=== PATIENT | female | born 1935 | race Caucasian/White ===

== ENCOUNTER 2020-10-02 14:16 | Outpatient (RCR) | payer MEDICARE, OTHER, SELFPAY | END 2020-10-02 23:59 | LOC: IMMUN 14:16 | PROVIDERS: PCP Family Medicine; Visit Provider Family Medicine | DX: Z23 Encounter for immunization (principal) | CPT/HCPCS: 0011A; 0012A; 91301 ==

== ENCOUNTER 2021-09-22 11:57 | Outpatient (CLI) | payer MEDICARE, OTHER, SELFPAY ==
--- NOTE | 2021-09-22 12:08 | RAD_ITS ---
STUDY: X-RAY - LEFT KNEE REASON FOR EXAM: Female, 86 years old. Knee pain. TECHNIQUE: 4 view(s) of the knee. COMPARISON: None. FINDINGS: Osteopenia. Small sessile exostosis of the medial tibial metaphysis. Moderate arthrosis of the medial compartment with osteophyte formation. Mild arthrosis of the lateral compartment with small osteophytes. Lateral tilt and subluxation of the patella with mild arthrosis of the patellofemoral compartment. The soft tissue structures are unremarkable. RAD/Knee 4 or More Views IMPRESSION: Osteopenia with small sessile exostosis of the medial tibial metaphysis. Tricompartmental arthrosis as described. No acute abnormality, erosive changes, chondrocalcinosis or periostitis. Electronically Signed: Ricardo Ruiz MD at 12:58 EST , Service support ,
== END 2021-09-22 23:59 | disposition short-term general hospital (02) ==
LOC: MTRAD 12:01
PROVIDERS: PCP Family Medicine; Referring Provider Family Medicine; Visit Provider Family Medicine
DX: M17.12 Unilateral primary osteoarthritis, left knee (principal)
CPT/HCPCS: 73564

== ENCOUNTER 2021-11-09 10:09 | Emergency (ER) | payer MEDICARE, OTHER, SELFPAY ==
[2021-11-09 10:11] VITALS: BP 146/110; PULSE 83; RESP 16; TEMP 36.5; O2SAT 99; BMI 31.9
[2021-11-09 10:22] VITALS: BMI 31.9
--- NOTE | 2021-11-09 10:45 | CT_ITS ---
STUDY: CT HEAD STROKE PROTOCOL W/O CONTRAST INJECTION REASON FOR EXAM: Female, 86 years old. Weakness L>R RADIATION DOSAGE (If Supplied By Facility): CTDIvol = ( 44.99 ) mGy, DLP = ( 796.11 ) mGycm TECHNIQUE: Transaxial CT imaging of the brain was performed without administration of intravenous contrast material. Individualized dose optimization techniques were used for this CT. COMPARISON: No relevant priors. FINDINGS: Normal soft tissue structures. Normal calvarium. There is moderate cerebral atrophy with widening of the extra-axial spaces and ventricular dilatation. There are areas of decreased attenuation within the white matter tracts of the supratentorial brain, consistent with microvascular disease changes. Normal basal ganglia and thalami. Normal brainstem. Normal cerebellum. There is no intracranial hemorrhage. There are no findings of an acute ischemic infarction. Normal visualized paranasal sinuses. CT/STROKE Brain/Head without Cont IMPRESSION: Chronic involutional changes of the brain. N.B. : The above Results were Read Back by Chele Finn MD to Evens Arzola and understanding confirmed on 11/09/2021 12:11:54 (ET). Electronically Signed: Chele Finn MD at 12:13 EST ,
--- NOTE | 2021-11-09 10:45 | EKG12_ITS ---
Test Reason : NEURO S\SX Blood Pressure : / mmHG Vent. Rate : 061 BPM Atrial Rate : 061 BPM P-R Int : 206 ms QRS Dur : 080 ms QT Int : 380 ms P-R-T Axes : 032 006 032 degrees QTc Int : 382 ms Normal sinus rhythm Normal ECG Confirmed by TY MAX, KASIA ([id number]), editor managing newspaper WILLIE HAIRSTON ([id number]) on 11/12/2021 1:20:47 PM Referred By: YULY Confirmed By:KASIA CRAWFORD MD
--- NOTE | 2021-11-09 10:45 | RAD_ITS ---
STUDY: X-RAY CHEST REASON FOR EXAM: Female, 86 years old. Neuro deficit, acute, stroke suspected TECHNIQUE: Single AP portable view of the chest. COMPARISON: None. FINDINGS: The lungs are clear and expanded. There is no demonstrated pleural abnormality. Normal size heart. Normal mediastinum and norberto. Normal visualized pulmonary arteries. Normal visualized aortic arch and descending thoracic aorta. Normal visualized thoracic spine. Normal visualized ribs, clavicles, and shoulders. There is no demonstrated abnormality of the visualized soft tissue structures of the upper abdomen. RAD/Chest 1 View IMPRESSION: Normal x-ray examination of the chest. Electronically Signed: Kamlesh Dhillon MD at 13:00 [facility] ,
--- NOTE | 2021-11-09 10:47 | ED.VIS.STROK ---
HPI History of Present Illness Chief Complaint: Neuro S/Sx Informant: patient Onset/Context/Timing Onset: Weeks (1) Context: - (Awoke with symptoms gradually worse) Timing: Continuous Current Severity: Moderate Maximum Severity: Moderate Associated Symptoms Associated Symptoms: Negative for Headache, Nausea, Vomiting and Chest Pain Narrative Narrative: Patient states she has had symptoms for about 1 week. She called her doctor today Tuesday morning and was referred to the ER for them. She states she has had weakness and pain in the muscles of her proximal bilateral upper and lower extremities but her left hand has felt tingly without robin numbness and more weak than the rest of the areas. She is having trouble getting herself dressed and reaching her arms up due to the symptoms but she is able to walk and get around okay so far, although she does admit limitations with getting up from a seated position because of both muscle pain in her thighs and weakness of her legs. She has chronic peripheral neuropathy in both feet that is radiating up her lower legs that is chronic and unchanged. She denies any facial symptoms or trouble speaking or understanding others. No headaches or vision changes or blurriness. Patient lives by herself. No recent illness, injury, long travel. Prior similar symptoms: No Recent Illness/Hospitalization: No PFSH PFS Medical History Diabetes Essential tremor Home Medications dulaglutide [Trulicity] 0.75 mg SUBCUT QWEEK 11/09/21 [History Last Taken Unknown] insulin glargine [Lantus Solostar U-100 Insulin] 31 unit SUBCUT BID 11/09/21 [History Last Taken Unknown] lisinopril 5 mg PO DAILY 11/09/21 [History Last Taken Unknown] omeprazole 20 mg PO DAILY 11/09/21 [History Last Taken Unknown] Allergy/AdvReac Type Severity Reaction Status Date / Time No Known Allergies Allergy Verified 11/09/21 10:11 Social History Smoking Status: Never smoker ROS ROS ED Constitutional Constitutional ED: Denies chills or fever(s) Eyes Eyes: Denies change in vision or diplopia ENT ENT ED: Denies rhinorrhea or sore throat Cardiovascular Cardiovascular: Denies chest pain or palpitations Respiratory/Chest Respiratory/Chest: Denies cough or dyspnea Gastrointestinal Gastrointestinal: Denies abdominal pain, diarrhea, nausea or vomiting Genitourinary Genitourinary ED: Denies dysuria or hematuria Musculoskeletal Musculoskeletal: Denies back pain or neck pain Integumentary Denies abscess or rash Neurologic Neurologic: Reports paresthesias LUE and weakness; Denies headache(s) Psychiatric Psychiatric: Denies anxiety or suicidal thoughts EXAM Physical Exam Const Vital Signs: 11/09/21 10:11 11/09/21 10:45 11/09/21 12:10 Temperature 97.7 F L Temperature Source Temporal Pulse Rate 83 62 Respiratory Rate 16 18 Blood Pressure 146/110 H 134/85 H Blood Pressure Mean 122 101 Pulse Ox 99 94 Oxygen Delivery Method Room Air Room Air Room Air 11/09/21 14:37 11/09/21 16:26 Temperature Temperature Source Pulse Rate 93 52 L Respiratory Rate Blood Pressure 125/82 H 165/71 H Blood Pressure Mean 96 102 Pulse Ox 99 97 Oxygen Delivery Method Room Air Room Air Positive well nourished and well developed General Appearance ED: well developed and NAD HEENT Reports moist mucous membranes normocephalic and atraumatic Eyes PERRL and EOMs intact bilaterally Neck full ROM and supple Lymph Lymphatic: no lymphadenopathy noted and no lymphedema noted Resp normal respiratory effort and clear to auscultation bilaterally Cardio regular rate and regular rhythm Cardio Narrative: Systolic decrescendo 2/6 murmur. Occasional irregularity. GI non-tender and non-distended Auscultation: normoactive bowel sounds Palpation: soft Back/Spine no CVA tenderness General Back: other FROM Extremity normal to inspection General Extremety ED: Negative for edema, pulses abnormal or tenderness General Extremity: Negative for edema or pulses abnormal Neuro oriented x3, CN's II-XII intact bilaterally and no sensory deficits noted Sensorium / Orientation: awake and alert Motor Exam: strength 5/5 throughout Skin no rashes or lesions noted and no wounds STROKE Vital Signs/Narrative: Vital Signs Pulse BP Pulse Ox 11/09/21 16:26 52 L 165/71 H 97 11/09/21 14:37 93 125/82 H 99 NIHSS Initial: 1a Level of Consciousness: 0 1b LOC Questions (Score 2 if aphasic/stupor): 0 1c LOC Commands (Only score 1st attempt): 0 2 Best Gaze (If aphasic, use reflexive mvmts.): 0 3 Visual: 0 4 Facial Palsy: 0 5 Motor Arm Right (UN = amputation/fusion): 1 5 Motor Arm Left: 2 6 Motor Leg Right: 1 6 Motor Leg Left: 1 7 Limb ataxia (Only + if out of proportion): 0 8 Sensory (Aphasia/stupor=0 or 1, coma=2): 1 9 Best Language: 0 10 Dysarthria (mute, coma=2, intubated=UN): 0 11 Extinction and Inattention (only scored if +): 0 Total Score: 6 MDM MDM MDM Narrative Medical decision making narrative: Patient has a broad differential for these symptoms. This includes metabolic, infectious, cerebrovascular disease in addition to cervical disc disease, Guillain-Nguyen? for which she has no risk factors or history of, multiple sclerosis and other primary neurologic diseases, primary muscular disease, rheumatologic etiologies, and this list is not exclusive of every possibility. I performed a broad work-up including cardiac enzymes and EKG, metabolic hematologic, infectious. Also CT of the head. All of this revealed no acute abnormality. Furthermore her urine shows no signs of blood on the dip or microscopy, ruling out rhabdomyolysis without the need to add a CPK. Her glucose is 156, which certainly is a diabetic does not explain this. Given the patient's age and the fact that she lives at home alone is now starting to have difficulty due to the symptoms doing ADLs, I offered admission for further evaluation work-up but she declines and prefers to go home. I discussed with RN and the patient's PCPs office, who actually sent her to the emergency department today, in order to expedite outpatient evaluation and further care. Discussed all this with the patient she is welcome to return to the ER if she changes her mind or feels worse in the meantime. Lab Data Attestation: I reviewed the patient's lab results. Labs: Laboratory Results - last 24 hr 11/09/21 11/09/21 11/09/21 10:55 10:55 11:18 WBC 8.2 RBC 4.10 L Hgb 11.9 L Hct 36.7 L MCV 89.5 MCH 29.0 MCHC 32.4 RDW Std Deviation 45.8 H RDW Coeff of Samuel 14.0 Plt Count 230 MPV 11.4 Immature Gran % (Auto) 0.400 Neut % (Auto) 71.0 H Lymph % (Auto) 19.3 [place] % (Auto) 6.6 Eos % (Auto) 2.3 Baso % (Auto) 0.4 Absolute Neuts (auto) 5.8 Absolute Lymphs (auto) 1.57 Nucleated RBC % 0 Sodium 138 Potassium 4.1 Chloride 106 Carbon Dioxide 26.0 Anion Gap 6 BUN 12 Creatinine 1.00 Estim Creat Clear Calc 34.64 Est GFR (MDRD) Af Amer 68 Est GFR (MDRD) Non-Af 56 L BUN/Creatinine Ratio 12.1 Glucose 156 H Calcium 9.5 Troponin I High Sens 6 Urine Color Yellow Urine Clarity Sl. Cloudy Urine pH 6.0 Ur Specific [place] 1.010 Urine Protein Negative Urine Glucose (UA) Normal Urine Ketones Negative Urine Occult Blood Negative Urine Nitrite Negative Urine Bilirubin Negative Urine Urobilinogen Normal Ur Leukocyte Esterase Negative Urine RBC 0 SEEN Urine WBC 0 SEEN Ur Squamous Epith Cells 5-10 SEEN Urine Bacteria 1+ Urine Mucus 0 SEEN Radiography Diagnostic Testing: Clinical Impression(s) from Imaging Studies Brain CT 11/09/21 10:45 IMPRESSION: Chronic involutional changes of the brain. N.B. : The above Results were Read Back by Chele Finn MD to Evens Arzola and understanding confirmed on 11/09/2021 12:11:54 (ET). Electronically Signed: Chele Finn MD at 12:13 EST , ADDENDUM: 11/09/21 1220 IMPRESSION: Chronic involutional changes of the brain. N.B. : The above Results were Read Back by Chele Finn MD to Evens Arzola and understanding confirmed on 11/09/2021 12:11:54 (ET). Electronically Signed: Chele Finn MD at 12:13 EST , Chest X-Ray 11/09/21 10:45 IMPRESSION: Normal x-ray examination of the chest. Electronically Signed: Kamlesh Dhillon MD at 13:00 EST , EKG Initial EKG: Attestation: I personally reviewed and interpreted this EKG as follows: Interpretation: Sinus Rhythm and No Acute Injury Pattern Comments: normal EKG Stroke Documentation Questions Stroke Team Activated: No (timing) Discharge Plan Triage Chief Complaint: Neuro S/Sx Other Complaint: Weakness ED Provider: Evens Arzola Dx/Rx/DC Orders Clinical Impression: Acute muscle weakness Instructions: ED Weakness (Uncertain Cause) Prescriptions: No Action lisinopril 5 mg Tablet 5 mg PO DAILY RF: 0 Lantus Solostar U-100 Insulin 100 unit/mL (3 mL) Insulin Pen 31 unit SUBCUT BID RF: 0 omeprazole 20 mg Tablet,Delayed Release (Dr/Ec) 20 mg PO DAILY RF: 0 Trulicity 0.75 mg/0.5 mL Pen Injector 0.75 mg SUBCUT QWEEK RF: 0 Primary Care Provider: Kike Russo Referrals: Kike Russo MD [Primary Care Provider] - As soon as possible (If you feel worse and you are having trouble performing activities of daily living and you feel that you need to be admitted to the hospital for further testing, please return to the ER) Disposition Disposition: Home, Self Care
[2021-11-09 11:03] LABS: Absolute Lymphocyte Count 1.57 X10^3/uL (0.83-4.51); Absolute Neutrophil Count 5.8 X10^3/uL (2.0-7.7); Basophil# 0.03 X10^3/uL; Basophil% 0.4 % (0-1); Eosinophil# 0.19 X10^3/uL; Eosinophils% 2.3 % (0-5); Hematocrit 36.7 % (37-47); Hemoglobin 11.9 g/dL (12.0-15.0); Lymphocyte # 1.57 X10^3/ul (0.83-4.51); Lymphocyte % 19.3 % (19-41); Mean Corp Hgb Conc 32.4 g/dL (32-36); Mean Corpuscular Volume 89.5 fL (81-99); Mean Platelet Vol. 11.4 fl (6.2-12.0); Monocyte# 0.54 X10^3/uL; Monocyte% 6.6 % (0-10); NRBC Flagged by Analyzer 0 % (0-5); Neutrophil # 5.79 X10^3/uL (2.7-7.7); Platelet Count 230 K/mm3 (150-450); RBC Distribution Width SD 45.8 fl (35.1-43.9); White Blood Count 8.2 K/mm3 (4.4-11.0)
[2021-11-09 11:20] LABS: Anion Gap 6 (5-15); BUN 12 mg/dL (7-18); BUN/Creat Ratio 12.1 RATIO (10-20); Calcium,Total 9.5 mg/dL (8.5-10.1); Chloride 106 mmol/L (98-107); EST Glomerular Filtration Rate 56 mL/min (>60); Est Glom Filt Rate - Afr Amer 68 mL/min (>60); Estimated Creatinine Clearance 34.64 ml/min; Glucose 156 mg/dL (74-106); Potassium 4.1 mmol/L (3.5-5.1); Sodium Level 138 mmol/L (136-145); Troponin-I HS 6 pg/mL (3.0-54.0)
[2021-11-09 11:26] LABS: Mucous, Urine 0 SEEN /hpf (<or=2+); Red Blood Cells-Urine 0 SEEN /hpf (0-5); White Blood Cells 0 SEEN /hpf (0-5)
[2021-11-09 11:35] LABS: Color, Urine Yellow (Yellow); Glucose, Dipstick Normal (Normal); Ketone-Dipstick Negative (Negative); Leukocyte Esterase-Dipstick Negative /ul (Negative); Nitrite-Dipstick Negative (Negative); Occult Blood-Urine Negative /ul (Negative); Protein-Dipstick Negative (Negative); Urine Bilirubin Dipstick Negative (Negative); Urine Clarity Sl. Cloudy (Clear); Urine Urobilinogen Normal (Normal)
[2021-11-09 11:50] LABS: Bacteria 1+ /hpf (None Seen); Squamous Epithelial Cells - UA 5-10 SEEN /hpf (5-10)
[2021-11-09 12:10] VITALS: BP 134/85; PULSE 62; RESP 18; O2SAT 94
[2021-11-09 14:37] VITALS: BP 125/82; PULSE 93; O2SAT 99
[2021-11-09 16:26] VITALS: BP 165/71; PULSE 52; O2SAT 97
== END 2021-11-09 16:50 | disposition home or self-care (01) ==
PROVIDERS: Emergency Provider Emergency Medicine; PCP Family Medicine; Visit Provider Emergency Medicine
DX: M62.81 Muscle weakness (generalized) (principal); E11.9 Type 2 diabetes mellitus without complications; Z79.4 Long term (current) use of insulin; Z79.899 Other long term (current) drug therapy
CPT/HCPCS: 70450; 71045; 80048; 81001; 84484; 85025; 93005; 99283; A4216

== ENCOUNTER → 2022-05-27 | Outpatient (CLI) | payer MEDICARE, OTHER, SELFPAY ==
--- NOTE | 2022-05-27 09:33 | ECHOD_ITS ---
Reason For Study: MURMUR Procedure This was a 2D Doppler, Color Flow transthoracic echocardiogram. Exam performed in department. Left Ventricle Normal LV size. Mild concentric left ventricular hypertrophy. Left ventricular systolic function is normal. The estimated ejection fraction is 55 %. Stage 1 diastolic dysfunction. No regional wall motion abnormalities noted. Right Ventricle Normal RV size. Normal systolic function. Atria Normal left atrium. Normal right atrium. Mitral Valve Normal mitral valve. Tricuspid Valve Normal tricuspid valve. Mild (1+) tricuspid valve insufficiency. Pulmonary artery systolic pressure is 34 mmHg. Aortic Valve Trisinus/trileaflet aortic valve. Mild focal aortic valve calcification. Aortic sclerosis, no stenosis. Pulmonic Valve Normal pulmonic valve. Great Vessels Normal aortic root. The pulmonary artery is normal size. Normal inferior vena cava. Pericardium/Pleural No pericardial effusion. MMode/2D Measurements & Calculations LVIDd: 3.7 cm IVSd: 1.3 cm Ao root diam: 3.2 cm LVIDs: 2.1 cm LVPWd: 1.2 cm RVDd: 2.8 cm FS: 43.1 % LAV(MOD-bp): 54.4 ml LVAd ap4: 22.8 cm2 SV(MOD-sp4): 35.9 ml LAV(MOD-bp) Indexed: 29.4 ml/m2 LVLd ap4: 7.8 cm LAV(MOD-sp2): 80.4 ml EDV(MOD-sp4): 55.4 ml LAV(MOD-sp4): 33.5 ml EDV(sp4-el): 57.1 ml LVAs ap4: 11.7 cm2 LVLs ap4: 6.4 cm ESV(MOD-sp4): 19.5 ml ESV(sp4-el): 18.2 ml EF(MOD-sp4): 64.8 % EF(sp4-el): 68.2 % SV(sp4-el): 38.9 ml LA A4 area: 15.7 cm2 LA dimension(2D): 3.3 cm RA A4 area: 19.4 cm2 Time Measurements MV dec time: 0.26 sec Doppler Measurements & Calculations MV E max shun: 94.8 cm/sec Lat Peak E' Shun: 8.4 cm/sec Med Peak E' Shun: 5.8 cm/sec MV A max shun: 102.8 cm/sec E/E' lat: 11.3 E/E' med: 16.3 MV E/A: 0.92 MV V2 max: 105.6 cm/sec Ao V2 max: 178.8 cm/sec MV max P.5 mmHg MV dec slope: 371.8 cm/sec2 Ao max P.8 mmHg MV V2 mean: 67.9 cm/sec Ao V2 mean: 118.0 cm/sec MV mean P.1 mmHg Ao mean P.5 mmHg MV V2 VTI: 35.9 cm Ao V2 VTI: 37.1 cm LV V1 max: 117.9 cm/sec PA V2 max: 108.0 cm/sec TR max shun: 273.2 cm/sec LV V1 max P.6 mmHg PA V2 mean: 77.1 cm/sec TR max P.9 mmHg LV V1 mean P.1 mmHg LV V1 mean: 82.3 cm/sec LV V1 VTI: 26.3 cm ECHO/Echo Complete Interpretation Summary Normal LV size. Left ventricular systolic function is normal. The estimated ejection fraction is 55 %. Stage 1 diastolic dysfunction. Mild concentric left ventricular hypertrophy. Aortic sclerosis, no stenosis. Ordering Physician: Eryn Guerra Referring Physician: Eryn Guerra Performed By: Kathleen Grijalva RCS
== END | disposition home or self-care (01) ==
LOC: CVS 09:31
PROVIDERS: PCP Family Medicine; Referring Provider Family Medicine; Visit Provider Family Medicine
DX: I35.8 Other nonrheumatic aortic valve disorders (principal); R01.1 Cardiac murmur, unspecified; R60.0 Localized edema
CPT/HCPCS: 93306

== ENCOUNTER → 2022-09-21 | Outpatient (CLI) | payer MEDICARE, OTHER, SELFPAY ==
--- NOTE | 2022-09-21 15:55 | RAD_ITS ---
ACR Level 3 findings have been noted. An addendum which confirms receipt of the report will follow. INDICATION: COUGH EXAMINATION/TECHNIQUE: X-RAY - XR Chest 2 Views COMPARISON: None. FINDINGS: Questionable 1.3 cm nodule in the right lower lung. Tortuous and calcified thoracic aorta. The heart is not enlarged. No pleural effusion or pneumothorax. Degenerative changes of the thoracic spine. RAD/Chest PA and Lateral IMPRESSION: Questionable 1.3 cm nodule in the right lower lung. Consider dedicated chest CT with contrast for further evaluation. Electronically Signed: Joss Cunningham MD at 23:03 EST ,
== END | disposition home or self-care (01) ==
LOC: MTRAD 15:46
PROVIDERS: PCP Family Medicine; Referring Provider Family Medicine; Visit Provider Family Medicine
DX: U07.1 COVID-19 (principal); R05.9 Cough, unspecified
CPT/HCPCS: 71046; 87635; U0003; U0005

== ENCOUNTER → 2022-11-16 | Outpatient (CLI) | payer MEDICARE, OTHER, SELFPAY ==
--- NOTE | 2022-11-16 15:43 | CT_ITS ---
STUDY: CT CHEST WITH CONTRAST REASON FOR EXAM: Female, 87 years old. NODULE ON CXR RADIATION DOSAGE (If Supplied By Facility): CTDIvol = ( 12.52 ) mGy, DLP = ( 449.73 ) mGycm TECHNIQUE: Transaxial imaging was performed following intravenous administration of IV 100mL Isovue-370. Multiplanar coronal and sagittal images were reformatted. Individualized dose optimization techniques were used for this CT. COMPARISON: Comparison is made with prior chest radiograph dated September 21, 2022. FINDINGS: CHEST The radiographic abnormality corresponds to a 1.4 cm partially calcified granuloma in the lateral aspect of the right upper lobe as seen on axial image #76 and coronal image #135. There is no demonstrated pleural abnormality. No coronary artery calcification is seen. Normal mediastinum. Normal hilar regions. Normal unenhanced pulmonary arteries. There is atherosclerotic calcification of the aortic arch with tortuosity and elongation of the aortic arch and descending thoracic aorta. There are multi-level degenerative changes of the thoracic spine. There is no demonstrated abnormality of the visualized upper abdomen. CT/Chest WITH Contrast IMPRESSION: The radiographic abnormality corresponds to a 1.4 cm partially calcified granuloma in the lateral aspect of the right upper lobe. Electronically Signed: Chele Finn MD at 16:11 EST ,
== END | disposition home or self-care (01) ==
LOC: CT 15:41
PROVIDERS: PCP Family Medicine; Referring Provider Family Medicine; Visit Provider Family Medicine
DX: R93.89 Abnormal findings on diagnostic imaging of other specified body structures (principal)
CPT/HCPCS: 71260; Q9967

== ENCOUNTER 2022-11-30 10:30 | Outpatient (RCR) | payer MEDICARE, OTHER, SELFPAY | END 2022-12-10 23:59 | LOC: DC 10:30 | PROVIDERS: PCP Family Medicine; Visit Provider Family Medicine | DX: E11.9 Type 2 diabetes mellitus without complications (principal); G62.9 Polyneuropathy, unspecified | CPT/HCPCS: 97802; G0108 ==

== ENCOUNTER 2023-01-05 13:00 | Outpatient (RCR) | payer MEDICARE, OTHER, SELFPAY | END 2023-01-09 23:59 | LOC: DC 13:00 | PROVIDERS: PCP Family Medicine; Referring Provider Family Medicine; Visit Provider Family Medicine | DX: E11.9 Type 2 diabetes mellitus without complications (principal); G62.9 Polyneuropathy, unspecified | CPT/HCPCS: 97803; G0108 ==

== ENCOUNTER 2023-01-26 09:09 | Outpatient (RCR) | payer MEDICARE, OTHER, SELFPAY | END 2023-02-09 23:59 | LOC: DC 09:09 | PROVIDERS: PCP Family Medicine; Referring Provider Family Medicine; Visit Provider Family Medicine | DX: E11.9 Type 2 diabetes mellitus without complications (principal); G62.9 Polyneuropathy, unspecified | CPT/HCPCS: G0108 ==

== ENCOUNTER → 2023-02-08 | Outpatient (CLI) | payer MEDICARE, OTHER, SELFPAY ==
[2023-02-08 12:22] LABS: Absolute Lymphocyte Count 1.53 X10^3/uL (0.83-4.51); Absolute Neutrophil Count 4.6 X10^3/uL (2.0-7.7); Basophil# 0.03 X10^3/uL; Basophil% 0.4 % (0-1); Eosinophil# 0.24 X10^3/uL; Eosinophils% 3.4 % (0-5); Hematocrit 38.2 % (37-47); Hemoglobin 11.5 g/dL (12.0-15.0); Lymphocyte # 1.53 X10^3/ul (0.83-4.51); Lymphocyte % 21.7 % (19-41); Mean Corp Hgb Conc 30.1 g/dL (32-36); Mean Corpuscular Hgb 28.3 pg (27.0-32.0); Mean Corpuscular Volume 93.9 fL (81-99); Mean Platelet Vol. 12.4 fl (6.2-12.0); Monocyte% 8.5 % (0-10); NRBC Flagged by Analyzer 0 % (0-5); Neutrophil # 4.63 X10^3/uL (2.7-7.7); Neutrophil % 65.7 % (47-70); Platelet Count 195 K/mm3 (150-450); RBC Distribution Width CV 14.1 % (11.6-14.6); RBC Distribution Width SD 47.9 fl (35.1-43.9); Red Blood Count 4.07 M/mm3 (4.2-5.4); White Blood Count 7.1 K/mm3 (4.4-11.0)
[2023-02-08 12:36] LABS: ALB/GLOB Ratio 0.9 RATIO (0.9-2.4); AST(SGOT) 18 U/L (15-37); Alanine Aminotransfer ALT/SGPT 24 U/L (13-56); Albumin, Serum 3.2 g/dL (3.2-5.0); Alkaline Phosphatase 49 U/L (45-117); Anion Gap 8 (5-15); BUN 15 mg/dL (7-18); BUN/Creat Ratio 17.1 RATIO (10-20); Calcium,Total 9.6 mg/dL (8.5-10.1); Chloride 107 mmol/L (98-107); Cholesterol 134 mg/dL (200); Creatinine, Serum 0.88 mg/dL (0.55-1.02); EST Glomerular Filtration Rate 65 mL/min (>60); Est Glom Filt Rate - Afr Amer 79 mL/min (>60); Globulin 3.7 g/dL (2.2-4.2); Glucose 141 mg/dL (74-106); High Density Lipoprotein 52 mg/dL; Potassium 3.9 mmol/L (3.5-5.1); Protein, Total 6.9 g/dL (6.4-8.2); Sodium Level 143 mmol/L (136-145); Triglycerides 134 mg/dL; Very Low Density Lipoprotein 27 mg/dL (5-40)
== END | disposition home or self-care (01) ==
LOC: BFHLAB 09:02
PROVIDERS: PCP Family Medicine; Referring Provider Family Medicine; Visit Provider Family Medicine
DX: E11.9 Type 2 diabetes mellitus without complications (principal); I10 Essential (primary) hypertension; E78.5 Hyperlipidemia, unspecified
CPT/HCPCS: 36415; 80053; 80061; 85025

== ENCOUNTER → 2023-05-06 | Outpatient (CLI) | payer MEDICARE, OTHER, SELFPAY ==
--- NOTE | 2023-05-06 10:25 | RAD_ITS ---
STUDY: X-RAY - LUMBAR SPINE REASON FOR EXAM: Female, 88 years old. Left radiculopathy. TECHNIQUE: 4 view(s) of the lumbar spine were obtained. COMPARISON: None FINDINGS: Osteopenia. Normal lumbar lordosis. No substantial scoliosis. alignment of the vertebrae. Diffuse lower thoracic and lumbosacral facet sclerosis. Intervertebral disc space narrowing at L3-4, L4-5 and L5-S1. Intradiscal calcification at L4-5. Vascular calcification. RAD/L/S Spine Min 4 Views IMPRESSION: Osteopenia with mild lower lumbosacral spondylosis. No acute abnormality or erosive changes. Electronically Signed: Ricardo Ruiz MD at 14:20 EDT ,
[2023-05-06 12:00] LABS: Absolute Lymphocyte Count 1.53 X10^3/uL (0.83-4.51); Absolute Neutrophil Count 4.4 X10^3/uL (2.0-7.7); Basophil# 0.04 X10^3/uL; Basophil% 0.6 % (0-1); Eosinophil# 0.32 X10^3/uL; Eosinophils% 4.7 % (0-5); Hematocrit 36.8 % (37-47); Hemoglobin 11.2 g/dL (12.0-15.0); Lymphocyte # 1.53 X10^3/ul (0.83-4.51); Lymphocyte % 22.3 % (19-41); Mean Corp Hgb Conc 30.4 g/dL (32-36); Mean Corpuscular Hgb 28.5 pg (27.0-32.0); Mean Corpuscular Volume 93.6 fL (81-99); Mean Platelet Vol. 12.4 fl (6.2-12.0); Monocyte# 0.53 X10^3/uL; Monocyte% 7.7 % (0-10); NRBC Flagged by Analyzer 0 % (0-5); Neutrophil # 4.41 X10^3/uL (2.7-7.7); Neutrophil % 64.1 % (47-70); Platelet Count 186 K/mm3 (150-450); RBC Distribution Width CV 14.2 % (11.6-14.6); RBC Distribution Width SD 48.7 fl (35.1-43.9); Red Blood Count 3.93 M/mm3 (4.2-5.4); White Blood Count 6.9 K/mm3 (4.4-11.0)
[2023-05-06 12:28] LABS: Vitamin B12 282 pg/mL (211-911)
[2023-05-06 12:40] LABS: Ferritin 37 ng/mL (8-252); Iron 48 ug/dL (50-170); Iron Binding Capacity,Total 299 ug/dL (250-450); PERCENT IRON SATURATION 16.1 % (15.0-55.0); Thyroid Stim Hormone (TSH) 1.83 uIU/mL (0.358-3.74)
[2023-05-06 13:00] LABS: Microalbumin,Random Urine 8.4 mg/L (NO RANGE EST.); Microalbumin:Creatinine Ratio 20.4 mg/g CRE (<30 mg/g CRE)
== END | disposition home or self-care (01) ==
LOC: MTLAB 10:08
PROVIDERS: PCP Family Medicine; Referring Provider Family Medicine; Visit Provider Family Medicine
DX: I10 Essential (primary) hypertension (principal); E11.9 Type 2 diabetes mellitus without complications; D64.9 Anemia, unspecified
CPT/HCPCS: 36415; 72110; 82043; 82570; 82607; 82728; 82746; 83540; 83550; 84443; 85025

== ENCOUNTER → 2023-05-14 | Outpatient (CLI) | payer MEDICARE, OTHER, SELFPAY ==
--- NOTE | 2023-05-14 09:30 | MRI_ITS ---
STUDY: MRI LUMBAR SPINE WITHOUT CONTRAST REASON FOR EXAM: Female, 88 years old. L RADICULOPATHY IN HIP AND DOWN TO TOES X 3 MONTHS TECHNIQUE: Standardized fat and water weighted pulse sequences were obtained in the sagittal and axial planes. COMPARISON: X-ray the lumbar spine dated May 06, 2023 FINDINGS: Normal lumbar lordosis. There is no substantial scoliosis. Normal conus medullaris that terminates at the T12-L1 level. No marrow edema or fracture or compression deformity is present. Diffuse sigmoid diverticulosis is present. T12-L1: Diffuse disc desiccation with mild disc space narrowing and a diffuse disc spur complex.. Normal bilateral facet joints. Normal central canal and bilateral lateral recesses. Normal bilateral intervertebral neural foramina. L1-2: Normal endplates. Diffuse disc desiccation with mild disc space narrowing and posterior annular bulging. Normal bilateral facet joints. Normal central canal and bilateral lateral recesses. Normal bilateral intervertebral neural foramina. L2-3: Normal endplates. Diffuse disc desiccation with mild disc space narrowing and posterior annular bulging. Normal bilateral facet joints. Normal central canal and bilateral lateral recesses. Normal bilateral intervertebral neural foramina. L3-4: Diffuse disc desiccation with mild to moderate posterior disc space narrowing with a posterior disc spur complex. Mild anterior endplate spurring. Mild facet joint hypertrophy. Mild bilateral foraminal stenosis. Mild central canal stenosis. L4-5: Slight anterolisthesis of L4 and L5 of no more than 2 mm. Diffuse disc desiccation with minimal disc space narrowing and annular bulging. Mild facet joint hypertrophy. Normal central canal and bilateral lateral recesses. Normal bilateral intervertebral neural foramina. L5-S1: Normal endplates. Mild disc desiccation and minimal disc space narrowing with only slight posterior annular bulging. Mild right facet joint hypertrophy and degeneration. Normal central canal and bilateral lateral recesses. Normal bilateral intervertebral neural foramina. Normal visualized sacral ala. There is moderate paraspinal muscular atrophy. MRI/Spine Lumbar (Routine) IMPRESSION: 1. Mild multilevel degenerative changes, as described above. Electronically Signed: Vikas Wynne MD at 9:30 EDT ,
== END | disposition home or self-care (01) ==
LOC: MRI 08:43
PROVIDERS: PCP Family Medicine; Referring Provider Family Medicine; Visit Provider Family Medicine
DX: M54.16 Radiculopathy, lumbar region (principal)
CPT/HCPCS: 72148

== ENCOUNTER 2023-07-01 12:30 | Outpatient (RCR) | payer MEDICARE, OTHER, SELFPAY ==
--- NOTE | 2023-06-01 12:05 | HP.PTEVAL ---
Patient's Visit Information Visit Information Visit Information: LAUREN ATKINS is a 88 year old F referred to Physical Therapy by Dr. rEyn Guerra MD with a diagnosis of LUMBAR RADICULOPATHY. Date of Evaluation: 06/01/23 Physical Therapist: Janneth Dixon PT, Cert MDT Visit Plan Frequency: 2-3x /Week Duration: 4-6 Weeks Plan: GAIT TRAINING, POSTURE CORRECTION/STRENGTHENING, INSTRUCTION IN APPROPRIATE BODY MECHANICS AND ACTIVITY MODIFICATIONS. DLS STARTING WITH A NEUTRAL SPINE PROGRESSING ROM TOLERATED. KODY LE ROM, STRETCHING AND STRENGTHENING. HEP INSTRUCTION. Subjective Subjective: Work/Leisure: RETIRED Present symptoms: L BUTTOCK PAIN AND KODY THIGH, LEG, FOOT AND TOE PAIN. NUMBNESS AND TINGLING BELOW THE KNEES KODY. Present since: L BUTTOCK AREA PAIN STARTED ABOUT 2 MONTHS AGO. PATIENT STATES SHE THINKS HER NEUROPATHY SX'S/FOOT AND LOWER LEG PAIN STARTED ABOUT 6 MONTHS AGO. Pain Scale: WORST 8/10, LEAST 3/10 Currently: 3/10 Is it getting better, worse or staying the same: STAYING THE SAME Commenced as a result of: NO APPARENT REASON Symptoms at onset: L BUTTOCK PAIN Worse: PROLONGED SITTING, WALKING, LAYING DOWN IN THE BED, GETTING IN AND OUT OF THE CAR, BENDING DOWN TO PICK ANYTHING UP Better: ALEVE, ICY HOT ON LEGS, RECLINER Disturbed sleep: YES - HARD TO GET COMFORTABLE TO GO TO SLEEP. Previous history/Previous treatment: PATIENT DENIES ANY HX OF BACK PROBLEMS. PATIENT DENIES ANY HISTORY OF HIP PROBLEMS. NO BACK OR HIP SURGERIES OR INJECTIONS. NO CHIROPRACTIC. Treatment this episode: INCREASE OF GABAPENTIN Coughing/sneezing/straining: NEGATIVE Gait: USING CANE OUTSIDE OF HOME AND IN HOME WALKS ON HER OWN OR WITH WALKER NEEDED. Bowel or Bladder Dysfunction: NO Accidents: NO Unexplained weight loss: NO Imaging: RECENT LUMBAR X-RAYS AND MRI - SEE [facility] EMR. NO RECENT L HIP X-RAYS. PMH/Recent major surgery: IDDM, L TKR AUG [address] DIAZ AND STATES SHE USED A WALKER THEN A CANE AND HAS USED A CANE EVER SINCE BUT WAS NOT USING A CANE BEFORE THE KNEE REPLACEMENT. Objective Objective: Sitting/Standing Posture: POOR. INCREASED TRUNK FLEXION IN STANDING. REDUCED LUMBAR LORDOSIS. UNABLE TO FULLY CORRECT. Other Observations: THIS PATIENT AMBULATES INDEP'LY INTO PT WITH A STRAIGHT CANE WITH DECREASED CADANCE BUT NO LOB AND DENIES ANY RECENT FALLS. KODY LE ER L >R. KODY LE EDEMA L>R AND PATIENT REPORTS THIS IS NOT NEW. SHE REPORTS SHE DOES PRETTY GOOD WITH THE CANE AND AMBULATED GREATER THAN 300 FEET WITH THIS PT. SHE REPORTS HER L HIP ACHES CONSTANTLY AND GETS MORE INTENSE WITH MORE WALKING. IT ALSO GETS WORSE WITH PROLONGED SITTING. SHE IS UNABLE TO TRANSFER FROM SIT TO STAND WITHOUT UE ASSIST AND REQUIRES KODY UE ASSIST FOR TRANSFER SIT TO STAND. Sensory deficit: KODY LE LIGHT TOUCH SENSATION GROSSLY INTACT AND SYMMETRICAL ROM deficit: TIGHT KODY LE HIP FLEXORS, HS'S AND GASTROC-SOLEUS COMPLEX'S L>R. KODY HIP ROTATION TIGHTNESS L > R AND PATIENT C/O L HIP PAIN WITH L HIP IR TESTING. Motor deficit: KODY LE WEAKNESS L>R. RLE: HIP 4/5, KNEE 4/5, ANKLE 4/5. LLE: HIP 4-/5, KNEE 4-/5, ANKLE 4-/5. Dural Signs: NEGATIVE KODY LE'S. Lumbar mvmt loss: flex - MODERATE - INCREASES C/O POSTERIOR L HIP PAIN ext - DANILO R SG - DANILO L SG - DANILO PATIENT DENIES INCREASED PAIN WITH LUMBAR ROM TESTING ALL PLANES EXCEPT FLEXION. Core strength: POOR Palpation: LEFT POSTERIOR HIP TENDERNESS. PATIENT DENIES TENDERNESS WITH PALPATION OF LOWER THORACIC, LUMBAR AND SACRAL REGIONS. Balance/Special Test Scores Oswestry Low Back Score: 17 Goals Goal 1:: DECREASE C/O LOW BACK AND KODY LE SX'S. Goal Time Frame: 4-6 Weeks Goal 2:: IMPROVE LIFTING, ADL, WALKING, SITTING, STANDING, SOCIAL LIFE, TRAVEL AND HOMEMAKING FUNCTION. Goal Time Frame: 4-6 Weeks Goal 3:: INSTRUCT IN PROPHYLAXIS Goal Time Frame: 4-6 Weeks Anticipated Interventions Patient/Client Instruction: Educate patient on: Condition, Plan of Care and Risk Factors For the Purpose of:: To improve self management Therapeutic Exercise to Include: Strength training, Body mechanics, Postural training, Flexibilty training, Gait and locomotor training, Neuromotor development, In an aquatic setting and Dynamic Lumbar Stabilization For the Purpose of:: To decrease pain, To improve muscle performance and motor function, To increase tolerance to activity/condition/position, To improve ability of physical actions for home/community/work/leisure and To improve gait and locomotor functions Text: Thank you for the opportunity to evaluate your patient. For Medicare and Medicare HMO plans, please review the plan of care and approve it. It will need to be FAXED BACK to us at [phone] for Medicare purposes. For Medicare only, by signing this I certify the plan of care. Please let me know if there are questions or concerns regarding this plan of care. Physician Signature: Date:
--- NOTE | 2023-07-01 13:24 | HP.PTDCSUM_ITS ---
Discharge Summary D/C summary: It has been my pleasure to treat LAUREN ATKINS referred by Dr. Eryn Guerra MD, with the diagnosis of LUMBAR RADICULOPATHY for a total of 7 visit(s). Discharge Date: Please see the following information for a summary of their discharge status. Subjective Subjective: PATIENT REPORTS SHE IS SOME BETTER. SHE STATES SHE CAN DO THE EX'S EASIER NOW THAN WHEN SHE STARTED AND SHE IS GETTING AROUND A LITTLE BETTER. SHE REPORTS SHE STILL HAS PAIN IN BOTH OF HER LEGS (L>R) AND SHE ISN'T SURE IF IT IS HER NEUROPATHY OR NOT AND SHE STILL DOESN'T UNDERSTAND HOW IT IS FROM HER BACK BECAUSE SHE DOESN'T HAVE BACK PAIN. SHE STATES SHE FEELS SHE IS TOO DEPENDENT ON THE CANE AND SHE JUST ISN'T STEADY WITHOUT IT. SHE REPORTS COMPLIANCE WITH HEP AND ACTIVITY RECOMMENDATIONS - TRYING TO GET UP AND MOVE MORE. PATIENT REPORTS HAVING A CONSULT WITH DR. DIAZ AND HE DID MORE X-RAYS AND TOLD HER NOTHING IS WRONG WITH HER HIP AND IT IS ALL COMING FROM HER BACK. HE REFERRED HER TO DR. BERMUDEZ AND SHE SAW HIM LAST WEEK. RORY IS PENDING 07/12/[address] BERMUDEZ. SHE REPORTS DR. BERMUDEZ WANTED TO IMPLANT AN ELECTRONIC DEVICE BUT SHE STATES SHE DOESN'T WANT TO GO THAT ROUTE YET. PATIENT REPORTS SHE WANTS TO CONTINUE WITH HER HOME EX'S AND SEE HOW THE SHOT DOES AT THIS POINT AND THEN WILL CONSIDER MORE PT IF NEEDED. Pain L BUTTOCK: Pain Intensity (Out of 10): 5 LLE: Pain Intensity (Out of 10): 6 KODY LE'S: Pain Intensity (Out of 10): 4 Overall Improvement % Improvement: 50 Objective Objective/Function: PATIENT WAS SEEN TODAY FOR RE-ASSESSMENT OF PROGRESS TOWARD THE SET PT GOALS AND THE NEED FOR FURTHER PHYSICAL THERAPY VS READINESS FOR DISCHARGE. PATIENT IS REPORTING SOME IMPROVEMENT IN HER MOBILITY BUT STILL HAVING A LOT OF LEG PAIN (L>R). UPON EXAM TODAY, THERE ARE NO SIGNIFICANT OB JECTIVE CHANGES BUT SHE IS ABLE TO TOLERATE A LIGHT LOWER BODY HEP. Goals Goal 1:: DECREASE C/O LOW BACK AND KODY LE SX'S. Goal Progress: Not Progressing Goal 2:: IMPROVE LIFTING, ADL, WALKING, SITTING, STANDING, SOCIAL LIFE, TRAVEL AND HOMEMAKING FUNCTION. Goal Progress: Not Progressing Goal 3:: INSTRUCT IN PROPHYLAXIS Goal Progress: Not Progressing Plan Plan: D/C TO HEP AT THIS TIME. PATIENT AGREEABLE. D/C Information d/c sentence: If there are questions or concerns regarding this patient's physical therapy, please feel free to call me at [phone]. Thank you for the referral of this patient. Sincerely, Janneth Dixon, PT, Cert MDT Balance/Gait/Functional tests Balance/Special Test Scores Oswestry Low Back Score: 20 Improvement % Improvement: 50
== END 2023-07-01 19:00 | disposition home or self-care (01) ==
LOC: PT 12:30
PROVIDERS: PCP Family Medicine; Referring Provider Family Medicine; Visit Provider Family Medicine
DX: M54.16 Radiculopathy, lumbar region (principal)
CPT/HCPCS: 97110; 97162; 97164; 97530

== ENCOUNTER → 2024-05-09 | Outpatient (CLI) | payer MEDICARE, OTHER, SELFPAY ==
[2024-05-09 12:36] LABS: Absolute Lymphocyte Count 2.18 X10^3/uL (0.83-4.51); Absolute Neutrophil Count 5.9 X10^3/uL (2.0-7.7); Basophil# 0.05 X10^3/uL; Basophil% 0.6 % (0-1); Eosinophil# 0.24 X10^3/uL; Eosinophils% 2.7 % (0-5); Hematocrit 39.5 % (37-47); Hemoglobin 12.1 g/dL (12.0-15.0); Lymphocyte # 2.18 X10^3/ul (0.83-4.51); Lymphocyte % 24.1 % (19-41); Mean Corp Hgb Conc 30.6 g/dL (32-36); Mean Corpuscular Hgb 28.5 pg (27.0-32.0); Mean Corpuscular Volume 93.2 fL (81-99); Mean Platelet Vol. 12.4 fl (6.2-12.0); Monocyte# 0.61 X10^3/uL; Monocyte% 6.7 % (0-10); NRBC Flagged by Analyzer 0 % (0-5); Neutrophil # 5.92 X10^3/uL (2.7-7.7); Neutrophil % 65.3 % (47-70); Platelet Count 226 K/mm3 (150-450); RBC Distribution Width CV 13.6 % (11.6-14.6); RBC Distribution Width SD 46.4 fl (35.1-43.9); Red Blood Count 4.24 M/mm3 (4.2-5.4); White Blood Count 9.1 K/mm3 (4.4-11.0)
[2024-05-09 12:49] LABS: Vitamin B12 248 pg/mL (211-911)
[2024-05-09 13:04] LABS: ALB/GLOB Ratio 0.9 RATIO (0.9-2.4); AST(SGOT) 16 U/L (15-37); Alanine Aminotransfer ALT/SGPT 16 U/L (13-56); Albumin, Serum 3.2 g/dL (3.2-5.0); Alkaline Phosphatase 56 U/L (45-117); Anion Gap 6 (5-15); BUN 13 mg/dL (7-18); BUN/Creat Ratio 16.4 RATIO (10-20); Calcium,Total 9.4 mg/dL (8.5-10.1); Chloride 105 mmol/L (98-107); Cholesterol 153 mg/dL (200); Creatinine, Serum 0.79 mg/dL (0.55-1.02); EST Glomerular Filtration Rate 73 mL/min (>60); Est Glom Filt Rate - Afr Amer 88 mL/min (>60); Globulin 3.5 g/dL (2.2-4.2); Glucose 109 mg/dL (74-106); High Density Lipoprotein 60 mg/dL; Potassium 4.2 mmol/L (3.5-5.1); Protein, Total 6.7 g/dL (6.4-8.2); Sodium Level 139 mmol/L (136-145); Triglycerides 119 mg/dL; Very Low Density Lipoprotein 24 mg/dL (5-40)
[2024-05-09 13:36] LABS: Microalbumin,Random Urine 6.2 mg/L (NO RANGE EST.)
== END | disposition home or self-care (01) ==
LOC: BFHLAB 08:14
PROVIDERS: PCP Family Medicine; Referring Provider Family Medicine; Visit Provider Family Medicine
DX: E11.9 Type 2 diabetes mellitus without complications (principal); I10 Essential (primary) hypertension; D64.9 Anemia, unspecified; E78.5 Hyperlipidemia, unspecified
CPT/HCPCS: 36415; 80053; 80061; 82043; 82570; 82607; 85025

== ENCOUNTER 2024-07-09 17:30 | Outpatient (RCR) | payer SELFPAY | END 2024-07-12 23:59 | LOC: NS 17:30 | PROVIDERS: PCP Family Medicine | DX: Z71.3 Dietary counseling and surveillance (principal) ==

== ENCOUNTER → 2024-11-06 | Outpatient (CLI) | payer BC, OTHER, SELFPAY ==
[2024-11-06 15:25] LABS: Absolute Lymphocyte Count 1.39 X10^3/uL (0.83-4.51); Basophil# 0.03 X10^3/uL; Basophil% 0.3 % (0-1); Eosinophil# 0.29 X10^3/uL; Eosinophils% 3.1 % (0-5); Hematocrit 37.7 % (37-47); Hemoglobin 11.5 g/dL (12.0-15.0); Lymphocyte # 1.39 X10^3/ul (0.83-4.51); Lymphocyte % 14.7 % (19-41); Mean Corp Hgb Conc 30.5 g/dL (32-36); Mean Corpuscular Hgb 28.7 pg (27.0-32.0); Mean Platelet Vol. 12.2 fl (6.2-12.0); Monocyte# 0.71 X10^3/uL; Monocyte% 7.5 % (0-10); NRBC Flagged by Analyzer 0 % (0-5); Neutrophil # 6.97 X10^3/uL (2.7-7.7); Platelet Count 197 K/mm3 (150-450); RBC Distribution Width CV 13.7 % (11.6-14.6); Red Blood Count 4.01 M/mm3 (4.2-5.4); White Blood Count 9.4 K/mm3 (4.4-11.0)
[2024-11-07 02:12] LABS: ALB/GLOB Ratio 1.4 RATIO (0.9-2.4); AST(SGOT) 41 U/L (<=31); Alanine Aminotransfer ALT/SGPT 24 U/L (<=34); Albumin, Serum 3.8 g/dL (3.4-4.8); Alkaline Phosphatase 53 U/L (35-104); BUN 15 mg/dL (4-19); BUN/Creat Ratio 16.5 RATIO (10-20); Creatinine, Serum 0.9 mg/dL (0.6-1.0); EST Glomerular Filtration Rate 63 (>60); Globulin 2.6 g/dL (2.2-4.2); Glucose 226 mg/dL (70-99); Protein, Total 6.4 g/dL (5.9-8.4); Total Bilirubin 0.22 mg/dL (0.00-1.30); Vitamin B12 334 pg/mL (180-914)
[2024-11-07 04:02] LABS: Anion Gap 17 (5-15); Chloride 101 mmol/L (98-107); Potassium 4.3 mmol/L (3.5-5.1); Sodium Level 136 mmol/L (136-145)
== END | disposition home or self-care (01) ==
PROVIDERS: PCP Family Medicine; Visit Provider Family Medicine
DX: E11.9 Type 2 diabetes mellitus without complications (principal); I10 Essential (primary) hypertension; E78.5 Hyperlipidemia, unspecified; D64.9 Anemia, unspecified; R53.83 Other fatigue; E53.8 Deficiency of other specified B group vitamins
CPT/HCPCS: 36415; 80053; 82607; 84443; 85025

== ENCOUNTER → 2025-03-13 | Outpatient (CLI) | payer OTHER, MEDICARE, SELFPAY ==
--- NOTE | 2025-03-13 12:35 | RAD_ITS ---
PROCEDURE: RIBS UNIL 2V NO CXR 03/13/2025 REASON FOR EXAM: PAIN, FALL TECHNIQUE: Four view left rib series COMPARISON: Chest x-ray 09/21/2022 RAD/Ribs Unil 2V No CXR IMPRESSION: [id number] left acromioclavicular joint degenerative changes are seen, wi th distal clavicular inferior osteophyte also noted. Moderate degenerative changes about the left humeral head greater tuberosity fu rther suggest the presence of significant chronic rotator cuff disease. The left glenohumeral joint demonstrates at least mild degenerative changes. Moderate degenerative changes of the visualized spine also noted. No pneumothorax is seen in visualized areas. No rib fracture is identified. If clinical concern persists, short-term follow-up imaging may be obtained to r ule out a currently occult fracture. Reading Location: [place] [id number]
--- NOTE | 2025-03-13 12:35 | RAD_ITS ---
PROCEDURE: L/S SPINE MIN 4 VIEWS 03/13/2025 REASON FOR EXAM: PAIN, FALL TECHNIQUE: L/S SPINE MIN 4 VIEWS COMPARISON: None. FINDINGS: No evidence acute fracture or dislocation. Moderate discogenic degenerative changes of the visualized spine. No visualized pars defects. Normal alignment. RAD/L/S Spine Min 4 Views IMPRESSION: Spondylosis. Reading Location: [place] [id number]
--- NOTE | 2025-03-13 12:35 | RAD_ITS ---
PROCEDURE: RIBS UNIL 2V NO CXR 03/13/2025 REASON FOR EXAM: PAIN, FALL TECHNIQUE: Four view left rib series COMPARISON: Chest x-ray 09/21/2022 RAD/Ribs Unil 2V No CXR IMPRESSION: [id number] left acromioclavicular joint degenerative changes are seen, wi th distal clavicular inferior osteophyte also noted. Moderate degenerative changes about the left humeral head greater tuberosity fu rther suggest the presence of significant chronic rotator cuff disease. The left glenohumeral joint demonstrates at least mild degenerative changes. Moderate degenerative changes of the visualized spine also noted. No pneumothorax is seen in visualized areas. No rib fracture is identified. If clinical concern persists, short-term follow-up imaging may be obtained to r ule out a currently occult fracture. Reading Location: [place] [id number]
--- NOTE | 2025-03-13 12:35 | RAD_ITS ---
PROCEDURE: L/S SPINE MIN 4 VIEWS 03/13/2025 REASON FOR EXAM: PAIN, FALL TECHNIQUE: L/S SPINE MIN 4 VIEWS COMPARISON: None. FINDINGS: No evidence acute fracture or dislocation. Moderate discogenic degenerative changes of the visualized spine. No visualized pars defects. Normal alignment. RAD/L/S Spine Min 4 Views IMPRESSION: Spondylosis. Reading Location: [place] [id number]
== END | disposition home or self-care (01) ==
LOC: MTRAD 12:33
PROVIDERS: PCP Family Medicine; Referring Provider Nurse Practitioner Family; Visit Provider Nurse Practitioner Family
DX: R07.81 Pleurodynia (principal); Z91.81 History of falling
CPT/HCPCS: 71100; 72110

== ENCOUNTER → 2025-05-10 | Outpatient (CLI) | payer MEDICARE, OTHER, SELFPAY ==
--- OUTSIDE RECORDS SUMMARY | 2025-05-10 10:07 | XMS RPT_ITS | CCD ---
Author Organization [facility] CliniSymi Care Team Providers Care Shop Cooper Name Role Phone DASIA COLE Unavailable Unavailable DASIA COLE Unavailable Unavailable ADRIA ACEVEDO Unavailable UnavailADRIA Harding Unavailable UnavailJoss Robledo MD Primary Care Provider [facility], [place] Unavailable Adria Acevedo DO Unavailable Kike Russo MD Primary Care Provider Dr. Eryn Guerra Primary Care Provider [phone] Dr. Jalil Redmond Attending Provider Dr. Eryn Guerra Primary Care Provider [phone] Dr. Jalil Redmond Attending Provider ERYN GUERRA Primary Care Physician [phone] ERYN GUERRA Primary Care Unavailable CRYS DIAZ MD Attending Unavailable ERYN GUERRA Primary Care Unavailable CRYS DIAZ MD Attending Unavailable ERYN GUERRA Primary Care Unavailable CRYS DIAZ MD Attending Unavailable CRYS DIAZ MD Admitting CRYS Saxena MD Referring Unavailable ERYN GUERRA Consulting Unavailable PLACIDO SHAIKH Consulting Unavailable Adria Acevedo DO Unavailable Eryn Guerra MD Primary Care Provider Eryn Guerra MD Primary Care Provider Joss Gant MD Primary Care Provider [facility], [place] Unavailable Adria Acevedo DO Unavailable Eryn Guerra MD Primary Care Provider Charlie MAX, Dr. Cerna Primary Care Provider Charlie MAX, Dr. Cerna Attending Provider Dr. Eryn Guerra MD Primary Care Provider Denny MOBILE QA TESTER-C, Polly Attending Provider Denny MOBILE QA TESTER-C, Polly Referring Provider [phone] Eryn Guerra Attending Unavailable Mied, Douglas Primary Care Unavailable Miedel, Douglas Primary Care Unavailable Referred, Self Attending Unavailable Mied, Douglas Primary Care Unavailable Referred, Self Attending Unavailable [facility], Eryn Referring Unavailable Mied, Eryn Attending Unavailable Mied, Douglas Primary Care Unavailable Denny, Polly Referring Unavailable Denny, Polly Attending Unavailable Mied, Douglas Primary Care Unavailable TESTRAKE, EPIFANIO Attending Unavailable TESTRAKE, EPIFANIO Referring Unavailable [facility] Primary Care Unavailable TESTRAKE, EPIFANIO Attending Unavailable TESTRAKE, EPIFANIO Referring Unavailable MIEDEL, [place] E Primary Care Unavailable TESTRAKE, EPIFANIO Attending Unavailable TESTRAKE, EPIFANIO Referring Unavailable [facility] Primary Care Unavailable TESTRAKE, EPIFANIO Attending Unavailable TESTRAKE, EPIFANIO Referring Unavailable [facility] Primary Care Unavailable Allergies Allergy Classification Reported Allergen(s) Allergy Type Date of Onset Reaction(s) Facility (12 sources) DULoxetine; Translations: [DULOXETINE] Drug Allergy 01-26-2021 Intolerance [facility] Work Phone: (13 sources) metFORMIN; Translations: [METFORMIN] Drug Allergy 08-28-2018 Diarrhea [facility] Work Phone: Medications Current Medications Medication Drug Class(es) Dates Sig (Normalized) Sig (Original) acetaminophen 1000 mg oral tablet (10 sources) Start: 09-01-2022 End: 09-15-2022 take 1 tablet by mouth once daily Tylenol Dose : 1,000 mg = 2 tab(s), Oral, TID, not to exceed 3000 mg/day, 0 Refill(s) Start Date: 09/01/22 Stop Date: 09/15/22 Status: Ordered take 2 capsules by [facility] every eight hours as needed Acetaminophen 500 mg cap Take 2 capsules by mouth every 8 hours as needed for pain. Active Comment on above: Take 2 capsules by mouth every 8 hours a s needed for pain. aspirin 81 mg oral tablet (15 sources) Platelet Aggregation Inhibitor, Nonsteroidal Anti-inflammatory Drug Start: 2 End: 3 take 1 tablet by mouth twice daily at mealtime aspirin Dose : 81 mg = 1 tab(s), Oral, BIDM, Take 81 mg aspirin twice daily with food for 4 weeks postoperatively for DVT prophylaxis., 0 Refill(s) Start Date: 09/01/22 Stop Date: 10/01/22 Status: Ordered Start: 03-02-2017 take 1 tablet by [facility] once daily aspirin, enteric coated (ECOTRIN LOW STRENGTH) 81 mg EC tablet Take 1 tablet by mouth once daily. 30 tablet 6 03/02/2017 Active Comment on above: Take 1 tablet by [facility] once daily. Biotin (14 sources) Start: 08-17-2022 take 1 dose by mouth once daily biotin Dose : 10,000 mcg =, Oral, qDay, 0 Refill(s) Start Date: 08/17/22 Status: Ordered Start: 07-19-2016 [facility] Biotin 2,500 mcg cap Take 2 tablets by mouth once daily 0 07/19/2016 Active Comment on above: Take 2 tablets by [facility] once daily SENOKOT-S (1 source) Start: 022 Senokot S Dose = 2 tab(s), Oral, BID, Take until first bowel movement, then as needed, 0 Refill(s) Start Date: 09/01/22 Status: Ordered gabapentin 300 mg oral capsule (9 sources) Anti-epileptic Agent take 1 capsule by mouth twice daily gabapentin (NEURONTIN) 300 mg capsule Take 1 capsule by mouth two times a day. Active Comment on above: Take 1 capsule [facility] two times a day. Hair, skin and Nails Multiple Vitamins with Minerals oral tablet (1 source) Start: take 1 tablet by mouth once daily Hair, skin and Nails Multiple Vitamins with Minerals oral tablet Dose = 1 tab(s), Oral, qDay Start Date: 08/31/22 Status: Ordered hydroCHLOROthiazide 25 mg / lisinopril 20 mg oral tablet (13 sources) Thiazide Diuretic, Angiotensin Converting Enzyme Inhibitor Start: End: take 1 tablet by mouth once daily in the morning lisinopril-hydroCHL OROthiazide (PRINZIDE, ZESTORETIC) 20-25 mg per tablet Take 1 tablet by mouth every morning. 90 tablet 1 02/26/2021 Active Comment on above: Take 1 tablet by [facility] th every morning. NovoLog (15 sources) Insulin Analog Start: NovoLOG See Instructions, 18 unit(s) Subcutaneous TIDAC, 0 Refill(s) Start Date: 08/17/22 Status: Ordered Start: 08-17-2022 inject 12 [IU] by alicea bcutaneous injection at breakfast, then inject 18 [IU] by subcutaneous injection at dinner NovoLOG Subcutaneous, TIDAC, 12 units with breakfast and lunch, 18 units with dinner, 0 Refill(s) Start Date: 08/17/22 Status: Ordered Start: 06-12-2020 insulin aspart U-100 (NOVOLOG FLEXPEN U-100 INSULIN) 100 unit/mL (3 mL) Indications: Controlled type 2 diabetes mellitus with diabetic neuropathy, with long-term current use of insulin (HCC) Take 12 units of Novolog with breakfast, 12 units with lunch and 18 units with dinner 06/12/2020 Active Comment on above: Take 12 units of Nov olog with breakfast, 12 units with lunch and 18 units with dinner Lantus (20 sources) Insulin Analog Start: 08-17-2022 inject 1 dose by subcutaneous injection twice daily Lantus Dose : 31 unit(s) =, Subcutaneous, BID, 0 Refill(s) Start Date: 08/17/22 Status: Ordered Start: 11-09-2021 Insulin Glargi ne (Lantus Solostar U-100 Insulin) 100 unit/mL (3 mL) Insulin Pen Active 31 U SC TWICE A DAY November 09, 2021 1:00am Start: 11-24-2020 insulin glargi ne (LANTUS SOLOSTAR U-100 INSULIN) 100 unit/mL (3 mL) Indications: 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, without long-term current use of insulin (HCC) Inject 31 Units subcutaneously twice daily. 20 Pen 1 11/24/2020 Active Comment on above: Inject 31 Units subc utaneously twice daily. lisinopril 20 mg oral tablet (15 sources) Angiotensin Converting Enzyme Inhibitor Start: 08-17-2022 lisinopril 20 mg oral tablet Dose : 20 mg = 1 tab(s), Oral, qDay, # 30 tab(s), 0 Refill(s) Start Date: 08/17/22 Status: Ordered Start: 11-09-2021 [facility] Lisinopril 5 mg Tablet Active 5 mg PO DAILY November 09, 2021 1:00am 24 hr metFORMIN hydrochloride 500 mg extended release oral tablet (11 sources) Biguanide Start: 10-15-2020 take 2 tablets by mouth every other day metFORMIN ER (GLUCOPHAGE XR) 500 mg 24 hr tablet Indications: 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, without long-term current use of insulin (HCC) Take 2 tablets by mouth every other day. 90 tablet 1 10/15/2020 Active Comment on above: [facility] every other day. naproxen sodium 220 mg oral tablet (14 sources) Nonsteroidal Anti-inflammatory Drug Start: 08-12-2005 ALEVE 220 MG TAB as necessary 0 08/12/2005 Active Comment on above: as necessary omeprazole 20 mg delayed release oral tablet (20 sources) Proton Pump Inhibitor Start: 11-09-2021 take 1 tablet by mouth once daily Omeprazole 20 mg Tablet,Delayed Release (Dr/Ec) Active 20 mg PO DAILY November 09, 2021 1:00am Start: 11-24-2020 End: 02-26-2021 take 1 capsule by mouth once daily omeprazole (PRILOSEC) 40 mg capsule Indications: Londono's esophagus with esophagitis Take 1 capsule by mouth once daily. 90 capsule 1 02/26/2021 Active Comment on above: Take 1 capsule by mo [facility] once daily. oxyCODONE hydrochloride 5 mg oral tablet (1 source) Opioid Agonist Start: 2 End: 2 take 1-2 tablets by mouth every four hours as needed for pain oxyCODONE 5 mg oral tablet ( IMMEDIATE release ) See Instructions, PRN as needed for pain, 1-2 tab(s) Oral q4h, # 42 tab(s), 0 Refill(s), 09/08/22 16:33:00 EST, Status post total left knee replacement, 84 Start Date: 09/01/22 Stop Date: 09/08/22 Status: Ordered Completed/Discontinued Medications Medication Drug Class(es) Dates Sig (Normalized) Sig (Original) 0.5 ml dulaglutide 3 mg/ml auto-injector (20 sources) GLP-1 Receptor Agonist Start: 08-17-2022 Trulicity Pen 0.75 mg/0.5 mL subcutaneous solution Dose : 0.75 mg = 0.5 mL, Subcutaneous, qWeek, 0 Refill(s), 0.5 mL/Pen Start Date: 08/17/22 Status: Ordered Start: 11-09-2021 Dulaglutide (T rulicity) 0.75 mg/0.5 mL Pen Injector Active 0.75 mg SC EVERY WEEK November 09, 2021 1:00am Start: 11-24-2020 End: 02-26-2021 inject 1.5 mg by subcutaneous injection every week dulaglutide (TRULICITY) 1.5 mg/0.5 mL pen injector Indications: 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, without long-term current use of insulin (HCC) Inject 1.5 mg subcutaneously one time a week. 12 Each 2 02/26/2021 Active Comment on above: Inject 1.5 mg subcut aneously one time a week. 0.25 mg, 0.5 mg dose 1.5 ml semaglutide 1.34 mg/ml pen injector (1 source) End: 12-06-2023 semaglutide (OZEMPIC) 0.25 mg or 0.5 mg(2 mg/1.5 mL) pen Inject 0.25 mg subcutaneously one time a week. 0 12/06/2023 Discontinued Comment on above: Inject 0.25 mg subcu taneously one time a week. Problems Active Problems Problem Classification Problem Date Documented Da te Episodic/Chronic Acute and unspecified renal failure (1 source) Acute renal failure syndrome; Translations: [Acute kidney failure, unspecified] Onset: 09-01-2022 Episodic Crushing injury or internal injury (1 source) Injury of kidney 09-01-2022 Episodic Diabetes mellitus with complications (20 sources) Type 2 diabetes mellitus; Translations: [Type 2 diabetes mellitus with other diabetic neurological complication] Onset: 11-22-2005 Chronic Diabetes mellitus without complication (3 sources) Type 2 diabetes mellitus without complications; Translations: [Type 1 diabetes mellitus without complication] Onset: 03-21-2017 Chronic Disorders of lipid metabolism (12 sources) Hyperlipidemia; Translations: [Other hyperlipidemia] 07-28-2018 Chronic Diverticulosis and diverticulitis (12 sources) Diverticulitis of large intestine without perforation or abscess without bleeding; Translations: [Diverticulitis of colon (without mention of hemorrhage)] Onset: 12-06-2008 12-06-2008 Chronic Esophageal disorders (20 sources) 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; Translations: [Londono's esophagus with esophagitis] Onset: 08-13-2013 Resolved: 10-30-2018 08-13-2013 Chronic Essential hypertension (14 sources) Hypertensive disorder; Translations: [Essential (primary) hypertension] Onset: 02-17-2010 02-17-2010 Chronic Fluid and electrolyte disorders (2 sources) Hypo-osmolality and or hyponatremia; Translations: [Hypo-osmolality and hyponatremia] Onset: 09-01-2022 Episodic Gastroduodenal ulcer (except hemorrhage) (8 sources) Gastric ulcer; Translations: [Gastric ulcer, unspecified as acute or chronic, without hemorrhage or perforation] Onset: 12-17-2005 Resolved: 08-19-2010 08-19-2010 Chronic Mycoses (16 sources) Onychomycosis; Translations: [Tinea unguium] Onset: 04-18-2013 Resolved: 10-17-2017 Episodic Osteoarthritis (2 sources) Osteoarthritis; Translations: [Unspecified osteoarthritis, unspecified site] Onset: 08-31-2022 Chronic Other connective tissue disease (7 sources) Pain of toe of left foot; Translations: [Pain in left toe(s)] Episodic Other connective tissue disease (7 sources) Pain of toe of right foot; Translations: [Pain in right toe(s)] Episodic Other connective tissue disease (12 sources) Osteophyte of bone; Translations: [Enthesopathy, unspecified] 07-28-2018 Episodic Other connective tissue disease (13 sources) Muscle weakness; Translations: [Muscle weakness (generalized)] 11-17-2021 Episodic Other connective tissue disease (1 source) Pain in left toe(s); Translations: [Pain in toe of left foot] Onset: 04-30-2025 Episodic Other connective tissue disease (1 source) Pain in right toe(s); Translations: [Pain in toe of right foot] Onset: 04-30-2025 Episodic Other gastrointestinal disorders (2 sources) Dysphagia; Translations: [Dysphagia, unspecified] 12-06-2023 Episodic Other hereditary and degenerative nervous system conditions (12 sources) Essential tremor; Translations: [Essential tremor] 07-09-2019 Chronic Other lower respiratory disease (1 source) Pleurodynia; Translations: [Pleurodynia] Onset: 03-20-2025 Episodic Other non-traumatic joint disorders (1 source) Pain in right knee; Translations: [Pain in joint, lower leg] 12-02-2020 Episodic Other nutritional; endocrine; and metabolic disorders (1 source) Other obesity due to excess calories; Translations: [Other obesity due to excess calories] Onset: 03-21-2017 Chronic Peripheral and visceral atherosclerosis (7 sources) Peripheral vascular disease, unspecified; Translations: [Peripheral vascular disease, unspecified] Onset: 04-30-2025 Chronic Rheumatoid arthritis and related disease (12 sources) Rheumatoid arthritis; Translations: [Rheumatoid arthritis, unspecified] Onset: 03-11-2011 04-14-2017 Chronic Unclassified (1 source) Family history of malignant neoplasm of digestive organs; Translations: [Family history of malignant neoplasm of digestive organs] Onset: 02-28-2018 Episodic Unclassified (1 source) Hypersomnia, unspecified; Translations: [Hypersomnia, unspecified] Onset: 03-21-2017 Past or Other Problems Problem Classification Problem Date Documented Date Episodic/Chronic Allergic reactions (20 sources) Solar degeneration; Translations: [Other skin changes due to chronic exposure to nonionizing radiation] Onset: 04-22-2010 Resolved: 10-17-2017 04-22-2010 Episodic Diseases of mouth; excluding dental (8 sources) Angular cheilitis; Translations: [Diseases of lips] Onset: 04-18-2013 Resolved: 10-17-2017 10-17-2017 Episodic Esophageal disorders (8 sources) Esophagitis; Translations: [Esophagitis, unspecified] Resolved: 08-19-2010 08-19-2010 Episodic Gastritis and duodenitis (8 sources) Acute gastritis; Translations: [Acute gastritis without bleeding] Resolved: 08-19-2010 08-19-2010 Episodic Other aftercare (1 source) shelter (current) use of insulin; Translations: [shelter (current) use of insulin] Onset: 03-21-2017 Episodic Other and unspecified benign neoplasm (20 sources) Melanocytic nevus of trunk; Translations: [Melanocytic nevi of trunk] Onset: 04-22-2010 Resolved: 10-17-2017 01-13-2011 Episodic Other circulatory disease (12 sources) Telangiectasia disorder; Translations: [Nevus, non-neoplastic] Onset: 04-22-2010 04-22-2010 Episodic Other connective tissue disease (8 sources) Pain in limb; Translations: [Pain in unspecified limb] Onset: 04-11-2006 Resolved: 10-17-2017 10-17-2017 Episodic Other ear and sense organ disorders (12 sources) Chondrodermatitis nodularis helicis; Translations: [Unspecified perichondritis of external ear, unspecified ear] Onset: 04-12-2014 04-12-2014 Episodic Other lower respiratory disease (1 source) Other forms of dyspnea; Translations: [Other forms of dyspnea] Onset: 03-21-2017 Episodic Other nervous system disorders (8 sources) Skin sensation disturbance; Translations: [Unspecified disturbances of skin sensation] Onset: 04-11-2006 Resolved: 10-17-2017 10-17-2017 Episodic Other non-traumatic joint disorders (2 sources) Shoulder pain; Translations: [Pain in left shoulder] Onset: 04-12-2016 04-12-2016 Episodic Other non-traumatic joint disorders (12 sources) Hip pain; Translations: [Pain in right hip] Onset: 11-20-2018 11-20-2018 Episodic Other non-traumatic joint disorders (10 sources) Pain in left shoulder; Translations: [Pain in joint, shoulder region] Onset: 04-12-2016 04-12-2016 Episodic Other skin disorders (12 sources) Sebaceous cyst of skin; Translations: [Sebaceous cyst] Onset: 07-26-2008 07-26-2008 Episodic Other skin disorders (12 sources) Actinic keratosis; Translations: [Actinic keratosis] Onset: 04-22-2010 04-22-2010 Episodic Other skin disorders (12 sources) Inflamed seborrheic keratosis; Translations: [Inflamed seborrheic keratosis] Onset: 04-22-2010 04-22-2010 Episodic Other skin disorders (12 sources) Solar lentigo; Translations: [Other melanin hyperpigmentation] Onset: 04-22-2010 04-22-2010 Episodic Other skin disorders (12 sources) Asteatosis cutis; Translations: [Xerosis cutis] Onset: 06-13-2013 06-13-2013 Episodic Other skin disorders (8 sources) Seborrheic keratosis; Translations: [Other seborrheic keratosis] Onset: 04-22-2010 Resolved: 10-17-2017 10-17-2017 Episodic Spondylosis; intervertebral disc disorders; other back problems (12 sources) Lumbar radiculopathy; Translations: [Radiculopathy, lumbar region] Onset: 12-24-2018 12-24-2018 Episodic Results Test Name Value Interpretation Reference Range Facility [facility] 04-30-2025 CNOV Office Visit (PODIWS ) WILMARMARIA ELENA CHOWDHURY ([id number]) 1935 F NFR Date Time Provider Department 04/30/25 10:00 AM EPIFANIO PEÑA PODIWS During your visit today, we recorded the following information about you: Karly Connor MA 04/30/2025 10:19 AM Signed Patient presents with: Left Foot - Nail care Right Foot - Nail care AMB ROOMING INTAKE FLOWSHEET DATA Pain Pain Level: 6 Pain Location: (Bilateral feet) Description: Numbness, Tingling Duration Amount of Time: (Ongoing) Frequency: Continuous Intervention/Comfort measure: Medication Patient states she has been bothering her more lately. Feels it has moved up into her lower legs. Taking Gabapentin and helps her sleep at night. Blood sugar this morning was 78. Epifanio Peña 04/30/2025 10:19 AM Signed Last saw pcp: not in chart Subjective: Patient presents to clinic c/o painful toenails. They state that the nails are especially painful with shoe gear and pressure. Patient states that nails 1-5 b/l are painful. Patient admits to being diabetic. No other pedal complaints at this time. Patient states no change in medications or medical history since last visit. Objective: Patient presents to clinic ambulating in [facility] Vasc: DP and PT pulses are faintly palpable bilateral. CFT is less than 5 seconds bilateral. Skin temperature is warm to cool proximal to distal bilateral. There is moderate edema or varicosities noted. Neuro: Protective sensation is decreased to the foot and toes when tested with the 5.07 SWM bilateral. Vibratory sensation is absent at the hallux IPJ bilateral. The hallux is downgoing bilateral. Derm: Nails 1-5 b/l are painful, discolored-yellow, thick, crumbly, dystrophic and with subungal debris. Skin is of normal turgor, texture and hair growth is absent bilateral. There are no hyperkeratosis, ulcerations, scars, verruca or other lesions noted. Ortho: Muscle strength is 5/5 for all pedal groups tested. Ankle joint DF is decreased with the knee extended with no pain or crepitus noted. 1st MPJ ROM is decreased bilateral. 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 Nails 1-5 bilateral were debrided in length and thickness. Patient was instructed on the continued importance of diabetic foot care along with proper diet and keeping their blood sugar under control to prevent complications. I stressed the importance of wearing good shoes due to severe arthritis/collaspe of b/l midfoot Stressed the importance of avoiding barefoot walking, wearing good shoes and inspection of feet. Patient is to RTC in 3-4 months. Epifanio Peña DPM Referring Provider: EPIFANIO PEÑA [[id number]] Allergies As of Date: 04/30/2025 Noted Allergy Reaction CYMBALTA (DULOXETINE) 01/26/2021 5 - Intolerance Comments: Made patient sleepy and groggy METFORMIN 08/28/2018 6 - Diarrhea Comments: On ER form Date Reviewed: 04/30/2025 Reviewed by: Karly Connor MA - Fully Assessed Reason for Visit: Nail care [Other] Nail care [Other] Primary Visit Diagnosis:Onychomycosis [B35.1] Other Visit Diagnoses:Pain in toe of left foot [M79.675] Pain in toe of right foot [M79.674] Diabetic polyneuropathy associated with type 2 diabetes mellitus (HCC) [E11.42] PAD (peripheral artery disease) [I73.9] Prescriptions as of 04/30/2025 - Acetaminophen 500 mg cap Take 2 capsules by mouth every 8 hours as needed for pain. - gabapentin (NEURONTIN) 300 mg capsule Take 1 capsule by mouth two times a day. - omeprazole (PRILOSEC) 40 mg capsule Take 1 capsule by mouth once daily. - lisinopril-hydroCHLOROt hiazide (PRINZIDE, ZESTORETIC) 20-25 mg per tablet Take 1 tablet by mouth every morning. - dulaglutide (TRULICITY) 1.5 mg/0.5 mL pen injector Inject 1.5 mg subcutaneously one time a week. - insulin glargine (LANTUS SOLOSTAR U-100 INSULIN) 100 unit/mL (3 mL) Inject 31 Units subcutaneously twice daily. - metFORMIN ER (GLUCOPHAGE XR) 500 mg 24 hr tablet Take 2 tablets by mouth every other day. - insulin aspart U-100 (NOVOLOG FLEXPEN U-100 INSULIN) 100 unit/mL (3 mL) Take 12 units of Novolog with breakfast, 12 units with lunch and 18 units with dinner - Insulin [place], Disposable, (BD ULTRA-FINE ALEXANDER PEN NEEDLE) 32 gauge x Use one needle for each dose. four per day. - aspirin, enteric coated (ECOTRIN LOW STRENGTH) 81 mg EC tablet Take 1 tablet by mouth once daily. - Biotin 2,500 mcg cap Take 2 tablets by mouth once daily - ALEVE 220 MG TAB as necessary Problem List As Of Date 04/30/2025 Noted Resolved DM (diabetes mellitus) type II c (more content not included)... Normal [facility] L/S Spine Min 4 Viewson 07-0 L/S Spine Min 4 Views [facility] [address] [place], [place] [id number] [phone] L/S Spine Min 4 Views MR#: [id number] Acct: [id number] Name: MARIA ELENA ATKINS Rep #: [id number] : 1935 F 89 From: Epifanio Treadwell MD PCP: Dr. Eryn Guerra MD Status: REG CLI Study: L/S Spine Min 4 Views Date of Exam: 03/13/25 Exam# [id number] Ordering Dr: Polly Baldwin PROCEDURE: L/S SPINE MIN 4 VIEWS 03/13/2025 REASON FOR EXAM: PAIN, FALL TECHNIQUE: L/S SPINE MIN 4 VIEWS COMPARISON: None. FINDINGS: No evidence acute fracture or dislocation. Moderate discogenic degenerative changes of the visualized spine. No visualized pars defects. Normal alignment. RAD/L/S Spine Min 4 Views IMPRESSION: Spondylosis. Reading Location: [id number] CC: MOBILE QA TESTER-C Polly Baldwin; Dr. Eryn Guerra MD Embalmer Assistant: Signed Normal [facility] Ribs Unil 2V No CXRon 2024 Ribs Unil 2V No CXR [facility] [address] [place], [place] [address] Ribs Unil 2V No CXR MR#: [id number] Acct: [id number] Name: MARIA ELENA ATKINS Rep #: [id number] : 1935 F 89 From: Meng Fernando PCP: Dr. Eryn Guerra MD Status: REG CLI Study: Ribs Unil 2V No CXR Date of Exam: 03/13/25 Exam# [id number] Ordering Dr: Polly [place] PROCEDURE: RIBS UNIL 2V NO CXR 03/13/2025 REASON FOR EXAM: PAIN, FALL TECHNIQUE: Four view left rib series COMPARISON: Chest x-ray 09/21/2022 RAD/Ribs Unil 2V No CXR IMPRESSION: [id number] left acromioclavicular joint degenerative changes are seen, with distal clavicular inferior osteophyte also noted. Moderate degenerative changes about the left humeral head greater tuberosity further suggest the presence of significant chronic rotator cuff disease. The left glenohumeral joint demonstrates at least mild degenerative changes. Moderate degenerative changes of the visualized spine also noted. No pneumothorax is seen in visualized areas. No rib fracture is identified. If clinical concern persists, short-term follow-up imaging may be obtained to rule out a currently occult fracture. Reading Location: [facility] CC: ANTOINE Baldwin; Dr. Eryn Guerra MD Embalmer Assistant: Signed Normal [facility] CNOVon 01-22-2025 CNOV Office Visit (PODIWS ) MARIA ELENA ATKINS ([id number]) 1935 F NFR Date Time Provider Department 01/22/25 8:30 AM EPIFANIO PEÑA PODIWS During your visit today, we recorded the following information about you: Madhavi Patiño LPN 01/22/2025 8:42 AM Signed AMB ROOMING INTAKE FLOWSHEET DATA Pain Pain Level: 6 Pain Location: Foot-Left Description: Numbness Frequency: Continuous Intervention/Comfort measure: Relaxation, Reposition Patient presents with: Left Foot - Established Patient, Follow Up, Diabetic Foot Check Right Foot - Established Patient, Follow Up, Diabetic Foot Check KELSEY Webster Matthew 01/22/2025 8:30 AM Signed Diabetes Foot Care Instructions When you have diabetes, proper foot care is very important. Poor foot care may lead to amputation of a foot or leg. As a person with diabetes, you are more vulnerable to foot problems, because diabetes can damage your nerves and reduce blood flow to your feet. Here are some diabetes foot care tips to follow: Wash and Dry Your Feet Daily Use mild soaps Use warm water Pat your skin dry; do not rub. Thoroughly dry your feet. After washing, use lotion on your feet to prevent cracking. Do not put lotion between your toes. Examine Your Feet Each Day Check the tops and bottoms of your feet. Have someone else look at your feet if you cannot see them. Check for dry, cracked skin. Look for blisters, cuts, scratches, or other sores. Check for redness, increased warmth, or tenderness when touching any area of your feet. Check for ingrown toenails, corns, and calluses. If you get a blister or sore from your shoes, do not pop it. Apply a bandage and wear a different pair of shoes. Take Care of Your Toenails Cut toenails after bathing, when they are soft. Cut toenails straight across and smooth with a nail file. Avoid cutting into the corners of toes. Do not cut cuticles. If you have neuropathy (or decreased sensation in your feet) a microbiology technician should always cut your toenails. Be Careful When Exercising Walk and exercise in comfortable shoes. Do not exercise when you have open sores on your feet. Protect Your Feet With Shoes and Socks Never go barefoot. Always protect your feet by wearing shoes or hard-soled slippers or footwear. Avoid shoes with high heels and pointed toes. Avoid shoes that expose your toes or heels (such as open-toed shoes or sandals). These types of shoes increase your risk for injury and potential infections. Try on new footwear with the type of socks you usually wear. Do not wear new shoes for more than an hour at a time. Change your socks daily. Look and feel inside your shoes before putting them on to make sure there are no foreign objects or rough areas. Avoid tight socks. Wear natural-fiber socks (cotton, wool, or a cotton-wool blend). Wear special shoes if your health care provider recommends them. Wear shoes/boots that will protect your feet from various weather conditions (cold, moisture, etc.). Make sure your shoes fit properly. If you have neuropathy (nerve damage), you may not notice that your shoes are too tight. Perform the footwear test described below. Footwear Test Use this simple test to see if your shoes fit correctly: Stand on a piece of paper. (Make sure you are standing and not sitting, because your foot changes shape when you stand.) Trace the outline of your foot. Trace the outline of your shoe. Compare the tracings: Is the shoe too narrow? Is your foot crammed into the shoe? The shoe should be at least 1/2 inch longer than your longest toe and as wide as your foot. Proper Shoe Choices The following types of shoes are best for people with diabetes Closed toes and heels Leather uppers without a seam inside At least 1/2 inch extra space at the end of your longest toe Inside of shoe should be soft with no rough areas Outer sole should be made of stiff material Shoes should be at least as wide as your feet Tips for Foot Care in Diabetes Don't wait to treat a minor foot problem if you have diabetes. Follow your health care provider's guidelines and first aid guidelines. Report foot injuries and infections to your health care provider immediately. Check water temperature with your elbow, not your foot. Do not use a heating pad on your feet. Do not cross your legs. Do not self-treat your corns, calluses, or other foot problems. Go to your health care provider or microbiology technician to treat these conditions. Epifanio Peña 01/22/2025 8:42 AM Signed Last saw pcp: not in chart Subjective: Patient presents to clinic c/o painful toenails. They state that the nails are especially painful with shoe gear and pressure. Patient states that nails 1 right are painful. Patient admits to being diabetic and states that their blood sugar was 80 mg/dL this AM. Does notice at t (more content not included)... Normal [facility] Metabolic Prof quentin 11-07-2024 Calcium [Mass/Vol] 9.0 mg/dL Normal 7.6-11.0 [facility] Comment on above: Performed By: #### L 500.4050, L503.0106, L501.9520, L100.0100 #### [facility] [address] [place], [address] Chloride [Moles/Vol] 101 mmol/L Normal 98-107 [facility] Comment on above: Performed By: #### L 500.4050, L503.0106, L501.9520, L100.0100 #### [facility] [address] [place], [address] CO2 [Moles/Vol] 18.0 mmol/L Low 21.0-32.0 [facility] Comment on above: Performed By: #### L 500.4050, L503.0106, L501.9520, L100.0100 #### [facility] [address] [place], [address] GAP 17 High 5-15 [facility] Comment on above: Performed By: #### L 500.4050, L503.0106, L501.9520, L100.0100 #### [facility] [address] [place], [address] Potassium [Moles/Vol] 4.3 mmol/L Normal 3.5-5.1 [facility] Comment on above: Performed By: #### L 500.4050, L503.0106, L501.9520, L100.0100 #### [facility] [address] [place], [address] Sodium [Moles/Vol] 136 mmol/L Normal 136-145 [facility] Comment on above: Performed By: #### L 500.4050, L503.0106, L501.9520, L100.0100 #### [facility] [address] [place], [address] L503.0106on 11-07-2024 Cobalamin (Vitamin B12) [Mass/Vol] 334 pg/mL Normal 180-914 [facility] Comment on above: Performed By: #### L 500.4050, L503.0106, L501.9520, L100.0100 #### [facility] [address] [place], [address] Thyroid Stim Hormone (TSH)on 11-07-2024 TSH 1.550 uIU/mL Normal 0.300-4.200 [facility] Comment on above: Performed By: #### L 500.4050, L503.0106, L501.9520, L100.0100 #### [facility] [address] [place], [address] Absolute neutrophil countOrd ered By: Eryn Guerra on 11-06-2024 Neutrophils (Bld) [#/Vol] 7.0 10*3/uL 2.0-7.7 [facility] BUN/creatinine ratioOrdered By: Eryn Guerra on 11-06-2024 Urea nitrogen/Creatinine [Mass ratio] 16.5 mg/mg 10-20 [facility] Basophil percentageOrdered B y: Eryn Guerra on 11-06-2024 Basophils/100 WBC (Bld) 0.3 % 0-1 [facility] Bilirubin, totalOrdered By: Eryn Guerra on 11-06-2024 Bilirubin [Mass/Vol] 0.22 mg/dL 0.00-1.30 [facility] CBC W/Diff, Automatedon 10-14 Absolute Lymph 1.39 X10 3/uL Normal 0.83-4.51 [facility] Comment on above: Performed By: #### L 500.4050, L503.0106, L501.9520, L100.0100 #### [facility] [address] [place], [address] Absolute Neut 7.0 X10 3/uL Normal 2.0-7.7 [facility] Comment on above: Performed By: #### L 500.4050, L503.0106, L501.9520, L100.0100 #### [facility] [address] [place], [address] Basophils/100 WBC (Bld) 0.3 % Normal 0-1 [facility] Comment on above: Performed By: #### L 500.4050, L503.0106, L501.9520, L100.0100 #### [facility] [address] [place], [address] Eosinophils/100 WBC (Bld) 3.1 % Normal 0-5 [facility] Comment on above: Performed By: #### L 500.4050, L503.0106, L501.9520, L100.0100 #### [facility] [address] [place], [address] Erythrocyte distribution width (RBC) [Ratio] 13.7 % Normal 11.6-14.6 [facility] Comment on above: Performed By: #### L 500.4050, L503.0106, L501.9520, L100.0100 #### [facility] [address] [place], [address] Hematocrit (Bld) [Volume fraction] 37.7 % Normal 37-47 [facility] Comment on above: Performed By: #### L 500.4050, L503.0106, L501.9520, L100.0100 #### [facility] [address] [place], [address] Hemoglobin (Bld) [Mass/Vol] 11.5 g/dL Low 12.0-15.0 [facility] Comment on above: Performed By: #### L 500.4050, L503.0106, L501.9520, L100.0100 #### [facility] [address] [place], [address] IG% 0.400 Normal 0.0-0.9 [facility] Comment on above: Result Comment: IG% - Immature Granulocytes (promyelocytes, myelocytes and metamyelocytes) > 1% indicates that a LEFT SHIFT is Present. Performed By: #### L 500.4050, L503.0106, L501.9520, L100.0100 #### [facility] [address] [place], [address] Lymphocytes/100 WBC (Bld) 14.7 % Low 19-41 [facility] Comment on above: Performed By: #### L 500.4050, L503.0106, L501.9520, L100.0100 #### [facility] [address] [place], [address] MCH (RBC) [Entitic mass] 28.7 pg Normal 27.0-32.0 [facility] Comment on above: Performed By: #### L 500.4050, L503.0106, L501.9520, L100.0100 #### [facility] [address] [place], [address] MCHC (RBC) [Mass/Vol] 30.5 g/dL Low 32-36 [facility] Comment on above: Performed By: #### L 500.4050, L503.0106, L501.9520, L100.0100 #### [facility] [address] [place], [address] MCV (RBC) [Entitic vol] 94.0 fL Normal 81-99 [facility] Comment on above: Performed By: #### L 500.4050, L503.0106, L501.9520, L100.0100 #### [facility] [address] [place], [address] Monocytes/100 WBC (Bld) 7.5 % Normal 0-10 [facility] Comment on above: Performed By: #### L 500.4050, L503.0106, L501.9520, L100.0100 #### [facility] [address] [place], [address] Neutrophils/100 WBC (Bld) 74.0 % High 47-70 [facility] Comment on above: Performed By: #### L 500.4050, L503.0106, L501.9520, L100.0100 #### [facility] [address] [place], [address] Nucleated RBC (Bld) [#/Vol] 0 10*3/uL Normal 0-5 [facility] Comment on above: Performed By: #### L 500.4050, L503.0106, L501.9520, L100.0100 #### [facility] [address] [place], [address] Platelet mean volume (Bld) [Entitic vol] 12.2 fL High 6.2-12.0 [facility] Comment on above: Performed By: #### L 500.4050, L503.0106, L501.9520, L100.0100 #### [facility] [address] [place], [address] Platelets (Bld) [#/Vol] 197 10*3/uL Normal 150-450 [facility] Comment on above: Performed By: #### L 500.4050, L503.0106, L501.9520, L100.0100 #### [facility] [address] [place], [address] RBC (Bld) [#/Vol] 4.01 10*6/uL Low 4.2-5.4 [facility] Comment on above: Performed By: #### L 500.4050, L503.0106, L501.9520, L100.0100 #### [facility] [address] [place], [address] RDW SD 47.0 fl High 35.1-43.9 [facility] Comment on above: Performed By: #### L 500.4050, L503.0106, L501.9520, L100.0100 #### [facility] [address] [place], [address] WBC (Bld) [#/Vol] 9.4 10*3/uL Normal 4.4-11.0 [facility] Comment on above: Performed By: #### L 500.4050, L503.0106, L501.9520, L100.0100 #### [facility] [address] [place], [address] Creatinine [Moles/Vol]Ordere d By: Eryn Guerra on 11-06-2024 Creatinine [Mass/Vol] 0.9 mg/dL 0.6-1.0 [facility] Eosinophil percentageOrdered By: Eryn Guerra on 11-06-2024 Eosinophils/100 WBC (Bld) 3.1 % 0-5 [facility] Erythrocyte distribution wid th ratioOrdered By: Eryn Guerra on 11-06-2024 Erythrocyte distribution width (RBC) [Ratio] 13.7 % 11.6-14.6 [facility] Erythrocyte distribution wid th standard deviationOrdered By: Eryn Guerra on 11-06-2024 Erythrocyte distribution width (RBC) [Entitic vol] 47.0 fL High 35.1-43.9 [facility] GFR/1.73 sq M.predicted alesia g non-blacks MDRD (S/P/Bld) [Vol rate/Area]Ordered By: Eryn Guerra on 11-06-2024 Estimated GFR (MDRD) Non-Af Amer 63 >60 [facility] Comment on above: mL/min/1.73m2 CKD-EP I Creatinine Equation (2020) Hematocrit Auto (Bld) [Volum e fraction]Ordered By: Eryn Guerra on 11-06-2024 Hematocrit (Bld) [Volume fraction] 37.7 % 37-47 [facility] Hemoglobin measurementOrdere d By: Eryn Guerra on 11-06-2024 Hemoglobin (Bld) [Mass/Vol] 11.5 g/dL Low 12.0-15.0 [facility] Immature granulocytes/100 WB C Auto (Bld)Ordered By: Eryn Guerra on 11-06-2024 Immature granulocytes/100 WBC (Bld) 0.400 % 0.0-0.9 [facility] Comment on above: IG% - Immature Granu locytes (promyelocytes, myelocytes and metamyelocytes) > 1% indicates that a LEFT SHIFT is Present. Laboratory - Chemistry and C hemistry - challengeOrdered By: Eryn Guerra on 11-06-2024 AST [Catalytic activity/Vol] 41 U/L High <32 [facility] Cobalamin (Vitamin B12) [Mass/Vol] 334 pg/mL 180-914 [facility] Lymphocytes Auto (Unsp spec) [#/Vol]Ordered By: Eryn Guerra on 11-06-2024 Lymphocytes (Bld) [#/Vol] 1.39 10*3/uL 0.83-4.51 [facility] Lymphocytes/100 WBC Auto (Un sp spec)Ordered By: Eryn Guerra on 11-06-2024 Lymphocytes/100 WBC (Bld) 14.7 % Low 19-41 [facility] MCV (mean corpuscular volume ) determinationOrdered By: Eryn Guerra on 11-06-2024 MCV (RBC) [Entitic vol] 94.0 fL 81-99 [facility] Mean corpuscular hemoglobin (MCH) determinationOrdered By: Eryn Guerra on 11-06-2024 MCH (RBC) [Entitic mass] 28.7 pg 27.0-32.0 [facility] Mean corpuscular hemoglobin concentration (MCHC) determinationOrdered By: Eryn Guerra on 11-06-2024 MCHC (RBC) [Mass/Vol] 30.5 g/dL Low 32-36 [facility] Mean platelet volume determi nationOrdered By: Eryn Guerra on 11-06-2024 Platelet mean volume (Bld) [Entitic vol] 12.2 fL High 6.2-12.0 [facility] Monocyte percentageOrdered B y: Eryn Guerra on 11-06-2024 Monocytes/100 WBC (Bld) 7.5 % 0-10 [facility] Neutrophil percentageOrdered By: Eryn Guerra on 11-06-2024 Neutrophils/100 WBC (Bld) 74.0 % High 47-70 [facility] Nucleated red blood cell per centageOrdered By: Eryn Guerra on 11-06-2024 Nucleated RBC/100 WBC (Bld) [Ratio] 0 % 0-5 [facility] Platelet countOrdered By: Christiano Guerra on 11-06-2024 Platelets (Bld) [#/Vol] 197 10*3/uL 150-450 [facility] Potassium measurementOrdered By: Eryn Guerra on 11-06-2024 Potassium [Moles/Vol] 4.3 mmol/L 3.5-5.1 [facility] RBC Auto (Bld) [#/Vol]Ordere d By: Eryn Guerra on 11-06-2024 RBC (Bld) [#/Vol] 4.01 10*6/uL Low 4.2-5.4 [facility] Serum anion gap measurementO rdered By: Eryn Guerra on 11-06-2024 Anion gap [Moles/Vol] 17 mmol/L High 5-15 [facility] Serum globulin measurementOr dered By: Eryn Gurera on 11-06-2024 Globulin (S) [Mass/Vol] 2.6 g/dL 2.2-4.2 [facility] Serum glucose measurement (m ass/volume)Ordered By: Eryn Guerra on 11-06-2024 Glucose [Mass/Vol] 226 mg/dL High 70-99 [facility] Serum or plasma alanine harvey otransferase (ALT) measurementOrdered By: Eryn Guerra on 11-06-2024 ALT [Catalytic activity/Vol] 24 U/L <35 [facility] Serum or plasma albumin hari urement (mass/volume)Ordered By: Eryn Guerra on 11-06-2024 Albumin [Mass/Vol] 3.8 g/dL 3.4-4.8 [facility] Serum or plasma albumin/glob ulin mass ratioOrdered By: Eryn Guerra on 11-06-2024 Albumin/Globulin [Mass ratio] 1.4 {ratio} 0.9-2.4 [facility] Serum or plasma alkaline magda sphatase measurementOrdered By: Eryn Guerra on 11-06-2024 ALP [Catalytic activity/Vol] 53 U/L 35-104 [facility] Serum or plasma calcium hari urement (mass/volume)Ordered By: Eryn Guerra on 11-06-2024 Calcium [Mass/Vol] 9.0 mg/dL 7.6-11.0 [facility] Serum or plasma carbon dioxi de measurement (moles/volume)Ordered By: Eryn Guerra on 11-06-2024 CO2 [Moles/Vol] 18.0 mmol/L Low 21.0-32.0 [facility] Serum or plasma chloride kailyn surement (moles/volume)Ordered By: Eryn Guerra on 11-06-2024 Chloride [Moles/Vol] 101 mmol/L 98-107 [facility] Serum or plasma urea nitroge n measurement (mass/volume)Ordered By: Eryn Guerra on 11-06-2024 Urea nitrogen [Mass/Vol] 15 mg/dL 4-19 [facility] Sodium levelOrdered By: Zack Guerra on 11-06-2024 Sodium [Moles/Vol] 136 mmol/L 136-145 [facility] TSH DL <= 0.005 mIU/L QnOrde red By: Eryn Guerra on 11-06-2024 Thyroid Stimulating Hormone (TSH) 1.550 uIU/mL 0.300-4.200 [facility] Total proteinOrdered By: Eduardo Guerra on 11-06-2024 Protein [Mass/Vol] 6.4 g/dL 5.9-8.4 [facility] White blood cell (WBC) count Ordered By: Eryn Guerra on 11-06-2024 WBC (Bld) [#/Vol] 9.4 10*3/uL 4.4-11.0 [facility] CNOVon 10-22-2024 CNOV Office Visit (PODIWS ) MARIA ELENA ATKINS ([id number]) 1935 F NFR Date Time Provider Department 10/22/24 9:00 AM EPIFANIO PEÑA During your visit today, we recorded the following information about you: Vidya Le, CHARLEE 10/22/2024 9:04 AM Signed Patient presents with: Left Foot - Established Patient, Follow Up, Diabetic Foot Check Right Foot - Established Patient, Follow Up, Diabetic Foot Check Patient presents for follow up diabetic foot/nail care. Also due for diabetic foot exam. JUNG 07/20/24 Epifanio Peña 10/22/2024 9:04 AM Signed Last saw pcp: not in chart Subjective: Patient presents to clinic c/o painful toenails. They state that the nails are especially painful with shoe gear and pressure. Patient states that nails right hallux are painful. Patient admits to being diabetic. No other pedal complaints at this time. Patient states no change in medications or medical history since last visit. Objective: Patient presents to clinic ambulating in [facility] Vasc: DP and PT pulses are nonpalpable bilateral. CFT is less than 5 seconds bilateral. Skin temperature is warm to cool proximal to distal bilateral. There is mild edema or varicosities noted. Neuro: Protective sensation is decreased to the foot and toes when tested with the 5.07 SWM bilateral. Vibratory sensation is absent at the hallux IPJ bilateral. The hallux is downgoing bilateral. Derm: Nails 1-5 b/l are painful, discolored-yellow, thick, crumbly, dystrophic and with subungal debris. Skin is of normal turgor, texture and hair growth is absent bilateral. There are callus to left plantar navicular cun joint. no ulcerations, scars, verruca or other lesions noted. Ortho: Muscle strength is 5/5 for all pedal groups tested. Ankle joint DF is decreased with the knee extended with no pain or crepitus noted. 1st MPJ ROM is decreased bilateral. 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 Nails 1-5 bilateral were debrided in length and thickness. Patient was instructed on the continued importance of diabetic foot care along with proper diet and keeping their blood sugar under control to prevent complications. Stressed the importance of avoiding barefoot walking, wearing good shoes and inspection of feet daily Callus reduced with dremmel to left foot Gel pad provided for left midfoot to help rubbing in shoes. Can remove at night . Offered this to patient but unable to apply. Patient is to RTC in 3-4 months. YAMILE Portillo Matthew 10/22/2024 8:53 AM Signed Diabetes Foot Care Instructions When you have diabetes, proper foot care is very important. Poor foot care may lead to amputation of a foot or leg. As a person with diabetes, you are more vulnerable to foot problems, because diabetes can damage your nerves and reduce blood flow to your feet. Here are some diabetes foot care tips to follow: Wash and Dry Your Feet Daily Use mild soaps Use warm water Pat your skin dry; do not rub. Thoroughly dry your feet. After washing, use lotion on your feet to prevent cracking. Do not put lotion between your toes. Examine Your Feet Each Day Check the tops and bottoms of your feet. Have someone else look at your feet if you cannot see them. Check for dry, cracked skin. Look for blisters, cuts, scratches, or other sores. Check for redness, increased warmth, or tenderness when touching any area of your feet. Check for ingrown toenails, corns, and calluses. If you get a blister or sore from your shoes, do not pop it. Apply a bandage and wear a different pair of shoes. Take Care of Your Toenails Cut toenails after bathing, when they are soft. Cut toenails straight across and smooth with a nail file. Avoid cutting into the corners of toes. Do not cut cuticles. If you have neuropathy (or decreased sensation in your feet) a microbiology technician should always cut your toenails. Be Careful When Exercising Walk and exercise in comfortable shoes. Do not exercise when you have open sores on your feet. Protect Your Feet With Shoes and Socks Never go barefoot. Always protect your feet by wearing shoes or hard-soled slippers or footwear. Avoid shoes with high heels and pointed toes. Avoid shoes that expose your toes or heels (such as open-toed shoes or sandals). These types of shoes increase your risk for injury and potential infections. Try on new footwear with the type of socks you usually wear. Do not wear new shoes for more than an hour at a time. Change your socks daily. Look and feel insi (more content not included)... Normal [facility] CNOVon 07-20-2024 CNOV Office Visit (PODIWS ) MARIA ELENA ATKINS ([id number]) 1935 F NFR Date Time Provider Department 07/20/24 1:00 PM EPIFANIO PEÑA PODIWS During your visit today, we recorded the following information about you: Madhavi Patiño LPN 07/21/2024 5:28 AM Signed AMB ROOMING INTAKE FLOWSHEET DATA Patient presents with: Left Foot - Established Patient, Follow Up, Diabetic Foot Care Right Foot - Established Patient, Follow Up, Diabetic Foot Care KELSEY Webster Matthew 07/20/2024 1:04 PM Signed Diabetes Foot Care Instructions When you have diabetes, proper foot care is very important. Poor foot care may lead to amputation of a foot or leg. As a person with diabetes, you are more vulnerable to foot problems, because diabetes can damage your nerves and reduce blood flow to your feet. Here are some diabetes foot care tips to follow: Wash and Dry Your Feet Daily Use mild soaps Use warm water Pat your skin dry; do not rub. Thoroughly dry your feet. After washing, use lotion on your feet to prevent cracking. Do not put lotion between your toes. Examine Your Feet Each Day Check the tops and bottoms of your feet. Have someone else look at your feet if you cannot see them. Check for dry, cracked skin. Look for blisters, cuts, scratches, or other sores. Check for redness, increased warmth, or tenderness when touching any area of your feet. Check for ingrown toenails, corns, and calluses. If you get a blister or sore from your shoes, do not pop it. Apply a bandage and wear a different pair of shoes. Take Care of Your Toenails Cut toenails after bathing, when they are soft. Cut toenails straight across and smooth with a nail file. Avoid cutting into the corners of toes. Do not cut cuticles. If you have neuropathy (or decreased sensation in your feet) a microbiology technician should always cut your toenails. Be Careful When Exercising Walk and exercise in comfortable shoes. Do not exercise when you have open sores on your feet. Protect Your Feet With Shoes and Socks Never go barefoot. Always protect your feet by wearing shoes or hard-soled slippers or footwear. Avoid shoes with high heels and pointed toes. Avoid shoes that expose your toes or heels (such as open-toed shoes or sandals). These types of shoes increase your risk for injury and potential infections. Try on new footwear with the type of socks you usually wear. Do not wear new shoes for more than an hour at a time. Change your socks daily. Look and feel inside your shoes before putting them on to make sure there are no foreign objects or rough areas. Avoid tight socks. Wear natural-fiber socks (cotton, wool, or a cotton-wool blend). Wear special shoes if your health care provider recommends them. Wear shoes/boots that will protect your feet from various weather conditions (cold, moisture, etc.). Make sure your shoes fit properly. If you have neuropathy (nerve damage), you may not notice that your shoes are too tight. Perform the footwear test described below. Footwear Test Use this simple test to see if your shoes fit correctly: Stand on a piece of paper. (Make sure you are standing and not sitting, because your foot changes shape when you stand.) Trace the outline of your foot. Trace the outline of your shoe. Compare the tracings: Is the shoe too narrow? Is your foot crammed into the shoe? The shoe should be at least 1/2 inch longer than your longest toe and as wide as your foot. Proper Shoe Choices The following types of shoes are best for people with diabetes Closed toes and heels Leather uppers without a seam inside At least 1/2 inch extra space at the end of your longest toe Inside of shoe should be soft with no rough areas Outer sole should be made of stiff material Shoes should be at least as wide as your feet Tips for Foot Care in Diabetes Don't wait to treat a minor foot problem if you have diabetes. Follow your health care provider's guidelines and first aid guidelines. Report foot injuries and infections to your health care provider immediately. Check water temperature with your elbow, not your foot. Do not use a heating pad on your feet. Do not cross your legs. Do not self-treat your corns, calluses, or other foot problems. Go to your health care provider or microbiology technician to treat these conditions. Epifanio Peña 07/21/2024 5:28 AM Signed Last seen by pcp: not in [facility] chart Subjective: Patient presents to clinic c/o painful toenails. They state that the nails are especially painful with shoe gear and pressure. Patient states that nails 1-5 b/l are painful. Patient admits to being diabetic. No other pedal complaints at this time. Patient states no change in medications or medical history since last visit. Objective: Patient presents to clinic ambulating in sneakers Vasc: DP and PT pulses are nonpalp (more content not included)... Normal [facility] CBC W/Diff, Automatedon 08-2 Absolute Lymph 2.18 X10 3/uL Normal 0.83-4.51 [facility] Comment on above: Performed By: #### L 500.4050, L100.0100, L503.0105, L502.0250, L500.4100 #### [facility] [address] [place], [address] Absolute Neut 5.9 X10 3/uL Normal 2.0-7.7 [facility] Comment on above: Performed By: #### L 500.4050, L100.0100, L503.0105, L502.0250, L500.4100 #### [facility] [address] [place], [address] Basophils/100 WBC (Bld) 0.6 % Normal 0-1 [facility] Comment on above: Performed By: #### L 500.4050, L100.0100, L503.0105, L502.0250, L500.4100 #### [facility] [address] [place], [address] Eosinophils/100 WBC (Bld) 2.7 % Normal 0-5 [facility] Comment on above: Performed By: #### L 500.4050, L100.0100, L503.0105, L502.0250, L500.4100 #### [facility] [address] [place], [address] Erythrocyte distribution width (RBC) [Ratio] 13.6 % Normal 11.6-14.6 [facility] Comment on above: Performed By: #### L 500.4050, L100.0100, L503.0105, L502.0250, L500.4100 #### [facility] [address] [place], [address] Hematocrit (Bld) [Volume fraction] 39.5 % Normal 37-47 [facility] Comment on above: Performed By: #### L 500.4050, L100.0100, L503.0105, L502.0250, L500.4100 #### [facility] [address] [place], [address] Hemoglobin (Bld) [Mass/Vol] 12.1 g/dL Normal 12.0-15.0 [facility] Comment on above: Performed By: #### L 500.4050, L100.0100, L503.0105, L502.0250, L500.4100 #### [facility] [address] [place], [address] IG% 0.600 Normal 0.0-0.9 [facility] Comment on above: Result Comment: IG% - Immature Granulocytes (promyelocytes, myelocytes and metamyelocytes) > 1% indicates that a LEFT SHIFT is Present. Performed By: #### L 500.4050, L100.0100, L503.0105, L502.0250, L500.4100 #### [facility] [address] [place], [address] Lymphocytes/100 WBC (Bld) 24.1 % Normal 19-41 [facility] Comment on above: Performed By: #### L 500.4050, L100.0100, L503.0105, L502.0250, L500.4100 #### [facility] [address] [place], [address] MCH (RBC) [Entitic mass] 28.5 pg Normal 27.0-32.0 [facility] Comment on above: Performed By: #### L 500.4050, L100.0100, L503.0105, L502.0250, L500.4100 #### [facility] [address] [place], [address] MCHC (RBC) [Mass/Vol] 30.6 g/dL Low 32-36 [facility] Comment on above: Performed By: #### L 500.4050, L100.0100, L503.0105, L502.0250, L500.4100 #### [facility] [address] [place], [address] MCV (RBC) [Entitic vol] 93.2 fL Normal 81-99 [facility] Comment on above: Performed By: #### L 500.4050, L100.0100, L503.0105, L502.0250, L500.4100 #### [facility] [address] [place], [address] Monocytes/100 WBC (Bld) 6.7 % Normal 0-10 [facility] Comment on above: Performed By: #### L 500.4050, L100.0100, L503.0105, L502.0250, L500.4100 #### [facility] [address] [place], [address] Neutrophils/100 WBC (Bld) 65.3 % Normal 47-70 [facility] Comment on above: Performed By: #### L 500.4050, L100.0100, L503.0105, L502.0250, L500.4100 #### [facility] [address] [place], [address] Nucleated RBC (Bld) [#/Vol] 0 10*3/uL Normal 0-5 [facility] Comment on above: Performed By: #### L 500.4050, L100.0100, L503.0105, L502.0250, L500.4100 #### [facility] [address] [place], [address] Platelet mean volume (Bld) [Entitic vol] 12.4 fL High 6.2-12.0 [facility] Comment on above: Performed By: #### L 500.4050, L100.0100, L503.0105, L502.0250, L500.4100 #### [facility] [address] [place], [address] Platelets (Bld) [#/Vol] 226 10*3/uL Normal 150-450 [facility] Comment on above: Performed By: #### L 500.4050, L100.0100, L503.0105, L502.0250, L500.4100 #### [facility] [address] [place], [address] RBC (Bld) [#/Vol] 4.24 10*6/uL Normal 4.2-5.4 [facility] Comment on above: Performed By: #### L 500.4050, L100.0100, L503.0105, L502.0250, L500.4100 #### [facility] [address] [place], [address] RDW SD 46.4 fl High 35.1-43.9 [facility] Comment on above: Performed By: #### L 500.4050, L100.0100, L503.0105, L502.0250, L500.4100 #### [facility] [address] [place], [address] WBC (Bld) [#/Vol] 9.1 10*3/uL Normal 4.4-11.0 [facility] Comment on above: Performed By: #### L 500.4050, L100.0100, L503.0105, L502.0250, L500.4100 #### [facility] [address] [place], [address] Comprehensive Metabolic [facility] 05-09-2024 Albumin [Mass/Vol] 3.2 g/dL Normal 3.2-5.0 [facility] Comment on above: Performed By: #### L 500.4050, L100.0100, L503.0105, L502.0250, L500.4100 #### [facility] [address] [place], [address] Albumin/Globulin [Mass ratio] 0.9 {ratio} Normal 0.9-2.4 [facility] Comment on above: Performed By: #### L 500.4050, L100.0100, L503.0105, L502.0250, L500.4100 #### [facility] [address] [place], [address] ALK P 56 U/L Normal 45-117 [facility] Comment on above: Performed By: #### L 500.4050, L100.0100, L503.0105, L502.0250, L500.4100 #### [facility] [address] [place], [address] ALT [Catalytic activity/Vol] 16 U/L Normal 13-56 [facility] Comment on above: Performed By: #### L 500.4050, L100.0100, L503.0105, L502.0250, L500.4100 #### [facility] [address] [place], [address] AST [Catalytic activity/Vol] 16 U/L Normal 15-37 [facility] Comment on above: Performed By: #### L 500.4050, L100.0100, L503.0105, L502.0250, L500.4100 #### [facility] [address] [place], [address] Bilirubin [Mass/Vol] 0.50 mg/dL Normal 0.20-1.00 [facility] Comment on above: Result Comment: For patients on eltrombopag therapy, use of Dimension [place] TBIL is not recommended. Performed By: #### L 500.4050, L100.0100, L503.0105, L502.0250, L500.4100 #### [facility] [address] [place], [address] BUN/CRE 16.4 RATIO Normal 10-20 [facility] Comment on above: Performed By: #### L 500.4050, L100.0100, L503.0105, L502.0250, L500.4100 #### [facility] [address] [place], [address] CA,Total 9.4 mg/dL Normal 8.5-10.1 [facility] Comment on above: Performed By: #### L 500.4050, L100.0100, L503.0105, L502.0250, L500.4100 #### [facility] [address] [place], [address] Chloride [Moles/Vol] 105 mmol/L Normal 98-107 [facility] Comment on above: Performed By: #### L 500.4050, L100.0100, L503.0105, L502.0250, L500.4100 #### [facility] [address] [place], [address] CO2 [Moles/Vol] 28.0 mmol/L Normal 21.0-32.0 [facility] Comment on above: Performed By: #### L 500.4050, L100.0100, L503.0105, L502.0250, L500.4100 #### [facility] [address] [place], [address] Creatinine [Mass/Vol] 0.79 mg/dL Normal 0.55-1.02 [facility] Comment on above: Result Comment: The validity of the calculated GFR GFRAA in patients over 70 years has not been determined. Clinical correlation is essential. Performed By: #### L 500.4050, L100.0100, L503.0105, L502.0250, L500.4100 #### [facility] [address] [place], [address] EST GFR - AA 88 mL/min Normal >60 [facility] Comment on above: Result Comment: Afri can Maltese GFR Calc Performed By: #### L 500.4050, L100.0100, L503.0105, L502.0250, L500.4100 #### [facility] [address] [place], [address] GAP 6 Normal 5-15 [facility] Comment on above: Performed By: #### L 500.4050, L100.0100, L503.0105, L502.0250, L500.4100 #### [facility] [address] [place], [address] GFR/1.73 sq M.predicted among non-blacks MDRD (S/P/Bld) [Vol rate/Area] 73 mL/min/{1.73_m2} Normal >60 [facility] Comment on above: Result Comment: Non- GFR Calc Performed By: #### L 500.4050, L100.0100, L503.0105, L502.0250, L500.4100 #### [facility] [address] [place], [address] Globulin (S) [Mass/Vol] 3.5 g/dL Normal 2.2-4.2 [facility] Comment on above: Performed By: #### L 500.4050, L100.0100, L503.0105, L502.0250, L500.4100 #### [facility] [address] [place], [address] Glucose [Mass/Vol] 109 mg/dL High 74-106 [facility] Comment on above: Result Comment: Fast ing Glucose result from 100 to 125 mg/dL suggests IMPAIRED HOMEOSTASIS per A.D.A. criteria. Performed By: #### L 500.4050, L100.0100, L503.0105, L502.0250, L500.4100 #### [facility] [address] [place], [address] Potassium [Moles/Vol] 4.2 mmol/L Normal 3.5-5.1 [facility] Comment on above: Performed By: #### L 500.4050, L100.0100, L503.0105, L502.0250, L500.4100 #### [facility] [address] [place], [address] Sodium [Moles/Vol] 139 mmol/L Normal 136-145 [facility] Comment on above: Performed By: #### L 500.4050, L100.0100, L503.0105, L502.0250, L500.4100 #### [facility] [address] [place], [address] T PROT 6.7 g/dL Normal 6.4-8.2 [facility] Comment on above: Performed By: #### L 500.4050, L100.0100, L503.0105, L502.0250, L500.4100 #### [facility] [address] [place], [address] Urea nitrogen [Mass/Vol] 13 mg/dL Normal 7-18 [facility] Comment on above: Performed By: #### L 500.4050, L100.0100, L503.0105, L502.0250, L500.4100 #### [facility] [address] [place], [address] Lipid Profileon 05-09-2024 Cholesterol [Mass/Vol] 153 mg/dL Normal 200 [facility] Comment on above: Result Comment: <200 mg/dL Desirable 200-240 mg/dL Borderline >240 mg/dL High Risk Performed By: #### L 500.4050, L100.0100, L503.0105, L502.0250, L500.4100 #### [facility] [address] [place], [address] Cholesterol in HDL [Mass/Vol] 60 mg/dL Normal [facility] Comment on above: Result Comment: The drugs N-Acetylcysteine and Metamizole may falsely depress this assay. Reference Range HDL <40 mg/dL Low HDL Cholesterol HDL >or= 60 mg/dL High HDL Cholesterol Performed By: #### L 500.4050, L100.0100, L503.0105, L502.0250, L500.4100 #### [facility] [address] [place], [address] Cholesterol in LDL [Mass/Vol] 69 mg/dL Normal 0-130 [facility] Comment on above: Performed By: #### L 500.4050, L100.0100, L503.0105, L502.0250, L500.4100 #### [facility] [address] [place], [address] Cholesterol in VLDL [Mass/Vol] 24 mg/dL Normal 5-40 [facility] Comment on above: Performed By: #### L 500.4050, L100.0100, L503.0105, L502.0250, L500.4100 #### [facility] [address] [place], [address] Triglyceride [Mass/Vol] 119 mg/dL Normal [facility] Comment on above: Result Comment: The drugs N-Acetylcysteine and Metamizole may falsely depress this assay. Serum Triglycerides Reference Interval Normal <150 mg/dL Borderline high 150 - 199 mg/dL High 200 - 499 mg/dL Very High > or = 500 mg/dL Performed By: #### L 500.4050, L100.0100, L503.0105, L502.0250, L500.4100 #### [facility] [address] [place], [address] Microalb:Creat Ratio,Random URon 05-09-2024 Creatinine [Mass/Vol] 51.70 mg/dL Normal NO RAN GE EST. [facility] Comment on above: Performed By: #### L 500.4050, L100.0100, L503.0105, L502.0250, L500.4100 #### [facility] [address] [place], [address] MALB:CRE 12.0 mg/g CRE Normal <30 mg/g CRE [facility] Comment on above: Performed By: #### L 500.4050, L100.0100, L503.0105, L502.0250, L500.4100 #### [facility] [address] [place], [address] MICROALBUMIN,UR 6.2 mg/L Normal NO RANGE EST. [facility] Comment on above: Performed By: #### L 500.4050, L100.0100, L503.0105, L502.0250, L500.4100 #### [facility] [address] [place], [place], [address] Vitamin B12on 05-09-2024 Cobalamin (Vitamin B12) [Mass/Vol] 248 pg/mL Normal 211-911 [facility] Comment on above: Performed By: #### L 500.4050, L100.0100, L503.0105, L502.0250, L500.4100 #### [facility] [address] [place], [address] EGD Study observation Narrat iveon 12-21-2023 [facility] Absolute lymphocyte countOrd ered By: Eryn Guerra on 05-06-2023 Lymphocytes Auto (Unsp spec) [#/Vol] 1.53 10*3/uL 0.83-4.51 [facility] Basophil percentageOrdered B y: Eryn Guerra on 05-06-2023 Basophils/100 WBC (Bld) 0.6 % 0-1 [facility] Eosinophils/100 WBC (Bld) 4.7 % 0-5 [facility] Neutrophils (Bld) [#/Vol] 4.4 10*3/uL 2.0-7.7 [facility] Neutrophils/100 WBC (Bld) 64.1 % 47-70 [facility] WBC (Bld) [#/Vol] 6.9 10*3/uL 4.4-11.0 [facility] Blood erythrocytes count (nu mber/volume)Ordered By: Eryn Guerra on 05-06-2023 RBC (Bld) [#/Vol] 3.93 10*6/uL 4.2-5.4 [facility] Blood hemoglobin measurement (mass/volume)Ordered By: Eryn Guerra on 05-06-2023 Hemoglobin (Bld) [Mass/Vol] 11.2 g/dL 12.0-15.0 [facility] Blood lymphocytes/100 leukoc ytesOrdered By: Eryn Guerra on 05-06-2023 Lymphocytes/100 WBC (Bld) 22.3 % 19-41 [facility] Blood monocytes/100 leukocyt esOrdered By: Eryn Guerra on 05-06-2023 Monocytes/100 WBC (Bld) 7.7 % 0-10 [facility] Blood platelet mean volumeOr dered By: Eryn Guerra on 05-06-2023 Platelet mean volume (Bld) [Entitic vol] 12.4 fL 6.2-12.0 [facility] Determination of erythrocyte mean corpuscular volume (MCV)Ordered By: Eryn Guerra on 05-06-2023 MCV (RBC) [Entitic vol] 93.6 fL 81-99 [facility] Hematocrit Auto (Bld) [Volum e fraction]Ordered By: Eryn Guerra on 05-06-2023 Hematocrit (Bld) [Volume fraction] 36.8 % 37-47 [facility] Iron measurement (mass/mass) Ordered By: Eryn Guerra on 05-06-2023 Iron (Unsp spec) [Mass/Mass] 48 ug/dL 50-170 [facility] - Chemistry and C hemistry - challengeOrdered By: Eryn Guerra on 05-06-2023 Cobalamin (Vitamin B12) [Mass/Vol] 282 pg/mL 211-911 [facility] - Hematology and Cell countsOrdered By: Eryn Guerra on 05-06-2023 Erythrocyte distribution width (RBC) [Entitic vol] 48.7 fL 35.1-43.9 [facility] Erythrocyte distribution width (RBC) [Ratio] 14.2 % 11.6-14.6 [facility] Immature granulocytes/100 WBC (Bld) 0.600 % 0.0-0.9 [facility] Comment on above: IG% - Immature Granu locytes (promyelocytes, myelocytes and metamyelocytes) > 1% indicates that a LEFT SHIFT is Present. MCH (RBC) [Entitic mass] 28.5 pg 27.0-32.0 [facility] Nucleated RBC/100 WBC (Bld) [Ratio] 0 % 0-5 [facility] MCHC Auto (RBC) [Mass/Vol]Or dered By: Eryn Guerra on 05-06-2023 MCHC (RBC) [Mass/Vol] 30.4 g/dL 32-36 [facility] No Panel InformationOrdered By: Eryn Guerra on 05-06-2023 Thyroid Stimulating Hormone (TSH) 1.83 uIU/mL 0.358-3.74 [facility] Total Iron Binding Capacity 299 ug/dL 250-450 [facility] Urine Microalbumin/Creatinine Ratio 20.4 mg/g CRE <30 [facility] Platelets bldOrdered By: Eduardo Guerra on 05-06-2023 Platelets (Bld) [#/Vol] 186 10*3/uL 150-450 [facility] Serum or plasma ferritin kailyn surement (mass/volume)Ordered By: Eryn Guerra on 05-06-2023 Ferritin [Mass/Vol] 37 ng/mL 8-252 [facility] Serum or plasma folate measu rement (mass/volume)Ordered By: Eryn Guerra on 05-06-2023 Folate [Mass/Vol] 14.00 ng/mL 3.1-55.4 [facility] Serum or plasma iron saturat ion measurement (mass fraction)Ordered By: Eryn Guerra on 05-06-2023 Iron saturation [Mass fraction] 16.1 % 15.0-55.0 [facility] Thin prep Papanicolaou smear with manual screeningOrdered By: Eryn Guerra on 05-06-2023 Thin prep Papanicolaou smear with manual screening 8.4 mg/L NO RANGE EST. [facility] Urine creatinine measurement (mass/volume)Ordered By: Eryn Guerra on 05-06-2023 Creatinine (U) [Mass/Vol] 41.10 mg/dL NO RANGE EST. [facility] Absolute lymphocyte countOrd ered By: Dr. Guerra on 02-08-2023 Lymphocytes Auto (Unsp spec) [#/Vol] 1.53 10*3/uL 0.83-4.51 [facility] Basophil percentageOrdered B y: Dr. Guerra on 02-08-2023 Basophils/100 WBC (Bld) 0.4 % 0-1 [facility] Bilirubin [Mass/Vol] 0.50 mg/dL 0.20-1.00 [facility] Comment on above: For patients on eltr ombopag therapy, use of Dimension [place] TBIL is not recommended. Chloride [Moles/Vol] 107 mmol/L 98-107 [facility] Cholesterol [Mass/Vol] 134 mg/dL <200 [facility] Comment on above: <200 mg/dL Desirable 200-240 mg/dL Borderline >240 mg/dL High Risk Eosinophils/100 WBC (Bld) 3.4 % 0-5 [facility] Glucose [Mass/Vol] 141 mg/dL 74-106 [facility] Comment on above: Fasting Glucose resu lt greater than or equal to 126 mg/dL suggests DIABETES MELLITUS per A.D.A. criteria. Neutrophils (Bld) [#/Vol] 4.6 10*3/uL 2.0-7.7 [facility] Neutrophils/100 WBC (Bld) 65.7 % 47-70 [facility] Potassium [Moles/Vol] 3.9 mmol/L 3.5-5.1 [facility] Protein [Mass/Vol] 6.9 g/dL 6.4-8.2 [facility] Sodium [Moles/Vol] 143 mmol/L 136-145 [facility] Triglyceride [Mass/Vol] 134 mg/dL <199 [facility] Comment on above: The drugs N-Acetylcy steine and Metamizole may falsely depress this assay.Serum Triglycerides Reference Interval Normal <150 mg/dL Borderline high 150 - 199 mg/dL High 200 - 499 mg/dL Very High > or = 500 mg/dL WBC (Bld) [#/Vol] 7.1 10*3/uL 4.4-11.0 [facility] Blood erythrocytes count (nu mber/volume)Ordered By: Dr. Guerra on 02-08-2023 RBC (Bld) [#/Vol] 4.07 10*6/uL 4.2-5.4 [facility] Blood hemoglobin measurement (mass/volume)Ordered By: Dr. Guerra on 02-08-2023 Hemoglobin (Bld) [Mass/Vol] 11.5 g/dL 12.0-15.0 [facility] Blood lymphocytes/100 leukoc ytesOrdered By: Dr. Guerra on 02-08-2023 Lymphocytes/100 WBC (Bld) 21.7 % 19-41 [facility] Blood monocytes/100 leukocyt esOrdered By: Dr. Guerra on 02-08-2023 Monocytes/100 WBC (Bld) 8.5 % 0-10 [facility] Blood platelet mean volumeOr dered By: Dr. Guerra on 02-08-2023 Platelet mean volume (Bld) [Entitic vol] 12.4 fL 6.2-12.0 [facility] Determination of erythrocyte mean corpuscular volume (MCV)Ordered By: Dr. Guerra on 02-08-2023 MCV (RBC) [Entitic vol] 93.9 fL 81-99 [facility] Hematocrit Auto (Bld) [Volum e fraction]Ordered By: Dr. Guerra on 02-08-2023 Hematocrit (Bld) [Volume fraction] 38.2 % 37-47 [facility] - Chemistry and C hemistry - challengeOrdered By: Dr. Guerra on 02-08-2023 ALP [Catalytic activity/Vol] 49 U/L 45-117 [facility] ALT [Catalytic activity/Vol] 24 U/L 13-56 [facility] CO2 [Moles/Vol] 28.0 mmol/L 21.0-32.0 [facility] Globulin (S) [Mass/Vol] 3.7 g/dL 2.2-4.2 [facility] Urea nitrogen/Creatinine [Mass ratio] 17.1 mg/mg 10-20 [facility] - Hematology and Cell countsOrdered By: Dr. Guerra on 02-08-2023 Erythrocyte distribution width (RBC) [Entitic vol] 47.9 fL 35.1-43.9 [facility] Erythrocyte distribution width (RBC) [Ratio] 14.1 % 11.6-14.6 [facility] Immature granulocytes/100 WBC (Bld) 0.300 % 0.0-0.9 [facility] Comment on above: IG% - Immature Granu locytes (promyelocytes, myelocytes and metamyelocytes) > 1% indicates that a LEFT SHIFT is Present. MCH (RBC) [Entitic mass] 28.3 pg 27.0-32.0 [facility] Nucleated RBC/100 WBC (Bld) [Ratio] 0 % 0-5 [facility] MCHC Auto (RBC) [Mass/Vol]Or dered By: Dr. Guerra on 02-08-2023 MCHC (RBC) [Mass/Vol] 30.1 g/dL 32-36 [facility] No Panel InformationOrdered By: Dr. Guerra on 02-08-2023 Estimated GFR (MDRD) Amer 79 mL/min >60 [facility] Comment on above: GFR Calc Estimated GFR (MDRD) Non-Af Amer 65 mL/min >60 [facility] Comment on above: Non- GFR Calc Platelets bldOrdered By: Dr. Guerra on 02-08-2023 Platelets (Bld) [#/Vol] 195 10*3/uL 150-450 [facility] Serum or plasma albumin hari urement (mass/volume)Ordered By: Dr. Guerra on 02-08-2023 Albumin [Mass/Vol] 3.2 g/dL 3.2-5.0 [facility] Serum or plasma albumin/glob ulin mass ratioOrdered By: Dr. Guerra on 02-08-2023 Albumin/Globulin [Mass ratio] 0.9 {ratio} 0.9-2.4 [facility] Serum or plasma calcium hari urement (mass/volume)Ordered By: Dr. Guerra on 02-08-2023 Calcium [Mass/Vol] 9.6 mg/dL 8.5-10.1 [facility] Serum or plasma cholesterol in HDL measurement (mass/volume)Ordered By: Dr. Guerra on 02-08-2023 Cholesterol in HDL [Mass/Vol] 52 mg/dL >40 [facility] Comment on above: The drugs N-Acetylcy steine and Metamizole may falsely depress this assay. Reference Range HDL <40 mg/dL Low HDL Cholesterol HDL >or= 60 mg/dL High HDL Cholesterol Serum or plasma cholesterol in VLDL measurement (mass/volume)Ordered By: Dr. Guerra on 02-08-2023 Cholesterol in VLDL [Mass/Vol] 27 mg/dL 5-40 [facility] Serum or plasma creatinine m easurement (mass/volume)Ordered By: Dr. Guerra on 02-08-2023 Creatinine [Mass/Vol] 0.88 mg/dL 0.55-1.02 [facility] Comment on above: The validity of the calculated GFR & GFRAA in patients over 70 years has not been determined. Clinical correlation is essential. Serum or plasma low density lipoprotein (LDL) cholesterol measurement (mass/volume)Ordered By: Dr. Guerra on 02-08-2023 Cholesterol in LDL [Mass/Vol] 55 mg/dL 0-130 [facility] Serum or plasma urea nitroge n measurement (mass/volume)Ordered By: Dr. Guerra on 02-08-2023 Urea nitrogen [Mass/Vol] 15 mg/dL 7-18 [facility] Thin prep Papanicolaou smear with manual screeningOrdered By: Dr. Guerra on 02-08-2023 Thin prep Papanicolaou smear with manual screening 18 U/L 15-37 [facility] Thin prep Papanicolaou smear with manual screening 8 5-15 [facility] Basophil percentageOrdered B y: Dr. Guerra on 11-16-2022 Creatinine [Mass/Vol] 1.0 mg/dL 0.55-1.02 [facility] Laboratory - Chemistry and C hemistry - challengeOrdered By: Dr. Guerra on 11-16-2022 GFR/1.73 sq M.predicted among non-blacks MDRD (S/P/Bld) [Vol rate/Area] 53.0000 mL/min/{1.73_m2} >60 [facility] Laboratory - Microbiology an d Antimicrobial susceptibilityOrdered By: Dr. Guerra on 09-21-2022 SARS-CoV-2 (COVID-19) RNA SVEN+probe Ql (Unsp spec) Detected Not Detect [facility] Comment on above: Normal Reference Ran ge: Not DetectedMethod:(RT-PCR) real-time reverse transcriptase PCRLuminex HAWA Instrument*The Food and Drug Administration (FDA) has issued an Emergency Use Authorization (EAU) for the HAWA SARS-CoV-2 Assay for the rapid detection of the virus that causes COVID-19. This test has been validated, but the FDAs independent review of this validation is pending.*Negative results do not preclude infection and should not be used as the sole basis for treatment or patient management. Optimum specimen types and timing for peak viral levels during infections caused by SARS-CoV-2 have not been determined. Collection of multiple specimens from the same patient may be necessary to detect the virus. The possibility of a false negative result should be considered if the patient has clinical presentation or has had recent exposure. Basophil percentageOrdered B y: Karri Serrano on 09-07-2022 Bilirubin [Mass/Vol] 0.50 mg/dL 0.20-1.00 [facility] Comment on above: For patients on eltr ombopag therapy, use of Dimension [place] TBIL is not recommended. Chloride [Moles/Vol] 99 mmol/L 98-107 [facility] Glucose [Mass/Vol] 82 mg/dL 74-106 [facility] Potassium [Moles/Vol] 4.0 mmol/L 3.5-5.1 [facility] Protein [Mass/Vol] 6.2 g/dL 6.4-8.2 [facility] Sodium [Moles/Vol] 135 mmol/L 136-145 [facility] WBC (Bld) [#/Vol] 9.5 10*3/uL 4.4-11.0 [facility] Blood erythrocytes count (nu mber/volume)Ordered By: Karri Serrano on 09-07-2022 RBC (Bld) [#/Vol] 3.47 10*6/uL 4.2-5.4 [facility] Blood hemoglobin measurement (mass/volume)Ordered By: Karri Serrano on 09-07-2022 Hemoglobin (Bld) [Mass/Vol] 10.1 g/dL 12.0-15.0 [facility] Blood platelet mean volumeOr dered By: Karri Serrano on 09-07-2022 Platelet mean volume (Bld) [Entitic vol] 11.7 fL 6.2-12.0 [facility] Determination of erythrocyte mean corpuscular volume (MCV)Ordered By: Karri Serrano on 09-07-2022 MCV (RBC) [Entitic vol] 91.1 fL 81-99 [facility] Hematocrit Auto (Bld) [Volum e fraction]Ordered By: Karri Serrano on 09-07-2022 Hematocrit (Bld) [Volume fraction] 31.6 % 37-47 [facility] Laboratory - Chemistry and C hemistry - challengeOrdered By: Karri Serrano on 09-07-2022 ALP [Catalytic activity/Vol] 63 U/L 45-117 [facility] ALT [Catalytic activity/Vol] 25 U/L 13-56 [facility] CO2 [Moles/Vol] 28.0 mmol/L 21.0-32.0 [facility] Globulin (S) [Mass/Vol] 4.0 g/dL 2.2-4.2 [facility] Urea nitrogen/Creatinine [Mass ratio] 27.5 mg/mg 10-20 [facility] Laboratory - Hematology and Cell countsOrdered By: Karri Serrano on 09-07-2022 Erythrocyte distribution width (RBC) [Entitic vol] 46.3 fL 35.1-43.9 [facility] Erythrocyte distribution width (RBC) [Ratio] 14.0 % 11.6-14.6 [facility] MCH (RBC) [Entitic mass] 29.1 pg 27.0-32.0 [facility] MCHC Auto (RBC) [Mass/Vol]Or dered By: Karri Serrano on 09-07-2022 MCHC (RBC) [Mass/Vol] 32.0 g/dL 32-36 [facility] No Panel InformationOrdered By: Karri Serrano on 09-07-2022 Estimated GFR (MDRD) Amer 87 mL/min >60 [facility] Comment on above: GFR Calc Estimated GFR (MDRD) Non-Af Amer 72 mL/min >60 [facility] Comment on above: Non- GFR Calc Platelets bldOrdered By: Becky Serrano on 09-07-2022 Platelets (Bld) [#/Vol] 335 10*3/uL 150-450 [facility] Serum or plasma albumin hari urement (mass/volume)Ordered By: Karri Serrano on 09-07-2022 Albumin [Mass/Vol] 2.2 g/dL 3.2-5.0 [facility] Serum or plasma albumin/glob ulin mass ratioOrdered By: Karri Serrano on 09-07-2022 Albumin/Globulin [Mass ratio] 0.6 {ratio} 0.9-2.4 [facility] Serum or plasma calcium hari urement (mass/volume)Ordered By: Karri Serrano on 09-07-2022 Calcium [Mass/Vol] 9.1 mg/dL 8.5-10.1 [facility] Serum or plasma creatinine m easurement (mass/volume)Ordered By: Karri Serrano on 09-07-2022 Creatinine [Mass/Vol] 0.80 mg/dL 0.55-1.02 [facility] Comment on above: The validity of the calculated GFR & GFRAA in patients over 70 years has not been determined. Clinical correlation is essential. Serum or plasma urea nitroge n measurement (mass/volume)Ordered By: Karri Serrano on 09-07-2022 Urea nitrogen [Mass/Vol] 22 mg/dL 7-18 [facility] Thin prep Papanicolaou smear with manual screeningOrdered By: Karri Serrano on 09-07-2022 Thin prep Papanicolaou smear with manual screening 32 U/L 15-37 [facility] Thin prep Papanicolaou smear with manual screening 8 5-15 [facility] Absolute lymphocyte countOrd ered By: Karri Serrano on 09-02-2022 Lymphocytes Auto (Unsp spec) [#/Vol] 1.84 10*3/uL 0.83-4.51 [facility] Basophil percentageOrdered B y: Karri Serrano on 09-02-2022 Basophils/100 WBC (Bld) 0.3 % 0-1 [facility] Chloride [Moles/Vol] 103 mmol/L 98-107 [facility] Eosinophils/100 WBC (Bld) 1.4 % 0-5 [facility] Glucose [Mass/Vol] 193 mg/dL 74-106 [facility] Comment on above: Fasting Glucose resu lt greater than or equal to 126 mg/dL suggests DIABETES MELLITUS per A.D.A. criteria. Neutrophils (Bld) [#/Vol] 8.9 10*3/uL 2.0-7.7 [facility] Neutrophils/100 WBC (Bld) 74.9 % 47-70 [facility] Potassium [Moles/Vol] 4.1 mmol/L 3.5-5.1 [facility] Sodium [Moles/Vol] 135 mmol/L 136-145 [facility] WBC (Bld) [#/Vol] 11.9 10*3/uL 4.4-11.0 [facility] Blood erythrocytes count (nu mber/volume)Ordered By: Karri Serrano on 09-02-2022 RBC (Bld) [#/Vol] 3.35 10*6/uL 4.2-5.4 [facility] Blood hemoglobin measurement (mass/volume)Ordered By: Karri Serrano on 09-02-2022 Hemoglobin (Bld) [Mass/Vol] 9.7 g/dL 12.0-15.0 [facility] Blood lymphocytes/100 leukoc ytesOrdered By: Karri Serrano on 09-02-2022 Lymphocytes/100 WBC (Bld) 15.5 % 19-41 [facility] Blood monocytes/100 leukocyt esOrdered By: Karri Serrano on 09-02-2022 Monocytes/100 WBC (Bld) 7.3 % 0-10 [facility] Blood platelet mean volumeOr dered By: Karri Serrano on 09-02-2022 Platelet mean volume (Bld) [Entitic vol] 12.5 fL 6.2-12.0 [facility] Determination of erythrocyte mean corpuscular volume (MCV)Ordered By: Karri Serrano on 09-02-2022 MCV (RBC) [Entitic vol] 90.7 fL 81-99 [facility] Hematocrit Auto (Bld) [Volum e fraction]Ordered By: Karri Serrano on 09-02-2022 Hematocrit (Bld) [Volume fraction] 30.4 % 37-47 [facility] Laboratory - Chemistry and C hemistry - challengeOrdered By: Karri Serrano on 09-02-2022 CO2 [Moles/Vol] 29.0 mmol/L 21.0-32.0 [facility] Urea nitrogen/Creatinine [Mass ratio] 29.0 mg/mg 10-20 [facility] Laboratory - Hematology and Cell countsOrdered By: Karri Serrano on 09-02-2022 Erythrocyte distribution width (RBC) [Entitic vol] 46.0 fL 35.1-43.9 [facility] Erythrocyte distribution width (RBC) [Ratio] 13.9 % 11.6-14.6 [facility] Immature granulocytes/100 WBC (Bld) 0.600 % 0.0-0.9 [facility] Comment on above: IG% - Immature Granu locytes (promyelocytes, myelocytes and metamyelocytes) > 1% indicates that a LEFT SHIFT is Present. MCH (RBC) [Entitic mass] 29.0 pg 27.0-32.0 [facility] Nucleated RBC/100 WBC (Bld) [Ratio] 0 % 0-5 [facility] MCHC Auto (RBC) [Mass/Vol]Or dered By: Karri Serrano on 09-02-2022 MCHC (RBC) [Mass/Vol] 31.9 g/dL 32-36 [facility] No Panel InformationOrdered By: Karri Serrano on 09-02-2022 Estimated GFR (MDRD) Amer 74 mL/min >60 [facility] Comment on above: GFR Calc Estimated GFR (MDRD) Non-Af Amer 61 mL/min >60 [facility] Comment on above: Non- GFR Calc Platelets bldOrdered By: Becky Serrano on 09-02-2022 Platelets (Bld) [#/Vol] 193 10*3/uL 150-450 [facility] Serum or plasma calcium hari urement (mass/volume)Ordered By: Karri Serrano on 09-02-2022 Calcium [Mass/Vol] 8.8 mg/dL 8.5-10.1 [facility] Serum or plasma creatinine m easurement (mass/volume)Ordered By: Karri Serrano on 09-02-2022 Creatinine [Mass/Vol] 0.93 mg/dL 0.55-1.02 [facility] Comment on above: The validity of the calculated GFR & GFRAA in patients over 70 years has not been determined. Clinical correlation is essential. Serum or plasma urea nitroge n measurement (mass/volume)Ordered By: Karri Serrano on 09-02-2022 Urea nitrogen [Mass/Vol] 27 mg/dL 7-18 [facility] Thin prep Papanicolaou smear with manual screeningOrdered By: Karri Serrano on 09-02-2022 Thin prep Papanicolaou smear with manual screening 3 5-15 [facility] .Auto Diffon 09-01-2022 Basophil, Absolute 0.0 10 3/mcL Normal 0.0-0.2 [facility] ([place]) Comment on above: Performed By: #### A 1C, GFR, ANSG, ALB, BMP, ABOG #### [address] [address] Basophils/100 WBC (Bld) 0.1 % Normal 0.0-2.5 [facility] ([place]) Comment on above: Performed By: #### A 1C, GFR, ANSG, ALB, BMP, ABOG #### [address] [address] Eosinophil, Absolute 0.0 10 3/mcL Normal 0.0-0.4 [facility] ([place]) Comment on above: Performed By: #### A 1C, GFR, ANSG, ALB, BMP, ABOG #### [address] [address] Eosinophils/100 WBC (Bld) 0.0 % Normal 0.0-7.0 [facility] ([place]) Comment on above: Performed By: #### A 1C, GFR, ANSG, ALB, BMP, ABOG #### [address] [address] Lymphocyte, Absolute 1.1 10 3/mcL Normal 0.8-3.9 [facility] ([place]) Comment on above: Performed By: #### A 1C, GFR, ANSG, ALB, BMP, ABOG #### [address] [address] Lymphocytes/100 WBC (Bld) 8.7 % Low 10.0-50.0 [facility] ([place]) Comment on above: Performed By: #### A 1C, GFR, ANSG, ALB, BMP, ABOG #### [address] [address] Monocyte, Absolute 0.6 10 3/mcL Normal 0.2-1.0 [facility] ([place]) Comment on above: Performed By: #### A 1C, GFR, ANSG, ALB, BMP, ABOG #### [address] [address] Monocytes/100 WBC (Bld) 4.6 % Normal 1.7-13.0 [facility] ([place]) Comment on above: Performed By: #### A 1C, GFR, ANSG, ALB, BMP, ABOG #### [address] [address] Neutrophils/100 WBC (Bld) 86.6 % High 37.0-80.0 [facility] ([place]) Comment on above: Performed By: #### A 1C, GFR, ANSG, ALB, BMP, ABOG #### [address] [address] .GFRon 09-01-2022 GFR Non- 35 ml/min/1.73sqm Normal [facility] ([place]) Comment on above: Result Comment: GFR Population mean for , Non- Americans Ages 20-29 = 116 mL/min/1.73 sq.m. Ages 30-39 = 107 mL/min/1.73 sq.m. Ages 40-49 = 99 mL/min/1.73 sq.m. Ages 50-59 = 93 mL/min/1.73 sq.m. Ages 60-69 = 85 mL/min/1.73 sq.m. Ages 70+ = 75 mL/min/1.73 sq.m. Chronic Kidney Disease: Less than 60 mL/min/1.73 square meters End Stage Renal Disease: Less than 15 mL/min/1.73 square meters Performed By: #### A 1C, GFR, ANSG, ALB, BMP, ABOG #### [address] [address] GFR 43 ml/min/1.73sqm Normal [facility] ([place]) Comment on above: Result Comment: GFR Population mean for , Non- Americans Ages 20-29 = 116 mL/min/1.73 sq.m. Ages 30-39 = 107 mL/min/1.73 sq.m. Ages 40-49 = 99 mL/min/1.73 sq.m. Ages 50-59 = 93 mL/min/1.73 sq.m. Ages 60-69 = 85 mL/min/1.73 sq.m. Ages 70+ = 75 mL/min/1.73 sq.m. Chronic Kidney Disease: Less than 60 mL/min/1.73 square meters End Stage Renal Disease: Less than 15 mL/min/1.73 square meters Performed By: #### A 1C, GFR, ANSG, ALB, BMP, ABOG #### [address] [address] .NEUABSon 09-01-2022 Neutrophil, Absolute 11.0 10 3/mcL High 2.9-6.2 [facility] ([place]) Comment on above: Performed By: #### A 1C, GFR, ANSG, ALB, BMP, ABOG #### [address] [address] BMPon 09-01-2022 BUN/Creatinine Ratio 15 ratio Normal 7-27 [facility] ([place]) Comment on above: Performed By: #### A 1C, GFR, ANSG, ALB, BMP, ABOG #### [address] [address] Calcium [Mass/Vol] 8.6 mg/dL Normal 8.4-10.2 [facility] ([place]) Comment on above: Performed By: #### A 1C, GFR, ANSG, ALB, BMP, ABOG #### [address] [address] Chloride [Moles/Vol] 100 mmol/L Normal 98-107 [facility] ([place]) Comment on above: Performed By: #### A 1C, GFR, ANSG, ALB, BMP, ABOG #### [address] [address] CO2 [Moles/Vol] 28 mmol/L Normal 23-31 [facility] ([place]) Comment on above: Performed By: #### A 1C, GFR, ANSG, ALB, BMP, ABOG #### [address] [address] Creatinine [Mass/Vol] 1.42 mg/dL High 0.55-1.02 [facility] ([place]) Comment on above: Performed By: #### A 1C, GFR, ANSG, ALB, BMP, ABOG #### [address] [address] Electrolyte Balance 6.0 mEq/L Normal 4.0-15.0 [facility] ([place]) Comment on above: Performed By: #### A 1C, GFR, ANSG, ALB, BMP, ABOG #### [address] [address] Glucose [Mass/Vol] 215 mg/dL High 83-110 [facility] ([place]) Comment on above: Performed By: #### A 1C, GFR, ANSG, ALB, BMP, ABOG #### [address] [address] Potassium [Moles/Vol] 4.7 mmol/L Normal 3.5-5.1 [facility] ([place]) Comment on above: Performed By: #### A 1C, GFR, ANSG, ALB, BMP, ABOG #### [address] [address] Sodium [Moles/Vol] 134 mmol/L Low 136-145 [facility] ([place]) Comment on above: Performed By: #### A 1C, GFR, ANSG, ALB, BMP, ABOG #### [address] [address] Urea nitrogen [Mass/Vol] 21 mg/dL High 7-18 [facility] ([place]) Comment on above: Performed By: #### A 1C, GFR, ANSG, ALB, BMP, ABOG #### [address] [address] CBCon 09-01-2022 Erythrocyte distribution width (RBC) [Ratio] 14.7 % High 11.5-14.5 [facility] ([place]) Comment on above: Performed By: #### A 1C, GFR, ANSG, ALB, BMP, ABOG #### [place] [address] Hematocrit (Bld) [Volume fraction] 30.9 % Low 37.0-47.0 [facility] ([place]) Comment on above: Performed By: #### A 1C, GFR, ANSG, ALB, BMP, ABOG #### [place] [address] Hgb 10.0 G/dL Low 12.0-16.0 [facility] ([place]) Comment on above: Performed By: #### A 1C, GFR, ANSG, ALB, BMP, ABOG #### [place] [address] MCH (RBC) [Entitic mass] 27.9 pg Normal 27.0-31.2 [facility] ([place]) Comment on above: Performed By: #### A 1C, GFR, ANSG, ALB, BMP, ABOG #### [place] [address] MCHC 32.4 G/dL Low 33.0-37.0 [facility] ([place]) Comment on above: Performed By: #### A 1C, GFR, ANSG, ALB, BMP, ABOG #### [address] [address] MCV (RBC) [Entitic vol] 86.3 fL Normal 80.0-94.0 [facility] ([place]) Comment on above: Performed By: #### A 1C, GFR, ANSG, ALB, BMP, ABOG #### [place] [address] Platelet 200 10 3/mcL Normal 130-400 [facility] ([place]) Comment on above: Performed By: #### A 1C, GFR, ANSG, ALB, BMP, ABOG #### [place] [address] [place], [place] [address] Platelet mean volume (Bld) [Entitic vol] 10.1 fL Normal 7.4-10.4 [facility] ([place]) Comment on above: Performed By: #### A 1C, GFR, ANSG, ALB, BMP, ABOG #### [place] [address] [place], [place] [address] RBC 3.58 10 6/mcL Low 4.20-5.40 [facility] ([place]) Comment on above: Performed By: #### A 1C, GFR, ANSG, ALB, BMP, ABOG #### [place] [address] [place], [place] [address] WBC 12.7 10 3/mcL High 4.6-10.8 [facility] ([place]) Comment on above: Performed By: #### A 1C, GFR, ANSG, ALB, BMP, ABOG #### [address] [address] LABORATORYOrdered By: Reid England on 09-01-2022 Blood Glucose Testing Reason Routine (09/01/22 4:38 PM) [facility] Work Phone: Glucose [Mass/Vol] 95 mg/dL Invalid Interpretation Code 82 - 115 mg/dL [facility] Work Phone: Blood Glucose Testing Reason Routine (09/01/22 12:09 PM) [facility] Work Phone: Glucose [Mass/Vol] 135 mg/dL Invalid Interpretation Code 82 - 115 mg/dL [facility] Work Phone: LABORATORYOrdered By: Dior Treadwell on 09-01-2022 Blood Glucose Interventions Administered food/juice (09/01/22 3:30 PM) [facility] Work Phone: Blood Glucose Testing Reason Symptoms of hypoglycemia (09/01/22 3:30 PM) [facility] Work Phone: Glucose [Mass/Vol] 43 mg/dL Invalid Interpretation Code 82 - 115 mg/dL [facility] Work Phone: LABORATORYOrdered By: Dave Carlos on 09-01-2022 Basophil, Absolute 0.0 103/mcL Invalid Interpretation Code 0.0 - 0.2 10^3/mcL AO Workflow SS Basophils/100 WBC (Bld) 0.1 % Invalid Interpretation Code 0.0 - 2.5 % AO Workflow SS Eosinophil, Absolute 0.0 103/mcL Invalid Interpretation Code 0.0 - 0.4 10^3/mcL AO Workflow SS Eosinophils/100 WBC (Bld) 0.0 % Invalid Interpretation Code 0.0 - 7.0 % AO Workflow SS Erythrocyte distribution width (RBC) [Ratio] 14.7 % Invalid Interpretation Code 11.5 - 14.5 % AO Workflow SS Hematocrit (Bld) [Volume fraction] 30.9 % Invalid Interpretation Code 37.0 - 47.0 % AO Workflow SS Hemoglobin (Bld) [Mass/Vol] 10.0 G/dL Invalid Interpretation Code 12.0 - 16.0 G/dL AO Workflow SS Lymphocyte, Absolute 1.1 103/mcL Invalid Interpretation Code 0.8 - 3.9 10^3/mcL AO Workflow SS Lymphocytes/100 WBC (Bld) 8.7 % Invalid Interpretation Code 10.0 - 50.0 % AO Workflow SS MCH (RBC) [Entitic mass] 27.9 pg Invalid Interpretation Code 27.0 - 31.2 pg AO Workflow SS MCHC 32.4 G/dL Invalid Interpretation Code 33.0 - 37.0 G/dL AO Workflow SS MCV (RBC) [Entitic vol] 86.3 fL Invalid Interpretation Code 80.0 - 94.0 fL AO Workflow SS Monocyte, Absolute 0.6 103/mcL Invalid Interpretation Code 0.2 - 1.0 10^3/mcL AO Workflow SS Monocytes/100 WBC (Bld) 4.6 % Invalid Interpretation Code 1.7 - 13.0 % AO Workflow SS Neutrophil, Absolute 11.0 103/mcL Invalid Interpretation Code 2.9 - 6.2 10^3/mcL AO Workflow SS Neutrophils/100 WBC (Bld) 86.6 % Invalid Interpretation Code 37.0 - 80.0 % AO Workflow SS Platelet mean volume (Bld) [Entitic vol] 10.1 fL Invalid Interpretation Code 7.4 - 10.4 fL AO Workflow SS Platelets (Bld) [#/Vol] 200 103/mcL Invalid Interpretation Code 130 - 400 10^3/mcL AO Workflow SS RBC (Bld) [#/Vol] 3.58 106/mcL Invalid Interpretation Code 4.20 - 5.40 10^6/mcL AO Workflow SS WBC (Bld) [#/Vol] 12.7 103/mcL Invalid Interpretation Code 4.6 - 10.8 10^3/mcL AO Workflow SS LABORATORYOrdered By: SYSTEM SYSTEM on 09-01-2022 Calcium [Mass/Vol] 8.6 mg/dL Invalid Interpretation Code 8.4 - 10.2 mg/dL AO ADM SS Chloride [Moles/Vol] 100 mmol/L Invalid Interpretation Code 98 - 107 mmol/L AO ADM SS CO2 [Moles/Vol] 28 mmol/L Invalid Interpretation Code 23 - 31 mmol/L AO ADM SS Creatinine [Mass/Vol] 1.42 mg/dL Invalid Interpretation Code 0.55 - 1.02 mg/dL AO ADM SS Electrolyte Balance 6.0 mEq/L Invalid Interpretation Code 4.0 - 15.0 mEq/L AO ADM SS GFR 43 ml/min/1.73sqm Invalid Interpretation Code AO Chemistry S GFR Non- 35 ml/min/1.73sqm Invalid Interpretation Code AO Chemistry S Glucose [Mass/Vol] 215 mg/dL Invalid Interpretation Code 83 - 110 mg/dL AO ADM SS Potassium [Moles/Vol] 4.7 mmol/L Invalid Interpretation Code 3.5 - 5.1 mmol/L AO ADM SS Sodium [Moles/Vol] 134 mmol/L Invalid Interpretation Code 136 - 145 mmol/L AO ADM SS Urea nitrogen [Mass/Vol] 21 mg/dL Invalid Interpretation Code 7 - 18 mg/dL AO ADM SS Urea nitrogen/Creatinine [Mass ratio] 15 ratio Invalid Interpretation Code 7 - 27 ratio AO ADM SS Gel ABOon 08-31-2022 ABO/Rh Interp Positive Invalid Interpretation Code [facility] ([place]) Comment on above: Performed By: #### A 1C, GFR, ANSG, ALB, BMP, ABOG #### [address] [address] Gel ABSon 08-31-2022 Antibody Screen Gel Negative Normal [facility] ([place]) Comment on above: Performed By: #### A 1C, GFR, ANSG, ALB, BMP, ABOG #### [address] [address] LABORATORYOrdered By: Ruby Mansfield on 08-31-2022 ABO/Rh Interp Positive Invalid Interpretation Code AO BB SS Antibody Screen Gel Negative ABSC (08/31/22 8:17 AM) Invalid Interpretation Code AO BB SS XR KNEE 1 OR 2 VIEWS LEFTon 08-31-2022 XR KNEE 1 OR 2 VIEWS LEFT ORIGINAL EXAMINATION: TWO XRAY VIEWS OF THE LEFT KNEE 08/31/2022 11:14 am COMPARISON: None. HISTORY: ORDERING SYSTEM PROVIDED HISTORY: Reason for Exam: Status Post Arthroplasty FINDINGS: There is a complete knee prosthesis. The components appear well seated and intact. Gas and fluid in the soft tissues is likely postoperative. No acute fracture or dislocation. Surgical change of the femoral shaft. Surgical beulah overlie the skin. IMPRESSION: Surgical changes. Interpreted by: Ap Ma MD Preliminary Report By: Ap Ma MD Electronically signed By Ap Ma MD Dictated Date: 08/31/2022 11:25:44 AM Prelim Date: 08/31/2022 11:26:24 AM Sign Date: 08/31/2022 11:26:24 AM Ordering Provider: CRYS Thakur [facility] ([place]) .Auto Diffon 08-17-2022 Basophil, Absolute 0.0 10 3/mcL Normal 0.0-0.2 [facility] [facility] ([place]) Comment on above: Performed By: #### A 1C, GFR, ANSG, ALB, BMP, ABOG #### [address] [address] Basophils/100 WBC (Bld) 0.4 % Normal 0.0-2.5 [facility] ([place]) Comment on above: Performed By: #### A 1C, GFR, ANSG, ALB, BMP, ABOG #### [address] [address] Eosinophil, Absolute 0.3 10 3/mcL Normal 0.0-0.4 [facility] ([place]) Comment on above: Performed By: #### A 1C, GFR, ANSG, ALB, BMP, ABOG #### [address] [address] Eosinophils/100 WBC (Bld) 3.2 % Normal 0.0-7.0 [facility] ([place]) Comment on above: Performed By: #### A 1C, GFR, ANSG, ALB, BMP, ABOG #### [address] [address] Lymphocyte, Absolute 1.6 10 3/mcL Normal 0.8-3.9 [facility] ([place]) Comment on above: Performed By: #### A 1C, GFR, ANSG, ALB, BMP, ABOG #### [address] [address] Lymphocytes/100 WBC (Bld) 16.5 % Normal 10.0-50.0 [facility] ([place]) Comment on above: Performed By: #### A 1C, GFR, ANSG, ALB, BMP, ABOG #### [address] [address] Monocyte, Absolute 0.6 10 3/mcL Normal 0.2-1.0 [facility] ([place]) Comment on above: Performed By: #### A 1C, GFR, ANSG, ALB, BMP, ABOG #### [address] [address] Monocytes/100 WBC (Bld) 6.6 % Normal 1.7-13.0 [facility] ([place]) Comment on above: Performed By: #### A 1C, GFR, ANSG, ALB, BMP, ABOG #### [address] [address] Neutrophils/100 WBC (Bld) 73.3 % Normal 37.0-80.0 [facility] ([place]) Comment on above: Performed By: #### A 1C, GFR, ANSG, ALB, BMP, ABOG #### [address] [address] .GFRon 08-17-2022 GFR 67 ml/min/1.73sqm Normal [facility] ([place]) Comment on above: Result Comment: GFR Population mean for , Non- Americans Ages 20-29 = 116 mL/min/1.73 sq.m. Ages 30-39 = 107 mL/min/1.73 sq.m. Ages 40-49 = 99 mL/min/1.73 sq.m. Ages 50-59 = 93 mL/min/1.73 sq.m. Ages 60-69 = 85 mL/min/1.73 sq.m. Ages 70+ = 75 mL/min/1.73 sq.m. Chronic Kidney Disease: Less than 60 mL/min/1.73 square meters End Stage Renal Disease: Less than 15 mL/min/1.73 square meters Performed By: #### A 1C, GFR, ANSG, ALB, BMP, ABOG #### [address] [address] GFR Non- 55 ml/min/1.73sqm Normal [facility] ([place]) Comment on above: Result Comment: GFR Population mean for , Non- Americans Ages 20-29 = 116 mL/min/1.73 sq.m. Ages 30-39 = 107 mL/min/1.73 sq.m. Ages 40-49 = 99 mL/min/1.73 sq.m. Ages 50-59 = 93 mL/min/1.73 sq.m. Ages 60-69 = 85 mL/min/1.73 sq.m. Ages 70+ = 75 mL/min/1.73 sq.m. Chronic Kidney Disease: Less than 60 mL/min/1.73 square meters End Stage Renal Disease: Less than 15 mL/min/1.73 square meters Performed By: #### A 1C, GFR, ANSG, ALB, BMP, ABOG #### [address] [address] .NEUABSon 08-17-2022 Neutrophil, Absolute 7.2 10 3/mcL High 2.9-6.2 [facility] ([place]) Comment on above: Performed By: #### A 1C, GFR, ANSG, ALB, BMP, ABOG #### [address] [address] A1Con 08-17-2022 HbA1c (Bld) [Mass fraction] 6.7 % High 4.3-6.4 [facility] ([place]) Comment on above: Performed By: #### A 1C, GFR, ANSG, ALB, BMP, ABOG #### [address] [address] ALBon 08-17-2022 Albumin Level 3.6 G/dL Normal 3.4-4.8 [facility] ([place]) Comment on above: Performed By: #### A 1C, GFR, ANSG, ALB, BMP, ABOG #### [address] [address] BMPon 08-17-2022 BUN/Creatinine Ratio 14 ratio Normal 7-27 [facility] ([place]) Comment on above: Performed By: #### A 1C, GFR, ANSG, ALB, BMP, ABOG #### [address] [address] Calcium [Mass/Vol] 9.7 mg/dL Normal 8.4-10.2 [facility] ([place]) Comment on above: Performed By: #### A 1C, GFR, ANSG, ALB, BMP, ABOG #### [address] [address] Chloride [Moles/Vol] 101 mmol/L Normal 98-107 [facility] ([place]) Comment on above: Performed By: #### A 1C, GFR, ANSG, ALB, BMP, ABOG #### [address] [address] CO2 [Moles/Vol] 26 mmol/L Normal 23-31 [facility] ([place]) Comment on above: Performed By: #### A 1C, GFR, ANSG, ALB, BMP, ABOG #### [address] [address] Creatinine [Mass/Vol] 0.96 mg/dL Normal 0.55-1.02 [facility] ([place]) Comment on above: Performed By: #### A 1C, GFR, ANSG, ALB, BMP, ABOG #### [address] [address] Electrolyte Balance 11.0 mEq/L Normal 4.0-15.0 [facility] ([place]) Comment on above: Performed By: #### A 1C, GFR, ANSG, ALB, BMP, ABOG #### [address] [address] Glucose [Mass/Vol] 149 mg/dL High 83-110 [facility] ([place]) Comment on above: Performed By: #### A 1C, GFR, ANSG, ALB, BMP, ABOG #### [address] [address] Potassium [Moles/Vol] 4.5 mmol/L Normal 3.5-5.1 [facility] ([place]) Comment on above: Performed By: #### A 1C, GFR, ANSG, ALB, BMP, ABOG #### [address] [address] Sodium [Moles/Vol] 138 mmol/L Normal 136-145 [facility] ([place]) Comment on above: Performed By: #### A 1C, GFR, ANSG, ALB, BMP, ABOG #### [address] [address] Urea nitrogen [Mass/Vol] 13 mg/dL Normal 7-18 [facility] ([place]) Comment on above: Performed By: #### A 1C, GFR, ANSG, ALB, BMP, ABOG #### [address] [address] CBCon 08-17-2022 Erythrocyte distribution width (RBC) [Ratio] 14.5 % Normal 11.5-14.5 [facility] ([place]) Comment on above: Order Comment: Pre-A dmission Testing Performed By: #### A 1C, GFR, ANSG, ALB, BMP, ABOG #### [address] [address] Hematocrit (Bld) [Volume fraction] 35.8 % Low 37.0-47.0 [facility] ([place]) Comment on above: Order Comment: Pre-A dmission Testing Performed By: #### A 1C, GFR, ANSG, ALB, BMP, ABOG #### [address] [address] Hgb 12.0 G/dL Normal 12.0-16.0 [facility] ([place]) Comment on above: Order Comment: Pre-A dmission Testing Performed By: #### A 1C, GFR, ANSG, ALB, BMP, ABOG #### [address] [address] MCH (RBC) [Entitic mass] 28.9 pg Normal 27.0-31.2 [facility] ([place]) Comment on above: Order Comment: Pre-A dmission Testing Performed By: #### A 1C, GFR, ANSG, ALB, BMP, ABOG #### [address] [address] MCHC 33.5 G/dL Normal 33.0-37.0 [facility] ([place]) Comment on above: Order Comment: Pre-A dmission Testing Performed By: #### A 1C, GFR, ANSG, ALB, BMP, ABOG #### [address] [address] MCV (RBC) [Entitic vol] 86.2 fL Normal 80.0-94.0 [facility] ([place]) Comment on above: Order Comment: Pre-A dmission Testing Performed By: #### A 1C, GFR, ANSG, ALB, BMP, ABOG #### [address] [address] Platelet 239 10 3/mcL Normal 130-400 [facility] ([place]) Comment on above: Order Comment: Pre-A dmission Testing Performed By: #### A 1C, GFR, ANSG, ALB, BMP, ABOG #### [address] [address] Platelet mean volume (Bld) [Entitic vol] 10.5 fL High 7.4-10.4 [facility] ([place]) Comment on above: Order Comment: Pre-A dmission Testing Performed By: #### A 1C, GFR, ANSG, ALB, BMP, ABOG #### [address] [address] RBC 4.16 10 6/mcL Low 4.20-5.40 [facility] ([place]) Comment on above: Order Comment: Pre-A dmission Testing Performed By: #### A 1C, GFR, ANSG, ALB, BMP, ABOG #### [address] [address] WBC 9.8 10 3/mcL Normal 4.6-10.8 [facility] ([place]) Comment on above: Order Comment: Pre-A dmission Testing Performed By: #### A 1C, GFR, ANSG, ALB, BMP, ABOG #### [address] [address] [address] KNEE W/O CONTRAST LEFTon 08-17-2022 CT KNEE W/O CONTRAST LEFT ORIGINAL EXAMINATION: CT OF THE LEFT KNEE WITHOUT CONTRAST 08/17/2022 2:15 pm TECHNIQUE: CT of the left knee was performed without the administration of intravenous contrast. Multiplanar reformatted images are provided for review. Automated exposure control, iterative reconstruction, and/or weight based adjustment of the mA/kV was utilized to reduce the radiation dose to as low as reasonably achievable. COMPARISON: None available. HISTORY ORDERING SYSTEM PROVIDED HISTORY: Reason for Exam: VARUS DEFORMITY, NOT ELSEWHERE CLASSIFIED, LEFT KNEE. FINDINGS: No acute fracture or dislocation is evident. Patchy decreased osseous mineralization is present. No visible aggressive osseous lesions. Essentially complete loss of medial femorotibial compartment joint space is present with marginal osteophyte formation and subchondral cysts. Mild chondrocalcinosis noted. There is moderate joint space narrowing of the lateral femorotibial compartment with marginal osteophyte formation. Moderate patellofemoral compartment joint space narrowing is noted with marginal osteophyte formation. Trace volume knee effusion. Small volume Rashid's cyst. Included tendons appear grossly intact. Ligaments are poorly evaluated on this examination. Advanced gluteus minimus muscle atrophy. Atrophy of the gluteus medius muscle is noted to a lesser degree. Provided images of the left hip and left hemipelvis exhibit no acute osseous abnormalities or aggressive osseous lesions. Moderate pubic symphysis joint space narrowing. No acute process noted of the included intrapelvic structures. Provided images of the left ankle exhibit no acute osseous abnormalities or aggressive osseous lesions. 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 IMPRESSION: 1. No acute osseous abnormalities or aggressive osseous lesions. 2. Tricompartmental degenerative change, most advanced of the medial femorotibial compartment with mild chondrocalcinosis. Trace volume effusion. Small volume Rashid's cyst. Interpreted by: Tres Wilkinson DO Preliminary Report By: Tres Wilkinson DO Electronically signed By Tres Wilkinson DO Dictated Date: 08/17/2022 2:25:09 PM Prelim Date: 08/17/2022 2:29:16 PM Sign Date: 08/17/2022 2:29:16 PM Ordering Provider: CRYS DIAZ Normal [facility]) Gel ABOon 08-17-2022 ABO/Rh Interp Positive Invalid Interpretation Code [facility]) Comment on above: Performed By: #### A 1C, GFR, ANSG, ALB, BMP, ABOG #### [address] [address] Gel ABSon 08-17-2022 Antibody Screen Gel Negative [facility]) Comment on above: Performed By: #### A 1C, GFR, ANSG, ALB, BMP, ABOG #### [address] [address] LABORATORYOrdered By: Stacey Disla on 08-17-2022 ABO/Rh Interp Positive Invalid Interpretation Code AO BB SS Albumin BCP dye [Mass/Vol] 3.6 G/dL Invalid Interpretation Code 3.4 - 4.8 G/dL AO ADM SS Antibody Screen Gel Negative [facility] (08/17/22 12:27 PM) Invalid Interpretation Code AO BB SS Calcium [Mass/Vol] 9.7 mg/dL Invalid Interpretation Code 8.4 - 10.2 mg/dL AO ADM SS Chloride [Moles/Vol] 101 mmol/L Invalid Interpretation Code 98 - 107 mmol/L AO ADM SS CO2 [Moles/Vol] 26 mmol/L Invalid Interpretation Code 23 - 31 mmol/L AO ADM SS Creatinine [Mass/Vol] 0.96 mg/dL Invalid Interpretation Code 0.55 - 1.02 mg/dL AO ADM SS Electrolyte Balance 11.0 mEq/L Invalid Interpretation Code 4.0 - 15.0 mEq/L AO ADM SS Glucose [Mass/Vol] 149 mg/dL Invalid Interpretation Code 83 - 110 mg/dL AO ADM SS HbA1c (Bld) [Mass fraction] 6.7 % Invalid Interpretation Code 4.3 - 6.4 % AO ADM SS Potassium [Moles/Vol] 4.5 mmol/L Invalid Interpretation Code 3.5 - 5.1 mmol/L AO ADM SS Sodium [Moles/Vol] 138 mmol/L Invalid Interpretation Code 136 - 145 mmol/L AO ADM SS Urea nitrogen [Mass/Vol] 13 mg/dL Invalid Interpretation Code 7 - 18 mg/dL AO ADM SS Urea nitrogen/Creatinine [Mass ratio] 14 ratio Invalid Interpretation Code 7 - 27 ratio AO ADM SS LABORATORYOrdered By: Carine Orr on 08-17-2022 Basophil, Absolute 0.0 103/mcL Invalid Interpretation Code 0.0 - 0.2 10^3/mcL AO Workflow SS Basophils/100 WBC (Bld) 0.4 % Invalid Interpretation Code 0.0 - 2.5 % AO Workflow SS Eosinophil, Absolute 0.3 103/mcL Invalid Interpretation Code 0.0 - 0.4 10^3/mcL AO Workflow SS Eosinophils/100 WBC (Bld) 3.2 % Invalid Interpretation Code 0.0 - 7.0 % AO Workflow SS Erythrocyte distribution width (RBC) [Ratio] 14.5 % Invalid Interpretation Code 11.5 - 14.5 % AO Workflow SS Hematocrit (Bld) [Volume fraction] 35.8 % Invalid Interpretation Code 37.0 - 47.0 % AO Workflow SS Hemoglobin (Bld) [Mass/Vol] 12.0 G/dL Invalid Interpretation Code 12.0 - 16.0 G/dL AO Workflow SS Lymphocyte, Absolute 1.6 103/mcL Invalid Interpretation Code 0.8 - 3.9 10^3/mcL AO Workflow SS Lymphocytes/100 WBC (Bld) 16.5 % Invalid Interpretation Code 10.0 - 50.0 % AO Workflow SS MCH (RBC) [Entitic mass] 28.9 pg Invalid Interpretation Code 27.0 - 31.2 pg AO Workflow SS MCHC 33.5 G/dL Invalid Interpretation Code 33.0 - 37.0 G/dL AO Workflow SS MCV (RBC) [Entitic vol] 86.2 fL Invalid Interpretation Code 80.0 - 94.0 fL AO Workflow SS Monocyte, Absolute 0.6 103/mcL Invalid Interpretation Code 0.2 - 1.0 10^3/mcL AO Workflow SS Monocytes/100 WBC (Bld) 6.6 % Invalid Interpretation Code 1.7 - 13.0 % AO Workflow SS Neutrophil, Absolute 7.2 103/mcL Invalid Interpretation Code 2.9 - 6.2 10^3/mcL AO Workflow SS Neutrophils/100 WBC (Bld) 73.3 % Invalid Interpretation Code 37.0 - 80.0 % AO Workflow SS Platelet mean volume (Bld) [Entitic vol] 10.5 fL Invalid Interpretation Code 7.4 - 10.4 fL AO Workflow SS Platelets (Bld) [#/Vol] 239 103/mcL Invalid Interpretation Code 130 - 400 10^3/mcL AO Workflow SS RBC (Bld) [#/Vol] 4.16 106/mcL Invalid Interpretation Code 4.20 - 5.40 10^6/mcL AO Workflow SS WBC (Bld) [#/Vol] 9.8 103/mcL Invalid Interpretation Code 4.6 - 10.8 10^3/mcL AO Workflow SS LABORATORYOrdered By: SYSTEM SYSTEM on 08-17-2022 GFR 67 ml/min/1.73sqm Invalid Interpretation Code AO Chemistry S GFR Non- 55 ml/min/1.73sqm Invalid Interpretation Code AO Chemistry S XR Knee - right 4 Viewson IMPRESSION: Findings are suggestive of mild degenerative changes in the right knee. Embalmer Assistant: KIMBERLY Transcribe Date/Time: Dec 02 2020 10:35A Dictated by : SMITH PALACIO MD This examination was interpreted and the report reviewed and electronically signed by: SMITH PALACIO MD on Dec 02 2020 10:38AM [facility] DIVISION OF RADIOLOGY * * *Final Report* * * DATE OF EXAM: Dec 02 2020 10:26AM WOX [id number] - XR KNEE 4V AP/PA BOTH+LAT/MARYANN RT / PROCEDURE REASON: Acute pain of right knee * * * * Physician Interpretation * * * * EXAM TITLE: XR KNEE 4V AP/PA BOTH+LAT/MARYANN RT EXAM DATE/TIME: 12/02/2020 10:26 AM COMPARISON: None. CLINICAL INDICATION/HISTORY: Acute right knee pain. TECHNIQUE: AP/PA, lateral and sunrise views of the right knee are presented. FINDINGS: No acute fractures or subluxations are noted. The joint spaces are well preserved. Tiny marginal bony spurs seen. There is no evidence of joint effusion. The mineralization of the bones is normal. There is no significant soft tissue swelling. Others: There are degenerative changes in the left knee. DIVISION OF RADIOLOGY Provider, Tiffanie valencia [place] - 12/02/2020 * * *Final Report* * * DATE OF EXAM: Dec 02 2020 10:26AM WOX [id number] - XR KNEE 4V AP/PA BOTH+LAT/MARYANN RT / PROCEDURE REASON: Acute pain of right knee * * * * Physician Interpretation * * * * EXAM TITLE: XR KNEE 4V AP/PA BOTH+LAT/MARYANN RT EXAM DATE/TIME: 12/02/2020 10:26 AM COMPARISON: None. CLINICAL INDICATION/HISTORY: Acute right knee pain. TECHNIQUE: AP/PA, lateral and sunrise views of the right knee are presented. FINDINGS: No acute fractures or subluxations are noted. The joint spaces are well preserved. Tiny marginal bony spurs seen. There is no evidence of joint effusion. The mineralization of the bones is normal. There is no significant soft tissue swelling. Others: There are degenerative changes in the left knee. IMPRESSION IMPRESSION: Findings are suggestive of mild degenerative changes in the right knee. Embalmer Assistant: KIMBERLY Transcribe Date/Time: Dec 02 2020 10:35A Dictated by : SMITH PALACIO MD This examination was interpreted and the report reviewed and electronically signed by: SMITH PALACIO MD on Dec 02 2020 10:38AM EST [facility] Radiology Study observation (narrative) Rick fernando [facility] XR Knee - right 4 ViewsOrder ed By: [facility] Provider on 12-02-2020 [facility] HISTORY PHYSICALon 8 HISTORY PHYSICAL HNO ID: [id number]: Dasia RamireztmanService: General SurgeryAuthor Type: PhysicianType: HANDPFiled: 02/28/2018 9:02 AMNote Text:HISTORY AND PHYSICAL?Maria Elena Jony Wilbert1935?REFERRIN G PHYSICIAN: Joss Gant?CHIEF COMPLAINT: Consult (Consult Colonoscopy-Family history)?HPI: The patient is a 83 year old female referred for endoscopy. Marynotes a family history of colon cancer. She denies any change in bowelhabits, weight changes, blood in stools, black tarry stools or abdominalpain. 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 She denies any dysphagia currently. Lastcolonoscopy was in [address] Cole, and last EGD in 2014 by , those reports have been reviewed.?The patient is being seen by me today at the request of Dr. Gant for myopinion and advice regarding family history of colon cancer and personalhistory of Londono's esophagus and need for surveillance endoscopy. Pastmedical history is significant for diabetes mellitus, hypertension,hyperlipid emia stomach ulcers, rheumatoid arthritis. Patient denies anycardiac or respiratory issues, and denies problems with sedation in thepast. The patient follows with Dr. Gant for her chronic medicalconditions.??PAS T MEDICAL HISTORYPAST MEDICAL HISTORYDiagnosis Date- Actinic keratosis ?? Dr. Castillo- Londono esophagus ?- Bone spur ?- Diabetes mellitus without mention of complication ?- Diabetic neuropathy (HCC) ?- Esophagitis, unspecified ?- GERD (gastroesophageal reflux disease) ?- Hypertension ?- Onychomycosis ?- Other and unspecified hyperlipidemia ?- Rheumatoid arthritis(714.0) ?- Snoring ?- Stomach ulcer ???PAST SURGICAL HISTORYPAST SURGICAL HISTORYProcedure Laterality Date- BX OF BREAST; INCISIONAL ? 1989? Bx of breast, incisional- COLONOSCOP W/ OR W/O [facility] SPEC ? 12/17/2005? Colonoscopy- COLONOSCOPY ? 08/01/2013- EGD W/O [facility] SPECIMEN W/BX ? 04/12/06- EGD W/O OR W/BRUSH/WASH ? 12/17/2005? EGD- EGD W/O OR W/BRUSH/WASH ? 08/01/2013? EGD- EGD W/O OR W/BRUSH/WASH ? 08/28/15? EGD- REMOVAL GALLBLADDER ? 1967? Cholecystectomy- REMV 2ND CATARACT,CORN-SCLER SECTN ? 1993? Cataract removal - bilat- WRIST SURGERY HX Right 2010???CURRENT MEDICATIONS?Current Outpatient Prescriptions:metFORMIN ER (GLUCOPHAGE XR) 500 mg 24 hr tablet Take 3 tablets by mouthdaily with breakfast.dulaglutide (TRULICITY) 1.5 mg/0.5 mL pnij Inject 1.5 mg subcutaneouslyonce each week.insulin glargine (LANTUS SOLOSTAR U-100 INSULIN) 100 unit/mL (3 mL) inpnInject 50 Units subcutaneously daily at bedtime.Omeprazole 40 mg capsule Take 1 capsule by mouth once daily.Simethicone (GAS RELIEF) 125 mg cap Take 1 capsule by mouth as needed.lisinopril-hydro chlorothiazide (PRINZIDE,ZESTORETIC) 20-12.5 mg per tabletTake 1 tablet by mouth once daily.aspirin, enteric coated (ECOTRIN LOW STRENGTH) 81 mg EC tablet Take 1tablet by mouth once daily.Biotin 2,500 mcg cap Take 2 tablets by mouth once dailyALEVE 220 MG TAB as necessaryinsulin aspart U-100 (NOVOLOG FLEXPEN U-100 INSULIN) 100 unit/mL inpnInject 10 Units subcutaneously twice daily with meals. Lunch and SupperInsulin [place], Disposable, (BD ULTRA-FINE ALEXANDER PEN NEEDLE) 32 gauge x5/32 ndle Use one needle for each dose. Three per day.?No current facility-administered medications for this visit.?ALLERGIES: Patient has no known allergies.?PERSONAL HISTORY:SOCIAL HISTORYSocial History Marital status: Spouse name: Years of education: Number of children: 5?Occupational HistoryOccupation Employer [employer]* retired.?Social History Main Topics Smoking status: Never Smoker? Smokeless tobacco: Never Used Alcohol use: Yes Comment: ONCE IN A GREAT WHILE Drug use: No Sexual activity: No?Social History Narrative , from complications of agent orange. Lives [facility] [place] [facility] with oldest son. Has 5 sons, 4 Nearby, one with MS. Involved inTOPS. ' support group.??FAMILY HISTORY:FAMILY HISTORYFAMILY HISTORYProblem Relation Age of Onset- Cancer Mother ?? ? lung- Alcohol/Drug Mother ?- Allergies Mother ?- Cancer Father ?? ? esophageal- Alcohol/Drug Father ?- Colon Cancer Brother ?- Cancer Brother ?- Diabetes Paternal Aunt ?- hip and leg problems [OTHER] Son ?- MS [OTHER] Son ???REVIEW OF SYMPTOMS: The review of systems data was entered by the nurse and reviewed by me?Nursing Notes:Sai Layne LPN 02/15/2018 9:34 AM SignedREVIEW OF SYSTEMS: General: The patient denies fatigue, denies weight loss, NOTESweight gain, denies feeling hot, and denies feelings of cold. Eyes: The patient denies glaucoma, NOTES eye injury/surgery, wearsglasses or contacts. Ear/Nose/Throat: The patient denies allergies, denies hayfever,denies ear infections, and denies bloody noses. Cardiovascular: The patient denies chest pain, denies heart disease,denies high blood pressure,denies cardiac stent, denies prior heartattack, denies irregular heart beat, denies high cholesterol, denies poorcirculation, denies heart failure, other cardiac issues, deniesclaudication, denies cold feet, denies peripheral arterial stent. Respiratory: The patient denies tuberculosis, denies pneumonia,denies frequent cough, denies pulmonary embolism, denies shortness ofbreath, and denies coughing up blood. Gastrointestinal: The patient denies difficulty swallowing, deniesacid reflux, denies ulcers, denies vomiting, denies jaundice/hepatitis,NOTE S gallbladder problems, denies black or tarry stools, denieshemorrhoids, denies bleeding from rectum, NOTES diverticulitis,NOTEScon stipation, denies diarrhea, denies loss of stool control, and denieshernias. Kidney/Bladder: The patient denies kidney stones, denies urineinfections, and denies bloody urine. Skin: The patient NOTES a history of skin cancer, deniesbleeding/changing moles, and denies a history of skin rash. Neurologic: The patient denies a history of epilepsy/convulsions,de nies headaches, denies head/spinal injuries, and denies stroke/TIA. Psychiatric: The patient denies psychiatric medications, deniesdepression, and denies voices, denies substance abuse. Endocrine: The patient denies thyroid disorders, NOTES diabetes, anddenies hormonal problems. Hematologic: The patient denies a history of bruising, deniesbleeding, and denies anemia, denies blood clots. Infections: The patient NOTES a history of measles and mumps, deniesrheumatic fever, and denies sexually transmitted diseases. Musculoskeletal: The patient denies back pain/injury, denies backproblems, denies sciatica, NOTES knee/foot trouble, NOTES arthritis, ordenies gout.??When was patient's last Mammogram screening? 2016? Last Colonoscopy: 2012?Sai SNEED have confirmed and edited as necessary, the PFSH and ROS obtained byothers.PHYSICAL EXAMINATION:?General: The patient is 83 year old female, well nourished, well hydratedin no acute distress. The patient is oriented to time, place, and person.?VITALS: Blood pressure 152/68, pulse 68, weight 83.5 kg (184 lb). Bodymass index is 33.12 kg/m?.?HEENT: Normal cephalic, ataumatic, pupils are equally round, sclera areanicteric, mucous membranes are moist, oropharynx is clear. Neck has nomasses, asymmetry or lymphadenopathy.?Respir atory: Clear to auscultation and percussion. Normal respiratoryexcursion and pattern.?Cardiac: Examination is regular rate and rhythm.?Abdominal exam: Soft, nontender, with no palpable masses. Nohepatosplenomegaly. No palpable hernias.?Extremities: no clubbing, cyanosis or edema. No adenopathy.?Other:?LABO RATORY VALUES: As Noted?RADIOLOGIC STUDIES: As Noted?AssessmentIMPRESS ION: encounter for screening colonoscopy. History of Londono'sesophagus. Diabetes mellitus?PLAN: We will plan for upper and lower endoscopy. We discussed therisks and benefits of the planned endoscopy. I have informed the patientthat complications can occur including failure to complete the endoscopyand perforation. The patient had the opportunity to ask questionsconcerning the planned endoscopy. My staff has also explained theprocedure to the patient in understandable terms and has given the patientprinted material concerning the procedure. The patient freely consents tosurgery.?I plan to use golytely bowel preparation for endoscopy?I have instructed the patient to contact her PCP regarding her diabeticmedications, which may need dosage adjustments while doing the clearliquid diet and bowel preparation for the colonoscopy?Patient verbalized understanding of all above and agreed with the plan?Diagnoses: (K22.70) 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 (primaryencounter diagnosis)(Z12.11) Encounter for screening for malignant neoplasm of colon(Z80.0) Family history of colon cancer?My findings have been communicated to Dr. Gant via shared medicalrecord. This note will be forwarded to Dr. Joss Gant MD.Return to Clinic: The patient is instructed to follow-up with me 1 weekpost operatively.?? Brooke Rojas PA-C [facility] HOSPon 02-28-2018 HOSP Patient:Maria Elena Atkins KMRN: Height:5' 2.52(1.588 m)Weight:184 lb 1.4 oz (83.5 kg)Outpatient Medications as of 02/28/18:insulin aspart U-100 (NOVOLOG FLEXPEN U-100 INSULIN) 100 unit/mL inpnInsulin [place], Disposable, (BD ULTRA-FINE ALEXANDER PEN NEEDLE) 32 gauge x 5/32ndlemetFORMIN ER (GLUCOPHAGE XR) 500 mg 24 hr tabletdulaglutide (TRULICITY) 1.5 mg/0.5 mL pnijinsulin glargine (LANTUS SOLOSTAR U-100 INSULIN) 100 unit/mL (3 mL) inpnOmeprazole 40 mg capsuleSimethicone (GAS RELIEF) 125 mg caplisinopril-hydrochlo rothiazide (PRINZIDE,ZESTORETIC) 20-12.5 mg per tabletaspirin, enteric coated (ECOTRIN LOW STRENGTH) 81 mg EC tabletBiotin 2,500 mcg capALEVE 220 MG TABAdmission/Clinic Administered Medications as of 02/28/18:NaCl 0.9% iv infusionProblem List:DM (diabetes mellitus) type II controlled, 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]Sebaceous cyst [L72.3]Diverticulitis of colon (without mention of hemorrhage)(562.11) [K57.32]Hypertension [I10]Actinic Keratosis (Premalignant AK) [L57.0]Irritated//Infla med Seborrheic Keratosis [L82.0]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]Solar Lentigines [L81.4]Actinic Damage///Sun-Damaged Skin [L57.8]Melanocytic Nevus of Trunk: upper mid chest and back [D22.5]Rheumatoid arthritis (HCC) [M06.9]Xerosis cutis [L85.3]Londono's esophagus with esophagitis [K22.70, K20.9]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]Acute pain of left shoulder [M25.512]Londono esophagus [K22.70]Allergies:No Known AllergiesDate Verified:02/28/18Lab ValuesNo results within the last 30 days for the following basenames: K,HCTProgress Notes (PHARM MED PENDING SALE TO [facility]):DELANO CAMILO, PHARMACIST 02/16/2018 11:31 AM SignedPatient calling to inquire about insulin instructions for day of colonoscopyprep.Instruc gena patient to take half of her normal Lantus dose (25 units instead of50 units), hold Novolog, same dose metformin.She also reports FBGs in the 100s but bed time readings still 200-300.Current Outpatient Prescriptions:insulin aspart U-100 (NOVOLOG FLEXPEN U-100 INSULIN) 100 unit/mL inpn Inject 10Units subcutaneously with supperInsulin [place], Disposable, (BD ULTRA-FINE ALEXANDER PEN NEEDLE) 32 gauge x 5/32ndle Use one needle for each dose. two/day.metFORMIN ER (GLUCOPHAGE XR) 500 mg 24 hr tablet Take 3 tablets by mouth dailywith breakfast.dulaglutide (TRULICITY) 1.5 mg/0.5 mL pnij Inject 1.5 mg subcutaneously onceeach week.insulin glargine (LANTUS SOLOSTAR U-100 INSULIN) 100 unit/mL (3 mL) inpn [id number] Units subcutaneously daily at bedtime.No current facility-administered medications for this visit.Will increase meal time insulin to 10 units with lunch AND supperUpdate pen needle script to three per day.PharmD phone f/u in one weekAnna Shawna Camilo, BCPSProgress Notes (GENS PENDING SALE TO [facility]):Sai Layne LPN 02/15/2018 9:34 AM SignedREVIEW OF SYSTEMS: General: The patient denies fatigue, denies weight loss, NOTES weightgain, denies feeling hot, and denies feelings of cold. Eyes: The patient denies glaucoma, NOTES eye injury/surgery, wears glassesor contacts. Ear/Nose/Throat: The patient denies allergies, denies hayfever, denies earinfections, and denies bloody noses. Cardiovascular: The patient denies chest pain, denies heart disease,denies high blood pressure,denies cardiac stent, denies prior heart attack,denies irregular heart beat, denies high cholesterol, denies poor circulation,denies heart failure, other cardiac issues, denies claudication, denies coldfeet, denies peripheral arterial stent. Respiratory: The patient denies tuberculosis, denies pneumonia, deniesfrequent cough, denies pulmonary embolism, denies shortness of breath, anddenies coughing up blood. Gastrointestinal: The patient denies difficulty swallowing, denies acidreflux, denies ulcers, denies vomiting, denies jaundice/hepatitis, NOTESgallbladder problems, denies black or tarry stools, denies hemorrhoids, deniesbleeding from rectum, NOTES diverticulitis,NOTES constipation, denies diarrhea,denies loss of stool control, and denies hernias. Kidney/Bladder: The patient denies kidney stones, denies urine infections,and denies bloody urine. Skin: The patient NOTES a history of skin cancer, denies bleeding/changingmoles, and denies a history of skin rash. Neurologic: The patient denies a history of epilepsy/convulsions, deniesheadaches, denies head/spinal injuries, and denies stroke/TIA. Psychiatric: The patient denies psychiatric medications, deniesdepression, and denies voices, denies substance abuse. Endocrine: The patient denies thyroid disorders, NOTES diabetes, anddenies hormonal problems. Hematologic: The patient denies a history of bruising, denies bleeding,and denies anemia, denies blood clots. Infections: The patient NOTES a history of measles and mumps, deniesrheumatic fever, and denies sexually transmitted diseases. Musculoskeletal: The patient denies back pain/injury, denies backproblems, denies sciatica, NOTES knee/foot trouble, NOTES arthritis, or deniesgout.When was patient's last Mammogram screening? 2016 Last Colonoscopy: 2012Sai Rojas PA-C 02/16/2018 4:30 PM SignedHISTORY AND PHYSICALMary Jony Atkins1935REFERRING PHYSICIAN: Joss Gant *CHIEF COMPLAINT: Consult (Consult Colonoscopy-Family history)HPI: The patient is a 83 year old female referred for endoscopy. Maria Elena notes afamily history of colon cancer. She denies any change in bowel habits, weightchanges, blood in stools, black tarry stools or abdominal pain. The patientnotes a personal history of Londono's esophagus, takes PPI regularly asinstructed. She denies any dysphagia currently. Last colonoscopy was in y Dr. Cole, and last EGD in [address] Ferrera, those reports have beenreviewed.The patient is being seen by me today at the request of Dr. Gant for myopinion and advice regarding family history of colon cancer and personal historyof Londono's esophagus and need for surveillance endoscopy. Past medicalhistory is significant for diabetes mellitus, hypertension, hyperlipidemiastomach ulcers, rheumatoid arthritis. Patient denies any cardiac or respiratoryissues, and denies problems with sedation in the past. The patient follows withDr. Gant for her chronic medical conditions.PAST MEDICAL HISTORYDiagnosis Date- Actinic keratosis Dr. Castillo- Londono esophagus- Bone spur- Diabetes mellitus without mention of complication- Diabetic neuropathy (HCC)- Esophagitis, unspecified- GERD (gastroesophageal reflux disease)- Hypertension- Onychomycosis- Other and unspecified hyperlipidemia- Rheumatoid arthritis(714.0)- Snoring- Stomach ulcerPAST SURGICAL HISTORYProcedure Laterality Date- BX OF BREAST; INCISIONAL 1989 Bx of breast, incisional- COLONOSCOP W/ OR W/O [facility] SPEC 12/17/2005 Colonoscopy- COLONOSCOPY 08/01/2013- EGD W/O [facility] SPECIMEN W/BX 04/12/06- EGD W/O OR W/BRUSH/WASH 12/17/2005 EGD- EGD W/O OR W/BRUSH/WASH 08/01/2013 EGD- EGD W/O OR W/BRUSH/WASH 08/28/15 EGD- REMOVAL GALLBLADDER 1968 Cholecystectomy- REMV 2ND CATARACT,CORN-SCLER SECTN 1993 Cataract removal - bilat- WRIST SURGERY HX Right 2011Current Outpatient Prescriptions:metFORMIN ER (GLUCOPHAGE XR) 500 mg 24 hr tablet Take 3 tablets by mouth dailywith breakfast.dulaglutide (TRULICITY) 1.5 mg/0.5 mL pnij Inject 1.5 mg subcutaneously onceeach week.insulin glargine (LANTUS SOLOSTAR U-100 INSULIN) 100 unit/mL (3 mL) inpn [id number] Units subcutaneously daily at bedtime.Omeprazole 40 mg capsule Take 1 capsule by mouth once daily.Simethicone (GAS RELIEF) 125 mg cap Take 1 capsule by mouth as needed.lisinopril-hydro chlorothiazide (PRINZIDE,ZESTORETIC) 20-12.5 mg per tablet Take1 tablet by mouth once daily.aspirin, enteric coated (ECOTRIN LOW STRENGTH) 81 mg EC tablet Take 1 tablet bymouth once daily.Biotin 2,500 mcg cap Take 2 tablets by mouth once dailyALEVE 220 MG TAB as necessaryinsulin aspart U-100 (NOVOLOG FLEXPEN U-100 INSULIN) 100 unit/mL inpn Inject 10Units subcutaneously twice daily with meals. Lunch and SupperInsulin [place], Disposable, (BD ULTRA-FINE ALEXANDER PEN NEEDLE) 32 gauge x 5/32ndle Use one needle for each dose. Three per day.No current facility-administered medications for this visit.ALLERGIES: Patient has no known allergies.PERSONAL HISTORY: Social History Marital status: Spouse name: Years of education: Number of children: 5Occupational HistoryOccupation Employer Comment [employer]* retired.Social History Main Topics Smoking status: Never Smoker Smokeless tobacco: Never Used Alcohol use: Yes Comment: ONCE IN A GREAT WHILE Drug use: No Sexual activity: NoSocial History Narrative ', from complications of agent orange. Lives in her own homewith oldest son. Has 5 sons, 4 Nearby, one with MS. Involved in [email or web address] 'support group.FAMILY HISTORY:FAMILY HISTORYProblem Relation Age of Onset- Cancer Mother lung- Alcohol/Drug Mother- Allergies Mother- Cancer Father esophageal- Alcohol/Drug Father- Colon Cancer Brother- Cancer Brother- Diabetes Paternal Aunt- hip and leg problems [OTHER] Son- MS [OTHER] SonREVIEW OF SYMPTOMS: The review of systems data was entered by the nurse and reviewed by Nick Notes:Sai Layne LPN 02/15/2018 9:34 AM SignedREVIEW OF SYSTEMS: General: The patient denies fatigue, denies weight loss, NOTES weightgain, denies feeling hot, and denies feelings of cold. Eyes: The patient denies glaucoma, NOTES eye injury/surgery, wears glassesor contacts. Ear/Nose/Throat: The patient denies allergies, denies hayfever, denies earinfections, and denies bloody noses. Cardiovascular: The patient denies chest pain, denies heart disease,denies high blood pressure,denies cardiac stent, denies prior heart attack,denies irregular heart beat, denies high cholesterol, denies poor circulation,denies heart failure, other cardiac issues, denies claudication, denies coldfeet, denies peripheral arterial stent. Respiratory: The patient denies tuberculosis, denies pneumonia, deniesfrequent cough, denies pulmonary embolism, denies shortness of breath, anddenies coughing up blood. Gastrointestinal: The patient denies difficulty swallowing, denies acidreflux, denies ulcers, denies vomiting, denies jaundice/hepatitis, NOTESgallbladder problems, denies black or tarry stools, denies hemorrhoids, deniesbleeding from rectum, NOTES diverticulitis,NOTES constipation, denies diarrhea,denies loss of stool control, and denies hernias. Kidney/Bladder: The patient denies kidney stones, denies urine infections,and denies bloody urine. Skin: The patient NOTES a history of skin cancer, denies bleeding/changingmoles, and denies a history of skin rash. Neurologic: The patient denies a history of epilepsy/convulsions, deniesheadaches, denies head/spinal injuries, and denies stroke/TIA. Psychiatric: The patient denies psychiatric medications, deniesdepression, and denies voices, denies substance abuse. Endocrine: The patient denies thyroid disorders, NOTES diabetes, anddenies hormonal problems. Hematologic: The patient denies a history of bruising, denies bleeding,and denies anemia, denies blood clots. Infections: The patient NOTES a history of measles and mumps, deniesrheumatic fever, and denies sexually transmitted diseases. Musculoskeletal: The patient denies back pain/injury, denies backproblems, denies sciatica, NOTES knee/foot trouble, NOTES arthritis, or deniesgout.When was patient's last Mammogram screening? 2016 Last Colonoscopy: 2013Sai SNEED have confirmed and edited as necessary, the PFSH and ROS obtained by others.PHYSICAL EXAMINATION:General: The patient is 83 year old female, well nourished, well hydrated in noacute distress. The patient is oriented to time, place, and person.VITALS: Blood pressure 152/68, pulse 68, weight 83.5 kg (184 lb). Body massindex is 33.12 kg/m?.HEENT: Normal cephalic, ataumatic, pupils are equally round, sclera areanicteric, mucous membranes are moist, oropharynx is clear. Neck has no masses,asymmetry or lymphadenopathy.Respira tory: Clear to auscultation and percussion. Normal respiratoryexcursion and pattern.Cardiac: Examination is regular rate and rhythm.Abdominal exam: Soft, nontender, with no palpable masses. Nohepatosplenomegaly. No palpable hernias.Extremities: no clubbing, cyanosis or edema. No adenopathy.Other:LABORA TORY VALUES: As NotedRADIOLOGIC STUDIES: As NotedAssessmentIMPRESSI ON: encounter for screening colonoscopy. History of Londono'sesophagus. Diabetes mellitusPLAN: We will plan for upper and lower endoscopy. We discussed the risks andbenefits of the planned endoscopy. I have informed the patient thatcomplications can occur including failure to complete the endoscopy andperforation. The patient had the opportunity to ask questions concerning theplanned endoscopy. My staff has also explained the procedure to the patient inunderstandable terms and has given the patient printed material concerning theprocedure. 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 Gant via shared medical record.This note will be forwarded to Dr. Joss Gant MD.Return to Clinic: The patient is instructed to follow-up with me 1 week postoperatively. A juan Rojas PA-C [facility] NURSING PROGon 02-28-2018 NURSING PROG HNO ID: [id number]: Lucille SeoRn) MOHIT Alexanderervice: NursingAuthor Type: Registered NurseType: Nursing Progress NoteFiled: 02/28/2018 11:21 AMNote Text: Nursing Progress NotePatient Name: Maria Elena AtkinsMRN: [id number] Location: ME Endo/ME Endo ___ pt awake, relates abd discomfort 09/21. Passing lg amounts gas, VSSThis note was completed by: Lucille Alexander RN [facility] PT EDon 02-28-2018 PT ED HNO ID: [id number]: Brandee SeoRn) MOHIT Cainervice: NursingAuthor Type: Registered NurseType: Patient EducationFiled: 02/28/2018 12:14 PMNote Text:POST OP LEARNING RESPONSEINSTRUCTION PROVIDED TO: Patient and family memberMETHOD OF INSTRUCTION: Verbal instructionPATIENT / FAMILY RESPONSE: Information received as demonstrated byinterest and questionsFOLLOW-UP PLAN: Patient instructed to call with any further issuesSUPPLEMENTAL MATERIAL: NoneREFERRAL (RECOMMENDATION): NoneElectronically Signed By: Brandee Cain RN [facility] PT ED HNO ID: [id number]: Asael SeoRn) MOHIT Seeervice: NursingAuthor Type: Registered NurseType: Patient EducationFiled: 02/28/2018 9:08 AMNote Text:PRE OP LEARNING ASSESSMENTPROCEDURE/CLEVE KERRIE: SURGERY: colonoscopy/egdREADINES S TO LEARNCOGNITIVE ABILITY: Alert and orientedMOTIVATION TO LEARN: EagerFAMILY SUPPORT: High - Very involved in pt carePATIENT LEARNS BEST BY: Written Instruction - Hand-outsVerbal InstructionFACTORS AFFECTING LEARNING: NonePHYSICAL LIMITATIONS AFFECTING LEARNING: NoneElectronically Signed By: Asael See RN [facility] SURGICAL PATHOLOGYon 018 SURGICAL PATHOLOGY [facility]: [id number] Physician: DASIA COLE MD FINAL DIAGNOSIS1. Gastric antrum, biopsy (A) - Antral mucosa with reactive gastropathy.- No evidence of H. pylori.2. Londono's esophagus, biopsy (B) - Squamous and inflamed cardiac mucosawith focal intestinal metaplasia, consistent with Londono's esophagus.- No evidence of dysplasia.3. Londono's esophagus, biopsy #2 (C) - Londono's esophagus, partiallyundermining reactive-appearing squamous mucosa.- Negative for dysplasia.TP/kr 03/01/2018 Ricardo Avila M.D.(Electronic Signature) SPECIMEN SUBMITTEDA: GASTRIC ANTRAL, BIOPSY B: LONDONO'S ESOPHAGUS, BIOPSY, JAR 1 C: LONDONO'S ESOPHAGUS, BIOPSY, JAR 2 CLINICAL DATAR/O H PYLORI, LONDONO'S ESOPHAGUS LMP: NAGROSS DESCRIPTIONA. Received in formalin is one piece of ferreira, soft tissue measuring 0.3 x0.3 x 0.2 cm. Totally submitted in one cassette.B. Received in formalin are three pieces of ferreira, soft tissue aggregating to1.0 x 0.2 x 0.1 cm. Totally submitted in one cassette.C. Received in formalin are two pieces of ferreira, soft tissue aggregating to0.8 x 0.2 x 0.1 cm. Totally submitted in one cassette.Gross examination performed at [facility], [address] [place] [address] [id number] 02/28/2018 8:44:40 PMPatient ID #: [id number] of Report: 03/01/2018Date of Procedure: 02/28/2018Date of Receipt: 02/28/2018Submitted by: DASIA COLE MDLocation: MEENDDiagnostic interpretation performed at [facility], [address] [place] [address]. [facility] Comment on above: Performed By: #### P ATHS ####[facility] [id number] [place], [place] [id number] NM CARDIAC PERF STRESS/EXERC ISEon 03-21-2017 NM CARDIAC PERF STRESS/EXERCISE * * *Final Report* * *DATE OF EXAM: Mar 21 2017 12:00PM TERRELL 0625 - NM CARDIAC PERF STRESS/EXERCISE / REASON: multiple diagnoses * * * * Physician Interpretation * * * * PATIENT:Name: WILBERT AGUILAR KMRN: [id number]: 82 years 2 monthsGender: FCONCLUSIONS: 1. SPECT Perfusion Study: Normal. 2. There is no scintigraphic evidence for inducible ischemia. 3. No evidence of scarred myocardium. 4. Left ventricle is normal in size. The left ventricle systolic function is normal. 5. Poor functional capacity for age and gender. She achieved only 3.4 METS on the treadmill. 6. This is a low risk scan. 1 LVEF % 79No prior nuclear cardiology exam available for comparison.Nuclear Med Report:1-Day [id number] Exercise Stress Gated SPECT:Myocardial perfusion imaging was performed at rest 30 to 60 minutes following the IV injection of Tc-99m tetrofosmin. One minute prior to peak exercise, the patient was injected IV with Tc-99m tetrofosmin. Gated post stress tomographic imaging was performed 10 to 20 minutes later. See administered doses below.[facility]Date [facility]: 03/21/2017 10:03:18 AMAccession #: [id number] Physician: Marii GauthierRequesting Physician:Indication: Dyspnea and Assessment for suspected CAD.Interpreting physician: Epifanio Angelo [id number] History:History of hypertension and diabetes mellitus. Medications currently taking are ACEI, ASA, insulin and NSAIDS.Height: 160.02 cm BSA: 1.96 m?Weight: 86.64 kg BMI: 33.8 kg/m? Exam Type: Rest Stress Radiopharm: Tc-99m Tetrofosmin Tc-99m Tetrofosmin Dosage(mCi): 13.4 30.8Atten Correction: not performed Stress Agent: TreadmillResting Heart Rate: 65 bpmResting Blood Press: 142/78 mmHgImage QualityThe overall study imaging quality was deemed to be good.FINDINGS:Left VentricleWall Motion:1 - All scored segments are normal.1 1LVEF: 79 %LEFT VENTRICLEThe left ventricle is normal in size. Left ventricular systolic function is normal.Right VentricleThe right ventricle is unseen or not interrogated.Stress Test Findings:There is no scintigraphic evidence for inducible ischemia. There is no evidence of scarring.The stress test was terminated due to the following: Fatigue.Peak HR 120 bpm. Exercise duration 6 min 17 sec. (86 % MPHR) (3.4 METS)Peak BP 180 mmHg/88 mmHgPatient experienced shortness of breath during stress.Stress ECG normal ST segment response and normal sinus rhythm.Stress complications: none. Final Embalmer Assistant: STEPHYTranscribe Date/Time: Mar 21 2017 10:03ADictated by : EPIFANIO ANGELO MDThis examination was interpreted and the report reviewed and electronically signed by: EPIFANIO ANGELO MD on Mar 21 2017 4:23PM [facility] 03-18-2017 [facility] Telephone ([facility]) CAMMIE MARIA ELENA MCMAHAN ([id number]) 1935 F NFRDate Time Provider Department03/18/17 SARAH SIM) CDLBME During your visit today, we recorded the following information about you:Sarah Sim RN, RN 03/18/2017 12:33 PM SignedSpoke with patient regarding reminder for nuclear stress test on Tuesday morningand given instructionsAllergies As of Date: 03/18/2017(No Known Allergies)Date Reviewed: 03/14/2017Reviewed by: Daria (Rd) Lele - Fully AssessedReason for Visit: Reminder Call [[id number]]Prescriptions as of 03/18/2017 Sig: LISINOPRIL 20 MG-HYDROCHLOROT* Take 1 tablet by mouth once d* ASPIRIN 81 MG TABLET,DELAYED * Take 1 tablet by mouth once d* GLIMEPIRIDE 4 MG TABLET Take 2 tablets by mouth once * ALBIGLUTIDE 50 MG/0.5 ML SUBC* Inject 50 mg subcutaneously o* INSULIN GLARGINE 100 UNIT/ML * Inject 48 Units subcutaneousl* OMEPRAZOLE 40 MG CAPSULE,KIRSTY* Take 1 capsule by mouth once * METFORMIN ER 500 MG TABLET,EX* Take 1 tablet by mouth once d* BIOTIN 2,500 MCG CAPSULE Take 2 tablets by mouth once * PEN NEEDLE, DIABETIC 32 GAUGE* Use one needle for each dose.* ALEVE 220 MG TABLET as necessaryProblem List As Of Date 03/18/2017 Noted Resolved DM (diabetes mellitus) type II controlled, neur*INVALID FOR* Stomach ulcer [K25.9] INVALID FOR*08/19/2010 PAIN IN LIMB [M79.609] INVALID FOR* SKIN SENSATION DISTURB [R20.9] INVALID FOR* Unspecified esophagitis [K20.9] 08/19/2010 Acute gastritis without mention of hemorrhage [* 08/19/2010 SEBACEOUS CYST [L72.3] INVALID FOR* DIVERTICULITIS OF COLON W/O BLEED [K57.32] INVALID FOR* Hypertension [I10] INVALID FOR* Actinic Keratosis (Premalignant AK) [L57.0] INVALID FOR* Irritated//Inflamed Seborrheic Keratosis [L82.0]INVALID FOR* 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] INVALID FOR* Solar Lentigines [L81.4] INVALID FOR* Other Seborrheic Keratosis [L82.1] INVALID FOR* Actinic Damage///Sun-Damaged Skin [L57.8] INVALID FOR* Melanocytic Nevus of Trunk: upper mid chest and*INVALID FOR* Rheumatoid arthritis [M06.9] INVALID FOR* Angular cheilitis [K13.0] INVALID FOR* Yeast dermatitis: angles mouth (secondary cutan*INVALID FOR* Melanocytic nevi of trunk [D22.5] INVALID FOR* Xerosis cutis [L85.3] INVALID FOR* Actinic skin damage [L57.8] INVALID FOR* Londono's esophagus with esophagitis [K22.70, K*INVALID FOR* 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.*INVALID FOR* Acute pain of left shoulder [M25.512] INVALID FOR* Status:Closed by SARAH SIM on 03/18/17 [facility] Vital Signs Date Time Vital Sign Value Performing Clinician Facility 12-21-2023 08:12-0400 Respiratory rate 16 /min Rajan Schmitt MD Work Phone: [facility] 12-21-2023 07:45-0400 Diastolic blood pressure 55 mm[Hg] Rajan Schmitt MD Work Phone: [facility] 12-21-2023 07:45-0400 Heart rate 61 /min Rajan Schmitt MD Work Phone: [facility] 12-21-2023 07:45-0400 SaO2% (BldA) [Mass fraction] 94 % Rajan Schmitt MD Work Phone: [facility] 12-21-2023 07:45-0400 Systolic blood pressure 117 mm[Hg] Rajan Schmitt MD Work Phone: [facility] 12-21-2023 07:07-0400 Body temperature 97 [degF] Rajan Schmitt MD Work Phone: [facility] 12-06-2023 14:36-0400 Body height 160 cm Dasia Cole MD Work Phone: [facility] 12-06-2023 14:36-0400 Body temperature 97 [degF] Dasia Cole MD Work Phone: [facility] 12-06-2023 14:36-0400 Body weight 83.37 kg Dasia Cole MD Work Phone: [facility] 12-06-2023 14:36-0400 Diastolic blood pressure 72 mm[Hg] Dasia Cole MD Work Phone: [facility] 12-06-2023 14:36-0400 Heart rate 94 /min Dasia Cole MD Work Phone: [facility] 12-06-2023 14:36-0400 SaO2% (BldA) [Mass fraction] 96 % Dasia Cole MD Work Phone: [facility] 12-06-2023 14:36-0400 Systolic blood pressure 146 mm[Hg] Dasia Cole MD Work Phone: [facility] 01-26-2023 13:38-0400 Body weight 81.1 kg [facility] 01-05-2023 14:20-0400 Body weight 81.37 kg [facility] 12-29-2022 12:35-0400 Body height 160.02 cm [facility] 11-30-2022 13:34-0400 Body height 160.02 cm [facility] 11-30-2022 13:34-0400 Body weight 80.92 kg [facility] 09-01-2022 06:12-0500 Body temperature 97.16 [degF] DR CRYS DIAZ MD [facility] 09-01-2022 06:12-0500 Diastolic Blood Pressure Non-Invasive [address] CRYS DIAZ MD [facility] 09-01-2022 06:12-0500 Heart rate 70 /min DR CRYS DIAZ MD [facility] 09-01-2022 06:12-0500 Reason For Taking VItal Signs DR CRYS DIAZ MD [facility] 09-01-2022 06:12-0500 Respiratory rate 18 /min DR CRYS DIAZ MD [facility] 09-01-2022 06:12-0500 Systolic Blood Pressure Non-Invasive [address] CRYS DIAZ MD [facility] 09-01-2022 03:33-0500 Body temperature 97.7 [degF] DR CRYS DIAZ MD [facility] 09-01-2022 03:33-0500 Diastolic Blood Pressure Non-Invasive [address] CRYS DIAZ MD [facility] 09-01-2022 03:33-0500 Heart rate 69 /min DR CRYS DIAZ MD [facility] 09-01-2022 03:33-0500 Reason For Taking VItal Signs DR CRYS DIAZ MD [facility] 09-01-2022 03:33-0500 Respiratory rate 18 /min DR CRYS DIAZ MD [facility] 09-01-2022 03:33-0500 Systolic Blood Pressure Non-Invasive [address] CRYS DIAZ MD [facility] 09-01-2022 00:00-0500 Diastolic Blood Pressure Non-Invasive [address] CRYS DIAZ MD [facility] 09-01-2022 00:00-0500 Heart rate 79 /min DR CRYS DIAZ MD [facility] 09-01-2022 00:00-0500 Reason For Taking VItal Signs DR CRYS DIAZ MD [facility] 09-01-2022 00:00-0500 Respiratory rate 18 /min DR CRYS DIAZ MD [facility] 09-01-2022 00:00-0500 Systolic Blood Pressure Non-Invasive [address] CRYS DIAZ MD [facility] 08-31-2022 20:04-[address] CRYS DIAZ MD [facility] 08-31-2022 20:04-[address] CRYS Fernando [facility] 08-31-2022 20:04-0500 Heart rate 94 /min DR CRYS DIAZ MD [facility] 08-31-2022 12:49-[address] CRYS DIAZ MD [facility] 08-31-2022 12:49-[address] CRYS Fernando [facility] 08-31-2022 12:30-0500 Body height [address] CRYS DIAZ MD [facility] 08-31-2022 12:30-0500 Body weight [address] CRYS DIAZ MD [facility] 08-31-2022 12:30-0500 Body weight 33.27 kg/m2 DR CRYS DIAZ MD [facility] 08-31-2022 12:15-[address] CRYS DIAZ MD [facility] 08-31-2022 12:15-[address] CRYS Fernando [facility] 08-31-2022 11:00-0500 Body temperature 96.44 [degF] DR CRYS DIAZ MD [facility] 08-31-2022 10:55-0500 Respiratory Rate - Anes 0 br/min DR CRYS DIAZ MD [facility] 08-31-2022 10:50-0500 Respiratory Rate - Anes 17 br/min DR CRYS DIAZ MD [facility] 08-31-2022 10:45-0500 Respiratory Rate - Anes 19 br/min DR CRYS DIAZ MD [facility] 08-31-2022 09:02-0500 Heart rate 73 /min DR CRYS DIAZ MD [facility] 08-31-2022 08:12-05[address] Pressure Cuff Size DR CRYS DIAZ MD [facility] 08-31-2022 08:12-0500 Body height [address] CRYS DIAZ MD [facility] 08-31-2022 08:12-0500 Body temperature 97.52 [degF] DR CRYS DIAZ MD [facility] 08-31-2022 08:12-0500 Body weight [address] CRYS DIAZ MD [facility] 08-31-2022 08:12-0500 Heart rate 76 /min DR CRYS DIAZ MD [facility] 08-17-2022 11:50-05[address] Blood Pressure Cuff Size DR CRYS DIAZ MD [facility] 08-17-2022 11:50-[address] CRYS DIAZ MD [facility] 08-17-2022 11:50-[address] CRYS Fernando [facility] 08-17-2022 11:50-0500 Body height 157.[address] CRYS DIAZ MD [facility] 08-17-2022 11:50-0500 Body weight 83.[address] CRYS DIAZ MD [facility] 08-17-2022 11:50-0500 Body weight 33.62 kg/m2 DR CRYS DIAZ MD [facility] 08-17-2022 11:50-0500 Diastolic Blood Pressure Non-Invasive [address] CRYS DIAZ MD [facility] 08-17-2022 11:50-0500 Heart rate 73 /min DR CRYS DIAZ MD [facility] 08-17-2022 11:50-0500 Systolic Blood Pressure Non-Invasive [address] CRYS DIAZ MD [facility] Encounters Encounter Date Encounter Type Care Provider Facility Start: 04-30-2025 End: 04-30-2025 Patient encounter procedure Epifanio Casey Work Phone: Podiatry Comment on above: Onychomycosis (Prima ry Dx); Pain in toe of left foot; Pain in toe of right foot; Diabetic polyneuropathy associated with type 2 diabetes mellitus (HCC); PAD (peripheral artery disease) Start: 04-30-2025 End: 04-30-2025 ambulatory EPIFANIO PEÑA Facility:[facility] Start: 03-13-2025 End: 03-13-[address] Eryn Guerra MD Work Phone: -Radiology [place] Start: 03-13-2025 End: 03-13-2025 Patient encounter procedure Polly Baldwin MOBILE QA TESTER-C -Radiology [place] Work Phone: Start: 03-13-2025 End: 03-13-2025 ambulatory Polly Baldwin Facility:[facility] Start: 01-22-2025 End: 01-22-2025 Patient encounter procedure Epifanio Peña Work Phone: Podiatry Comment on above: Onychomycosis (Prima ry Dx); Pain in toe of left foot; Pain in toe of right foot; Diabetic polyneuropathy associated with type 2 diabetes mellitus (HCC); PAD (peripheral artery disease) Start: 01-22-2025 End: 01-22-2025 ambulatory EPIFANIO PEÑA Facility:[facility] Start: 11-06-2024 End: 11-06-[address] Eryn Guerra MD Work Phone: [facility] Work Phone: Start: 11-06-2024 End: 11-06-[address] Eryn Guerra MD -Laboratory, [facility] Start: 11-06-2024 End: 11-06-2024 ambulatory Eryn Guerra Facility:[facility] Start: 10-22-2024 End: 10-22-2024 ambulatory EPIFANIO PEÑA Facility:[facility] Start: 10-22-2024 End: 10-22-2024 Patient encounter procedure Epifanio Peña Work Phone: Podiatry Comment on above: Onychomycosis (Prima ry Dx); Pain in toe of left foot; Pain in toe of right foot; Diabetic polyneuropathy associated with type 2 diabetes mellitus (HCC); PAD (peripheral artery disease) (HCC); Arthritis of left midfoot Start: 07-23-2024 ambulatory Eryn Guerra Facility: [facility] Start: 07-20-2024 End: 07-20-2024 ambulatory EPIFANIO PEÑA Facility:[facility] Start: 07-20-2024 End: 07-20-2024 Patient encounter procedure Epifanio Peña Work Phone: Podiatry Comment on above: Onychomycosis (Prima ry Dx); Pain in toe of left foot; Pain in toe of right foot; Diabetic polyneuropathy associated with type 2 diabetes mellitus (HCC); PAD (peripheral artery disease) ([facility]) Start: 07-09-2024 End: 07-12-2024 [facility] Facility:[facility] Start: 05-09-2024 End: 05-09-2024 [facility] Facility:[facility] Start: 04-06-2024 End: 04-06-2024 Patient encounter procedure Epifanio Casey Work Phone: Podiatry Comment on above: Onychomycosis (Prima ry Dx); Pain in toe of left foot; Pain in toe of right foot; Diabetic polyneuropathy associated with type 2 diabetes mellitus (HCC); PAD (peripheral artery disease) ([facility]) Start: 01-06-2024 End: 01-06-2024 Patient encounter procedure Epifanio Peña Work Phone: Podiatry Comment on above: Onychomycosis (Prima ry Dx); Pain in toe of left foot; Pain in toe of right foot; Diabetic polyneuropathy associated with type 2 diabetes mellitus (HCC) Start: 12-21-2023 End: 12-21-2023 Subsequent hospital visit by physician Rajan Schmitt MD Work Phone: Ambulatory Surgery Comment on above: 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 Work Phone: Start: 07-01-2023 End: 07-01-[address] [facility]-Physical Therapy Work Phone: Start: 05-14-2023 End: 05-14-[address] [facility] Work Phone: Start: 05-14-2023 End: 05-14-[address] [facility] - [facility] Work Phone: Start: 05-06-2023 End: 05-06-[address] [facility]-Laboratory, [place] Work Phone: Start: 02-08-2023 End: 02-08-[address] [facility] Work Phone: Start: 02-08-2023 End: 02-08-[address] [facility] Start: 01-26-2023 End: 02-09-[address] [facility] Work Phone: Start: 01-26-2023 End: 02-09-[address] [facility] Start: 01-05-2023 End: 01-09-[address] [facility] Work Phone: Start: 01-05-2023 End: 01-09-[address] [facility] Start: 11-30-2022 End: 12-10-[address] [facility] Work Phone: Start: 11-30-2022 End: 12-10-[address] [facility] Start: 11-16-2022 End: 11-16-[address] [facility]-Cat Scan, [facility] Start: 09-21-2022 End: 09-21-[address] [facility] Work Phone: Start: 09-21-2022 End: 09-21-[address] [facility]-Radiology, [place] Start: 09-07-2022 Registered [facility] Start: 09-02-2022 Registered [facility] Start: 08-31-2022 End: 09-01-2022 ambulatory [facility] Facility:[facility] Start: 08-31-2022 End: 09-01-[address] CRYS DIAZ MD [facility] Start: 08-17-2022 End: 08-18-2022 ambulatory [facility] Facility:[facility] Start: 08-17-2022 End: 08-18-2022 ambulatory [facility] Facility:[facility] Start: 08-17-2022 End: 08-17-[address] CRYS DIAZ MD [facility] Start: 08-17-2022 End: 08-17-[address] CRYS DIAZ MD [facility] Start: 05-27-2022 Non-patient / Non-visit Dr. Christiano Guerra Work Phone: [facility] Start: 05-27-2022 End: 05-27-[address] Eryn Guerra Work Phone: [facility] Work Phone: Start: 05-27-2022 End: 05-27-[address] Eryn Guerra Work Phone: 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 Procedures Date Procedure Procedure Detail Performing Clinician Start: 03-13-2025 X-ray of lumbosacral spine Dr. Eryn grant MD Work Phone: Start: 03-13-2025 X-ray of unilateral ribs, two views without x-ray of chest Dr. Eryn Guerra MD Work Phone: Start: 12-21-2023 Esophagogastroduodenoscopy transoral diagnostic Dasia Cole MD Work Phone: Start: 05-14-2023 MRI of lumbar spine Start: 05-06-2023 X-ray of lumbosacral spine Start: 11-16-2022 CT of thorax with contrast Start: 09-21-2022 Plain chest X-ray Start: 12-02-2020 Radiologic exam knee complete 4/more views Lucille Mccain APRN.CORPORATE ACCOUNTANT Work Phone: Cholecystectomy DR CRYS REYNA MD Colonoscopy DR CRYS Horner MD Esophagogastroduodenoscopy D R CRYS DIAZ MD Lumpectomy of breast DR AYLIN DIAZ MD Wrist region structu re (body structure) DR CRYS DIAZ MD Comment on above: right Plan of Treatment Date Care Activity Detail Author Start: 07-15-2027 Urine microalbumin profile [facility] Start: 10-22-2025 Diabetic foot examination Diabetic Foot Exam [facility] Start: 08-02-2025 End: 08-02-2025 Patient encounter procedure 08/02/2025 2:00 PM EST Office Visit Podiatry [address] [place] [address] Epifanio Peña [address] [place] [address] 3 month follow up nail care Podiatry Comment on above: 3 month follow up na [facility] care Start: 05-13-2025 Influenza vaccination Influenza Vacc ine (#1) [facility] Start: 04-30-2025 End: 04-30-2025 Patient encounter procedure 04/30/2025 10:00 AM EDT Office Visit Podiatry [address] [place] [address] Epifanio Peña [address] [place] [address] 3 month follow up nail care Podiatry Comment on above: 3 month follow up [facility] care Start: 01-22-2025 End: 01-22-2025 Patient encounter procedure 01/22/2025 8:30 AM EDT Office Visit Podiatry [address] [place] [address] Epifanio Peña [address] [address] 3 month follow up nail care Podiatry Comment on above: 3 month follow up [facility] care Start: 12-26-2024 Covid-19 Vaccine ( season) Covid-19 Vaccine ( season) [facility] Start: 10-22-2024 End: 10-22-2024 Patient encounter procedure 10/22/2024 9:00 AM EST Office Visit Podiatry [address] [place] [address] Epifanio Peña [address] [place] [address] 3 month follow up nail care Podiatry Comment on above: 3 month follow up na [facility] care Start: 10-07-2024 Diabetic foot examination Diabetic Foot Exam [facility] Start: 09-12-2024 Advance Directive Discussion Advance Directive Discussion [facility] Start: 09-12-2024 Medicare Advantage Annual Wellness Visit Medicare Advantage Annual Wellness Visit [facility] Start: 07-20-2024 End: 07-20-2024 Patient encounter procedure 07/20/2024 1:00 PM EST Office Visit Podiatry [address] [place] [address] Epifanio Peña [address] [place] [address] 3 month follow up nail care Podiatry Comment on above: 3 month follow up na [facility] Start: 05-13-2024 Covid-19 Vaccine ( season) Covid-19 Vaccine () [facility] Start: 05-13-2024 Influenza vaccination Influenza Vacc ine (#1) [facility] Start: 04-06-2024 End: 04-06-2024 Patient encounter procedure 04/06/2024 3:00 PM EDT Office Visit Podiatry [address] [place] [address] Epifanio Peña [address] [place] [address] 3 mo follow up nail care Podiatry Comment on above: 3 mo follow up nail care Start: 12-15-2023 Covid-19 Vaccine ( season) Covid-19 Vaccine () [facility] Start: 09-12-2023 Advance Directive Discussion Advance Directive Discussion [facility] Start: 09-12-2023 Behavioral Health Screening Behavioral Health Screening [facility] Start: 09-12-2023 Depression Assessment Depression Ass essment [facility] Start: 05-14-[address] [facility] Start: 05-14-2023 MRI of lumbar spine Spine Lumbar (Ro utine) [facility] Start: 01-14-2022 3 comp foot exam completed DIABETIC FOOT EXAM [facility] Start: 11-09-2021 COVID-19 VACCINE (4 - Booster for Moderna series) COVID-19 VACCINE (4 - Booster for Moderna series) [facility] Start: 09-12-2021 ADVANCE DIRECTIVE DISCUSSION ADVANCE DIRECTIVE DISCUSSION [facility] Start: 07-18-2021 Hepatitis B screening URINE ALBUMIN:CREATININE RATIO [facility] Start: 07-18-2021 Hepatitis B surface antibody level LDL CHOLESTEROL [facility] Start: 07-15-2021 Hemoglobin A1c measurement HbA1C [facility] Start: 07-15-2021 Hemoglobin A1c/Hemoglobin.total in Blood HBA1C [facility] Start: 05-06-2021 Glaucoma screening Dilated Retinal E xam [facility] Start: 05-06-2021 Hepatitis C antibody , confirmatory test DILATED RETINAL EXAM [facility] Start: 06-17-2011 SHINGRIX VACCINE (2 of 3) SHINGRIX VACCINE (2 of 3) [facility] Start: 1953 Anxiety Screening Anxiety Screening [facility] Start: 1953 Depression Screening Depression Scre ening [facility] End: 12-05-2024 EGD DIAGNOSTIC EGD DIAGNOSTIC Endoscopy Routine 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 Dysphagia, unspecified type 1 Occurrences starting 12/06/2023 until 12/05/2024 [facility] Work Phone: Comment on above: 1 Occurrences starti ng 12/06/2023 until 12/05/2024 SURGICAL PATHOLOGY [facility] Work Phone: Comment on above: Release Upon Orderin g for 1 Occurrences starting 12/21/2023, 1 completed [facility] Immunizations Immunization Date Immunization Notes Care Provider Jeffrey farris 06-27-2024 influenza virus vacc ine, unspecified formulation Epifanio Peña Work Phone: [facility] 06-04-2023 influenza virus vacc ine, unspecified formulation Epifanio Peña Work Phone: [facility] 06-02-2022 influenza virus vacc ine, unspecified formulation DR CRYS DIAZ MD [facility] 03-09-2022 pneumococcal 20-mili nt conjugate vaccine DR CRYS DIAZ MD [facility] 12-23-2021 SARS-CoV-2 (COVID-19 ) mRNA-[address] CRYS DIAZ MD [facility] 08-20-[address] CRYS DIAZ MD [facility] 07-09-2021 SARS-CoV-2 (COVID-19 ) mRNA-[address] CRYS DIAZ MD [facility] 06-17-2021 influenza virus vacc ine, unspecified formulation DR CRYS DIAZ MD [facility] 06-17-[address] CRYS DIAZ MD [facility] 10-31-2020 COVID-19 vaccine, fu ll dose (MODERNA) Epifanio Peña Work Phone: [facility] 10-03-2020 COVID-19 vaccine, fu ll dose (MODERNA) [employer]io [employer] Work Phone: [facility] Comment on above: Result Comment: 2021: [id number] 05-28-2020 influenza virus vacc ine, unspecified formulation DR CRYS DIAZ MD [facility] 06-12-2019 influenza virus vacc ine, unspecified formulation DR CRYS DIAZ MD [facility] 05-25-2018 influenza virus vacc ine, unspecified formulation DR CRYS DIAZ MD [facility] 05-25-2018 influenza, high dose seasonal, preservative-free Epifanio [employer] Work Phone: [facility] 07-15-2017 influenza virus vacc ine, unspecified formulation DR CRYS DIAZ MD [facility] 07-15-2017 influenza, high dose seasonal, preservative-free Epifanio [employer] Work Phone: [facility] 07-15-2017 tetanus toxoid, redu efrain diphtheria toxoid, and acellular pertussis vaccine, adsorbed Epifanio [employer] Work Phone: [facility] 07-02-2016 influenza virus vacc ine, unspecified formulation DR CRYS DIAZ MD [facility] 07-02-2016 influenza, high dose seasonal, preservative-free Epifanio [employer] Work Phone: [facility] 06-30-2015 pneumococcal conjuga te vaccine, 13 valent Epifanio [employer] Work Phone: [facility] 06-24-2015 influenza virus vacc ine, unspecified formulation DR CRYS DIAZ MD [facility] 06-24-2015 influenza, high dose seasonal, preservative-free Epifanio [employer] Work Phone: [facility] 07-25-2014 influenza virus vacc ine, unspecified formulation DR CRYS DIAZ MD [facility] 07-25-2014 influenza, high dose seasonal, preservative-free Epifanio [employer] Work Phone: [facility] 07-07-2013 influenza virus vacc ine, unspecified formulation [employer] Work Phone: [facility] Work Phone: 07-13-2011 influenza virus vacc ine, unspecified formulation Ep[employer]anio [employer] Work Phone: [facility] 04-22-2011 zoster vaccine, live Epifanio [employer] Work Phone: [facility] Work Phone: 08-19-2010 influenza virus vacc ine, unspecified formulation Ep[employer]anio [employer] Work Phone: [facility] 06-09-2009 influenza virus vacc ine, unspecified formulation Epifanio Peña Work Phone: [facility] Work Phone: 07-17-2007 influenza virus vacc ine, unspecified formulation Epifanio Peña Work Phone: [facility] Work Phone: 10-06-2006 tetanus toxoid, redu efrain diphtheria toxoid, and acellular pertussis vaccine, adsorbed Epifanio Peña Work Phone: [facility] Work Phone: 07-13-2002 pneumococcal polysaccharide vaccine, 23 valent Epifanioakiko Peña Work Phone: [facility] Payers Date Payer Category Payer Self-pay [id number] 2023 Medicare (Managed Care) REHANA LING PPO Member Subscriber Plan / Payer (Effective 2023-Present) Name: Maria Elnea Atkins Relation to Subscriber: Self Name: Maria Elena Atkins Payer ID: [id number] (NAIC) Group ID: [id number] Type: PPO Address: [address] [place] [id number] 2022 Medicare [id number] 2021 Unknown REHANA KERR [facility] REHANA TENORIO ACCESS [id number] 2021-Present [phone] [address] [place] [address] PPO [id number] 2001 Medicare [id number] 1999 Government (not [facility] care or Medicaid) [facility] [id number] 1999 Unknown [facility] [id number] 1999-Present [phone] [address] [place] [address] Indemnity [id number] 1999 Unknown [id number] 1999 Unknown [id number] 1937 Unknown [id number] 1937 Unknown [id number] 1937 Unknown [id number] Medicare [id number] Unknown [id number] Unknown [id number] Unknown [id number] Unknown [id number] Unknown [id number] Social History Date Type Detail Facility Start: 08-17-2022 End: 12-06-2023 Tobacco smoking status NHIS Never smoked tobacco [facility] Start: 12-18-2021 End: 01-22-2025 Alcohol intake Current drinker of alcohol (finding) [facility] Start: 1935 Sex Assigned At Not on file [facility] Start: 11-02-2020 End: 12-18-2021 Exposure to SARS-CoV-2 (event) Not sure [facility] Start: 11-09-2021 End: 11-09-2021 Tobacco smoking status MEIS Unknown if ever smoked [facility] Start: 1935 Sex Assigned At Female W [facility] Sex Assigned At Sex [facility] Start: 12-06-2023 Tobacco use and exposure Smokeless tobacco non-user [facility] Start: 10-07-2023 End: 12-06-2023 History of Social function [facility] Start: 10-07-2023 End: 12-06-2023 Tobacco use panel [facility] Start: 08-13-2012 Adult Depression Screening Assessment 0 [facility] Start: 11-19-2024 Sex Female (finding) [facility] Medical Equipment Procedure Code Equipment Code Equipment Origin al Text Equipment Identifier Dates Use one needle f or each dose. four per day. [id number] Start: 05-07-2020 Comment on above: Use one needle for e ach dose. four per day. Functional Status Date Assessment Result Facility 09-01-2022 Functional Status Room check performed [facility] 09-01-2022 Functional Status [facility] 09-01-2022 Functional Status Mod I 1 [facility] 09-01-2022 Functional Status 2 [facility] 09-01-2022 Functional Status 50 [facility] 08-31-2022 Functional Status [facility] 08-31-2022 Functional Status [facility] 08-31-2022 Functional Status Single level home [facility] 08-31-2022 [facility] 08-31[facility]22 Functional Status Maintained, More than 8 hours [facility] 08-17-2022 Functional Status Sensory Deficits None [facility] 10-29-2014 Are you deaf, or do you have serious difficulty hearing No 10/29/2014 10:31 AM Jade Elizalde RN No [facility] 10-29-2014 Are you blind, or do you have serious difficulty seeing, even when wearing glasses No 10/29/2014 10:31 AM Jade Elizalde RN No [facility] 10-29-2014 Do you have serious difficulty walking or climbing stairs No 10/29/2014 10:31 AM Jade Elizalde RN No [facility] 10-29-2014 Do you have difficul ty dressing or bathing No 10/29/2014 10:31 AM Jade Elizalde RN No [facility] 10-29-2014 Because of a physica l, mental, or emotional condition, do you have difficulty doing errands alone such as visiting a physician's office or shopping No 10/29/2014 10:31 AM Jade Elizalde RN No [facility] Mental Status Date Assessment Result Facility 09-01-2022 Mental Status Oriented x 4 [facility] 09-01-2022 Mental Status Orientation Oriented x 4 [facility] 09-01-2022 Mental Status [facility] 08-31-2022 Mental Status [facility] 10-29-2014 Because of a physica l, mental, or emotional condition, do you have serious difficulty concentrating, remembering, or making decisions No 10/29/2014 10:31 AM Jade Elizalde RN No [facility] Clinical Notes 06-13-2013 to 04-30-2025 Casey Epifanio - 04/30/2025 10:07 AM SushilKarly BHUMIKA - 04/30/2025 9:36 AM AMELIAEpifanio Dangelo - 01/22/2025 8:30 AM ELLYNMadhavi becerra KELSEY - 01/22/2025 8:19 AM EDTPatient Instructions Note Date & Type Note Facility 04-30-2025 Note HNO ID: [id number] Author: EPIFANIO PEÑA, ? Service: ? Author Type: Physician Type: Progress Notes Filed: 04/30/2025 10:19 Note Text: Last saw pcp: not in chart Subjective: Patient presents to clinic c/o painful toenails. They state that the nails are especially painful with shoe gear and pressure. Patient states that nails 1-5 b/l are painful. Patient admits to being diabetic. No other pedal complaints at this time. Patient states no change in medications or medical history since last visit. Objective: Patient presents to clinic ambulating in [facility] Vasc: DP and PT pulses are faintly palpable bilateral. CFT is less than 5 seconds bilateral. Skin temperature is warm to cool proximal to distal bilateral. There is moderate edema or varicosities noted. Neuro: Protective sensation is decreased to the foot and toes when tested with the 5.07 SWM bilateral. Vibratory sensation is absent at the hallux IPJ bilateral. The hallux is downgoing bilateral. Derm: Nails 1-5 b/l are painful, discolored-yellow, thick, crumbly, dystrophic and with subungal debris. Skin is of normal turgor, texture and hair growth is absent bilateral. There are no hyperkeratosis, ulcerations, scars, verruca or other lesions noted. Ortho: Muscle strength is 5/5 for all pedal groups tested. Ankle joint DF is decreased with the knee extended with no pain or crepitus noted. 1st MPJ ROM is decreased bilateral. 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 Nails 1-5 bilateral were debrided in length and thickness. Patient was instructed on the continued importance of diabetic foot care along with proper diet and keeping their blood sugar under control to prevent complications. I stressed the importance of wearing good shoes due to severe arthritis/collaspe of b/l midfoot Stressed the importance of avoiding barefoot walking, wearing good shoes and inspection of feet. Patient is to RTC in 3-4 months. Epifanio Peña DPM [facility] 04-30-2025 History of Presen t illness Narrative Last saw pcp: not in chart Subjective: Patient presents to clinic c/o painful toenails. They state that the nails are especially painful with shoe gear and pressure. Patient states that nails 1-5 b/l are painful. Patient admits to being diabetic. No other pedal complaints at this time. Patient states no change in medications or medical history since last visit. Objective: Patient presents to clinic ambulating in [facility] Vasc: DP and PT pulses are faintly palpable bilateral. CFT is less than 5 seconds bilateral. Skin temperature is warm to cool proximal to distal bilateral. There is moderate edema or varicosities noted. Neuro: Protective sensation is decreased to the foot and toes when tested with the 5.07 SWM bilateral. Vibratory sensation is absent at the hallux IPJ bilateral. The hallux is downgoing bilateral. Derm: Nails 1-5 b/l are painful, discolored-yellow, thick, crumbly, dystrophic and with subungal debris. Skin is of normal turgor, texture and hair growth is absent bilateral. There are no hyperkeratosis, ulcerations, scars, verruca or other lesions noted. Ortho: Muscle strength is 5/5 for all pedal groups tested. Ankle joint DF is decreased with the knee extended with no pain or crepitus noted. 1st MPJ ROM is decreased bilateral. 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 Nails 1-5 bilateral were debrided in length and thickness. Patient was instructed on the continued importance of diabetic foot care along with proper diet and keeping their blood sugar under control to prevent complications. I stressed the importance of wearing good shoes due to severe arthritis/collaspe of b/l midfoot Stressed the importance of avoiding barefoot walking, wearing good shoes and inspection of feet. Patient is to RTC in 3-4 months. Epifanio Peña DPM Patient presents with: Left Foot - Nail care Right Foot - Nail care AMB ROOMING INTAKE FLOWSHEET DATA Pain Pain Level: 6 Pain Location: (Bilateral feet) Description: Numbness, Tingling Duration Amount of Time: (Ongoing) Frequency: Continuous Intervention/Comfort measure: Medication Patient states she has been bothering her more lately. Feels it has moved up into her lower legs. Taking Gabapentin and helps her sleep at night. Blood sugar this morning was 78. documented in this encounter [facility] 04-30-2025 Note HNO ID: [id number] Author: KARLY CONNOR MA Service: ? Author Type: Patient Relations Liaison Type: Progress Notes Filed: 04/30/2025 10:19 Note Text: Patient presents with: Left Foot - Nail care Right Foot - Nail care AMB ROOMING INTAKE FLOWSHEET DATA Pain Pain Level: 6 Pain Location: (Bilateral feet) Description: Numbness, Tingling Duration Amount of Time: (Ongoing) Frequency: Continuous Intervention/Comfort measure: Medication Patient states she has been bothering her more lately. Feels it has moved up into her lower legs. Taking Gabapentin and helps her sleep at night. Blood sugar this morning was 78. [facility] 03-14-2025 Radiology Diagnostic study note [facility] Imaging Services [address], [place] [address] Ribs Unil 2V No CXR MR#: [id number] Acct: [id number] Name: MARIA ELENA ATKINS Rep #: [id number] : 1935 F 89 From: Nixon Ramos MD PCP: Dr. Eryn Guerra MD Status: REG CLI Study:Ribs Unil 2V No CXR Date of Exam: 03/13/25 Exam# [id number] Ordering Dr: Ra phil Baldwin NP-Sandy PROCEDURE: RIBS UNIL 2V NO CXR 03/13/2025 REASON FOR EXAM: PAIN, FALL TECHNIQUE: Four view left rib series COMPARISON: Chest x-ray 09/21/2022 RAD/Ribs Unil 2V No CXR IMPRESSION: [id number] left acromioclavicular joint degenerative changes are seen, with distal clavicular inferior osteophyte also noted. Moderate degenerative changes about the left humeral head greater tuberosity further suggest the presence of significant chronic rotator cuff disease. The left glenohumeral joint demonstrates at least mild degenerative changes. Moderate degenerative changes of the visualized spine also noted. No pneumothorax is seen in visualized areas. No rib fracture is identified. If clinical concern persists, short-term follow-up imaging may be obtained to rule out a currently occult fracture. Reading Location: [place] [address] CC: ANTOINE Baldwin; Dr. Eryn Guerra MD ~ Embalmer Assistant: Signed [facility] 03-13-2025 Radiology Diagnostic study note [facility] Imaging Services [address] [place] [id number] L/S Spine Min 4 Views MR#: [id number] Acct: [id number] Name: MARIA ELENA ATKINS Rep #: [id number] : 1935 F 89 From: Sergo Treadwell MD PCP: Dr. Eryn Guerra MD Status: REG CLI Study:L/S Spine Min 4 Views Date of Exam: 03/13/25 Exam# [id number] Ordering Dr: Ra pihl Baldwin PROCEDURE: L/S SPINE MIN 4 VIEWS 03/13/2025 REASON FOR EXAM: PAIN, FALL TECHNIQUE: L/S SPINE MIN 4 VIEWS COMPARISON: None. FINDINGS: No evidence acute fracture or dislocation. Moderate discogenic degenerative changes of the visualized spine. No visualized pars defects. Normal alignment. RAD/L/S Spine Min 4 Views IMPRESSION: Spondylosis. Reading Location: [id number] CC: ANTOINE Baldwin; Dr. Eryn Guerra MD ~ Embalmer Assistant: Signed [facility] 01-22-2025 Note HNO ID: [id number] Author: EPIFANIO PEÑA, ? Service: ? Author Type: Physician Type: Progress Notes Filed: 01/22/2025 08:42 Note Text: Last saw pcp: not in chart Subjective: Patient presents to clinic c/o painful toenails. They state that the nails are especially painful with shoe gear and pressure. Patient states that nails 1 right are painful. Patient admits to being diabetic and states that their blood sugar was 80 mg/dL this AM. Does notice at times she will wake up and her sugars are in the 40s. No other pedal complaints at this time. Patient states no change in medications or medical history since last visit. Objective: Patient presents to clinic ambulating in [facility] Vasc: DP and PT pulses are nonpalpable bilateral. CFT is less than 5 seconds bilateral. Skin temperature is warm to cool proximal to distal bilateral. There is moderate edema or varicosities noted. Neuro: Protective sensation is absent to the foot and toes when tested with the 5.07 SWM bilateral. Vibratory sensation is absent at the hallux IPJ bilateral. The hallux is downgoing bilateral. Derm: Nails 1-5 b/l are painful, discolored-yellow, thick, crumbly, dystrophic and with subungal debris. Skin is of normal turgor, texture and hair growth is absent bilateral. There are no hyperkeratosis, ulcerations, scars, verruca or other lesions noted. Ortho: Muscle strength is 5/5 for all pedal groups tested. Ankle joint DF is decreased with the knee extended with no pain or crepitus noted. 1st MPJ ROM is decreased bilateral. 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 Nails 1-5 bilateral were debrided in length and thickness. Patient was instructed on the continued importance of diabetic foot care along with proper diet and keeping their blood sugar under control to prevent complications. I stressed the importance of avoiding barefoot walking, wearing good shoes and inspection of feet. Would continue to monitor sugars. May warrant discussion with her pcp. Patient is to RTC in 3-4 months. Epifanio Peña DPM [facility] 01-22-2025 History of Presen t illness Narrative Last saw pcp: not in chart Subjective: Patient presents to clinic c/o painful toenails. They state that the nails are especially painful with shoe gear and pressure. Patient states that nails 1 right are painful. Patient admits to being diabetic and states that their blood sugar was 80 mg/dL this AM. Does notice at times she will wake up and her sugars are in the 40s. No other pedal complaints at this time. Patient states no change in medications or medical history since last visit. Objective: Patient presents to clinic ambulating in [facility] Vasc: DP and PT pulses are nonpalpable bilateral. CFT is less than 5 seconds bilateral. Skin temperature is warm to cool proximal to distal bilateral. There is moderate edema or varicosities noted. Neuro: Protective sensation is absent to the foot and toes when tested with the 5.07 SWM bilateral. Vibratory sensation is absent at the hallux IPJ bilateral. The hallux is downgoing bilateral. Derm: Nails 1-5 b/l are painful, discolored-yellow, thick, crumbly, dystrophic and with subungal debris. Skin is of normal turgor, texture and hair growth is absent bilateral. There are no hyperkeratosis, ulcerations, scars, verruca or other lesions noted. Ortho: Muscle strength is 5/5 for all pedal groups tested. Ankle joint DF is decreased with the knee extended with no pain or crepitus noted. 1st MPJ ROM is decreased bilateral. 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 Nails 1-5 bilateral were debrided in length and thickness. Patient was instructed on the continued importance of diabetic foot care along with proper diet and keeping their blood sugar under control to prevent complications. I stressed the importance of avoiding barefoot walking, wearing good shoes and inspection of feet. Would continue to monitor sugars. May warrant discussion with her pcp. Patient is to RTC in 3-4 months. Epifanio Peña DPM AMB ROOMING INTAKE FLOWSHEET DATA Pain Pain Level: 6 Pain Location: Foot-Left Description: Numbness Frequency: Continuous Intervention/Comfort measure: Relaxation, Reposition Patient presents with: Left Foot - Established Patient, Follow Up, Diabetic Foot Check Right Foot - Established Patient, Follow Up, Diabetic Foot Check Madhavi Patiño LPN documented in this encounter [facility] 01-22-2025 Instructions Epifanio Peña - 01/22/2025 8:30 AM EDT Diabetes Foot Care Instructions When you have diabetes, proper foot care is very important. Poor foot care may lead to amputation of a foot or leg. As a person with diabetes, you are more vulnerable to foot problems, because diabetes can damage your nerves and reduce blood flow to your feet. Here are some diabetes foot care tips to follow: Wash and Dry Your Feet Daily Use mild soaps Use warm water Pat your skin dry; do not rub. Thoroughly dry your feet. After washing, use lotion on your feet to prevent cracking. Do not put lotion between your toes. Examine Your Feet Each Day Check the tops and bottoms of your feet. Have someone else look at your feet if you cannot see them. Check for dry, cracked skin. Look for blisters, cuts, scratches, or other sores. Check for redness, increased warmth, or tenderness when touching any area of your feet. Check for ingrown toenails, corns, and calluses. If you get a blister or sore from your shoes, do not pop it. Apply a bandage and wear a different pair of shoes. Take Care of Your Toenails Cut toenails after bathing, when they are soft. Cut toenails straight across and smooth with a nail file. Avoid cutting into the corners of toes. Do not cut cuticles. If you have neuropathy (or decreased sensation in your feet) a microbiology technician should always cut your toenails. Be Careful When Exercising Walk and exercise in comfortable shoes. Do not exercise when you have open sores on your feet. Protect Your Feet With Shoes and Socks Never go barefoot. Always protect your feet by wearing shoes or hard-soled slippers or footwear. Avoid shoes with high heels and pointed toes. Avoid shoes that expose your toes or heels (such as open-toed shoes or sandals). These types of shoes increase your risk for injury and potential infections. Try on new footwear with the type of socks you usually wear. Do not wear new shoes for more than an hour at a time. Change your socks daily. Look and feel inside your shoes before putting them on to make sure there are no foreign objects or rough areas. Avoid tight socks. Wear natural-fiber socks (cotton, wool, or a cotton-wool blend). Wear special shoes if your health care provider recommends them. Wear shoes/boots that will protect your feet from various weather conditions (cold, moisture, etc.). Make sure your shoes fit properly. If you have neuropathy (nerve damage), you may not notice that your shoes are too tight. Perform the footwear test described below. Footwear Test Use this simple test to see if your shoes fit correctly: Stand on a piece of paper. (Make sure you are standing and not sitting, because your foot changes shape when you stand.) Trace the outline of your foot. Trace the outline of your shoe. Compare the tracings: Is the shoe too narrow? Is your foot crammed into the shoe? The shoe should be at least 1/2 inch longer than your longest toe and as wide as your foot. Proper Shoe Choices The following types of shoes are best for people with diabetes Closed toes and heels Leather uppers without a seam inside At least 1/2 inch extra space at the end of your longest toe Inside of shoe should be soft with no rough areas Outer sole should be made of stiff material Shoes should be at least as wide as your feet Tips for Foot Care in Diabetes Don't wait to treat a minor foot problem if you have diabetes. Follow your health care provider's guidelines and first aid guidelines. Report foot injuries and infections to your health care provider immediately. Check water temperature with your elbow, not your foot. Do not use a heating pad on your feet. Do not cross your legs. Do not self-treat your corns, calluses, or other foot problems. Go to your health care provider or microbiology technician to treat these conditions. documented in this encounter [facility] 01-22-2025 Note HNO ID: [id number] Author: MADHAVI PATIÑO LPN Service: ? Author Type: LICENSED NURSE Type: Progress Notes Filed: 01/22/2025 08:42 Note Text: AMB ROOMING INTAKE FLOWSHEET DATA Pain Pain Level: 6 Pain Location: Foot-Left Description: Numbness Frequency: Continuous Intervention/Comfort measure: Relaxation, Reposition Patient presents with: Left Foot - Established Patient, Follow Up, Diabetic Foot Check Right Foot - Established Patient, Follow Up, Diabetic Foot Check Madhavi Patiño LPN [facility] 10-22-2024 Note HNO ID: [id number] Author: EPIFANIO PEÑA, ? Service: ? Author Type: Physician Type: Progress Notes Filed: 10/22/2024 09:04 Note Text: Last saw pcp: not in chart Subjective: Patient presents to clinic c/o painful toenails. They state that the nails are especially painful with shoe gear and pressure. Patient states that nails right hallux are painful. Patient admits to being diabetic. No other pedal complaints at this time. Patient states no change in medications or medical history since last visit. Objective: Patient presents to clinic ambulating in [facility] Vasc: DP and PT pulses are nonpalpable bilateral. CFT is less than 5 seconds bilateral. Skin temperature is warm to cool proximal to distal bilateral. There is mild edema or varicosities noted. Neuro: Protective sensation is decreased to the foot and toes when tested with the 5.07 SWM bilateral. Vibratory sensation is absent at the hallux IPJ bilateral. The hallux is downgoing bilateral. Derm: Nails 1-5 b/l are painful, discolored-yellow, thick, crumbly, dystrophic and with subungal debris. Skin is of normal turgor, texture and hair growth is absent bilateral. There are callus to left plantar navicular cun joint. no ulcerations, scars, verruca or other lesions noted. Ortho: Muscle strength is 5/5 for all pedal groups tested. Ankle joint DF is decreased with the knee extended with no pain or crepitus noted. 1st MPJ ROM is decreased bilateral. 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 Nails 1-5 bilateral were debrided in length and thickness. Patient was instructed on the continued importance of diabetic foot care along with proper diet and keeping their blood sugar under control to prevent complications. Stressed the importance of avoiding barefoot walking, wearing good shoes and inspection of feet daily Callus reduced with dremmel to left foot Gel pad provided for left midfoot to help rubbing in shoes. Can remove at night . Offered this to patient but unable to apply. Patient is to RTC in 3-4 months. Epifanio Peña DPM [facility] 10-22-2024 History of Presen t illness Narrative Last saw pcp: not in chart Subjective: Patient presents to clinic c/o painful toenails. They state that the nails are especially painful with shoe gear and pressure. Patient states that nails right hallux are painful. Patient admits to being diabetic. No other pedal complaints at this time. Patient states no change in medications or medical history since last visit. Objective: Patient presents to clinic ambulating in [facility] Vasc: DP and PT pulses are nonpalpable bilateral. CFT is less than 5 seconds bilateral. Skin temperature is warm to cool proximal to distal bilateral. There is mild edema or varicosities noted. Neuro: Protective sensation is decreased to the foot and toes when tested with the 5.07 SWM bilateral. Vibratory sensation is absent at the hallux IPJ bilateral. The hallux is downgoing bilateral. Derm: Nails 1-5 b/l are painful, discolored-yellow, thick, crumbly, dystrophic and with subungal debris. Skin is of normal turgor, texture and hair growth is absent bilateral. There are callus to left plantar navicular cun joint. no ulcerations, scars, verruca or other lesions noted. Ortho: Muscle strength is 5/5 for all pedal groups tested. Ankle joint DF is decreased with the knee extended with no pain or crepitus noted. 1st MPJ ROM is decreased bilateral. 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 Nails 1-5 bilateral were debrided in length and thickness. Patient was instructed on the continued importance of diabetic foot care along with proper diet and keeping their blood sugar under control to prevent complications. Stressed the importance of avoiding barefoot walking, wearing good shoes and inspection of feet daily Callus reduced with dremmel to left foot Gel pad provided for left midfoot to help rubbing in shoes. Can remove at night . Offered this to patient but unable to apply. Patient is to RTC in 3-4 months. Epifanio Peña DPM Patient presents with: Left Foot - Established Patient, Follow Up, Diabetic Foot Check Right Foot - Established Patient, Follow Up, Diabetic Foot Check Patient presents for follow up diabetic foot/nail care. Also due for diabetic foot exam. JUNG 07/20/24 documented in this encounter [facility] 10-22-2024 Instructions Epifanio Peña - 10/22/2024 8:53 AM EST Diabetes Foot Care Instructions When you have diabetes, proper foot care is very important. Poor foot care may lead to amputation of a foot or leg. As a person with diabetes, you are more vulnerable to foot problems, because diabetes can damage your nerves and reduce blood flow to your feet. Here are some diabetes foot care tips to follow: Wash and Dry Your Feet Daily Use mild soaps Use warm water Pat your skin dry; do not rub. Thoroughly dry your feet. After washing, use lotion on your feet to prevent cracking. Do not put lotion between your toes. Examine Your Feet Each Day Check the tops and bottoms of your feet. Have someone else look at your feet if you cannot see them. Check for dry, cracked skin. Look for blisters, cuts, scratches, or other sores. Check for redness, increased warmth, or tenderness when touching any area of your feet. Check for ingrown toenails, corns, and calluses. If you get a blister or sore from your shoes, do not pop it. Apply a bandage and wear a different pair of shoes. Take Care of Your Toenails Cut toenails after bathing, when they are soft. Cut toenails straight across and smooth with a nail file. Avoid cutting into the corners of toes. Do not cut cuticles. If you have neuropathy (or decreased sensation in your feet) a microbiology technician should always cut your toenails. Be Careful When Exercising Walk and exercise in comfortable shoes. Do not exercise when you have open sores on your feet. Protect Your Feet With Shoes and Socks Never go barefoot. Always protect your feet by wearing shoes or hard-soled slippers or footwear. Avoid shoes with high heels and pointed toes. Avoid shoes that expose your toes or heels (such as open-toed shoes or sandals). These types of shoes increase your risk for injury and potential infections. Try on new footwear with the type of socks you usually wear. Do not wear new shoes for more than an hour at a time. Change your socks daily. Look and feel inside your shoes before putting them on to make sure there are no foreign objects or rough areas. Avoid tight socks. Wear natural-fiber socks (cotton, wool, or a cotton-wool blend). Wear special shoes if your health care provider recommends them. Wear shoes/boots that will protect your feet from various weather conditions (cold, moisture, etc.). Make sure your shoes fit properly. If you have neuropathy (nerve damage), you may not notice that your shoes are too tight. Perform the footwear test described below. Footwear Test Use this simple test to see if your shoes fit correctly: Stand on a piece of paper. (Make sure you are standing and not sitting, because your foot changes shape when you stand.) Trace the outline of your foot. Trace the outline of your shoe. Compare the tracings: Is the shoe too narrow? Is your foot crammed into the shoe? The shoe should be at least 1/2 inch longer than your longest toe and as wide as your foot. Proper Shoe Choices The following types of shoes are best for people with diabetes Closed toes and heels Leather uppers without a seam inside At least 1/2 inch extra space at the end of your longest toe Inside of shoe should be soft with no rough areas Outer sole should be made of stiff material Shoes should be at least as wide as your feet Tips for Foot Care in Diabetes Don't wait to treat a minor foot problem if you have diabetes. Follow your health care provider's guidelines and first aid guidelines. Report foot injuries and infections to your health care provider immediately. Check water temperature with your elbow, not your foot. Do not use a heating pad on your feet. Do not cross your legs. Do not self-treat your corns, calluses, or other foot problems. Go to your health care provider or microbiology technician to treat these conditions. documented in this encounter [facility] 10-22-2024 Note HNO ID: [id number] Author: VIDYA LE, RN Service: ? Author Type: Registered Nurse Type: Progress Notes Filed: 10/22/2024 09:04 Note Text: Patient presents with: Left Foot - Established Patient, Follow Up, Diabetic Foot Check Right Foot - Established Patient, Follow Up, Diabetic Foot Check Patient presents for follow up diabetic foot/nail care. Also due for diabetic foot exam. JUNG 07/20/24 [facility] 07-20-2024 Note HNO ID: [id number] Author: EPIFANIO PEÑA, ? Service: ? Author Type: Physician Type: Progress Notes Filed: 07/21/2024 05:28 Note Text: Last seen by pcp: not in [facility] chart Subjective: Patient presents to clinic c/o painful toenails. They state that the nails are especially painful with shoe gear and pressure. Patient states that nails 1-5 b/l are painful. Patient admits to being diabetic. No other pedal complaints at this time. Patient states no change in medications or medical history since last visit. Objective: Patient presents to clinic ambulating in sneakers Vasc: DP and PT pulses are nonpalpable bilateral. CFT is less than 5 seconds bilateral. Skin temperature is warm to cool proximal to distal bilateral. There is moderate edema or varicosities noted. Neuro: Protective sensation is decreased to the foot and toes when tested with the 5.07 SWM bilateral. Vibratory sensation is absent at the hallux IPJ bilateral. The hallux is downgoing bilateral. Derm: Nails 1-5 b/l are painful, discolored-yellow, thick, crumbly, dystrophic and with subungal debris. Skin is of normal turgor, texture and hair growth is absent bilateral. There are no hyperkeratosis, ulcerations, scars, verruca or other lesions noted. Ortho: Muscle strength is 5/5 for all pedal groups tested. Ankle joint DF is decreased with the knee extended with no pain or crepitus noted. 1st MPJ ROM is decreased bilateral. Assessment: (B35.1) Onychomycosis (primary encounter diagnosis) (M79.675) Pain in toe of left foot (M79.674) Pain in toe of right foot (E11.42) Diabetic polyneuropathy associated with type 2 diabetes mellitus ([facility]) (I73.9) PAD (peripheral artery disease) ([facility]) Plan: Patient was seen and evaluated. Nails 1-5 bilateral were debrided in length and thickness. Patient was instructed on the continued importance of diabetic foot care along with proper diet and keeping their blood sugar under control to prevent complications. Stressed the importance of avoiding barefoot walking and wearing good supportive shoes. Patient is to RTC in 3-4 months. Epifanio Peña DPM [facility] 07-20-2024 History of Presen t illness Narrative Last seen by pcp: not in [facility] chart Subjective: Patient presents to clinic c/o painful toenails. They state that the nails are especially painful with shoe gear and pressure. Patient states that nails 1-5 b/l are painful. Patient admits to being diabetic. No other pedal complaints at this time. Patient states no change in medications or medical history since last visit. Objective: Patient presents to clinic ambulating in [facility] Vasc: DP and PT pulses are nonpalpable bilateral. CFT is less than 5 seconds bilateral. Skin temperature is warm to cool proximal to distal bilateral. There is moderate edema or varicosities noted. Neuro: Protective sensation is decreased to the foot and toes when tested with the 5.07 SWM bilateral. Vibratory sensation is absent at the hallux IPJ bilateral. The hallux is downgoing bilateral. Derm: Nails 1-5 b/l are painful, discolored-yellow, thick, crumbly, dystrophic and with subungal debris. Skin is of normal turgor, texture and hair growth is absent bilateral. There are no hyperkeratosis, ulcerations, scars, verruca or other lesions noted. Ortho: Muscle strength is 5/5 for all pedal groups tested. Ankle joint DF is decreased with the knee extended with no pain or crepitus noted. 1st MPJ ROM is decreased bilateral. Assessment: (B35.1) Onychomycosis (primary encounter diagnosis) (M79.675) Pain in toe of left foot (M79.674) Pain in toe of right foot (E11.42) Diabetic polyneuropathy associated with type 2 diabetes mellitus ([facility]) (I73.9) PAD (peripheral artery disease) ([facility]) Plan: Patient was seen and evaluated. Nails 1-5 bilateral were debrided in length and thickness. Patient was instructed on the continued importance of diabetic foot care along with proper diet and keeping their blood sugar under control to prevent complications. Stressed the importance of avoiding barefoot walking and wearing good supportive shoes. Patient is to RTC in 3-4 months. Epifanio Peña DPM AMB ROOMING INTAKE FLOWSHEET DATA Patient presents with: Left Foot - Established Patient, Follow Up, Diabetic Foot Care Right Foot - Established Patient, Follow Up, Diabetic Foot Care Madhavi Patiño LPN documented in this encounter [facility] 07-20-2024 Instructions Epifanio Peña - 07/20/2024 1:04 PM EST Diabetes Foot Care Instructions When you have diabetes, proper foot care is very important. Poor foot care may lead to amputation of a foot or leg. As a person with diabetes, you are more vulnerable to foot problems, because diabetes can damage your nerves and reduce blood flow to your feet. Here are some diabetes foot care tips to follow: Wash and Dry Your Feet Daily Use mild soaps Use warm water Pat your skin dry; do not rub. Thoroughly dry your feet. After washing, use lotion on your feet to prevent cracking. Do not put lotion between your toes. Examine Your Feet Each Day Check the tops and bottoms of your feet. Have someone else look at your feet if you cannot see them. Check for dry, cracked skin. Look for blisters, cuts, scratches, or other sores. Check for redness, increased warmth, or tenderness when touching any area of your feet. Check for ingrown toenails, corns, and calluses. If you get a blister or sore from your shoes, do not pop it. Apply a bandage and wear a different pair of shoes. Take Care of Your Toenails Cut toenails after bathing, when they are soft. Cut toenails straight across and smooth with a nail file. Avoid cutting into the corners of toes. Do not cut cuticles. If you have neuropathy (or decreased sensation in your feet) a microbiology technician should always cut your toenails. Be Careful When Exercising Walk and exercise in comfortable shoes. Do not exercise when you have open sores on your feet. Protect Your Feet With Shoes and Socks Never go barefoot. Always protect your feet by wearing shoes or hard-soled slippers or footwear. Avoid shoes with high heels and pointed toes. Avoid shoes that expose your toes or heels (such as open-toed shoes or sandals). These types of shoes increase your risk for injury and potential infections. Try on new footwear with the type of socks you usually wear. Do not wear new shoes for more than an hour at a time. Change your socks daily. Look and feel inside your shoes before putting them on to make sure there are no foreign objects or rough areas. Avoid tight socks. Wear natural-fiber socks (cotton, wool, or a cotton-wool blend). Wear special shoes if your health care provider recommends them. Wear shoes/boots that will protect your feet from various weather conditions (cold, moisture, etc.). Make sure your shoes fit properly. If you have neuropathy (nerve damage), you may not notice that your shoes are too tight. Perform the footwear test described below. Footwear Test Use this simple test to see if your shoes fit correctly: Stand on a piece of paper. (Make sure you are standing and not sitting, because your foot changes shape when you stand.) Trace the outline of your foot. Trace the outline of your shoe. Compare the tracings: Is the shoe too narrow? Is your foot crammed into the shoe? The shoe should be at least 1/2 inch longer than your longest toe and as wide as your foot. Proper Shoe Choices The following types of shoes are best for people with diabetes Closed toes and heels Leather uppers without a seam inside At least 1/2 inch extra space at the end of your longest toe Inside of shoe should be soft with no rough areas Outer sole should be made of stiff material Shoes should be at least as wide as your feet Tips for Foot Care in Diabetes Don't wait to treat a minor foot problem if you have diabetes. Follow your health care provider's guidelines and first aid guidelines. Report foot injuries and infections to your health care provider immediately. Check water temperature with your elbow, not your foot. Do not use a heating pad on your feet. Do not cross your legs. Do not self-treat your corns, calluses, or other foot problems. Go to your health care provider or microbiology technician to treat these conditions. documented in this encounter [facility] 07-20-2024 Note HNO ID: [id number] Author: MADHAVI PATIÑO LPN Service: ? Author Type: LICENSED NURSE Type: Progress Notes Filed: 07/21/2024 05:28 Note Text: AMB ROOMING INTAKE FLOWSHEET DATA Patient presents with: Left Foot - Established Patient, Follow Up, Diabetic Foot Care Right Foot - Established Patient, Follow Up, Diabetic Foot Care Madhavi Patiño LPN [facility] 04-06-2024 Instructions Epifanio Peña - 04/06/2024 2:43 PM EDT Diabetes Foot Care Instructions When you have diabetes, proper foot care is very important. Poor foot care may lead to amputation of a foot or leg. As a person with diabetes, you are more vulnerable to foot problems, because diabetes can damage your nerves and reduce blood flow to your feet. Here are some diabetes foot care tips to follow: Wash and Dry Your Feet Daily Use mild soaps Use warm water Pat your skin dry; do not rub. Thoroughly dry your feet. After washing, use lotion on your feet to prevent cracking. Do not put lotion between your toes. Examine Your Feet Each Day Check the tops and bottoms of your feet. Have someone else look at your feet if you cannot see them. Check for dry, cracked skin. Look for blisters, cuts, scratches, or other sores. Check for redness, increased warmth, or tenderness when touching any area of your feet. Check for ingrown toenails, corns, and calluses. If you get a blister or sore from your shoes, do not pop it. Apply a bandage and wear a different pair of shoes. Take Care of Your Toenails Cut toenails after bathing, when they are soft. Cut toenails straight across and smooth with a nail file. Avoid cutting into the corners of toes. Do not cut cuticles. If you have neuropathy (or decreased sensation in your feet) a microbiology technician should always cut your toenails. Be Careful When Exercising Walk and exercise in comfortable shoes. Do not exercise when you have open sores on your feet. Protect Your Feet With Shoes and Socks Never go barefoot. Always protect your feet by wearing shoes or hard-soled slippers or footwear. Avoid shoes with high heels and pointed toes. Avoid shoes that expose your toes or heels (such as open-toed shoes or sandals). These types of shoes increase your risk for injury and potential infections. Try on new footwear with the type of socks you usually wear. Do not wear new shoes for more than an hour at a time. Change your socks daily. Look and feel inside your shoes before putting them on to make sure there are no foreign objects or rough areas. Avoid tight socks. Wear natural-fiber socks (cotton, wool, or a cotton-wool blend). Wear special shoes if your health care provider recommends them. Wear shoes/boots that will protect your feet from various weather conditions (cold, moisture, etc.). Make sure your shoes fit properly. If you have neuropathy (nerve damage), you may not notice that your shoes are too tight. Perform the footwear test described below. Footwear Test Use this simple test to see if your shoes fit correctly: Stand on a piece of paper. (Make sure you are standing and not sitting, because your foot changes shape when you stand.) Trace the outline of your foot. Trace the outline of your shoe. Compare the tracings: Is the shoe too narrow? Is your foot crammed into the shoe? The shoe should be at least 1/2 inch longer than your longest toe and as wide as your foot. Proper Shoe Choices The following types of shoes are best for people with diabetes Closed toes and heels Leather uppers without a seam inside At least 1/2 inch extra space at the end of your longest toe Inside of shoe should be soft with no rough areas Outer sole should be made of stiff material Shoes should be at least as wide as your feet Tips for Foot Care in Diabetes Don't wait to treat a minor foot problem if you have diabetes. Follow your health care provider's guidelines and first aid guidelines. Report foot injuries and infections to your health care provider immediately. Check water temperature with your elbow, not your foot. Do not use a heating pad on your feet. Do not cross your legs. Do not self-treat your corns, calluses, or other foot problems. Go to your health care provider or microbiology technician to treat these conditions. documented in this encounter [facility] 04-06-2024 History of Presen t illness Narrative Last time saw pcp: not in chart Subjective: Patient presents to clinic c/o painful toenails. They state that the nails are especially painful with shoe gear and pressure. Patient states that nails 1-5 b/l are painful. Patient admits to being diabetic. No other pedal complaints at this time. Patient states no change in medications or medical history since last visit. Objective: Patient presents to clinic ambulating in [facility] Vasc: DP and PT pulses are nonpalpable bilateral. CFT is less than 5 seconds bilateral. Skin temperature is warm to cool proximal to distal bilateral. There is mild edema or varicosities noted. Neuro: Protective sensation is absent to the foot and toes when tested with the 5.07 SWM bilateral. Vibratory sensation is absent at the hallux IPJ bilateral. The hallux is downgoing bilateral. Derm: Nails 1-5 b/l are painful, discolored-yellow, thick, crumbly, dystrophic and with subungal debris. Right hallux medial nail border is ingrowing with pain. Skin is of normal turgor, texture and hair growth is absent bilateral. There are no hyperkeratosis, ulcerations, scars, verruca or other lesions noted. Ortho: Muscle strength is 5/5 for all pedal groups tested. Ankle joint DF is decreased with the knee extended with no pain or crepitus noted. 1st MPJ ROM is decreased bilateral. Assessment: (B35.1) Onychomycosis (primary encounter diagnosis) Ingrowing toenail (M79.675) Pain in toe of left foot (M79.674) Pain in toe of right foot (E11.42) Diabetic polyneuropathy associated with type 2 diabetes mellitus ([facility]) (I73.9) PAD (peripheral artery disease) ([facility]) Plan: Patient was seen and evaluated. Nails 1-5 bilateral were debrided in length and thickness. Right hallux is ingrowing along medial border. This was debrided to eliminate pressure. No signs of infection. Small bleed to right hallux. Band aide with topical antibioic was applied. Reviewed signs of infection. If she has any issues, she is to contact me immediately. Patient was instructed on the continued importance of diabetic foot care along with proper diet and keeping their blood sugar under control to prevent complications. Discussed the need to avoid barefoot walking, wear good shoes and inspect feet. Patient is to RTC in 3-4 months. Epifanio Peña DPM Patient presents with: Left Foot - Established Patient, Follow Up, Pain, Diabetic Foot Care Right Foot - Established Patient, Follow Up, Pain, Diabetic Foot Care Patient presents for follow up diabetic nail care. [facility] 01/06/24 documented in this encounter [facility] 01-06-2024 History of Presen t illness Narrative Last time saw pcp: 06/17/23 Subjective: Patient presents to clinic c/o painful toenails. They state that the nails are especially painful with shoe gear and pressure. Patient states that nails 1-5 b/l are painful. Patient admits to being diabetic. No other pedal complaints at this time. Patient states no change in medications or medical history since last visit. Objective: Patient presents to clinic ambulating in dress shoes Vasc: DP and PT pulses are faintly palpable bilateral. CFT is less than 5 seconds bilateral. Skin temperature is warm to cool proximal to distal bilateral. There is mild edema or varicosities noted. Neuro: Protective sensation is absent to the foot and toes when tested with the 5.07 SWM bilateral. Vibratory sensation is absent at the hallux IPJ bilateral. The hallux is downgoing bilateral. Derm: Nails 1-5 b/l are painful, discolored-yellow, thick, crumbly, dystrophic and with subungal debris. Skin is of normal turgor, texture and hair growth is decreased bilateral. There are no hyperkeratosis, ulcerations, scars, verruca or other lesions noted. Ortho: Muscle strength is 5/5 for all pedal groups tested. Ankle joint DF is decreased with the knee extended with no pain or crepitus noted. 1st MPJ ROM is decreased bilateral. There is collapse of left medial arch Assessment: (B35.1) Onychomycosis (primary encounter diagnosis) (M79.675) Pain in toe of left foot (M79.674) Pain in toe of right foot (E11.42) Diabetic polyneuropathy associated with type 2 diabetes mellitus ([facility]) Plan: Patient was seen and evaluated. Nails 1-5 bilateral were debrided in length and thickness. Discussed collapse of medial arch, left foot. Recommend she continue with gel inserts and supportive shoes. Has diabetic shoes but prefers her sneakers Patient was instructed on the continued importance of diabetic foot care along with proper diet and keeping their blood sugar under control to prevent complications. Discussed her neuropathy. Stressed the importance of monitoring her foot. Patient is to RTC in 3-4 months. Epifanio Peña DPM AMB ROOMING INTAKE FLOWSHEET DATA Patient presents with: Left Foot - Established Patient, Diabetic Foot Care, Follow Up Right Foot - Established Patient, Follow Up, Diabetic Foot Care Madhavi Patiño LPN documented in this encounter [facility] 01-06-2024 Instructions Epifanio Peña - 01/06/2024 8:39 AM EDT Diabetes Foot Care Instructions When you have diabetes, proper foot care is very important. Poor foot care may lead to amputation of a foot or leg. As a person with diabetes, you are more vulnerable to foot problems, because diabetes can damage your nerves and reduce blood flow to your feet. Here are some diabetes foot care tips to follow: Wash and Dry Your Feet Daily Use mild soaps Use warm water Pat your skin dry; do not rub. Thoroughly dry your feet. After washing, use lotion on your feet to prevent cracking. Do not put lotion between your toes. Examine Your Feet Each Day Check the tops and bottoms of your feet. Have someone else look at your feet if you cannot see them. Check for dry, cracked skin. Look for blisters, cuts, scratches, or other sores. Check for redness, increased warmth, or tenderness when touching any area of your feet. Check for ingrown toenails, corns, and calluses. If you get a blister or sore from your shoes, do not pop it. Apply a bandage and wear a different pair of shoes. Take Care of Your Toenails Cut toenails after bathing, when they are soft. Cut toenails straight across and smooth with a nail file. Avoid cutting into the corners of toes. Do not cut cuticles. If you have neuropathy (or decreased sensation in your feet) a microbiology technician should always cut your toenails. Be Careful When Exercising Walk and exercise in comfortable shoes. Do not exercise when you have open sores on your feet. Protect Your Feet With Shoes and Socks Never go barefoot. Always protect your feet by wearing shoes or hard-soled slippers or footwear. Avoid shoes with high heels and pointed toes. Avoid shoes that expose your toes or heels (such as open-toed shoes or sandals). These types of shoes increase your risk for injury and potential infections. Try on new footwear with the type of socks you usually wear. Do not wear new shoes for more than an hour at a time. Change your socks daily. Look and feel inside your shoes before putting them on to make sure there are no foreign objects or rough areas. Avoid tight socks. Wear natural-fiber socks (cotton, wool, or a cotton-wool blend). Wear special shoes if your health care provider recommends them. Wear shoes/boots that will protect your feet from various weather conditions (cold, moisture, etc.). Make sure your shoes fit properly. If you have neuropathy (nerve damage), you may not notice that your shoes are too tight. Perform the footwear test described below. Footwear Test Use this simple test to see if your shoes fit correctly: Stand on a piece of paper. (Make sure you are standing and not sitting, because your foot changes shape when you stand.) Trace the outline of your foot. Trace the outline of your shoe. Compare the tracings: Is the shoe too narrow? Is your foot crammed into the shoe? The shoe should be at least 1/2 inch longer than your longest toe and as wide as your foot. Proper Shoe Choices The following types of shoes are best for people with diabetes Closed toes and heels Leather uppers without a seam inside At least 1/2 inch extra space at the end of your longest toe Inside of shoe should be soft with no rough areas Outer sole should be made of stiff material Shoes should be at least as wide as your feet Tips for Foot Care in Diabetes Don't wait to treat a minor foot problem if you have diabetes. Follow your health care provider's guidelines and first aid guidelines. Report foot injuries and infections to your health care provider immediately. Check water temperature with your elbow, not your foot. Do not use a heating pad on your feet. Do not cross your legs. Do not self-treat your corns, calluses, or other foot problems. Go to your health care provider or microbiology technician to treat these conditions. documented in this encounter [facility] 12-21-2023 Miscellaneous Notes The patient received a copy of EGD discharge instructions that contain information for how to contact the physician who performed the procedure and when to seek medical care. documented in this encounter [facility] 12-21-2023 Nurse Note Pt. arrived to phase 2 awake, resting on left side. Denies pain, nausea. SR up x 2 call light in reach. Zuly Mohamud RN documented in this encounter [facility] 12-21-2023 History and physical note Images from the original note were not included. HISTORY AND PHYSICAL Maria Elena Atkins 1935 REFERRING PHYSICIAN: Kike Russo MD CHIEF COMPLAINT: Consult (egd) HPI: The patient is a 88 year old female referred for upper endoscopy. Maria Elena notes recent episodes of dysphagia to solid food. Maria Elena has undergone prior upper endoscopy on March 13, 2020. The patient was found to have a small hiatal hernia, long-segment Londono's, gastritis and duodenitis. Pathology demonstrated: FINAL DIAGNOSIS 1. Antrum, biopsy (A) - Reactive gastropathy. -No morphologic evidence of H. pylori. 2. Distal esophagus, biopsy (B) Cardiofundic-type mucosa; negative for intestinal metaplasia and dysplasia. 3. Distal esophagus, 3 cm above, biopsy (C) Londono's esophagus, negative for dysplasia. 4. Mid esophagus, biopsy (D) - Squamous mucosa with no diagnostic alteration. NAYELI/FB/aliya 03/17/2020 Sonal Hart M.D. (Electronic Signature) ___ The patient is being seen by me today at the request of Dr. Eryn Guerra MD for my opinion and advice regarding dysphagia with a history of Londono's esophagitis. PAST MEDICAL HISTORY PAST MEDICAL HISTORY Diagnosis Date Actinic keratosis Dr. Castillo Aortic valve sclerosis 04/2018 mild B12 deficiency Londono esophagus Bone spur COVID 2022 Diabetes mellitus without mention of complication Diabetic neuropathy (HCC) Dr. Abraham Esophagitis, unspecified Essential tremor GERD (gastroesophageal reflux disease) Hyperlipidemia Hypertension Left ankle joint deformity Lung nodule Obesity (BMI 30-39.9) Onychomycosis Osteoarthritis of left knee PAD (peripheral artery disease) (HCC) PMR (polymyalgia rheumatica) (HCC) Rheumatoid arthritis(714.0) Snoring Stomach ulcer PAST SURGICAL HISTORY PAST SURGICAL HISTORY Procedure Laterality Date BIOPSY BREAST OPEN INCISIONAL 1990 Bx of breast, incisional CHOLECYSTECTOMY 1963 Cholecystectomy COLONOSCOPY 08/01/2013 COLONOSCOPY FLX DX W/COLLJ SPEC WHEN PFRMD 12/17/2005 Colonoscopy COLONOSCOPY FLX DX W/COLLJ SPEC WHEN PFRMD 02/28/2018 Colonoscopy EGD N/A 03/13/2020 Dr. Cole - EGD TRANSORAL BIOPSY SINGLE/MULTIPLE 04/12/2006 ESOPHAGOGASTRODUODENOSCOPY TRANSORAL DIAGNOSTIC 12/17/2005 EGD ESOPHAGOGASTRODUODENOSCOPY TRANSORAL DIAGNOSTIC 08/01/2013 EGD ESOPHAGOGASTRODUODENOSCOPY TRANSORAL DIAGNOSTIC 08/28/2015 EGD ESOPHAGOGASTRODUODENOSCOPY TRANSORAL DIAGNOSTIC 02/28/2018 Londono's, repeat in 2-3 yrs RMVL [facility]BRAN[facility]C CORNEO-SCLL SCTJ 1993 Cataract removal - bilat TKR COMPOSITE Left 08/2022 WRIST SURGERY HX Right 2010 CURRENT MEDICATIONS Current Outpatient Medications Medication Sig Acetaminophen 500 mg cap Take 2 capsules by mouth every 8 hours as needed for pain. gabapentin (NEURONTIN) 300 mg capsule Take 1 capsule by mouth two times a day. omeprazole (PRILOSEC) 40 mg capsule Take 1 capsule by mouth once daily. lisinopril-hydroCHLOROthiazide (PRINZIDE, ZESTORETIC) 20-25 mg per tablet Take 1 tablet by mouth every morning. insulin glargine (LANTUS SOLOSTAR U-100 INSULIN) 100 unit/mL (3 mL) Inject 31 Units subcutaneously twice daily. insulin aspart U-100 (NOVOLOG FLEXPEN U-100 INSULIN) 100 unit/mL (3 mL) Take 12 units of Novolog with breakfast, 12 units with lunch and 18 units with dinner (Patient taking differently: Inject 12 Units subcutaneously three times a day before meals. Take 12 units of Novolog with breakfast, 12 units with lunch and 12 units with dinner) Insulin [place], Disposable, (BD ULTRA-FINE ALEXANDER PEN NEEDLE) 32 gauge x 5/32 Use one needle for each dose. four per day. Biotin 2,500 mcg cap Take 2 tablets by mouth once daily ALEVE 220 MG TAB as necessary dulaglutide (TRULICITY) 1.5 mg/0.5 mL pen injector Inject 1.5 mg subcutaneously one time a week. (Patient not taking: Reported on 10/07/2023) metFORMIN ER (GLUCOPHAGE XR) 500 mg 24 hr tablet Take 2 tablets by mouth every other day. (Patient not taking: Reported on 09/03/2021 ) aspirin, enteric coated (ECOTRIN LOW STRENGTH) 81 mg EC tablet Take 1 tablet by mouth once daily. (Patient not taking: Reported on 09/03/2021) No current facility-administered medications for this visit. ALLERGIES: Cymbalta [Duloxetine] and Metformin PERSONAL HISTORY: SOCIAL HISTORY Social History Tobacco Use Smoking status: Never Smokeless tobacco: Never Vaping Use Vaping Use: Never used Substance Use Topics Alcohol use: Yes Comment: ONCE IN A GREAT WHILE Drug use: No FAMILY HISTORY: FAMILY HISTORY FAMILY HISTORY Problem Relation Age of Onset Cancer Mother lung Alcohol/Drug Mother Allergies Mother Cancer Father esophageal Alcohol/Drug Father Colon Cancer Brother Cancer Brother Diabetes Paternal Aunt other (hip and leg problems) Son other (MS) Son REVIEW OF SYMPTOMS: The review of systems data was entered by the nurse and reviewed by hi Nursing Notes: Rebeca Higgins LPN 12/06/2023 2:39 PM Signed REVIEW OF SYSTEMS: General: The patient denies fatigue, denies weight loss, NOTES weight gain, denies feeling hot, and denies feelings of cold. Eyes: The patient denies glaucoma, NOTES eye injury/surgery, wears glasses or contacts. Ear/Nose/Throat: The patient denies allergies, denies hayfever, denies ear infections, and denies bloody noses. Cardiovascular: The patient denies chest pain, denies heart disease, denies high blood pressure,denies cardiac stent, denies prior heart attack, denies irregular heart beat, denies high cholesterol, denies poor circulation, denies heart failure, other cardiac issues, denies claudication, denies cold feet, denies peripheral arterial stent. Respiratory: The patient denies tuberculosis, denies pneumonia, denies frequent cough, denies pulmonary embolism, denies shortness of breath, and denies coughing up blood. Gastrointestinal: The patient NOTES difficulty swallowing, denies acid reflux, denies ulcers, denies vomiting, denies jaundice/hepatitis, denies gallbladder problems, denies black or tarry stools, denies hemorrhoids, denies bleeding from rectum, denies diverticulitis, denies constipation, denies diarrhea, denies loss of stool control, and denies hernias. Kidney/Bladder: The patient denies kidney stones, denies urine infections, and denies bloody urine. Skin: The patient denies a history of skin cancer, denies bleeding/changing moles, and denies a history of skin rash. Neurologic: The patient denies a history of epilepsy/convulsions, denies headaches, denies head/spinal injuries, and denies stroke/TIA. Psychiatric: The patient denies psychiatric medications, denies depression, and denies voices, denies substance abuse. Endocrine: The patient denies thyroid disorders, notes diabetes, and denies hormonal problems. Hematologic: The patient denies a history of bruising, denies bleeding, and denies anemia, denies blood clots. Infections: The patient denies a history of measles and mumps, denies rheumatic fever, and denies sexually transmitted diseases. Musculoskeletal: The patient denies back pain/injury, denies back problems, denies sciatica, notes knee/foot trouble, denies arthritis, or denies gout. When was patient's last Mammogram screening? 2016 Last Colonoscopy: 2019 Rebeca Higgins LPN PHYSICAL EXAMINATION: General: The patient is 88 year old female, well nourished, well hydrated in no acute distress. The patient is oriented to time, place, and person. VITALS: Blood pressure 146/72, pulse 94, temperature 36.1 C (97 F), height 160 cm (5' 3), weight 83.4 kg (183 lb 12.8 oz), SpO2 96%. Body mass index is 32.56 kg/m . HEENT: Normal cephalic, ataumatic, pupils are equally round, sclera are anicteric, mucous membranes are moist, oropharynx is clear. Neck has no masses, asymmetry or lymphadenopathy. Thyroid is unremarkable. Respiratory: Clear to auscultation and percussion. Normal respiratory excursion and pattern. Cardiac: Examination is regular rate and rhythm. Abdominal exam: Soft, nontender, with no palpable masses. No hepatosplenomegaly. No palpable hernias. Rectal exam: exam deferred Extremities: no clubbing, cyanosis or edema. No adenopathy. Other: LABORATORY VALUES: As Noted RADIOLOGIC STUDIES: As Noted Assessment IMPRESSION: Dysphagia, history of Londono's esophagitis PLAN: I plan to perform upper endoscopy. We discussed the risks and benefits of the planned endoscopy. I have informed the patient that complications can occur including failure to complete the endoscopy and perforation. The patient had the opportunity to ask questions concerning the planned endoscopy. My staff has also explained the procedure to the patient in understandable terms and has given the patient printed material concerning the procedure. The patient freely consents to surgery. 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 Russo indicating the above finding for this patient. Return to Clinic: The patient is instructed to follow-up with me after the testing has been completed. Dasia Cole MD UPDATED HISTORY AND PHYSICAL EXAMINATION SERVICE DATE: 12/21/2023 SERVICE TIME: 7:18 AM PHYSICAL EXAM MUST BE COMPLETED ON ADMISSION The History and Physical (completed in the past 30 days) has been reviewed and the patient has been examined. The contents accurately reflect the patient's condition with the following additions or revisions since the H&P was completed. Examination indicates no changes. This H&P can be found in the attached. SIGNATURE: Rajan Schmitt III, MD PATIENT NAME: Maria Elena Atkins DATE: December 21, 2023 TIME: 7:18 AM documented in this encounter [facility] 12-07-2023 Telephone encounter Note 12/21/2023 EGD [facility] Patient aware procedure is with Dr. Alegria. Patient wanted to get in sooner with anyone. [facility] has first opening to fill Gladys Smith Human Resources Administrator [facility] 12-07-2023 Miscellaneous Notes 12/21/2023 EGD [facility] Patient aware procedure is with Dr. Alegria. Patient wanted to get in sooner with anyone. [facility] has first opening to fill Gladys Smith Human Resources Administrator documented in this encounter [facility] 12-06-2023 History of Presen t illness Narrative HISTORY AND PHYSICAL Maria Elena Atkins 1935 REFERRING PHYSICIAN: Kike Russo MD CHIEF COMPLAINT: Consult (egd) HPI: The patient is a 88 year old female referred for upper endoscopy. Maria Elena notes recent episodes of dysphagia to solid food. Maria Elena has undergone prior upper endoscopy on March 13, 2020. The patient was found to have a small hiatal hernia, long-segment Londono's, gastritis and duodenitis. Pathology demonstrated: FINAL DIAGNOSIS 1. Antrum, biopsy (A) - Reactive gastropathy. -No morphologic evidence of H. pylori. 2. Distal esophagus, biopsy (B) Cardiofundic-type mucosa; negative for intestinal metaplasia and dysplasia. 3. Distal esophagus, 3 cm above, biopsy (C) Londono's esophagus, negative for dysplasia. 4. Mid esophagus, biopsy (D) - Squamous mucosa with no diagnostic alteration. DSA/FB/aliya 03/17/2020 Sonal Hart M.D. (Electronic Signature) ___ The patient is being seen by me today at the request of Dr. Eryn Guerra MD for my opinion and advice regarding dysphagia with a history of Londono's esophagitis. PAST MEDICAL HISTORY Diagnosis Date Actinic keratosis Dr. Castillo Aortic valve sclerosis 04/2018 mild B12 deficiency Londono esophagus Bone spur COVID 2022 Diabetes mellitus without mention of complication Diabetic neuropathy ([facility]) Dr. Abraham Esophagitis, unspecified Essential tremor GERD (gastroesophageal reflux disease) Hyperlipidemia Hypertension Left ankle joint deformity Lung nodule Obesity (BMI 30-39.9) Onychomycosis Osteoarthritis of left knee PAD (peripheral artery disease) ([facility]) PMR (polymyalgia rheumatica) (HCC) Rheumatoid arthritis(714.0) Snoring Stomach ulcer PAST SURGICAL HISTORY Procedure Laterality Date BIOPSY BREAST OPEN INCISIONAL 1990 Bx of breast, incisional CHOLECYSTECTOMY 1963 Cholecystectomy COLONOSCOPY 08/01/2013 COLONOSCOPY FLX DX W/COLLJ SPEC WHEN PFRMD 12/17/2005 Colonoscopy COLONOSCOPY FLX DX W/COLLJ SPEC WHEN PFRMD 02/28/2018 Colonoscopy EGD N/A 03/13/2020 Dr. Cole - EGD TRANSORAL BIOPSY SINGLE/MULTIPLE 04/12/2006 ESOPHAGOGASTRODUODENOSCOPY TRANSORAL DIAGNOSTIC 12/17/2005 EGD ESOPHAGOGASTRODUODENOSCOPY TRANSORAL DIAGNOSTIC 08/01/2013 EGD ESOPHAGOGASTRODUODENOSCOPY TRANSORAL DIAGNOSTIC 08/28/2015 EGD ESOPHAGOGASTRODUODENOSCOPY TRANSORAL DIAGNOSTIC 02/28/2018 Londono's, repeat in 2-3 yrs RMVL SEC MEMBRANOUS CTRC CORNEO-SCLL SCTJ 1993 Cataract removal - bilat TKR COMPOSITE Left 08/2022 WRIST SURGERY HX Right 2010 Current Outpatient Medications Medication Sig Acetaminophen 500 mg cap Take 2 capsules by mouth every 8 hours as needed for pain. gabapentin (NEURONTIN) 300 mg capsule Take 1 capsule by mouth two times a day. omeprazole (PRILOSEC) 40 mg capsule Take 1 capsule by mouth once daily. lisinopril-hydroCHLOROthiazide (PRINZIDE, ZESTORETIC) 20-25 mg per tablet Take 1 tablet by mouth every morning. insulin glargine (LANTUS SOLOSTAR U-100 INSULIN) 100 unit/mL (3 mL) Inject 31 Units subcutaneously twice daily. insulin aspart U-100 (NOVOLOG FLEXPEN U-100 INSULIN) 100 unit/mL (3 mL) Take 12 units of Novolog with breakfast, 12 units with lunch and 18 units with dinner (Patient taking differently: Inject 12 Units subcutaneously three times a day before meals. Take 12 units of Novolog with breakfast, 12 units with lunch and 12 units with dinner) Insulin [place], Disposable, (BD ULTRA-FINE ALEXANDER PEN NEEDLE) 32 gauge x 5/32 Use one needle for each dose. four per day. Biotin 2,500 mcg cap Take 2 tablets by mouth once daily ALEVE 220 MG TAB as necessary dulaglutide (TRULICITY) 1.5 mg/0.5 mL pen injector Inject 1.5 mg subcutaneously one time a week. (Patient not taking: Reported on 10/07/2023) metFORMIN ER (GLUCOPHAGE XR) 500 mg 24 hr tablet Take 2 tablets by mouth every other day. (Patient not taking: Reported on 09/03/2021 ) aspirin, enteric coated (ECOTRIN LOW STRENGTH) 81 mg EC tablet Take 1 tablet by mouth once daily. (Patient not taking: Reported on 09/03/2021) No current facility-administered medications for this visit. ALLERGIES: Cymbalta [Duloxetine] and Metformin PERSONAL HISTORY: Social History Tobacco Use Smoking status: Never Smokeless tobacco: Never Vaping Use Vaping Use: Never used Substance Use Topics Alcohol use: Yes Comment: ONCE IN A GREAT WHILE Drug use: No FAMILY HISTORY: FAMILY HISTORY Problem Relation Age of Onset Cancer Mother lung Alcohol/Drug Mother Allergies Mother Cancer Father esophageal Alcohol/Drug Father Colon Cancer Brother Cancer Brother Diabetes Paternal Aunt other (hip and leg problems) Son other (MS) Son REVIEW OF SYMPTOMS: The review of systems data was entered by the nurse and reviewed by me Nursing Notes: Rebeca Higgins LPN 12/06/2023 2:39 PM Signed REVIEW OF SYSTEMS: General: The patient denies fatigue, denies weight loss, NOTES weight gain, denies feeling hot, and denies feelings of cold. Eyes: The patient denies glaucoma, NOTES eye injury/surgery, wears glasses or contacts. Ear/Nose/Throat: The patient denies allergies, denies hayfever, denies ear infections, and denies bloody noses. Cardiovascular: The patient denies chest pain, denies heart disease, denies high blood pressure,denies cardiac stent, denies prior heart attack, denies irregular heart beat, denies high cholesterol, denies poor circulation, denies heart failure, other cardiac issues, denies claudication, denies cold feet, denies peripheral arterial stent. Respiratory: The patient denies tuberculosis, denies pneumonia, denies frequent cough, denies pulmonary embolism, denies shortness of breath, and denies coughing up blood. Gastrointestinal: The patient NOTES difficulty swallowing, denies acid reflux, denies ulcers, denies vomiting, denies jaundice/hepatitis, denies gallbladder problems, denies black or tarry stools, denies hemorrhoids, denies bleeding from rectum, denies diverticulitis, denies constipation, denies diarrhea, denies loss of stool control, and denies hernias. Kidney/Bladder: The patient denies kidney stones, denies urine infections, and denies bloody urine. Skin: The patient denies a history of skin cancer, denies bleeding/changing moles, and denies a history of skin rash. Neurologic: The patient denies a history of epilepsy/convulsions, denies headaches, denies head/spinal injuries, and denies stroke/TIA. Psychiatric: The patient denies psychiatric medications, denies depression, and denies voices, denies substance abuse. Endocrine: The patient denies thyroid disorders, notes diabetes, and denies hormonal problems. Hematologic: The patient denies a history of bruising, denies bleeding, and denies anemia, denies blood clots. Infections: The patient denies a history of measles and mumps, denies rheumatic fever, and denies sexually transmitted diseases. Musculoskeletal: The patient denies back pain/injury, denies back problems, denies sciatica, notes knee/foot trouble, denies arthritis, or denies gout. When was patient's last Mammogram screening? 2016 Last Colonoscopy: 2019 Rebeca Higgins LPN PHYSICAL EXAMINATION: General: The patient is 88 year old female, well nourished, well hydrated in no acute distress. The patient is oriented to time, place, and person. VITALS: Blood pressure 146/72, pulse 94, temperature 36.1 C (97 F), height 160 cm (5' 3), weight 83.4 kg (183 lb 12.8 oz), SpO2 96%. Body mass index is 32.56 kg/m . HEENT: Normal cephalic, ataumatic, pupils are equally round, sclera are anicteric, mucous membranes are moist, oropharynx is clear. Neck has no masses, asymmetry or lymphadenopathy. Thyroid is unremarkable. Respiratory: Clear to auscultation and percussion. Normal respiratory excursion and pattern. Cardiac: Examination is regular rate and rhythm. Abdominal exam: Soft, nontender, with no palpable masses. No hepatosplenomegaly. No palpable hernias. Rectal exam: exam deferred Extremities: no clubbing, cyanosis or edema. No adenopathy. Other: LABORATORY VALUES: As Noted RADIOLOGIC STUDIES: As Noted Assessment IMPRESSION: Dysphagia, history of Londono's esophagitis PLAN: I plan to perform upper endoscopy. We discussed the risks and benefits of the planned endoscopy. I have informed the patient that complications can occur including failure to complete the endoscopy and perforation. The patient had the opportunity to ask questions concerning the planned endoscopy. My staff has also explained the procedure to the patient in understandable terms and has given the patient printed material concerning the procedure. The patient freely consents to surgery. 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 Russo indicating the above finding for this patient. Return to Clinic: The patient is instructed to follow-up with me after the testing has been completed. Dasia Cole MD documented in this encounter [facility] 12-06-2023 Nurse Note REVIEW OF SYSTEMS: General: The patient denies fatigue, denies weight loss, NOTES weight gain, denies feeling hot, and denies feelings of cold. Eyes: The patient denies glaucoma, NOTES eye injury/surgery, wears glasses or contacts. Ear/Nose/Throat: The patient denies allergies, denies hayfever, denies ear infections, and denies bloody noses. Cardiovascular: The patient denies chest pain, denies heart disease, denies high blood pressure,denies cardiac stent, denies prior heart attack, denies irregular heart beat, denies high cholesterol, denies poor circulation, denies heart failure, other cardiac issues, denies claudication, denies cold feet, denies peripheral arterial stent. Respiratory: The patient denies tuberculosis, denies pneumonia, denies frequent cough, denies pulmonary embolism, denies shortness of breath, and denies coughing up blood. Gastrointestinal: The patient NOTES difficulty swallowing, denies acid reflux, denies ulcers, denies vomiting, denies jaundice/hepatitis, denies gallbladder problems, denies black or tarry stools, denies hemorrhoids, denies bleeding from rectum, denies diverticulitis, denies constipation, denies diarrhea, denies loss of stool control, and denies hernias. Kidney/Bladder: The patient denies kidney stones, denies urine infections, and denies bloody urine. Skin: The patient denies a history of skin cancer, denies bleeding/changing moles, and denies a history of skin rash. Neurologic: The patient denies a history of epilepsy/convulsions, denies headaches, denies head/spinal injuries, and denies stroke/TIA. Psychiatric: The patient denies psychiatric medications, denies depression, and denies voices, denies substance abuse. Endocrine: The patient denies thyroid disorders, notes diabetes, and denies hormonal problems. Hematologic: The patient denies a history of bruising, denies bleeding, and denies anemia, denies blood clots. Infections: The patient denies a history of measles and mumps, denies rheumatic fever, and denies sexually transmitted diseases. Musculoskeletal: The patient denies back pain/injury, denies back problems, denies sciatica, notes knee/foot trouble, denies arthritis, or denies gout. When was patient's last Mammogram screening? 2016 Last Colonoscopy: 2019 Rebeca Higgins LPN documented in this encounter [facility] 07-01-2023 Discharge summary Note Date/Time July 01, 2023 1:25pm [facility] [address] [place] [address] [address] [place] [address] / REHABILITATION SERVICES DISCHARGE SUMMARY MR#: [id number] Acct: [id number] Name: MARIA ELENA ATKINS Rep #: [id number] : [id number] 88 From: Janneth Dixon PT, Cert. MDT Referring Dr.: Dr. Eryn Guerra MD Status: REG RCR Insurance: [employer] Discharge Summary D/C summary: It has been my pleasure to treat MARIA ELENA ATKINS referred by Dr. Eryn Guerra MD, with the diagnosis of LUMBAR RADICULOPATHY for a total of 7 visit(s). Discharge Date: Please see the following information for a summary of their discharge status. Subjective Subjective: PATIENT REPORTS SHE IS SOME BETTER. SHE STATES SHE CAN DO THE EX'S EASIER NOW THAN WHEN SHE STARTED AND SHE IS GETTING AROUND A LITTLE BETTER. SHE REPORTS SHE STILL HAS PAIN IN BOTH OF HER LEGS (L>R) AND SHE ISN'T SURE IF IT ISHER NEUROPATHY OR NOT AND SHE STILL DOESN'T UNDERSTAND HOW IT IS FROM HER BACK BECAUSE SHE DOESN'T HAVE BACK PAIN. SHE STATES SHE FEELS SHE IS TOO DEPENDENT ON THE CANE AND SHE JUST ISN'T STEADYWITHOUT IT. SHE REPORTS COMPLIANCE WITH HEP AND ACTIVITY RECOMMENDATIONS - TRYING TO GET UP AND MOVE MORE. PATIENT REPORTS HAVING A CONSULT WITH DR. DIAZ AND HE DID MORE X-RAYS AND TOLDHER NOTHING IS WRONG WITH HER HIP AND IT IS ALL COMING FROM HER BACK. HE REFERRED HER TO DR. BERMUDEZ AND SHE SAW HIM LAST WEEK. RORY IS PENDING 07/12/[address]. BERMUDEZ WANTED TO IMPLANT AN ELECTRONIC DEVICE BUT SHESTATES SHE DOESN'T WANT TO GO THAT ROUTE YET. PATIENT REPORTS SHE WANTS TO CONTINUE WITH HER HOME EX'S AND SEE HOW THE SHOT DOES AT THIS POINT AND THEN WILL CONSIDER MORE PT IF NEEDED. Pain L BUTTOCK: Pain Intensity (Out of 10): 5 LLE: Pain Intensity (Out of 10): 6 KODY LE'S: Pain Intensity (Out of 10): 4 Overall Improvement % Improvement: 50 Objective Objective/Function: PATIENT WAS SEEN TODAY FOR RE-ASSESSMENT OF PROGRESS TOWARD THE SET PT GOALS AND THE NEED FOR FURTHER PHYSICAL THERAPY VS READINESS FOR DISCHARGE. PATIENT IS REPORTING SOME IMPROVEMENT IN HER MOBILITY BUT STILL HAVING A LOT OF LEG PAIN (L>R). UPON EXAM TODAY, THERE ARE NO SIGNIFICANT OBJECTIVE CHANGES BUT SHE IS ABLE TO TOLERATE A LIGHT LOWER BODY HEP. Goals Goal 1:: DECREASE C/O LOW BACK AND KODY LE SX'S. Goal Progress: Not Progressing Goal 2:: IMPROVE LIFTING, ADL, WALKING, SITTING, STANDING, SOCIAL LIFE, TRAVEL AND HOMEMAKING FUNCTION. Goal Progress: Not Progressing Goal 3:: INSTRUCT IN PROPHYLAXIS Goal Progress: Not Progressing Plan Plan: D/C TO HEP AT THIS TIME. PATIENT AGREEABLE. D/C Information d/c sentence: If there are questions or concerns regarding this patient's physical therapy, please feel free to call me at [phone]. Thank you for the referral of thispatient. Sincerely, Janneth Dixon, PT, Cert MDT Balance/Gait/Functional tests Balance/Special Test Scores Oswestry Low Back Score: 20 Improvement % Improvement: 50 <Electronically signed by Janneth Dixon PT Cert. T> 07/01/23 1324 CC: Dr. Eryn Guerra MD ~ [place] Signed [facility] Work Phone: [phone] 555-250412-21-2022 Nurse Discharge summary Discharged to [facility]. Escorted to the exit via w/c per LEATHA Liu.Left at 1805. [facility]12-21-2022 Hospital Discharge instructions Patient Education 09/01/2022 16:30:31 5 - [facility] Post-op Instruction 04/2017 (59638) [facility] Post-operative Instructions PLEASE FOLLOW [facility] POST-OP INSTRUCTIONS GIVEN WATCH FOR SIGNS OF INFECTION: call the office ([phone]) if experencing any of the following: (Usually appears 36-48 hours after surgery) Increased temperature (101 degrees Fahrenheit or higher) Redness or swelling Increased uncontrolled pain Foul odor or drainage Calf discomfort Significant swelling Or if having any chest pain, shortness of breath, or difficulty breathing or swallowing call the office or go the nearest Emergency Room. If you have any questions, please call your doctor at the number listed on your follow up instructions. Form: 338A ([id number]) R: 01/16 Follow Up Care 06/23/2022 08:02:08 With:CHAO LOPEZ PA-C, Orthopedic Address: [facility] [address] [place] [address]- When:09/16/2022 13:15:00 Comments:Follow-up as scheduled [facility] 12-21-2022 Note Discharge Instructions Thank you for allowing [facility] to assist you with your healthcare needs. The following is importantdischarge information regarding your hospital visit. Your Care Team ERYN GUERRA STEVEN MD KAPPER, LISA APRN-JOY Your Diagnosis ROMINA (acute kidney injury) Hyponatremia Insulin dependent diabetes mellitus type IA GERD (gastroesophageal reflux disease) Hypertension Osteoarthritis Anemia Status post total left knee replacement What to do next Follow Up Appointments Follow Up with CHAO LOPEZ PA-C, Orthopedic When 09/16/2022 01:15 PM EST Why: Follow-up as scheduled Where: [facility] [address] [facility] [address]- The Following Activity and Diet Have Been Ordered for You Transfer of Care Activity - Ordered -- As instructed by therapy, 09/01/22 16:30:00 EST Transfer of Care Diet - Ordered -- Type of Diet: Regular Diet, 09/01/22 16:30:00 EST The Following Equipment Has Been Ordered for You Discharge Home Equipment Transfer of Care Wound Care - Ordered -- Knee, left, Remove dressing on September 06, 2022. Okay to shower with this dressing. Once removed okay to shower and only use gentle soap and water over incisions. Do not place any ointments, lotions, salves or alcohol for 6 wks, 09/01/22 16:30:00 EST... The Following Treatments Have Been Ordered for You Discharge Labs Transfer of Care Labwork - Ordered -- cbc cbc and BMP, anemia and ROMINA, follow-up within: 1-2 days, Results Notify to: ERYN GUERRA, Follow hemoglobin and BUN/creatinine, 09/01/22 16:30:00 EST Discharge Radiology No qualifying data available. Other Therapies Transfer of Care OT - Ordered -- Reason for therapy: s/p Left Total Knee Arthroplasty, Weightbearing as tolerated with walker, 09/01/22 16:30:00 EST Transfer of Care PT - Ordered -- Reason for therapy: s/p left Total Knee Arthroplasty, Weightbearing as tolerated with walker, 09/01/22 16:30:00 EST Post Acute Orders Transfer of Care Admission Level of Care - Ordered -- Level of Care SNF, 09/01/22 16:31:27 EST Transfer of Care Code Status - Ordered -- Full Code, Constant Order Transfer of Care Labwork - Ordered -- cbc cbc and BMP, anemia and ROMINA, follow-up within: 1-2 days, Results Notify to: ERYN GUERRA, Follow hemoglobin and BUN/creatinine, 09/01/22 16:30:00 EST Transfer of Care Orders Electronically Signed By - Ordered -- 09/01/22 16:30:00 EST, CRYS DIAZ MD Transfer of Care Prognosis - Ordered -- Good, Patient Aware: Yes Transfer of Care Rehab Potential - Ordered -- Rehab potential good, 09/01/22 16:31:27 EST Allergies No Known Medication Allergies Medications Please ask your primary doctor or pharmacist before taking any other medication not listed, including over the counter drugs, herbal medications, vitamins and or supplements as they may interact withyour home medications. What How Much When Why Instructions Last Dose New acetaminophen (Tylenol) 1,000 Milligram by mouth Three (3) times a day Duration: 14 Days not to exceed 3000 mg/ day 09/01 6PM New docusate-senna (Senokot S) 2 tab(s) by mouth Two (2) times a day Take until first bowel movement, then as needed 09/01 9AM New oxyCODONE (oxyCODONE 5 mg oral tablet ( IMMEDIATE release )) See instructions Status post total left knee replacement 1-2 tab(s) Oral q4h Printed Prescription 09/01 6PM Changed aspirin 81 Milligram by mouth Twice daily with meals Duration: 30 Days Take 81 mg aspirin twice daily with food for 4 weeks postoperatively for DVT prophylaxis. 09/01 6PM Unchanged dulaglutide (Trulicity Pen 1.5 mg/ 0.5 mL subcutaneous solution) 0.5 Milliliter Subcutaneous Every Tuesday rotate injection sites None Unchanged hydrochlorothiazide-lisinopril (hydrochlorothiazide-lisinopril 25 mg- 20 mg oral tablet) 1 tab(s) by mouth Every day 09/01 9AM Unchanged insulin aspart (Novolog) (NovoLOG) See instructions 18 unit(s) Subcutaneous TIDAC 09/01 12PM Unchanged insulin glargine (Lantus) 31 unit(s) Subcutaneous Two (2) times a day 09/01 9AM Unchanged multivitamin with minerals (Hair, skin and Nails Multiple Vitamins with Minerals oral tablet) 1 tab(s) by mouth Once a day 09/01 12PM Unchanged omeprazole (omeprazole 40 mg oral delayed release capsule) 1 cap by mouth Once a day 09/01 6AM What How Much When Comments Stop Taking naproxen (Aleve 220 mg oral tablet) 2 tab(s) by mouth Every 8 hours as needed for as needed for pain Please take this list to your next doctor s visit. Bring all medications you take, including over the counter medications, herbals and other supplements with you to your doctor s visit. Patients and families are reminded to discard old lists and to update any records with all medication providers or retail pharmacies. Education Materials [facility] Post-operative Instructions PLEASE FOLLOW [facility] POST-OP INSTRUCTIONS GIVEN WATCH FOR SIGNS OF INFECTION: call the office ([phone]) if experencing any of the following: (Usually appears 36-48 hours after surgery) Increased temperature (101 degrees Fahrenheit or higher) Redness or swelling Increased uncontrolled pain Foul odor or drainage Calf discomfort Significant swelling Or if having any chest pain, shortness of breath, or difficulty breathing or swallowing call the office or go the nearest Emergency Room. If you have any questions, please call your doctor at the number listed on your follow up instructions. Form: 338A [id number]) R: 01/16 Additional Information VACCINATE! IT SAVES LIVES! Members of the community who have not yet received the COVID-19 vaccine and would like to receive it can visit one of [facility] vaccine clinics. There are many vaccine clinic locations within the [facility]. For locations and available times, please visit [email or web address] It is important to note that some COVID mobile vaccine clinics are held outdoors and may be canceled in rainy or stormy conditions. To learn more about pediatric vaccinations (ages 5-11), we invite you to visit the [facility] webpage. https://www.[email or web address].org/pages/8658-Ogaaz-Cszsxdvobyn-Eepoehsynp-Wxqjg-Ogs stions.htmlTo learn more about the COVID-19 vaccine, we invite you to visit the [facility] website for a list of frequently asked questions. [email or web address]/[email or web address]-Opuchshsbp _[email or web address]-Questions.pdf [facility] Patient Portal Access Instructions: Stay connected with your healthcare team and access your personal medical information anytime with the [facility] Patient Portal.If you would like a full copy of your medical records, please contact the [facility] Medical Records Department, Tuesday through Tuesday between 8a.m. and 4:30p.m. Please follow the directions below to access the portal: 1.Access the email account you provided upon registration to the hospital.2.Look for an invitation email from [facility].3.Open the email and access the invitation link: Accept Invitation to [facility]4.Fill in the required gutiérrez to create your account. Sign into [email or web address] RECOVERY with your username and password that you created in the above steps to stay up to date. You can then view a summary of results, a summary of your visits, and the ability to download your summaries to your computer or send the information securely to a physician. Remember that your healthcare information is confidential, so carefully consider who you will allow to register on the [facility] Patient Portal for access to your information. You can also access the [facility] Patient Portal on the [employer]. Simply click on Health Records under SaveUp and then click on the Get.com logo. HOW TO SAFELY DISPOSE OF PRESCRIPTION MEDICATIONS Please use one of the following methods to safely dispose of your unused medications. 1.Use a drug disposal kit: the drug disposal pouch allows you to safely discard your old and unuseddrugs. Ask your nurse to give you one when you are discharged.2.Visit a local take-back location: Many local pharmacies and police departments have programs that collect old and unwanted prescriptiondrugs. Call your local pharmacy or go to http://[employer].[facility]/0H1Dl2g to find one close to you.3.Make use of household items: Use cat litter or old coffee grounds to dispose medications if other options arenot available. Mix your drugs with these household products, seal them in an airtight container andthrow it into the garbage. Call [facility]: [phone] to be sure your drugs can be disposed of in this way. Some medicines may require a different approach.4.Never flush your medications down the toilet. IF YOU HAVE BEEN PRESCRIBED AN OPIOID FOR PAIN If you have been prescribed an opioid (such as hydrocodone, oxycodone or morphine), it is critical to understand the possible side effects and risks of opioid pain medications. Even when taken as directed, opioids can have several side effects including: Tolerance, meaning you might need to take more of a medication for the same pain relief. Nausea, vomiting and/or constipation. Sleepiness, dizziness, dry mouth, confusion, depression or itching. Physical dependence, meaning you have withdrawal symptoms when a medication is stopped, can develop within a few days. KNOW YOUR RESPONSIBILITIES It is important to know exactly how much and how often to take the opioid pain medications you are prescribed. Never take opioids in higher amounts or more often than prescribed. Do not combine opioids with alcohol or other drugs that cause drowsiness, such as benzodiazepines, also known as benzos, including diazepam and alprazolam, muscle relaxants or sleep aids. Never sell or share prescription opioids. This is illegal. Store opioids in a secure place and out of reach of others (including children, family, friends and visitors). The last page of this document has been signed and retained as a CHART COPY. Signatures Patient Education Materials [address] [place] [address] Post-op Instruction 04/2017 ([id number]) Medication Leaflets My discharge plan and instructions have been reviewed and explained to me and I,MARIA ELENA ATKINS understand my current condition and have read and understand these discharge instructions. I have receiveda written copy of the plan/instructions. If I have questions, I am aware that I should contact my do ctor. 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 The following is importantdischarge information regarding your hospital visit. Your Care Team ERYN GUERRA STEVEN MD KAPPER, LISA APRN-CORPORATE ACCOUNTANT Your Diagnosis ROMINA (acute kidney injury) Hyponatremia Insulin dependent diabetes mellitus type IA GERD (gastroesophageal reflux disease) Hypertension Osteoarthritis Anemia Status post total left knee replacement What to do next Follow Up Appointments Follow Up with CHAO LOPEZ PA-C, Orthopedic When 09/16/2022 01:15 PM EST Why: Follow-up as scheduled Where: [facility] [address] [place] [address] [place] [address]- The Following Activity and Diet Have Been Ordered for You Transfer of Care Activity - Ordered -- As instructed by therapy, 09/01/22 16:30:00 EST Transfer of Care Diet - Ordered -- Type of Diet: Regular Diet, 09/01/22 16:30:00 EST The Following Equipment Has Been Ordered for You Discharge Home Equipment Transfer of Care Wound Care - Ordered -- Knee, left, Remove dressing on September 06, 2022. Okay to shower with this dressing. Once removed okay to shower and only use gentle soap and water over incisions. Do not place any ointments, lotions, salves or alcohol for 6 wks, 09/01/22 16:30:00 EST... The Following Treatments Have Been Ordered for You Discharge Labs Transfer of Care Labwork - Ordered -- cbc cbc and BMP, anemia and ROMINA, follow-up within: 1-2 days, Results Notify to: ERYN GUERRA, Follow hemoglobin and BUN/creatinine, 09/01/22 16:30:00 EST Discharge Radiology No qualifying data available. Other Therapies Transfer of Care OT - Ordered -- Reason for therapy: s/p Left Total Knee Arthroplasty, Weightbearing as tolerated with walker, 09/01/22 16:30:00 EST Transfer of Care PT - Ordered -- Reason for therapy: s/p left Total Knee Arthroplasty, Weightbearing as tolerated with walker, 09/01/22 16:30:00 EST Post Acute Orders Transfer of Care Admission Level of Care - Ordered -- Level of Care SNF, 09/01/22 16:31:27 EST Transfer of Care Code Status - Ordered -- Full Code, Constant Order Transfer of Care Labwork - Ordered -- cbc cbc and BMP, anemia and ROMINA, follow-up within: 1-2 days, Results Notify to: ERYN GUERRA, Follow hemoglobin and BUN/creatinine, 09/01/22 16:30:00 EST Transfer of Care Orders Electronically Signed By - Ordered -- 09/01/22 16:30:00 USHA, CRYS DIAZ MD Transfer of Care Prognosis - Ordered -- Good, Patient Aware: Yes Transfer of Care Rehab Potential - Ordered -- Rehab potential good, 09/01/22 16:31:27 EST Someone Will Contact You Regarding These Home Health Referrals No home referrals have been ordered for you. No one will call you. Allergies No Known Medication Allergies Medications Please ask your primary doctor or pharmacist before taking any other medication not listed, including over the counter drugs, herbal medications, vitamins and or supplements as they may interact withyour home medications. What How Much When Why Instructions Last Dose New acetaminophen (Tylenol) 1,000 Milligram by mouth Three (3) times a day Duration: 14 Days not to exceed 3000 mg/ day New docusate-senna (Senokot S) 2 tab(s) by mouth Two (2) times a day Take until first bowel movement, then as needed New oxyCODONE (oxyCODONE 5 mg oral tablet ( IMMEDIATE release )) See instructions Status post total left knee replacement 1-2 tab(s) Oral q4h Printed Prescription Changed aspirin 81 Milligram by mouth Twice daily with meals Duration: 30 Days Take 81 mg aspirin twice daily with food for 4 weeks postoperatively for DVT prophylaxis. Unchanged dulaglutide (Trulicity Pen 1.5 mg/ 0.5 mL subcutaneous solution) 0.5 Milliliter Subcutaneous Every Tuesday rotate injection sites Unchanged hydrochlorothiazide-lisinopril (hydrochlorothiazide-lisinopril 25 mg- 20 mg oral tablet) 1 tab(s) by mouth Every day Unchanged insulin aspart (Novolog) (NovoLOG) See instructions 18 unit(s) Subcutaneous TIDAC Unchanged insulin glargine (Lantus) 31 unit(s) Subcutaneous Two (2) times a day Unchanged multivitamin with minerals (Hair, skin and Nails Multiple Vitamins with Minerals oral tablet) 1 tab(s) by mouth Once a day Unchanged omeprazole (omeprazole 40 mg oral delayed release capsule) 1 cap by mouth Once a day What How Much When Comments Stop Taking naproxen (Aleve 220 mg oral tablet) 2 tab(s) by mouth Every 8 hours as needed for as needed for pain Please take this list to your next doctor s visit. Bring all medications you take, including over the counter medications, herbals and other supplements with you to your doctor s visit. Patients and families are reminded to discard old lists and to update any records with all medication providers or retail pharmacies. Education Materials [facility] Post-operative Instructions PLEASE FOLLOW [facility] POST-OP INSTRUCTIONS GIVEN WATCH FOR SIGNS OF INFECTION: call the office ([phone]) if experencing any of the following: (Usually appears 36-48 hours after surgery) Increased temperature (101 degrees Fahrenheit or higher) Redness or swelling Increased uncontrolled pain Foul odor or drainage Calf discomfort Significant swelling Or if having any chest pain, shortness of breath, or difficulty breathing or swallowing call the office or go the nearest Emergency Room. If you have any questions, please call your doctor at the number listed on your follow up instructions. Form: 338A ([id number]) R: 01/16 Additional Information VACCINATE! IT SAVES LIVES! Members of the community who have not yet received the COVID-19 vaccine and would like to receive it can visit one of [facility] vaccine clinics. There are many vaccine clinic locations within the [facility]. For locations and available times, please visit [email or web address] It is important to note that some COVID mobile vaccine clinics are held outdoors and may be canceled in rainy or stormy conditions. To learn more about pediatric vaccinations (ages 5-11), we invite you to visit the [facility] webpage. https://www.[email or web address]/pages/9612-Dxcxu-Zbrhpumuldd-Fpwrmxvnrm-Tkspn-Dbn stions.htmlTo learn more about the COVID-19 vaccine, we invite you to visit the Get.com website for a list of frequently asked questions. [email or web address]/[email or web address]-[email or web address] _[email or web address]-Questions.pdf [facility] Patient Portal Access Instructions: Stay connected with your healthcare team and access your personal medical information anytime with the [facility] Patient Portal.If you would like a full copy of your medical records, please contact the [facility] Medical Records Department, Tuesday through Tuesday between 8a.m. and 4:30p.m. Please follow the directions below to access the portal: 1.Access the email account you provided upon registration to the [facility].2.Look for an invitation email from [facility].3.Open the email and access the invitation link: Accept Invitation to [facility]4.Fill in the required gutiérrez to create your account. Sign into [email or web address] with your username and password that you created in the above steps to stay up to date. You can then view a summary of results, a summary of your visits, and the ability to download your summaries to your computer or send the information securely to a physician. Remember that your healthcare information is confidential, so carefully consider who you will allow to register on the [facility] Patient Portal for access to your information. You can also access the [facility] Patient Portal on the Surf Air. Simply click on Health Records under SaveUp and then click on the [facility] logo. HOW TO SAFELY DISPOSE OF PRESCRIPTION MEDICATIONS Please use one of the following methods to safely dispose of your unused medications. 1.Use a drug disposal kit: the drug disposal pouch allows you to safely discard your old and unuseddrugs. Ask your nurse to give you one when you are discharged.2.Visit a local take-back location: Many local pharmacies and police departments have programs that collect old and unwanted prescriptiondrugs. Call your local pharmacy or go to http://[employer].[facility]/3X3Aw3k to find one close to you.3.Make use of household items: Use cat litter or old coffee grounds to dispose medications if other options arenot available. Mix your drugs with these household products, seal them in an airtight container andthrow it into the garbage. Call [facility]: [phone] to be sure your drugs can be disposed of in this way. Some medicines may require a different approach.4.Never flush your medications down the toilet. IF YOU HAVE BEEN PRESCRIBED AN OPIOID FOR PAIN If you have been prescribed an opioid (such as hydrocodone, oxycodone or morphine), it is critical to understand the possible side effects and risks of opioid pain medications. Even when taken as directed, opioids can have several side effects including: Tolerance, meaning you might need to take more of a medication for the same pain relief. Nausea, vomiting and/or constipation. Sleepiness, dizziness, dry mouth, confusion, depression or itching. Physical dependence, meaning you have withdrawal symptoms when a medication is stopped, can develop within a few days. KNOW YOUR RESPONSIBILITIES It is important to know exactly how much and how often to take the opioid pain medications you are prescribed. Never take opioids in higher amounts or more often than prescribed. Do not combine opioids with alcohol or other drugs that cause drowsiness, such as benzodiazepines, also known as benzos, including diazepam and alprazolam, muscle relaxants or sleep aids. Never sell or share prescription opioids. This is illegal. Store opioids in a secure place and out of reach of others (including children, family, friends and visitors). The last page of this document has been signed and retained as a CHART COPY. Signatures Patient Education Materials [address] [place] [address] Post-op Instruction 04/2017 ([id number]) Medication Leaflets My discharge plan and instructions have been reviewed and explained to me and I,MARIA ELENA ATKINS understand my current condition and have read and understand these discharge instructions. I have receiveda written copy of the plan/instructions. If I have questions, I am aware that I should contact my do ctor. 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 Patient denies any chest pain, shortness of breath, dizziness, lightheadedness, nausea or vomiting, or calf pain. No adverse overnight events. Pain has been controlled on medications. Patient does complain of pain in the left knee at a 6/10. Medications are helpful. Patient does live home alone and is requiring assistance upon discharge. We are going to have physical therapy assess patient today and case management involved with appropriate discharge planning. Objective Vitals and Measurements T: 36.5 C (Oral) TMIN: 35.8 C (Temporal Artery) TMAX: 36.7 C (Oral) HR: 69(Monitored) RR: 18 BP: 137/59 SpO2: 93% HT: 157 cm WT: 82 kg BMI: 33.27 Intake and Output 7AM Yesterday to 7AM Today Intake and Output (Last 24 hours) Intake Administration Information 1756.02 Supplement Intake 0.00 Output Intra-Op EBL 50.00 Urine Count 1.00 Diaper Count 1.00 Total Summary Total Intake 1756.02 Total Output 50.00 Fluid Balance 1706.02 Physical Exam Vital signs stable, afebrile SCDs and GENA hose are in place bilaterally Patient is able to plantarflex and dorsiflex actively Sensation is intact to saphenous, sural, superficial and deep peroneal, and tibial distribution Dressing is clean dry and intact Negative signs and symptoms of DVT, negative Homans bilaterally Weight Dosing Weight: 82 kg (08/31/22) Dosing Weight: 82 kg (08/31/22) Medications Medications (26) Active Scheduled: (15) acetaminophen 500 mg Tablet 1,000 mg 2 tab(s), Oral, q8h aspirin 81 mg Chewable 81 mg 1 tab(s), Oral, BIDM bisacodyl 5 mg EC tablet 10 mg 2 tab(s), Oral, Once docusate sodium 100 mg Capsule 100 mg 1 cap(s), Oral, BID docusate-senna (Senokot S) 50 mg-8.6 mg Tablet 2 tab(s), Oral, BID famotidine 20 mg tablet 20 mg 1 tab(s), Oral, qDay hydrochlorothiazide 25 mg tablet 25 mg 1 tab(s), Oral, qDay insulin glargine 100 units/ml solution 31 unit(s) 0.31 mL, Subcutaneous, BID insulin lispro 100 units/mL Soln (3 mL) 18 unit(s) 0.18 mL, Subcutaneous, TIDAC insulin lispro 100 units/mL Soln (3 mL) Give 0-5 units/dose, Subcutaneous, TIDAC lisinopril 20 mg tablet 20 mg 1 tab(s), Oral, qDay magnesium hydroxide 8% Suspension 30 mL UD 30 mL, Oral, Daily multivitamin (Myadec) with minerals Therapeutic Multiple Vitamins with Minerals Tablet 1 tab(s), Oral, qDayM ondansetron 2 mg/ 1 mL 2 mL INJ 4 mg 2 mL, IV Push, q8h pantoprazole 20 mg EC tablet 40 mg 2 tab(s), Oral, qDayAC Continuous: (1) Lactated Ringers 1,000 mL 1,000 mL, Intravenous, 100 mL/hr PRN: (10) acetaminophen 325 mg Tablet 650 mg 2 tab(s), Oral, q4h diphenhydramine 25 mg tablet 25 mg 1 tab(s), Oral, q6h diphenhyDRAMINE 50 mg/mL (1 mL) INJ 25 mg 0.5 mL, IV Push, q6h ketorolac 30 mg/mL (1 mL) vial 15 mg 0.5 mL, IV Push, q6h morphine 2 mg/mL 1 mL syringe 2 mg 1 mL, IV Push, q1h ondansetron 2 mg/ 1 mL 2 mL INJ 4 mg 2 mL, IV Push, q8h oxycodone 5 mg tablet (immediate release) 5 mg 1 tab(s), Oral, q4h oxycodone 5 mg tablet (immediate release) 10 mg 2 tab(s), Oral, q4h prochlorperazine 10 mg/2 mL vial 5 mg 1 mL, IV Push, q6h sodium biphosphate-sodium phosphate 19 gm-7 gm Enema 133 mL, Rectal, qDay Lab Results 09/01 05:35 Glucose Level: 215 H Sodium Level: 134 L Potassium Level: 4.7 BUN: 21 H Creatinine Lvl (s): 1.42 H EKG No qualifying data available. Assessment/Plan 1. Insulin dependent diabetes mellitus type IA 2. GERD (gastroesophageal reflux disease) 3. Hypertension 4. Osteoarthritis 1. Status post left total knee arthroplasty postop day #1 2. Continue pain medications: Tylenol and oxycodone 3. DVT prophylaxis: Take 81 mg aspirin twice daily with food for 4 weeks postoperatively for DVT prophylaxis. Patient denies previous history of DVT or pulmonary embolism 4. Physical therapy: Weightbearing as tolerated. Appreciate input from physical therapy on discharge planning 5. H & H: BMP currently in chart but still waiting on CBC, asymptomatic. Patient does have elevated BUN and creatinine at 21 and 1.42. Preoperatively she was at BUN of 13 and creatinine of 0.96. 6. Encouraged incentive spirometry 7. Continue postoperative medical management per medicine 8. Disposition: Due to patient living home alone patient will require additional assistance upon discharge. We will have physical therapy assess patient today. Case management is currently on board for appropriate discharge planning. Patient will continue with physical therapy while in the hospital. Continue with above medications for pain and DVT prophylaxis. We will repeat lab work tomorrow. I have reviewed the [place] Automated Rx Reporting System (OARRS) report for this patient for refill pattern and other prescriber involvement as part of the appropriate surveillance for the provision ofacute and chronic controlled medications. The report was requested and reviewed on the date of thisentry, and was considered in the prescribing process This dictation was created using voice recognition software. Phonetic and/or grammatical errors mayexist. Digitally Signed by CHAO LOPEZ PA-C on 09/01/2022 07:09 AM [facility]12-21-2022 Note Date of Service September 01, 2022 Subjective The patient was sitting in bed upon examination. Patient denies any chest pain, shortness of breath, dizziness, lightheadedness, nausea or vomiting, or calf pain. No adverse overnight events. Pain has been controlled on medications. Patient does complain of pain in the left knee at a 6/10. Medications are helpful. Patient does live home alone and is requiring assistance upon discharge. We are going to have physical therapy assess patient today and case management involved with appropriate discharge planning. Objective Vitals and Measurements T: 36.5 C (Oral) TMIN: 35.8 C (Temporal Artery) TMAX: 36.7 C (Oral) HR: 69(Monitored) RR: 18 BP: 137/59 SpO2: 93% HT: 157 cm WT: 82 kg BMI: 33.27 Intake and Output 7AM Yesterday to 7AM Today Intake and Output (Last 24 hours) Intake Administration Information 1756.02 Supplement Intake 0.00 Output Intra-Op EBL 50.00 Urine Count 1.00 Diaper Count 1.00 Total Summary Total Intake 1756.02 Total Output 50.00 Fluid Balance 1706.02 Physical Exam Vital signs stable, afebrile SCDs and GENA hose are in place bilaterally Patient is able to plantarflex and dorsiflex actively Sensation is intact to saphenous, sural, superficial and deep peroneal, and tibial distribution Dressing is clean dry and intact Negative signs and symptoms of DVT, negative Homans bilaterally Weight Dosing Weight: 82 kg (08/31/22) Dosing Weight: 82 kg (08/31/22) Medications Medications (26) Active Scheduled: (15) acetaminophen 500 mg Tablet 1,000 mg 2 tab(s), Oral, q8h aspirin 81 mg Chewable 81 mg 1 tab(s), Oral, BIDM bisacodyl 5 mg EC tablet 10 mg 2 tab(s), Oral, Once docusate sodium 100 mg Capsule 100 mg 1 cap(s), Oral, BID docusate-senna (Senokot S) 50 mg-8.6 mg Tablet 2 tab(s), Oral, BID famotidine 20 mg tablet 20 mg 1 tab(s), Oral, qDay hydrochlorothiazide 25 mg tablet 25 mg 1 tab(s), Oral, qDay insulin glargine 100 units/ml solution 31 unit(s) 0.31 mL, Subcutaneous, BID insulin lispro 100 units/mL Soln (3 mL) 18 unit(s) 0.18 mL, Subcutaneous, TIDAC insulin lispro 100 units/mL Soln (3 mL) Give 0-5 units/dose, Subcutaneous, TIDAC lisinopril 20 mg tablet 20 mg 1 tab(s), Oral, qDay magnesium hydroxide 8% Suspension 30 mL UD 30 mL, Oral, Daily multivitamin (Myadec) with minerals Therapeutic Multiple Vitamins with Minerals Tablet 1 tab(s), Oral, qDayM ondansetron 2 mg/ 1 mL 2 mL INJ 4 mg 2 mL, IV Push, q8h pantoprazole 20 mg EC tablet 40 mg 2 tab(s), Oral, qDayAC Continuous: (1) Lactated Ringers 1,000 mL 1,000 mL, Intravenous, 100 mL/hr PRN: (10) acetaminophen 325 mg Tablet 650 mg 2 tab(s), Oral, q4h diphenhydramine 25 mg tablet 25 mg 1 tab(s), Oral, q6h diphenhyDRAMINE 50 mg/mL (1 mL) INJ 25 mg 0.5 mL, IV Push, q6h ketorolac 30 mg/mL (1 mL) vial 15 mg 0.5 mL, IV Push, q6h morphine 2 mg/mL 1 mL syringe 2 mg 1 mL, IV Push, q1h ondansetron 2 mg/ 1 mL 2 mL INJ 4 mg 2 mL, IV Push, q8h oxycodone 5 mg tablet (immediate release) 5 mg 1 tab(s), Oral, q4h oxycodone 5 mg tablet (immediate release) 10 mg 2 tab(s), Oral, q4h prochlorperazine 10 mg/2 mL vial 5 mg 1 mL, IV Push, q6h sodium biphosphate-sodium phosphate 19 gm-7 gm Enema 133 mL, Rectal, qDay Lab Results 09/01 05:35 Glucose Level: 215 H Sodium Level: 134 L Potassium Level: 4.7 BUN: 21 H Creatinine Lvl (s): 1.42 H EKG No qualifying data available. Assessment/Plan 1. Insulin dependent diabetes mellitus type IA 2. GERD (gastroesophageal reflux disease) 3. Hypertension 4. Osteoarthritis 1. Status post left total knee arthroplasty postop day #1 2. Continue pain medications: Tylenol and oxycodone 3. DVT prophylaxis: Take 81 mg aspirin twice daily with food for 4 weeks postoperatively for DVT prophylaxis. Patient denies previous history of DVT or pulmonary embolism 4. Physical therapy: Weightbearing as tolerated. Appreciate input from physical therapy on discharge planning 5. H & H: BMP currently in chart but still waiting on CBC, asymptomatic. Patient does have elevated BUN and creatinine at 21 and 1.42. Preoperatively she was at BUN of 13 and creatinine of 0.96. 6. Encouraged incentive spirometry 7. Continue postoperative medical management per medicine 8. Disposition: Due to patient living home alone patient will require additional assistance upon discharge. We will have physical therapy assess patient today. Case management is currently on board for appropriate discharge planning. Patient will continue with physical therapy while in the hospital. Continue with above medications for pain and DVT prophylaxis. We will repeat lab work tomorrow. I have reviewed the [place] Automated Rx Reporting System (OARRS) report for this patient for refill pattern and other prescriber involvement as part of the appropriate surveillance for the provision ofacute and chronic controlled medications. The report was requested and reviewed on the date of thisentry, and was considered in the prescribing process This dictation was created using voice recognition software. Phonetic and/or grammatical errors mayexist. Digitally Signed by CHAO LOPEZ PA-C on 09/01/2022 07:09 AM [facility] Rowenaheidi [id number] Note Date of Service 09/01/2022 Chief Complaint Left knee replacement Subjective Patient seen and evaluated while resting in bed this morning. She states that she is doing well buttwarren reiterates that she cannot go home from here as she lives alone. Patient advised that rn social work is waiting for therapy to evaluate her again today but starting referrals to nursing homes for therapy. She denies any new problems or concerns this morning. She has been able to get up with therapy yesterday and today and reports that her pain is controlled on oral pain medication. She denies any fever, chills, cough, shortness of breath, chest pain, abdominal pain, nausea or dysuria. Allquestions answered. Objective Vitals and Measurements T: 36.2 C (Oral) TMIN: 36.2 C (Oral) TMAX: 36.7 C (Oral) HR: 70(Monitored) RR: 18 BP: 122/50 SpO2: 96% HT: 157 cm WT: 82 kg BMI: 33.27 Intake and Output 7AM Yesterday to 7AM Today Intake and Output (Last 24 hours) Intake Supplement Intake 0.00 Output Urine Count 1.00 Diaper Count 1.00 Total Summary Total Intake 0.00 Total Output 0.00 Fluid Balance 0.00 Physical Exam General: No acute distress. Patient is alert and appropriate. Skin: No rash. Skin is warm, dry. HEENT: Head is normocephalic, atraumatic. Pupils are equal, round and reactive. Neck: Supple. No lymphadenopathy, thyromegaly. Lungs: Bilaterally clear but diminished without crepitation or wheeze. Unlabored. Heart: Heart is regular rhythm, S1, S2. No murmurs, gallops or rubs. Abdomen: Abdomen is soft, nontender, obese. Bowels sounds present in all quadrants. Extremities: No clubbing, cyanosis, or edema. Peripheral pulses palpable. No calf tenderness. Left knee dressing is dry and intact. Neurological: Patient is awake and alert to person, place and time. Following simple commands, moving all extremities. Weight Dosing Weight: 82 kg (08/31/22) Dosing Weight: 82 kg (08/31/22) Medications Medications (24) Active Scheduled: (13) acetaminophen 500 mg Tablet 1,000 mg 2 tab(s), Oral, q8h aspirin 81 mg Chewable 81 mg 1 tab(s), Oral, BIDM docusate sodium 100 mg Capsule 100 mg 1 cap(s), Oral, BID docusate-senna (Senokot S) 50 mg-8.6 mg Tablet 2 tab(s), Oral, BID famotidine 20 mg tablet 20 mg 1 tab(s), Oral, qDay hydrochlorothiazide 25 mg tablet 25 mg 1 tab(s), Oral, qDay insulin glargine 100 units/ml solution 31 unit(s) 0.31 mL, Subcutaneous, BID insulin lispro 100 units/mL Soln (3 mL) 18 unit(s) 0.18 mL, Subcutaneous, TIDAC insulin lispro 100 units/mL Soln (3 mL) Give 0-5 units/dose, Subcutaneous, TIDAC lisinopril 20 mg tablet 20 mg 1 tab(s), Oral, qDay magnesium hydroxide 8% Suspension 30 mL UD 30 mL, Oral, Daily multivitamin (Myadec) with minerals Therapeutic Multiple Vitamins with Minerals Tablet 1 tab(s), Oral, qDayM pantoprazole 20 mg EC tablet 40 mg 2 tab(s), Oral, qDayAC Continuous: (1) Lactated Ringers 1,000 mL 1,000 mL, Intravenous, 100 mL/hr PRN: (10) acetaminophen 325 mg Tablet 650 mg 2 tab(s), Oral, q4h diphenhydramine 25 mg tablet 25 mg 1 tab(s), Oral, q6h diphenhyDRAMINE 50 mg/mL (1 mL) INJ 25 mg 0.5 mL, IV Push, q6h ketorolac 30 mg/mL (1 mL) vial 15 mg 0.5 mL, IV Push, q6h morphine 2 mg/mL 1 mL syringe 2 mg 1 mL, IV Push, q1h ondansetron 2 mg/ 1 mL 2 mL INJ 4 mg 2 mL, IV Push, q8h oxycodone 5 mg tablet (immediate release) 5 mg 1 tab(s), Oral, q4h oxycodone 5 mg tablet (immediate release) 10 mg 2 tab(s), Oral, q4h prochlorperazine 10 mg/2 mL vial 5 mg 1 mL, IV Push, q6h sodium biphosphate-sodium phosphate 19 gm-7 gm Enema 133 mL, Rectal, qDay Lab Results 09/01 05:35 WBC: 12.7 H Hgb: 10.0 L Hct: 30.9 L Platelet: 200 Neutrophil %: 86.6 H Glucose Level: 215 H Sodium Level: 134 L Potassium Level: 4.7 BUN: 21 H Creatinine Lvl (s): 1.42 H Imaging Results and Diagnostics XR Knee 1 or 2 Views Left Result Date: August 31, 2022 Verified By: AP MA MD CLINICAL STATEMENT: IMPRESSION: Surgical changes. EKG No qualifying data available. Assessment/Plan 1. ROMINA (acute kidney injury) Acute, new onset *Isa-operatively BUN was 13 and creatinine 0.96 - this am BUN 21 and creatinine 1.42. *Patient already given Lisinopril and HCTZ this am - consider holding tomorrow if renal function not back to baseline. *Encourage PO intake. *Repeat BMP in the am. 2. Hyponatremia Acute, new onset, mild *Sodium 134 this am - may be due to ROMINA. *HCTZ already given this morning - consider holding if hyponatremia worsens. *Repeat BMP in the am. 3. 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 *Cover with sliding scale insulin. *Blood sugar goal 180 or less and avoid hypotension - at goal this morning. *Continue diabetic diet as tolerated. *Continue current home medications. 4. GERD (gastroesophageal reflux disease) Chronic, controlled *Continue Protonix daily. 5. Hypertension Chronic *Continue Lisinopril at home dose. *SBP goal of 140 or less - meeting goal. *Monitor vital signs per protocol. 6. Osteoarthritis *S/P left total knee replacement. *POD # 1. *Management per primary team. DVT prophylaxis with SCDs, aspirin 81 mg PO BID. Code status: Full Code. Labs, diagnostic test and progress notes reviewed as noted in HPI. Plan of care discussed with patient. All questions answered. Patient verbalizes understanding and is agreeable with plan of care. This case was discussed with collaborating physician, Dr. Ryan Purvis. Time Spent 35 minutes Digitally Signed by PLACIDO SHAIKH on 09/01/2022 12:10 PM [facility]12-21-2022 Note Date of Service September 01, 2022 Subjective The patient was sitting in bed upon examination. Patient denies any chest pain, shortness of breath, dizziness, lightheadedness, nausea or vomiting, or calf pain. No adverse overnight events. Pain has been controlled on medications. Patient does complain of pain in the left knee at a 6/10. Medications are helpful. Patient does live home alone and is requiring assistance upon discharge. We are going to have physical therapy assess patient today and case management involved with appropriate discharge planning. Objective Vitals and Measurements T: 36.5 C (Oral) TMIN: 35.8 C (Temporal Artery) TMAX: 36.7 C (Oral) HR: 69(Monitored) RR: 18 BP: 137/59 SpO2: 93% HT: 157 cm WT: 82 kg BMI: 33.27 Intake and Output 7AM Yesterday to 7AM Today Intake and Output (Last 24 hours) Intake Administration Information 1756.02 Supplement Intake 0.00 Output Intra-Op EBL 50.00 Urine Count 1.00 Diaper Count 1.00 Total Summary Total Intake 1756.02 Total Output 50.00 Fluid Balance 1706.02 Physical Exam Vital signs stable, afebrile SCDs and GENA hose are in place bilaterally Patient is able to plantarflex and dorsiflex actively Sensation is intact to saphenous, sural, superficial and deep peroneal, and tibial distribution Dressing is clean dry and intact Negative signs and symptoms of DVT, negative Homans bilaterally Weight Dosing Weight: 82 kg (08/31/22) Dosing Weight: 82 kg (08/31/22) Medications Medications (26) Active Scheduled: (15) acetaminophen 500 mg Tablet 1,000 mg 2 tab(s), Oral, q8h aspirin 81 mg Chewable 81 mg 1 tab(s), Oral, BIDM bisacodyl 5 mg EC tablet 10 mg 2 tab(s), Oral, Once docusate sodium 100 mg Capsule 100 mg 1 cap(s), Oral, BID docusate-senna (Senokot S) 50 mg-8.6 mg Tablet 2 tab(s), Oral, BID famotidine 20 mg tablet 20 mg 1 tab(s), Oral, qDay hydrochlorothiazide 25 mg tablet 25 mg 1 tab(s), Oral, qDay insulin glargine 100 units/ml solution 31 unit(s) 0.31 mL, Subcutaneous, BID insulin lispro 100 units/mL Soln (3 mL) 18 unit(s) 0.18 mL, Subcutaneous, TIDAC insulin lispro 100 units/mL Soln (3 mL) Give 0-5 units/dose, Subcutaneous, TIDAC lisinopril 20 mg tablet 20 mg 1 tab(s), Oral, qDay magnesium hydroxide 8% Suspension 30 mL UD 30 mL, Oral, Daily multivitamin (Myadec) with minerals Therapeutic Multiple Vitamins with Minerals Tablet 1 tab(s), Oral, qDayM ondansetron 2 mg/ 1 mL 2 mL INJ 4 mg 2 mL, IV Push, q8h pantoprazole 20 mg EC tablet 40 mg 2 tab(s), Oral, qDayAC Continuous: (1) Lactated Ringers 1,000 mL 1,000 mL, Intravenous, 100 mL/hr PRN: (10) acetaminophen 325 mg Tablet 650 mg 2 tab(s), Oral, q4h diphenhydramine 25 mg tablet 25 mg 1 tab(s), Oral, q6h diphenhyDRAMINE 50 mg/mL (1 mL) INJ 25 mg 0.5 mL, IV Push, q6h ketorolac 30 mg/mL (1 mL) vial 15 mg 0.5 mL, IV Push, q6h morphine 2 mg/mL 1 mL syringe 2 mg 1 mL, IV Push, q1h ondansetron 2 mg/ 1 mL 2 mL INJ 4 mg 2 mL, IV Push, q8h oxycodone 5 mg tablet (immediate release) 5 mg 1 tab(s), Oral, q4h oxycodone 5 mg tablet (immediate release) 10 mg 2 tab(s), Oral, q4h prochlorperazine 10 mg/2 mL vial 5 mg 1 mL, IV Push, q6h sodium biphosphate-sodium phosphate 19 gm-7 gm Enema 133 mL, Rectal, qDay Lab Results 09/01 05:35 Glucose Level: 215 H Sodium Level: 134 L Potassium Level: 4.7 BUN: 21 H Creatinine Lvl (s): 1.42 H EKG No qualifying data available. Assessment/Plan 1. Insulin dependent diabetes mellitus type IA 2. GERD (gastroesophageal reflux disease) 3. Hypertension 4. Osteoarthritis 1. Status post left total knee arthroplasty postop day #1 2. Continue pain medications: Tylenol and oxycodone 3. DVT prophylaxis: Take 81 mg aspirin twice daily with food for 4 weeks postoperatively for DVT prophylaxis. Patient denies previous history of DVT or pulmonary embolism 4. Physical therapy: Weightbearing as tolerated. Appreciate input from physical therapy on discharge planning 5. H & H: BMP currently in chart but still waiting on CBC, asymptomatic. Patient does have elevated BUN and creatinine at 21 and 1.42. Preoperatively she was at BUN of 13 and creatinine of 0.96. 6. Encouraged incentive spirometry 7. Continue postoperative medical management per medicine 8. Disposition: Due to patient living home alone patient will require additional assistance upon discharge. We will have physical therapy assess patient today. Case management is currently on board for appropriate discharge planning. Patient will continue with physical therapy while in the hospital. Continue with above medications for pain and DVT prophylaxis. We will repeat lab work tomorrow. I have reviewed the [place] Automated Rx Reporting System (OARRS) report for this patient for refill pattern and other prescriber involvement as part of the appropriate surveillance for the provision ofacute and chronic controlled medications. The report was requested and reviewed on the date of thisentry, and was considered in the prescribing process This dictation was created using voice recognition software. Phonetic and/or grammatical errors mayexist. Digitally Signed by CHAO LOPEZ PA-C on 09/01/2022 07:09 AM [facility]12-20-2022 Note ORIGINAL EXAMINATION: TWO XRAY VIEWS OF THE LEFT KNEE 08/31/2022 11:14 am COMPARISON: None. HISTORY: ORDERING SYSTEM PROVIDED HISTORY: Reason for Exam: Status Post Arthroplasty FINDINGS: There is a complete knee prosthesis. The components appear well seated and intact. Gas and fluid in the soft tissues is likely postoperative. No acute fracture or dislocation. Surgical change of the femoral shaft. Surgical beulah overlie the skin. IMPRESSION: Surgical changes. Interpreted by: Ap Ma MD Preliminary Report By: Ap Ma MD Electronically signed By Ap Ma MD Dictated Date: 08/31/2022 11:25:44 AM Prelim Date: 08/31/2022 11:26:24 AM Sign Date: 08/31/2022 11:26:24 AM Ordering Provider: CRYS DIAZ [facility]12-20-2022 Note ORIGINAL EXAMINATION: TWO XRAY VIEWS OF THE LEFT KNEE 08/31/2022 11:14 am COMPARISON: None. HISTORY: ORDERING SYSTEM PROVIDED HISTORY: Reason for Exam: Status Post Arthroplasty FINDINGS: There is a complete knee prosthesis. The components appear well seated and intact. Gas and fluid in the soft tissues is likely postoperative. No acute fracture or dislocation. Surgical change of the femoral shaft. Surgical beulah overlie the skin. IMPRESSION: Surgical changes. Interpreted by: Ap Ma MD Preliminary Report By: Ap Ma MD Electronically signed By Ap Ma MD Dictated Date: 08/31/2022 11:25:44 AM Prelim Date: 08/31/2022 11:26:24 AM Sign Date: 08/31/2022 11:26:24 AM Ordering Provider: [facility]12-20-2022 Anesthesiology Consult note Patient: MARIA ELENA ATKINS Age: 87 years Sex: Female : 1935 Associated Diagnoses: None Author: WALDO SARKAR APRN-EDUCATION INTERN Preoperative Information Time of last food or liquid consumption: 08/31/2022 00:00:00 Anesthesia history Patient's history: negative. Family's history: negative. Review of Systems Ear/Nose/Mouth/Throat: Negative. Respiratory: Negative. Cardiovascular: Negative. Gastrointestinal: Reflux, obese. Genitourinary: Negative. Endocrine: DM. Musculoskeletal: OA. Integumentary: Negative. Neurologic: Negative. Health Status Allergies: Allergic Reactions (Selected) No Known Medication Allergies, Allergies (1) ActiveReaction No Known Medication AllergiesNone Documented Current medications: (Selected) Inpatient Medications Ordered Bicitra: 30 mL, Oral, PREOP pharm LR 1000 mL: 125 mL/hr, Intravenous, Stop: 09/01/22 17:59:00 EST LR 1000 mL: 20 mL/hr, Intravenous OxyCONTIN: 10 mg, 1 tab(s), Oral, PREOP pharm Zofran ( PACU ): 4 mg, 2 mL, IV Push, AsDirected, PRN: Nausea/Vomiting morphine ( PACU ): 2 mg, 1 mL, IV Push, q5min, PRN: Pain, scale 4-6 tranexamic acid 1 g / 100 mL 0.7% NaCl PMX: 1 gram(s), 100 mL, 300 mL/hr, IV Piggyback, AsDirected Documented Medications Documented Aleve 220 mg oral tablet: 1 cap(s), Oral, q8h, PRN: as needed for pain, 40 cap(s), 0 Refill(s) Lantus: 31 unit(s), Subcutaneous, BID, 0 Refill(s) NovoLOG: Subcutaneous, TIDAC, 12 units with breakfast and lunch, 18 units with dinner, 0 Refill(s) Trulicity Pen 0.75 mg/0.5 mL subcutaneous solution: 0.75 mg, 0.5 mL, Subcutaneous, qWeek, 0 Refill(s) Tylenol: Oral, 0 Refill(s) aspirin 81 mg oral delayed release tablet: 81 mg, 1 tab(s), Oral, Daily, 0 Refill(s) biotin: 10,000 mcg, Oral, qDay, 0 Refill(s) lisinopril 20 mg oral tablet: 20 mg, 1 tab(s), Oral, qDay, 30 tab(s), 0 Refill(s) omeprazole 40 mg oral delayed release capsule: 40 mg, 1 cap(s), Oral, qDay, 30 cap(s), 0 Refill(s), Medications (7) Active Scheduled: (3) citric acid-sodium citrate 334 mg-500 mg/5 mL (30 mL) Kiara UD 30 mL, Oral, PREOP pharm oxyCODONE 10 mg ER tablet 10 mg 1 tab(s), Oral, PREOP pharm tranexamic acid PMX 1 gram(s) 100 mL, IV Piggyback, AsDirected Continuous: (2) Lactated Ringers 1000 mL 1,000 mL, Intravenous, 125 mL/hr Lactated Ringers Infusion 1000 mL 1,000 mL, Intravenous, 20 mL/hr PRN: (2) morphine 2 mg/mL 1 mL syringe 2 mg 1 mL, IV Push, q5min ondansetron 2 mg/ 1 mL 2 mL INJ 4 mg 2 mL, IV Push, AsDirected Problem list: Active Problems (4) Barretts esophagus GERD (gastroesophageal reflux disease) Insulin dependent diabetes mellitus type IA Osteoarthritis Histories Past Medical History: No active or resolved past medical history items have been selected or recorded. Family History: No family history items have been selected or recorded. Procedure history: Lumpectomy of breast ([id number]). Colonoscopy ([id number]). Cholecystectomy ([id number]). Wrist ([id number]). Comments: 08/17/2022 11:44 EST - Caitlin Jamison RN right EGD - Esophagogastroduodenoscopy ([id number]). Social History Social & Psychosocial Habits Alcohol 08/17/2022 Use: Current Type: Liquor Frequency: 1-2 times per month Tobacco 08/17/2022 Tobacco Use: Never (less than 100 in l Home/Environment 08/17/2022 Domestic Concerns None Living situation: Home/Independent . Physical Examination Vital Signs 08/31/2022 10:00 EST Heart Rate Monitored 73 bpm bpm Respiratory Rate - Anes 22 br/min br/min Systolic Blood Pressure Non-Invasive 88 mmHg mmHg Diastolic Blood Pressure Non-Invasive 32 mmHg mmHg 08/31/2022 9:55 EST Heart Rate Monitored 76 bpm bpm Respiratory Rate - Anes 20 br/min br/min Systolic Blood Pressure Non-Invasive 95 mmHg mmHg Diastolic Blood Pressure Non-Invasive 30 mmHg mmHg 08/31/2022 9:50 EST Heart Rate Monitored 73 bpm bpm Respiratory Rate - Anes 19 br/min br/min Systolic Blood Pressure Non-Invasive 96 mmHg mmHg Diastolic Blood Pressure Non-Invasive 34 mmHg mmHg 08/31/2022 9:45 EST Heart Rate Monitored 81 bpm bpm Respiratory Rate - Anes 21 br/min br/min Systolic Blood Pressure Non-Invasive 98 mmHg mmHg Diastolic Blood Pressure Non-Invasive 49 mmHg mmHg 08/31/2022 9:02 EST Apical Heart Rate 73 bpm 08/31/2022 8:12 EST Temperature Temporal Artery 36.4 DegC Apical Heart Rate 76 bpm Respiratory Rate 22 br/min HI Systolic Blood Pressure Non-Invasive 161 mmHg >HHI Diastolic Blood Pressure Non-Invasive 67 mmHg Blood Pressure Method Automatic Blood Pressure Location Left arm Blood Pressure Cuff Size Large Vital Signs(last 24 hrs) Last Charted Heart Rate [id number] bpm (AUG 31 10:00) Resp Rate H 22br/min (AUG 31 08:12) SBP88 mmHg (AUG 31 10:00) DBP32 mmHg (AUG 31 10:00) Measurements from flowsheet : Measurements 08/31/2022 8:12 EST Height 157 cm Admission Weight 82 kg Weight Method Stated Quinter Body Weight 49.67 kg Pain assessment: Pain Assessment 08/31/2022 9:58 EST Primary Pain Intensity Not Done: See OR Record (Not Done) Primary Pain Intensity Not Done: See OR Record (Not Done) 08/31/2022 8:12 EST Primary Pain Location Knee Primary Pain Laterality Left Primary Pain Intensity 8 Primary Pain Quality Aching Pain Scale Type 0-10 Pain scale . General: Alert and oriented. Airway: Normal temporomandibular joint mobility. Mallampati classification: II (soft palate, fauces, uvula visible). Head: Atraumatic. Dentition Evaluation: Dentures, lower, Dentures, upper. Neck: Supple. Respiratory: Lungs are clear to auscultation. Cardiovascular: Normal rate. Heart Sounds: Normal. Gastrointestinal: Soft. Musculoskeletal Normal range of motion. Integumentary: Intact. Neurologic: Alert, Oriented. Review / Management Results review: No qualifying data available , Lab results 08/31/2022 10:00 EST Heart Rate Monitored 73 bpm bpm Respiratory Rate - Anes 22 br/min br/min Systolic Blood Pressure Non-Invasive 88 mmHg mmHg Diastolic Blood Pressure Non-Invasive 32 mmHg mmHg Oxygen Saturation 100 % % acetaminophen Begin Bag 100 mL mg 08/31/2022 9:58 EST Primary Pain Intensity Not Done: See OR Record (Not Done) Primary Pain Intensity Not Done: See OR Record (Not Done) epinephrine Not Done: See OR Record (Not Done) epinephrine Not Done: See OR Record (Not Done) ketorolac Not Done: See OR Record (Not Done) ketorolac Not Done: See OR Record (Not Done) morphine Not Done: See OR Record (Not Done) morphine Not Done: See OR Record (Not Done) povidone iodine topical Not Done: See OR Record (Not Done) ropivacaine Not Done: See OR Record (Not Done) ropivacaine Not Done: See OR Record (Not Done) 08/31/2022 9:56 EST SN - Proc - Anesthesia Type Spinal, Regional SN - Proc - Actual Procedure ROBOTIC ASSISTED LEFT TOTAL KNEE ARTHROPLASTY 08/31/2022 9:56 EST SN - Irl - Irrigant Normal Saline SN - Irl - Irrigant Normal Saline SN - Irl - Additive IRRIGATION CHG 0.05% IRRISEPT [id number] SN - Irl - Additive BETADINE 10% 08/31/2022 9:55 EST SN - SP - Prep Agents Chloraprep SN - SP - HR - Method N/A 08/31/2022 9:55 EST SN - PP - Body Position Supine Standard Intra-op 08/31/2022 9:55 EST Heart Rate Monitored 76 bpm bpm Respiratory Rate - Anes 20 br/min br/min Systolic Blood Pressure Non-Invasive 95 mmHg mmHg Diastolic Blood Pressure Non-Invasive 30 mmHg mmHg Oxygen Saturation 100 % % 08/31/2022 9:54 EST SN - PTCare - Anti-thromboembolism Kena Elastic Compression Stockings SN - PTCare - Anti-thromboembolism Kena Sequential Compression Device (SCD) 08/31/2022 9:54 EST SN - Assess - LOC Alert, Awake SN - Assess - Orientation Oriented X 3 SN - Assess - Post-op Skin Integrity Intact/Dry 08/31/2022 9:54 EST SN - VA - Dose 40 mL SN - VA - Dose 60 mL SN - VA - Route of Administration Local SN - VA - Route of Administration Local SN - VA - By (Single) SN - VA - By (Single) SN - VA - By (Single) SN - VA - By (Single) 08/31/2022 9:53 EST SN - GCD - Post-operative Diagnosis UNILATERAL PRIMARY OSTEOARTHRITIS LEFT KNEE SN - GCD - Case Level Level 5 08/31/2022 9:52 EST SN - DRS - Site and Details BEULAH. 2X2 GAUZE AND BIOCLUSIVE TO PHIPPS INCISION. 08/31/2022 9:52 EST SN - Cul - Culture Type No Specimen per Surgeon 08/31/2022 9:51 EST SN - CTm - Surgery Start 08/31/2022 9:51 08/31/2022 9:51 EST SN - CTm - Surgery Start Surgery Start 08/31/2022 9:50 EST Heart Rate Monitored 73 bpm bpm Respiratory Rate - Anes 19 br/min br/min Systolic Blood Pressure Non-Invasive 96 mmHg mmHg Diastolic Blood Pressure Non-Invasive 34 mmHg mmHg Oxygen Saturation 100 % % 08/31/2022 9:45 EST Heart Rate Monitored 81 bpm bpm Respiratory Rate - Anes 21 br/min br/min Systolic Blood Pressure Non-Invasive 98 mmHg mmHg Diastolic Blood Pressure Non-Invasive 49 mmHg mmHg Oxygen Saturation 100 % % dexamethasone 10 mg mg tranexamic acid 1 gram(s) gram(s) 08/31/2022 9:38 EST bupivacaine 1.6 mL mL 08/31/2022 9:35 EST SN - CAt - Case Attendee SN - CAt - Case Attendee SN - CAt - Case Attendee SN - CAt - Case Attendee SN - CAt - Case Attendee SN - CAt - Case Attendee SN - CAt - Case Attendee SN - CAt - Case Attendee SN - CAt - Case Attendee SN - CAt - Case Attendee SN - CAt - Case Attendee SN - CAt - Case Attendee SN - CAt - Case Attendee SN - CAt - Case Attendee SN - CAt - Role Performed Primary Surgeon SN - CAt - Role Performed EDUCATION INTERN SN - CAt - Role Performed German Instructor 1 SN - CAt - Role Performed Scrub 1 SN - CAt - Role Performed Transition Nurse 1 SN - CAt - Role Performed Physician Thread Separator SN - CAt - Role Performed Water Quality Specialist 08/31/2022 9:28 EST SN - CTm - Anesthesia Start Time Anesthesia Start cefazolin 2 gram(s) gram(s) Sodium Chloride 0.9% 100 mL mL 08/31/2022 9:02 EST Apical Heart Rate 73 bpm Time Out Procedure Verified Time Out Procedure Site Verified Yes Time Out Procedure Site Marked Yes Time Out Correct Patient Position Yes Oxygen Therapy Nasal cannula 0L-6L Oxygen Saturation 97 % Oxygen Flow Rate 2 L/min Consent Form Signed Yes Bedside Procedure Nerve Block Provider #1 Bedside Time Out WALDO SARKAR APRN-EDUCATION INTERN Provider #2 Bedside Time Out Henna Barragan RN NPO Status Maintained, More than 8 hours Allergy Band on and Verified No Blood Band on and Verified No Patient ID Band on and Verified Yes Anesthesia Consent Signed Yes Blood Consent Signed Yes Last Void 08/31/2022 6:30 08/31/2022 8:50 EST fentaNYL 50 mcg mcg 08/31/2022 8:34 EST Blood Glucose, Capillary 154 mg/dL HI 08/31/2022 8:30 EST SN - Preop - CTm Pt Ready for OR/Proced 08/31/2022 8:30 08/31/2022 8:27 EST celecoxib 400 mg mg famotidine 20 mg mg Lactated Ringers Injection 1,000 mL mL 08/31/2022 8:17 EST ABO/Rh Interp O POS Antibody Screen Gel Negative ABSC 08/31/2022 8:12 EST Designated Person #1 We May Share PHI VERONICA ATKINS [phone] Designated Person #1 Relationship Son Privacy Restrictions Requested None Height 157 cm Admission Weight 82 kg Weight Method Stated Quinter Body Weight 49.67 kg Temperature Temporal Artery 36.4 DegC Apical Heart Rate 76 bpm Respiratory Rate 22 br/min HI Systolic Blood Pressure Non-Invasive 161 mmHg >HHI Diastolic Blood Pressure Non-Invasive 67 mmHg Blood Pressure Method Automatic Blood Pressure Location Left arm Blood Pressure Cuff Size Large Primary Pain Location Knee Primary Pain Laterality Left Primary Pain Intensity 8 Primary Pain Quality Aching Pain Scale Type 0-10 Pain scale Oxygen Therapy Room air Oxygen Saturation 96 % Abdomen Description Non-distended Abdomen Palpation Non-Tender Bowel Sounds All Quadrants Present Urinary Elimination Voiding, no difficulties Status N/A Skin Integrity Intact IV Present Present Wrist Right 08/31/2022 20 gauge Peripheral IV Activity: Insert new site Peripheral IV Dressing Condition: Clean, Dry, Intact Peripheral IV Dressing Activity: Applied, Transparent dressing Peripheral IV Line Status/Patency: Flushes easily Peripheral IV Line Care: Secured with tape Peripheral IV Site Condition: No complications Peripheral IV Equipment: Extension set, PRN Adaptor Peripheral IV Number of Attempts: 1 Neurological Symptoms Patient denies Extremity Movement Equal Characteristics of Speech Clear Level of Consciousness Alert Strength All Extremities Moderate Left Lower Extremity Sensation Tingling Right Lower Extremity Sensation Tingling Affect/Behavior Appropriate, Calm, Cooperative Orientation Oriented x 4 Sensory Deficits None Sleep Apnea Snore Yes Sleep Apnea Tired No Sleep Apnea Obstruction No Sleep Apnea Pressure No Sleep Apnea BMI Yes Sleep Apnea Age Yes Sleep Apnea Neck Yes Sleep Apnea Gender No Sleep Apnea Score 4 High Risk for Sleep Apnea Yes Diagnosed With Sleep Apnea No Advanced Directives Yes Advance Directive Location Unable to obtain copy Infectious Disease Symptoms Patient states no symptoms Infectious Disease Recent Exposure No Alcohol and Drug Use No Employee of Institutional Living No Health Care Employee No History of Exposure to TB No History of Positive Chest X-Ray for TB No History of Positive TB Skin Test No Homeless No Known Immunosuppression No Recent Immigrant No Resident of Institutional Living No Bloody Sputum No Fatigue No Fever No Loss of Appetite No Night Sweats No Persistent Cough > 3 Weeks No Weight Loss No Allergies No Fisher Pot On Yes Consent Form Signed Yes Patient Dressed In Hospital gown Pre-op Preparation Dentures, upper removed, Dentures, lower removed CHG Preoperative Wash/Wipe Night before procedure, Day of procedure, Site specific wipe Preop Nasal Swab Povidone-Iodine History & Physical Update On Chart Yes History & Physical On Chart Yes Obstructive Sleep Apnea Assess Completed Yes MRSA/MSSA Protocol Yes Orientation Assessment Oriented x 4 Safety Brochure Information Reviewed Yes Rowena Hoyos Video Viewed No Barriers to Learning None evident Teaching Method Explanation Teaching Evaluation No further teaching needed Preferred Written Language Cymro Preferred Spoken Language Cymro Incentive Spirometry Education Yes General Infection Prevention Strategies Hand hygiene Surgical Site Infection Prevention SSI FAQ provided, Hand hygiene Post op Activity Education Weight bearing Post op Diet Education Regular Other Post op Care Education Bathing/Hygiene, Pain scale Ed-Communication Verbalizes/Nonverbally indicates understanding Ed-Constipation Verbalizes/Nonverbally indicates understanding Ed-Ice Application Verbalizes/Nonverbally indicates understanding Ed-Tubes/Drains/IV's Verbalizes/Nonverbally indicates understanding Ed-Encourage Hydration Verbalizes/Nonverbally indicates understanding Ed-Exercise Verbalizes/Nonverbally indicates understanding Ed-Diabetes Verbalizes/Nonverbally indicates understanding Edu-Bathing Verbalizes/Nonverbally indicates understanding Information Given by Patient Patient's Current Physicians DR ERYN COLES Discharge To, Anticipated Home with family care Activity Status ADL Awake, Repositions self SCD On/Re-applied right knee high Antiembolism Stocking On/Re-applied right thigh high NPO Status Maintained, More than 8 hours Standard Safety ID band on, Call device within reach, Bed in low position, Wheels locked, Safety level maintained Prev Test Positive/Diagnosis w/COVID-19 No Current Quarantine/Isolated any Illness No Any Contact with Sick Animals/Birds No Traveled Anywhere in Last 30 Days No Allergy Band on and Verified No Patient ID Band on and Verified Yes Implants Verified No Pacemaker/AICD Verified No Anesthesia Consent Signed Yes Blood Consent Signed Yes Last Fluid Intake 08/30/2022 21:00 Last Food Intake 08/30/2022 18:00 Last Void 08/31/2022 6:30 Lost Weight Unintentionally Recently No Eat Poorly Due to Decreased Appetite No Total MST Score 0 N/A Personal Devices, Patient Valuables None Anesthesia/Transfusions Prior anesthesia Admission Note-Nursing Same Day Patient History 08/31/2022 7:56 EST SN - Preop - CTm Pt in SDS Room 08/31/2022 7:51 . Assessment and Plan [place] [employer] Anesthesiologists (ASA) physical status classification: Class III. Anesthetic Preoperative Plan Premedication: intravenous. Anesthetic technique: Spinal. Induction: intravenously. Maintenance airway: 40% FM. Regional: Adductor Canal Block. Postoperative pain management: Per surgeon. Risks discussed. Informed consent: signed by patient. Digitally Signed by WALDO SARKAR Guillermo SOILS ENGINEER-EDUCATION INTERN on 08/31/2022 10:11 AM [facility]12-06-2022 Note ORIGINAL EXAMINATION: CT OF THE LEFT KNEE WITHOUT CONTRAST 08/17/2022 2:15 pm TECHNIQUE: CT of the left knee was performed without the administration of intravenous contrast. Multiplanar reformatted images are provided for review. Automated exposure control, iterative reconstruction, and/or weight based adjustment of the mA/kV was utilized to reduce the radiation dose to as low as reasonably achievable. COMPARISON: None available. HISTORY ORDERING SYSTEM PROVIDED HISTORY: Reason for Exam: VARUS DEFORMITY, NOT ELSEWHERE CLASSIFIED, LEFT KNEE. FINDINGS: No acute fracture or dislocation is evident. Patchy decreased osseous mineralization is present. No visible aggressive osseous lesions. Essentially complete loss of medial femorotibial compartment joint space is present with marginal osteophyte formation and subchondral cysts. Mild chondrocalcinosis noted. There is moderate joint space narrowing of the lateral femorotibial compartment with marginal osteophyte formation. Moderate patellofemoral compartment joint space narrowing is noted with marginal osteophyte formation. Trace volume knee effusion. Small volume Rashid's cyst. Included tendons appear grossly intact. Ligaments are poorly evaluated on this examination. Advanced gluteus minimus muscle atrophy. Atrophy of the gluteus medius muscle is noted to a lesser degree. Provided images of the left hip and left hemipelvis exhibit no acute osseous abnormalities or aggressive osseous lesions. Moderate pubic symphysis joint space narrowing. No acute process noted of the included intrapelvic structures. Provided images of the left ankle exhibit no acute osseous abnormalities or aggressive osseous lesions. 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 IMPRESSION: 1. No acute osseous abnormalities or aggressive osseous lesions. 2. Tricompartmental degenerative change, most advanced of the medial femorotibial compartment with mild chondrocalcinosis. Trace volume effusion. Small volume Rashid's cyst. Interpreted by: Tres Wilkinson DO Preliminary Report By: Tres Wilkinson DO Electronically signed By Tres Wilkinson DO Dictated Date: 08/17/2022 2:25:09 PM Prelim Date: 08/17/2022 2:29:16 PM Sign Date: 08/17/2022 2:29:16 PM Ordering Provider: CRYS DIAZ [facility]12-06-2022 Note ORIGINAL EXAMINATION: CT OF THE LEFT KNEE WITHOUT CONTRAST 08/17/2022 2:15 pm TECHNIQUE: CT of the left knee was performed without the administration of intravenous contrast. Multiplanar reformatted images are provided for review. Automated exposure control, iterative reconstruction, and/or weight based adjustment of the mA/kV was utilized to reduce the radiation dose to as low as reasonably achievable. COMPARISON: None available. HISTORY ORDERING SYSTEM PROVIDED HISTORY: Reason for Exam: VARUS DEFORMITY, NOT ELSEWHERE CLASSIFIED, LEFT KNEE. FINDINGS: No acute fracture or dislocation is evident. Patchy decreased osseous mineralization is present. No visible aggressive osseous lesions. Essentially complete loss of medial femorotibial compartment joint space is present with marginal osteophyte formation and subchondral cysts. Mild chondrocalcinosis noted. There is moderate joint space narrowing of the lateral femorotibial compartment with marginal osteophyte formation. Moderate patellofemoral compartment joint space narrowing is noted with marginal osteophyte formation. Trace volume knee effusion. Small volume Rashid's cyst. Included tendons appear grossly intact. Ligaments are poorly evaluated on this examination. Advanced gluteus minimus muscle atrophy. Atrophy of the gluteus medius muscle is noted to a lesser degree. Provided images of the left hip and left hemipelvis exhibit no acute osseous abnormalities or aggressive osseous lesions. Moderate pubic symphysis joint space narrowing. No acute process noted of the included intrapelvic structures. Provided images of the left ankle exhibit no acute osseous abnormalities or aggressive osseous lesions. 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 IMPRESSION: 1. No acute osseous abnormalities or aggressive osseous lesions. 2. Tricompartmental degenerative change, most advanced of the medial femorotibial compartment with mild chondrocalcinosis. Trace volume effusion. Small volume Rashid's cyst. Interpreted by: Tres Wilkinson DO Preliminary Report By: Tres Wilkinson DO Electronically signed By Tres Wilkinson DO Dictated Date: 08/17/2022 2:25:09 PM Prelim Date: 08/17/2022 2:29:16 PM Sign Date: 08/17/2022 2:29:16 PM Ordering Provider: [facility]06-21-2022 History of Present illness Narrative* Ama Andrews - 03/02/2022 3:35 PM EDT POPULATION HEALTH NAVIGATION OUTREACH Action/ Patient returned call and states she has a new PCP outside of [facility] for over a year. PCP updated. Pt identified by name and : YES, via phone Outreach Outcome/Action Spoke to patient or caregiver: PCP confirmed / updated Did you use a PCP flex slot to schedule this appointment? N/A Reason for Outreach HCC or suspected condition Payer: Payor: REHANA CARTY / Plan: ANTHEM MEDIBLUE ACCESS / Product Type: PPO / Care Gap Reviewed:: Navigation Signature: Ama Andrews March 02, 2022 3:35 PM * Ama Andrews - 03/02/2022 3:00 PM EDT POPULATION HEALTH NAVIGATION OUTREACH Action/ 1st attempt: Left message for patient including my direct number HCC GAPS M06.9 - Rheumatoid arthritis (HCC) - [id number] Last Billed 10/08/2019 Care Gaps Follow-up appointment Diabetic Eye Exam HBA1C Pt identified by name and : NO Outreach Outcome/Action Unable to reach patient: Left message Did you use a PCP flex slot to schedule this appointment? N/A Reason for Outreach [facility] Payer: Payor: REHANA CARTY / Plan: ANTHEM MEDIBLUE ACCESS / Product Type: PPO / Care Gap Reviewed:: Follow-up appointment Diabetic Eye Exam HBA1C Reminder: Reminder note to check Health Maintenance for items below Health Maintenance items due: SHINGRIX VACCINE(2 of 3) due on 06/17/2011 DILATED RETINAL EXAM due on 05/06/2021 HBA1C due on 07/15/2021 URINE ALBUMIN:CREATININE RATIO due on 07/18/2021 LDL CHOLESTEROL due on 07/18/2021 ADVANCE DIRECTIVE DISCUSSION Never done COVID-19 VACCINE(4 - Booster for Moderna series) due on 11/09/2021 DIABETIC FOOT EXAM due on 01/14/2022 Message Sent to Practice: No Navigation Signature: Ama Andrews March 02, 2022 3:32 PM [facility] History of Present illness Narrative* Epifanio Peña - 12/18/2021 2:54 PM EDT Last saw Kiara Podlogar: 01/26/21 Subjective: Patient presents to clinic c/o painful toenails. They state that the nails are especially painful with shoe gear and pressure. Patient states that nails 1--5 b/l are painful. Patient admits to being diabetic. No other pedal complaints at this time. Patient states no change in medications or medical history since last visit. Objective: Patient presents to clinic ambulating in sneakers Vasc: DP and PT pulses are decreased bilateral. CFT is less than 5 seconds bilateral. Skin temperature is warm to cool proximal to distal bilateral. There is mild edema or varicosities noted. Neuro: Protective sensation is decreased to the foot and toes when tested with the 5.07 SWM bilateral. Vibratory sensation is absent at the hallux IPJ bilateral. The hallux is downgoing bilateral. Derm: Nails 1-5 b/l are painful, discolored-yellow, thick, crumbly, dystrophic and with subungal debris. Skin is of normal turgor, texture and hair growth is decreased bilateral. There are no hyperkeratosis, ulcerations, scars, verruca or other lesions noted. Ortho: Muscle strength is 5/5 for all pedal groups tested. Ankle joint DF is decreased with the knee extended with no pain or crepitus noted. 1st MPJ ROM is decreased bilateral. 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 Nails 1-5 bilateral were debrided in length and thickness. Patient was instructed on the continued importance of diabetic foot care along with proper diet and keeping their blood sugar under control to prevent complications. Patient is to RTC in 3-4 months. Epifanio Peña DPM * Kiara Cheng MA - 12/18/2021 2:34 PM EDT Patient presents with: Right Foot - Established Patient, Diabetic nailcare Left Foot - Established Patient, Diabetic nail care documented in this encounterGerman Hospital04-08-2022 Instructions* Patient Instructions* Epifanio Peña - 12/18/2021 2:54 PM EDT Diabetes Foot Care Instructions When you have diabetes, proper foot care is very important. Poor foot care may lead to amputation of a foot or leg. As a person with diabetes, you are more vulnerable to foot problems, because diabetes can damage your nerves and reduce blood flow to your feet. Here are some diabetes foot care tips to follow: Wash and Dry Your Feet Daily Use mild soaps Use warm water Pat your skin dry; do not rub. Thoroughly dry your feet. After washing, use lotion on your feet to prevent cracking. Do not put lotion between your toes. Examine Your Feet Each Day Check the tops and bottoms of your feet. Have someone else look at your feet if you cannot see them. Check for dry, cracked skin. Look for blisters, cuts, scratches, or other sores. Check for redness, increased warmth, or tenderness when touching any area of your feet. Check for ingrown toenails, corns, and calluses. If you get a blister or sore from your shoes, do not pop it. Apply a bandage and wear a differentpair of shoes. Take Care of Your Toenails Cut toenails after bathing, when they are soft. Cut toenails straight across and smooth with a nail file. Avoid cutting into the corners of toes. Do not cut cuticles. If you have neuropathy (or decreased sensation in your feet) a microbiology technician should always cut your toenails. Be Careful When Exercising Walk and exercise in comfortable shoes. Do not exercise when you have open sores on your feet. Protect Your Feet With Shoes and Socks Never go barefoot. Always protect your feet by wearing shoes or hard-soled slippers or footwear. Avoid shoes with high heels and pointed toes. Avoid shoes that expose your toes or heels (such as open-toed shoes or sandals). These types of shoes increase your risk for injury and potential infections. Try on new footwear with the type of socks you usually wear. Do not wear new shoes for more than an hour at a time. Change your socks daily. Look and feel inside your shoes before putting them on to make sure there are no foreign objects orrough areas. Avoid tight socks. Wear natural-fiber socks (cotton, wool, or a cotton-wool blend). Wear special shoes if your health care provider recommends them. Wear shoes/boots that will protect your feet from various weather conditions (cold, moisture, etc.). Make sure your shoes fit properly. If you have neuropathy (nerve damage), you may not notice that your shoes are too tight. Perform the footwear test described below. Footwear Test Use this simple test to see if your shoes fit correctly: Stand on a piece of paper. (Make sure you are standing and not sitting, because your foot changes shape when you stand.) Trace the outline of your foot. Trace the outline of your shoe. Compare the tracings: Is the shoe too narrow? Is your foot crammed into the shoe? The shoe should be at least 1/2 inch longer than your longest toe and as wide as your foot. Proper Shoe Choices The following types of shoes are best for people with diabetes Closed toes and heels Leather uppers without a seam inside At least 1/2 inch extra space at the end of your longest toe Inside of shoe should be soft with no rough areas Outer sole should be made of stiff material Shoes should be at least as wide as your feet Tips for Foot Care in Diabetes Don't wait to treat a minor foot problem if you have diabetes. Follow your health care provider's guidelines and first aid guidelines. Report foot injuries and infections to your health care provider immediately. Check water temperature with your elbow, not your foot. Do not use a heating pad on your feet. Do not cross your legs. Do not self-treat your corns, calluses, or other foot problems. Go to your health care provider or microbiology technician to treat these conditions. documented in this encounterGerman Hospital03-23-2021 History of Present illness Narrative* Any Johnson (Rt), Daren - 12/02/2020 9:40 AM EDT Radiology Service Progress Note PATIENT NAME: Maria Elena Atkins DATE OF SERVICE: December 02, 2020 TIME: 10:11 AM PATIENT IDENTITY VERIFICATION COMPLETED USING TWO (2) IDENTIFIERS: Name and Date of confirmedby patient verbally. FALL SCREENING: Has the patient had 2 falls in the last year or 1 fall with injury or currently using an Ambulatory Assistive Device (Walker, Cane, Wheelchair, Crutches, etc.)? No PATIENT GENDER DATA: Female. status: : No status: NO. PATIENT RELEVANT IMPLANT DATA REVIEWED: Yes RADIOLOGY DEPARTMENT: General X-ray: Exam(s) Completed: Lower Extremity X- Ray(s): Knee, AP / Lat / Tunne / Merchant Right: PERIPHERAL IV DATA: Not applicable SIGNED BY: RT Lillian December 02, 2020 10:11 AM documented in this encounterGerman Hospital10-02-2013 History of Past illness Narrative* Problem Noted Date Resolved Date Actinic skin damage 06/13/2013 10/17/2017 Angular cheilitis 04/18/2013 10/17/2017 Yeast dermatitis: angles izzy th (secondary cutaneous moniliaisis) 04/18/2013 10/17/2017 Melanocytic nevi of trunk 04/18/20132017 Other seborrheic keratosis 04/22/201010/17 Pain in limb 04/11/2006 10/17/2017 Disturbance of skin sensation 04/11/2006 Gastric ulcer, unspecified a s acute or chronic, without mention of hemorrhage, perforation, or obstruction 12/17/200504/2010 Esophagitis, unspecified 010 Acute gastritis without mention of hemorrhage 08/19/2010 Londono esophagus 10/30/2018 documented as of this encounter (statuses as of 12/19/2021) [facility] History of Past illness Narrative* Problem Noted Date Resolved Date Actinic skin damage 06/13/2013 10/17/2017 Angular cheilitis 04/18/2013 10/17/2017 Yeast dermatitis: angles izyz th (secondary cutaneous moniliaisis) 04/18/2013 10/17/2017 Melanocytic nevi of trunk 04/18/20132017 Other seborrheic keratosis 04/22/201010/17 Pain in limb 04/11/2006 10/17/2017 Disturbance of skin sensation 04/11/2006 Gastric ulcer, unspecified a s acute or chronic, without mention of hemorrhage, perforation, or obstruction 12/17/200504/2010 Esophagitis, unspecified 010 Acute gastritis without mention of hemorrhage 08/19/2010 Londono esophagus 10/30/2018 documented as of this encounter (statuses as of 03/02/2022) [facility] History of Past illness Narrative* Problem Noted Date Diagnosed Date Resolved Date Actinic skin damage 06/13/2013 10/17/19 18 Angular cheilitis 04/18/2013 10/17/2017 Yeast dermatitis: salvador larkinu th (secondary cutaneous moniliaisis) 04/18/2013 10/17/2017 Melanocytic nevi of trunk 04/18/2013 Other seborrheic keratosis 04/22/2010 0 10/17/2017 Pain in limb 04/11/2006 10/17/2017 Disturbance of skin sensation 04/11/2006 10/17/2017 Gastric ulcer, unspecified a s acute or chronic, without mention of hemorrhage, perforation, or obstruction 12/17/2005 08/19/2010 Esophagitis, unspecified 04/2010 Acute gastritis without mention of hemorrhage 08/19/2010 Londono esophagus 10/30/2018 documented as of this encounter (statuses as of 12/06/2023) [facility] of Past illness Narrative* Problem Noted Date Diagnosed Date Resolved Date Actinic skin damage 06/13/2013 10/17/19 18 Angular cheilitis 04/18/2013 10/17/2017 Yeast dermatitis: angles izzy th (secondary cutaneous moniliaisis) 04/18/2013 10/17/2017 Melanocytic nevi of trunk 04/18/2013 Other seborrheic keratosis 04/22/2010 0 10/17/2017 Pain in limb 04/11/2006 10/17/2017 Disturbance of skin sensation 04/11/2006 10/17/2017 Gastric ulcer, unspecified a s acute or chronic, without mention of hemorrhage, perforation, or obstruction 12/17/2005 08/19/2010 Esophagitis, unspecified 04/2010 Acute gastritis without mention of hemorrhage 08/19/2010 Londono esophagus 10/30/2018 documented as of this encounter (statuses as of 12/22/2023) [facility] note Future Appointments [facility] Evaluation note* Diagnosis Onychomycosis- Primary Dermatophytosis of nail Pain in toe of left foot Pain in limb Pain in toe of right foot Pain in limb 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, without long-term current use of insulin (HCC) PAD (peripheral artery disease) (HCC) Peripheral vascular disease, unspecified documented in this encounter [facility] noteNo assessment information availableWUniversity Hospitals [facility] Work Phone: Evaluation note* Diagnosis 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 Dysphagia, unspecified type documented in this encounter [facility]* Diagnosis 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's esophagus Dysphagia, unspecified type [facility] Onychomycosis- Primary Dermatophytosis of nail Pain in toe of left foot Pain in limb Pain in toe of right foot Pain in limb Diabetic polyneuropathy associated with type 2 diabetes mellitus (HCC) documented in this encounter [facility]* Diagnosis Onychomycosis- Primary Dermatophytosis of nail Pain in toe of left foot Pain in limb Pain in toe of right foot Pain in limb Diabetic polyneuropathy associated with type 2 diabetes mellitus (HCC) PAD (peripheral artery disease) (HCC) Peripheral vascular disease, unspecified documented in this encounter [facility]* Diagnosis Acute pain of right knee documented in this encounter [facility]* Diagnosis Onychomycosis- Primary Dermatophytosis of nail Pain in toe of left foot Pain in limb Pain in toe of right foot Pain in limb Diabetic polyneuropathy associated with type 2 diabetes mellitus (HCC) PAD (peripheral artery disease) (HCC) Peripheral vascular disease, unspecified [facility]* Diagnosis Onychomycosis- Primary Dermatophytosis of nail Pain in toe of left foot Pain in limb Pain in toe of right foot Pain in limb Diabetic polyneuropathy associated with type 2 diabetes mellitus (HCC) PAD (peripheral artery disease) (HCC) Peripheral vascular disease, unspecified Arthritis of left midfoot documented in this encounter [facility]* Diagnosis Onychomycosis- Primary Dermatophytosis of nail Pain in toe of left foot Pain in limb Pain in toe of right foot Pain in limb Diabetic polyneuropathy associated with type 2 diabetes mellitus (HCC) PAD (peripheral artery disease) Peripheral vascular disease, unspecified [facility] encounter [facility]* Diagnosis Onychomycosis- Primary Dermatophytosis of nail Pain in toe of left foot Pain in limb Pain in toe of right foot Pain in limb Diabetic polyneuropathy associated with type 2 diabetes mellitus (HCC) PAD (peripheral artery disease) Peripheral vascular disease, unspecified [facility] Narrative No data available for this section [facility] Hospital Discharge instructions No data available for this section [facility] Progress note No data available for this section [facility] Reason for referral (narrative)* Outpatient Procedure (Routine) - Pending Review Specialty Diagnoses / Procedures Referred By Kathy vallejo Referred To Contact [facility] Diagnoses 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 Dysphagia, unspecified type Procedures EGD DIAGNOSTIC ESOPHAGOGASTRODUODENOSC OPY TRANSORAL DIAGNOSTIC Dasia Cole MD [address] [address] [facility] [address] [place] [id number] Referral ID Status Reason Start Date Expiration Date Visits Requested Visits Authorized [id number] Pending Review Auto-Generat ed Referral 12/06/2023 12/05/2024 1 1 [facility] for referral (narrative)* Outpatient Procedure (Routine) - Closed Specialty Diagnoses / Procedures Referred By Kathy vallejo Referred To Contact [facility] Diagnoses 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 Dysphagia, unspecified type Procedures EGD DIAGNOSTIC ESOPHAGOGASTRODUODENOSC OPY TRANSORAL DIAGNOSTIC Dasia Cole MD [address] [address] Referral ID Status Reason Start Date Expiration Date V isits Requested Visits Authorized [id number] Closed Auto-Generate d Referral 12/06/2023 12/05/2024 1 1 [facility] for referral (narrative)No reason for referral information availableWUniversity [facility]als [facility] Work Phone: Reason for visit Narrative* Outpatient Procedure (Routine) - Closed Specialty Diagnoses / Procedures Referred By Kathy vallejo Referred To Contact [facility] Diagnoses 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 Dysphagia, unspecified type Procedures EGD DIAGNOSTIC ESOPHAGOGASTRODUODENOSC OPY TRANSORAL DIAGNOSTIC Dasia Cole MD [address] [address] Referral ID Status Reason Start Date Expiration Date V isits Requested Visits Authorized [id number] Closed Auto-Generate d Referral 12/06/2023 12/05/2024 1 1 [facility] Purpose Family History No Family History Records FoundNo Family History Records FoundNo Family History Records FoundNo Family History Records Found Advance Directives No Advanced Directives Records FoundDocuments on File Type Date Recorded 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 Advance Directive(s) 03/13/2020 6:49 AM Advance Directive(s) 03/06/2020 12:52 PM Advance Directive(s) 02/28/2018 11:25 AM Advance Directive Response Recorded Date/ Time Living Will No November 09, 11:22am Power of Triple Drum Operator No November 09, 2021 11:22am Advance Directive Response Recorded Date/ Time Living Will No November 09, 022 10:22am Power of Triple Drum Operator No November 09, 2021 10:22am Chief Complaint and Reason for Visit Chief Complaint MURMUR Chief Complaint [facility] WORK Cough Chief Complaint [facility] WORK Cough NODULE TYPE 2 DM Chief Complaint Cough NODULE TYPE 2 DM TYPE 2 DM Chief Complaint NODULE TYPE 2 DM TYPE 2 DM TYPE 2 DM Chief Complaint TYPE 2 DM LEFT L5 RADICULAPATHY Chief Complaint LEFT L5 RADICULAPATH Y LUMBAR RADICULOPATHY RX HERE Chief Complaint Admit Date fallMarch 13, 2025 12:31 pm Additional Source Comments INFORMATION SOURCE (unrecogn ized section and content) DATE CREATED AUTHOR 03/08/2018 [facility] DATE CREATED AUTHOR AUTHOR'S ORGANIZ ATION 10/14/2022 [facility] ([place]) DATE CREATED AUTHOR AUTHOR'S ORGANIZ ATION 03/24/2025 [facility] DATE CREATED AUTHOR AUTHOR'S ORGANIZ ATION 05/01/2025 [facility] Source Comments (unrecognize d section and content) In the event this informatio n is protected by the Federal Confidentiality of Alcohol and Drug Abuse Patient Records regulations: The Federal rules restrict any use of the information to criminally investigate or prosecute any alcohol or drug abuse patient.German HospitalIn the event this information is protected by the Federal Confidentiality of Alcohol and Drug Abuse Patient Records regulations: The Federal rules restrict any use of the information to criminally investigate or prosecute any alcohol or drug abuse patient.German HospitalIn the event this information is protected by the Federal Confidentiality of Alcohol and Drug Abuse Patient Records regulations: The Federal rules restrict any use of the information to criminally investigate or prosecute any alcohol or drug abuse patient.German HospitalIn the event this information is protected by the Federal Confidentiality of Alcohol and Drug Abuse Patient Records regulations: The Federal rules restrict any use of the information to criminally investigate or prosecute any alcohol or drug abuse patient.German HospitalIn the event this information is protected by the Federal Confidentiality of Alcohol and Drug Abuse Patient Records regulations: The Federal rules restrict any use of the information to criminally investigate or prosecute any alcohol or drug abuse patient.German HospitalIn the event this information is protected by the Federal Confidentiality of Alcohol and Drug Abuse Patient Records regulations: The Federal rules restrict any use of the information to criminally investigate or prosecute any alcohol or drug abuse patient.German HospitalIn the event this information is protected by the Federal Confidentiality of Alcohol and Drug Abuse Patient Records regulations: The Federal rules restrict any use of the information to criminally investigate or prosecute any alcohol or drug abuse patient.German HospitalIn the event this information is protected by the Federal Confidentiality of Alcohol and Drug Abuse Patient Records regulations: The Federal rules restrict any use of the information to criminally investigate or prosecute any alcohol or drug abuse patient.German HospitalIn the event this information is protected by the Federal Confidentiality of Alcohol and Drug Abuse Patient Records regulations: The Federal rules restrict any use of the information to criminally investigate or prosecute any alcohol or drug abuse patient.German HospitalIn the event this information is protected by the Federal Confidentiality of Alcohol and Drug Abuse Patient Records regulations: The Federal rules restrict any use of the information to criminally investigate or prosecute any alcohol or drug abuse patient.German HospitalIn the event this information is protected by the Federal Confidentiality of Alcohol and Drug Abuse Patient Records regulations: The Federal rules restrict any use of the information to criminally investigate or prosecute any alcohol or drug abuse patient.German HospitalIn the event this information is protected by the Federal Confidentiality of Alcohol and Drug Abuse Patient Records regulations: The Federal rules restrict any use of the information to criminally investigate or prosecute any alcohol or drug abuse patient.[facility] Reason for Visit (unrecogniz ed section and content) Reason Comments Established Patient Diabetic nailcare Diabetic nail care Reason Onset Date Comments Population Health Navigation Outreach 03/02/2022 HCC Gaps Reason Comments Consult egd Reason Comments Established Patient Diabetic Foot Care Follow Up Reason Comments Established Patient Follow Up Pain Diabetic Foot Care Reason Comments 12/21/2023 EGD ASC Reason Comments Established Patient Follow Up Diabetic Foot Care Reason Comments Established Patient Follow Up Diabetic Foot Check Reason Comments Nail care Care Teams (unrecognized sec tion and content) Shop Cooper Relationship Specialty Start Date End Date Joss Gant MD [address] [place] [address] PCP - General Family Practice 10/17/17 Yunier Tinsley, [facility] [address] [place] [address] Pharmacist Pharmacy 07/18/19 Adria Acevedo DO Primary Staff Physician Cardiology 11/28/18 Shop Cooper Relationship Specialty Start Date End Date Kike Russo MD [address] [place] [address] PCP - General Family Practice 03/02/22 [facility] [address] [place], [place] [id number] Pharmacist Pharmacy 07/18/19 Adria Acevedo DO Primary Staff Physician Cardiology 11/28/18 Team Status: Active Member Role Status Dates Dr. Zaire Aguillon MD Family Provider Active Dr. Eryn Guerra MD Primary Care Provider Active Team Status: Active Member Role Status Dates Dr. Eryn Guerra MD Primary Care Provider Active Karri Maggie Attending Provider Active Team Status: Active Member Role Status Dates Dr. Eryn Guerra MD Primary Care Provider Active Karri Serrano Attending Provider, Referring Provider Ac tive Team Status: Inactive Member Role Status Dates Dr. Eryn Guerra MD Primary Care Prov ider, Attending Provider, Referring Provider Active Team Status: Active Member Role Status Dates Dr. Eryn Guerra MD Primary Care Provider Active Karri ASHRAF Attending Provider Active Team Status: Active Member Role Status Dates Dr. Eryn Guerra MD Primary Care Provider Active Karri ASHRAF Attending Provider, Referring Provide r Active Team Status: Inactive Member Role Status Dates Dr. Eryn Guerra MD Primary Care Provider, Attendin g Provider Active Team Status: Active Member Role Status Dates Dr. Eryn Guerra MD Primary Care Prov ider, Attending Provider, Referring Provider Active Shop Cooper Relationship Specialty Start Date End Date Eryn Guerra MD [address] [place] [address] PCP - General Family Medicine 11/17/23 Adria Acevedo DO Primary Staff Physician Cardiology 11/28/18 Shop Cooper Relationship Specialty Start Date End Date Eryn Guerra MD [address] [place] [address] PCP - General Family Medicine 11/17/23 Adria Acevedo DO Primary Staff Physician Cardiology 11/28/18 Shop Cooper Relationship Specialty Start Date End Date Eryn Guerra MD [address] [place] [address] PCP - General Family Medicine 11/17/23 Adria Acevedo DO Primary Staff Physician Cardiology 11/28/18 Shop Cooper Relationship Specialty Start Date End Date Eryn Guerra MD [address] [place] [address] PCP - General Family Medicine 11/17/23 Adria Acevedo DO Primary Staff Physician Cardiology 11/28/18 Shop Cooper Relationship Specialty Start Date End Date Joss Gant MD [address] [place] [address] PCP - General Family Medicine 10/17/17 03/01/22 Yunier Tinsley [facility] [address] [place] [address] Pharmacist Pharmacy 07/18/19 02/10/23 Adria Acevedo DO [address] [place] [address] Primary Staff Physician Cardiology 11/28/18 Shop Cooper Relationship Specialty Start Date End Date Eryn Guerra MD [address] [place] [address] PCP - General Family Medicine 11/17/23 Adria Acevedo DO Primary Staff Physician Cardiology 11/28/18 Shop Cooper Relationship Specialty Start Date End Date Eryn Guerra MD [address] [place], [place] [id number] PCP - General Family Medicine 11/17/23 Adria Acevedo DO Primary Staff Physician Cardiology 11/28/18 Team Status: Inactive Member Role Status Dates Dr. Eryn Guerra MD Primary Care Provider Active Start: November 06, 2024 End: November 06, 2024 Dr. Eryn Guerra MD Attending Provider Active Start: November 06, 2024 End: November 06, 2024 Shop Cooper Relationship Specialty Start Date End Date Eryn Guerra MD [address] [place] [address] PCP - General Family Medicine 11/17/23 Adria Acevedo DO Primary Staff Physician Cardiology 11/28/18 Team Status: Active Member Role/Relationship Status Dates Dr. Zaire Aguillon MD Family Provider Active Dr. Eryn Guerra MD Primary Care Provider Active Team Status: Inactive Member Role/Relationship Status Dates Dr. Eryn Guerra MD Primary Care Provider Active Start: March 13, 2025 End: March 13, 2025 ANTOINE Francisco Attending Provider Active St art: March 13, 2025 End: March 13, 2025 ANTOINE Francisco Referring Provider Active St art: March 13, 2025 End: March 13, 2025 Shop Cooper Relationship Specialty Start Date End Date Eryn Guerra MD [address] [place], [place] [address] [address] PCP - General Family Medicine 11/17/23 Adria Acevedo DO Primary Staff Physician Cardiology 11/28/18 Goals (unrecognized section and content) Goals may be documented in a n alternate sectionGoals may be documented in an alternate sectionGoals may be documented in an alternate sectionGoals may be documented in an alternate section No data available for this section No data available for this section No data available for this sectionGoals may be documented in an alternate sectionGoals may be documented in an alternate sectionGoals may be documented in an alternate sectionGoals may be documented in an alternate sectionGoals may be documented in an alternate sectionGoals may be documented in an alternate sectionGoals may be documented in an alternate sectionGoals may be documented in an alternate sectionGoals may be documented in an alternate section Care Team (unrecognized sect ion and content) Care Team Personnel Name: ERYN GUERRA Member Role: Primary Care Physician Address: Address: [address] [place] [id number]- Care Team Related Persons Name: VERONICA ATKINS Care Team Personnel Name: ERYN GUERRA Member Role: Primary Care Physician Address: Address: [facility] [address] Care Team Related Persons Name: VERONICA ATKINS Care Team Personnel Name: ERYN GUERRA Member Role: Primary Care Physician Address: Address: [facility] [place] [address]- Care Team Related Persons Name: VERONICA ATKINS Inactive Administered Medications - up to 3 most recent administrations Administered Medications (un recognized section and content) Medication Order MAR Action Action Date Dose Rate Site benzocaine 20% 1 [place] (TOPEX) 1 [place], TOPICAL, DIRECTED, Starting on Tue12/21/23 at 0730, Until Tue12/21/23 at 1129, Dosing as directed for intraprocedural use only - Pharmaceutical Waste: Aerosol -, Intraprocedure Given 12/21/2023 7:31 AM EDT 5 Sprays fentaNYL 50 mcg/mL 25-100 mcg injection (SUBLIMAZE) 25-100 mcg, INTRAVENOUS, DIRECTED, Starting on Tue12/21/23 at 0730, Until Tue12/21/23 at 1129, DOSING DIRECTED BY PHYSICIAN FOR PROCEDURAL SEDATION ONLY, Intraprocedure Given 12/21/2023 7:34 AM EDT 25 mcg Given 12/21/2023 7:32 AM EDT 50 mcg lactated ringers iv infusion 30 mL/hr, INTRAVENOUS, CONTINUOUS, Starting on Tue12/21/23 at 0730, Until Tue12/21/23 at 0754, Preprocedure New Bag/Syringe/Bottle 12/21/2023 7:20 AM EDT 30 mL/hr 30 mL/hr midazolam (PF) 1-5 mg injection (VERSED) 1-5 mg, INTRAVENOUS, DIRECTED, Starting on Tue12/21/23 at 0730, Until Tue12/21/23 at 1129, DOSING DIRECTED BY PHYSICIAN FOR PROCEDURAL SEDATION ONLY, Intraprocedure Given 12/21/2023 7:34 AM EDT 2 mg Given 12/21/2023 7:32 AM EDT 2 mg FOR RECORDS PERTAINING TO PATIENTS WHO ARE OR HAVE BEEN ENROLLED IN A CHEMICAL DEPENDENCY/SUBSTANCEABUSE PROGRAM, SOME INFORMATION MAY BE OMITTED. This clinical summary was aggregated from multiple sources. Caution should be exercised in using it in the provision of clinical care. This summary normalizes information from multiple sources, and as a consequence, information in this document may materially change the coding, format and clinical context of patient data. In addition, data may be omitted in some cases. CLINICAL DECISIONS SHOULD BE BASED ON THE PRIMARY CLINICAL RECORDS. [facility] provides no warranty or guarantee of the accuracy or completeness of information in this document.
[2025-05-10 10:33] LABS: Hematocrit 38.1 % (37-47); Hemoglobin 12.2 g/dL (12.0-15.0); Immature Granulocytes Count 0.030 X10^3/uL (0.0-0.0); Mean Corp Hgb Conc 32.0 g/dL (32-36); Mean Corpuscular Volume 91.1 fL (81-99); Mean Platelet Vol. 11.7 fl (6.2-12.0); NRBC Flagged by Analyzer 0 % (0-5); Platelet Count 253 K/mm3 (150-450); RBC Distribution Width CV 13.7 % (11.6-14.6); RBC Distribution Width SD 45.6 fl (35.1-43.9); Red Blood Count 4.18 M/mm3 (4.2-5.4); White Blood Count 7.6 K/mm3 (4.4-11.0)
[2025-05-10 11:05] LABS: AST(SGOT) 28 U/L (<=31); Alanine Aminotransfer ALT/SGPT 15 U/L (<=34); Albumin, Serum 4.0 g/dL (3.4-4.8); Alkaline Phosphatase 58 U/L (35-104); Anion Gap 11 (5-15); BUN 8 mg/dL (4-19); BUN/Creat Ratio 9.9 RATIO (10-20); Calcium,Total 9.6 mg/dL (7.6-11.0); Carbon Dioxide 23.5 mmol/L (21.0-32.0); Chloride 106 mmol/L (98-108); Globulin 3.1 g/dL (2.2-4.2); Glucose 118 mg/dL (70-99); Potassium 4.1 mmol/L (3.3-5.1)
[2025-05-10 11:35] LABS: Cholesterol 131 mg/dL (<=200); Low Density Lipoprotein Calc. 50 mg/dL; Triglycerides 138 mg/dL; Very Low Density Lipoprotein 28 mg/dL (5-40); cholesterol:hdl ratio screen 2.44
[2025-05-10 14:40] LABS: Creatinine, Urine (random) 125.00 mg/dL (28.00-217.00); Microalbumin,Random Urine 41.5 mg/L (<20 mg/L)
== END | disposition home or self-care (01) ==
LOC: MTLAB 09:17
PROVIDERS: PCP Family Medicine; Referring Provider Family Medicine; Visit Provider Family Medicine
DX: E11.9 Type 2 diabetes mellitus without complications (principal); I10 Essential (primary) hypertension; E78.5 Hyperlipidemia, unspecified; D64.9 Anemia, unspecified
CPT/HCPCS: 36415; 80053; 80061; 82043; 82570; 85025